=== PATIENT | female | born 1960 | race Two or more races ===

== ENCOUNTER 2022-11-05 10:56 | Inpatient (IN) | payer MEDICAID, OTHER ==
[~2022-11-05] VITALS: Ht 154.9 cm; Wt 62.0 kg
[2022-11-05] MEDS ORDERED: HYDROmorphone HCL 2 MG/ML VL/or syr IV ONE ×2 (11:15→14:45)
[2022-11-05] MEDS ORDERED: LORazepam 2MG/ML-1ML VIAL IV ONE (11:15)
[2022-11-05] MEDS ORDERED: ONDANSETRON HCL 4 MG/2 ML VIAL IV ONE (11:15)
[2022-11-05] MEDS ORDERED: SODIUM CHLORIDE 0.9% 1,000 ML IV ONE (11:15)
[2022-11-05 11:38] LABS: Basophils # (auto) 0 10 ^3/uL (0-0.2); Basophils % (auto) 0.4 % (0.0-2.0); Eosinophils # (auto) 0.1 10 ^3/uL (0-0.8); Eosinophils % (auto) 0.6 % (0.0-7.0); Hematocrit 43.5 % (36.0-46.0); Hemoglobin 14.6 g/dL (12.2-16.2); Lymphocytes % (auto) 31.6 % (10.0-50.0); Mean Corpuscular Hemoglobin 30.5 pg (28.0-32.0); Mean Corpuscular Hgb Conc. 33.6 g/dL (32.0-36.0); Mean Corpuscular Volume 90.8 fL (80.0-100.0); Monocytes # (auto) 0.4 10 ^3/uL (0-1.3); Monocytes % (auto) 4.5 % (0.0-12.0); Neutrophils # (auto) 5.9 10 ^3/uL (1.6-8.6); Neutrophils % (auto) 62.9 % (37.0-80.0); Nucleated Red Blood Cells % 0.2 %; Red Blood Cells 4.79 10^6/uL (4.0-5.20); Red Cell Distribution Width 13.2 % (11.8-14.3); White Blood Cell 9.3 10^3/uL (4.4-10.8)
[2022-11-05 11:52] VITALS: PULSE 61; O2SAT 98
[2022-11-05 12:04] LABS: Albumin 4.3 g/dL (3.4-5.0); Calcium 9.4 mg/dL (8.5-10.1); Potassium 4.2 mmol/L (3.5-5.1)
[2022-11-05 12:08] LABS: BUN/Creatinine Ratio 28.4 (10.0-20.0); Bilirubin, Total 0.6 mg/dL (0.2-1.0); Total Protein 8.3 g/dL (6.4-8.2)
[2022-11-05] MEDS ORDERED: IOHEXOL 300 MG/ML 100ML BOTTLE IJ ONE (14:56)
[2022-11-05] MEDS ORDERED: ANTIVENIN LATRODECTUS MACTANS KIT IV ONE ×2 (16:15)
[2022-11-05] MEDS ORDERED: LORazepam 2MG/ML-1ML VIAL IV PRN (16:30)
[2022-11-05] MEDS ORDERED: ONDANSETRON HCL 4 MG/2 ML VIAL IV PRN (16:30)
[2022-11-05] MEDS ORDERED: HYDROmorphone HCL 2 MG/ML VL/or syr IV PRN (16:30)
[2022-11-05] MEDS ORDERED: DEXTROSE (50%) 50ML SYRG IV PRN (16:30)
[2022-11-05] MEDS ORDERED: TETANUS-DIPTH-ACEL PERTUSSIS 0.5ML SYR Tdap IM ONE (16:30)
[2022-11-05] MEDS ORDERED: ACCU-CHEK COMFORT CURVE STRIP VI SCH (17:00)
[2022-11-05] MEDS ORDERED: InsuLIN REG 1unit/0.01ml Soln (100units/ml) SC SCH (17:00)
[2022-11-05 20:00] VITALS: BP 162/80; PULSE 72; RESP 12; TEMP 98.5; O2SAT 95
== END 2022-11-05 20:15 | disposition left against medical advice (07) | DRG 816 ==
LOC: ER 10:56 → EDBD 10:56 → TELE 16:24
PROVIDERS: ADMIT Nurse Practitioner Family; ATTEND Nurse Practitioner Family
DX: T63.311A Toxic effect of venom of black widow spider, accidental (unintentional), initial encounter (principal); E86.0 Dehydration; S90.862A Insect bite (nonvenomous), left foot, initial encounter; F41.9 Anxiety disorder, unspecified; Y92.096 Garden or yard of other non-institutional residence as the place of occurrence of the external cause; R73.9 Hyperglycemia, unspecified; Z85.118 Personal history of other malignant neoplasm of bronchus and lung; R91.1 Solitary pulmonary nodule; Z53.29 Procedure and treatment not carried out because of patient's decision for other reasons
CPT/HCPCS: 36415; 71045; 71260; 74177; 80053; 82550; 84484; 85025; 90715; G0378; J1815; J2405

== ENCOUNTER 2024-06-16 04:50 | Inpatient (IN) | payer MEDICARE, MEDICAID ==
[2024-06-16] VITALS (29 sets, daily range): BP systolic 119–154; BP diastolic 63–99; PULSE 82–102; RESP 14–26; TEMP 98.1–99.8; O2SAT 90–100
[~2024-06-16] VITALS: Ht 160 cm; Wt 62.5 kg
[2024-06-16] MEDS: HEPARIN SODIUM (PORCINE) 5000 UNITS/ML 1ML VIAL IV ONE (05:15)
--- NOTE | 2024-06-16 05:21 | ED.PDOC ---
HPI Comments 64 y/o F presents with c/o sternal chest pain that radiates to her left-chest wall, today. Patient is a Ukrainian speaker and endorses on sudden and unprovoked onset of pain at around 2300, last night. She comments on having no prior history of pain or any significant cardiac Chief Complaint: Chest Pain Time Seen by MD: 05:00 Primary Care Provider: NONE Reviewed Notes: Nurses Notes, Medications, Allergies Allergies: Coded Allergies: NO KNOWN ALLERGIES (Unverified , 11/05/22) Information Source: Patient Mode of Arrival: Ambulatory Severity: Moderate Timing: Hours Duration: Since onset Prehospital treatment: None Past Medical History PAST MEDICAL HISTORY: Cancer (stage IV lung cancer) Surgical History: Denies all surgeries PARKING PATROLLER History: No Pertinent PARKING PATROLLER History Family History Family History: Reviewed,noncontributory to illness Social History Smoker: Non-Smoker Alcohol: Denies ETOH Use Drugs: Denies Drug Use Lives In: Home Cardiovascular: reports: chest pain All Other Systems: Reviewed and Negative (negative unless otherwise stated above or in HPI) Physical Exam General Appearance: Normal, Severe Distress HEENT: Normal ENT Inspection, Pharynx Normal, TMs Normal Neck: Full Range of Motion, Non-Tender, Normal, Normal Inspection Respiratory: Chest Non-Tender, Lungs Clear, No Accessory Muscle Use, No Respiratory Distress, Normal Breath Sounds, Other (increase rate) Cardiovascular: No Edema, No JVD, No Murmur, No Gallop, Normal Peripheral Pulses, Regular Rate/Rhythm Breast Exam: Deferred Gastrointestinal: No Organomegaly, Non Tender, No Pulsatile Mass, Normal Bowel Sounds, Soft Genitalia: Deferred Pelvic: Deferred Rectal: Deferred Extremities: No calf tenderness, Normal capillary refill, Normal inspection, Normal range of motion, Non-tender, No pedal edema Musculoskeletal : Apperance: Normal Neurologic: Alert, sheeting puller II-XII nml as Tested, No Motor Deficits, Normal Affect, Normal Mood, No Sensory Deficits Cerebellar Function: Normal Reflexes: Normal Skin: Dry, Normal Color, Warm Lymphatic: No Adenopathy EKG EKG : Pulse Rate (adult): 94 [place]: Normal Cardiac Rhythm: NSR Block: None Hypertrophy: None ST: New, Inf, Infarct Comments ST changes in leads aVF Was a procedure done? Was a procedure done?: No CP Differential Dx Differential Diagnosis: N/A Differential Diagnosis: Chest Wall Pain, Costochondritis, Myocardial Infarction, Pericarditis, Pulmonary Embolus X-Ray, Labs, Meds, VS Vital Signs Date Time Temp Pulse Resp B/P (MAP) Pulse Ox O2 Delivery O2 Flow Rate FiO2 06/16/24 05:13 96.7 94 26 174/78 (110) 98 Lab Test 06/16/24 05:00 Range/Units White Blood Count Pending Red Blood Count Pending Hemoglobin Pending Hematocrit Pending Mean Corpuscular Volume Pending Mean Corpuscular Hemoglobin Pending Mean Corpuscular Hemoglobin Concent Pending Red Cell Distribution Width Pending Platelet Count Pending Mean Platelet Volume Pending Neutrophils (%) (Auto) Pending Lymphocytes (%) (Auto) Pending Monocytes (%) (Auto) Pending Basophils (%) (Auto) Pending Neutrophils # (Auto) Pending Lymphocytes # (Auto) Pending Monocytes # (Auto) Pending Prothrombin Time Pending Prothrombin Time INR Pending Activated Partial Thromboplast Time Pending Sodium Level Pending Potassium Level Pending Chloride Level Pending Carbon Dioxide Level Pending Anion Gap Pending Blood Urea Nitrogen Pending Creatinine Pending Glomerular Filtration Rate Calc Pending BUN/Creatinine Ratio Pending Serum Glucose Pending Calcium Level Pending Magnesium Level Pending Total Bilirubin Pending Aspartate Amino Transferase (AST) Pending Alanine Aminotransferase (ALT) Pending Alkaline Phosphatase Pending Troponin I High Sensitivity Pending Total Protein Pending Albumin Pending Time of 1ST Reevaluation: 05:15 Reevaluation 1ST: Unchanged Patient Education/Counseling: Diagnosis, Treatment Family Education/Counseling: No Family Present Departure 1 Departure Time of Disposition: 05:23 Impression: Primary Impression: Acute myocardial infarction Additional Impression: Lung cancer Disposition: ADMITTED INPATIENT Admit to: ICU Condition: Critical Discharged With: Self Comments Acute Chest Pain with Inferior STEMI Chief Complaint: Chest pain History of Present Illness: Patient is a 64-year-old female with history of lung cancer who presents with acute onset substernal chest pain. The patient started a new chemotherapy medication (Tagrisso) yesterday. Over the last 5-6 hours, she developed severe substernal chest pain described as pressure-like and crushing in nature. The pain has shown minimal improvement with medication administration in the ED. Review of Systems: Limited due to acute presentation Cardiovascular: Positive for chest pain, substernal, pressure-like and crushing in nature Medications: 1. Tagrisso (started yesterday) 2. ED medications administered: - Aspirin - Heparin 3, 000 units IV bolus - Morphine 4mg IV - Zofran 4mg IV Imaging and Other Relevant Results: EKG: ST elevations in leads II, III, and aVF (1-2mm in amplitude), consistent with inferior wall STEMI Medical Decision Making: Summary Statement: 64-year-old female with lung cancer on new Tagrisso therapy p resenting with acute onset chest pain and EKG changes consistent with inferior wall STEMI. Problem List: 1. Acute inferior wall STEMI 2. Lung cancer on Tagrisso 3. Acute chest pain Differential Diagnosis: 1. Acute coronary syndrome/STEMI 2. Chemotherapy-induced cardiotoxicity 3. Coronary vasospasm 4. Acute pulmonary embolism ED Course: Patient presented with severe chest pain. EKG showed inferior wall STEMI. Dr. Steinberg (cardiology) was consulted and reviewed the case. Shared decision-making discussion held with patient. Initial treatment included aspirin, heparin 3000 units IV bolus, morphine 4mg IV, and Zofran 4mg IV. Patient accepted plan for emergency cardiac catheterization. Assessment and Plan: 1. Acute Inferior Wall STEMI: - Emergency cardiac catheterization arranged with Dr. Steinberg - Initial stabilization with aspirin and heparin completed - Pain management with morphine initiated 2. Lung Cancer on Tagrisso: - Will need to evaluate potential relationship between new medication and cardiac event - Oncology consultation to be considered after stabilization 3. 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 This critical care time included obtaining a hi story; examining the patient; pulse oximetry; ordering and review of studies; arranging urgent treatment with development of a management plan; evaluation of patient's response to treatment; frequent reassessment; and, discussions with other providers. This critical care time was performed to assess and manage the high probability of imminent, life-threatening deterioration that could result in multi-organ failure. It was exclusive of separately billable procedures and treating other patients. Stability Stability form required: No Heart Score Heart Score: Heart Score Response (Comments) Value History Highly Suspicious [address]-Deviation 2 Age >65 2 Risk Factors 1 or 2 risk factors 1 Troponin 1-2 x's Normal limit 1 Total 8 I personally scribed for JUAN KEANE MD ([email or web address]) on 06/16/24 at 05:21. Electronically submitted by Darnell Prieto ([email or web address]). JUAN KEANE MD Jun 16, 2024 05:21
[2024-06-16] MEDS: SODIUM CHLOR 0.9% PF (SALINE LOCK) 10ML VIAL/SYR IV SCH (05:29)
[2024-06-16] MEDS: ASPirin 325 MG TAB PO ONE (05:29)
[2024-06-16] MEDS: ONDANSETRON HCL 4 MG/2 ML VIAL IV ONE (05:29)
[2024-06-16] MEDS: MORPHINE SULFATE 4 MG/ML SYR/VIAL IV ONE (05:32)
[2024-06-16 05:35] LABS: Basophils # (auto) 0 10 ^3/uL (0-0.2); Basophils % (auto) 0.2 % (0.0-2.0); Eosinophils # (auto) 0 10 ^3/uL (0-0.8); Eosinophils % (auto) 0.1 % (0.0-7.0); Hematocrit 31.5 % (36.0-46.0); Hemoglobin 10.2 g/dL (12.2-16.2); Lymphocytes # (auto) 1.2 10 ^3/uL (0.4-5.4); Lymphocytes % (auto) 9.5 % (10.0-50.0); Mean Corpuscular Hemoglobin 27.8 pg (28.0-32.0); Mean Corpuscular Hgb Conc. 32.3 g/dL (32.0-36.0); Mean Corpuscular Volume 85.9 fL (80.0-100.0); Monocytes # (auto) 0.4 10 ^3/uL (0-1.3); Neutrophils # (auto) 11.4 10 ^3/uL (1.6-8.6); Neutrophils % (auto) 87.2 % (37.0-80.0); Platelet Count (auto) 436 10^3/uL (140-450); Red Blood Cells 3.66 10^6/uL (4.0-5.20); Red Cell Distribution Width 14.8 % (11.8-14.3); White Blood Cell 13.1 10^3/uL (4.4-10.8)
[2024-06-16] MEDS: fentaNYL CITRATE 100 MCG/2 ML VL ONE (05:41)
[2024-06-16] MEDS: VERAPAMIL 2.5MG/ML INJ 2ML VIAL IV ONE (05:41)
[2024-06-16] MEDS: ANGIOMAX 250 MG VIAL IV ONE (05:41)
[2024-06-16] MEDS: SODIUM CHL 0.9% 50 ML ONE (05:42)
[2024-06-16] MEDS: MIDAZOLAM HCL 2MG/2ML 2ml VIAL (1mg/ml) ONE (05:42)
[2024-06-16] MEDS: LIDOCAINE 2%HCL (LOCAL ANESTH.) INJ 20ML MDV ONE (05:42)
--- NOTE | 2024-06-16 05:43 | DVHINCON2 ---
Date of service: Jun 16, 2024 History of Present Illness 64 yo F with hx of lung cancer on recent new chemo coming in for chest pain overnigth for few hours to middle of chest. pt speaks welsh and translator interpreter on phone with us. i recommended to call code stemi. pt is in moderate distress. family refuses all blood products. little hx othewise obtained. Past Medical History not provided Past Surgical History NA Allergies: Coded Allergies: NO KNOWN ALLERGIES (Unverified , 11/05/22) Current Medications Current Medications Medications (Trade) Dose Ordered Sig/Nitin Route PRN Reason Start Time Stop Time Status Last Admin Sodium Chloride (Saline Lock Ns) 10 ml Q8HR IV 06/16/24 06:00 06/16/24 05:29 Review of Systems +chest rubén, +sob, +weakness Vital Signs Vital Signs Date Time Temp Pulse Resp B/P (MAP) Pulse Ox O2 Delivery O2 Flow Rate FiO2 06/16/24 05:32 94 26 174/78 06/16/24 05:13 96.7 98 Physical Exam moderate distress pt sitting up labored breathing s1 s2 rrr diffuse rhonchi, decreased breath sounds R > L abd soft nt +1 leg edema BL Labs/Diagnostic Data Labs Test 06/16/24 05:00 Range/Units Assessment inferior stemi/ code stemi metastatic lung cancer per notes white out R lung resp distress Plan/Recommendation very high risk pt for cv morbidity and i spoke to them with translator interpreter her resp status and cxr appears bad iv heparin given asa furtherr ecs to follow or family member understands her critical nature no labs back, cannot rule out severe anemia or low pancytopenia and pt refuses all blood products this is a salvage case 90 mins critical care time spent Plan discussed with: Patient, Spouse, Other (rn) TAY MORENO MD Jun 16, 2024 05:43
[2024-06-16 05:45] LABS: INR 0.94 (0.9-1.15); Partial Thromboplastin Time 31.9 SEC (24.5-34.5)
--- NOTE | 2024-06-16 05:48 | DVH ---
CHEST RADIOGRAPH Indication: CP Technique: Single frontal view of the chest was obtained COMPARISON: XY CHEST PORTABLE on DOS: 11/05/22 FINDINGS: Lines and Tubes: None Lungs: Hazy opacification of the right hemithorax. Pleura: Small right pleural effusion. No pneumothorax. Cardiomediastinal contours: Unremarkable Bones: Unremarkable IMPRESSION: Small right pleural effusion. Possible superimposed right lung airspace disease.
[2024-06-16 05:59] LABS: Alanine Aminotransferase 14 U/L (7-40); Albumin 4.1 g/dL (3.2-4.8); Alkaline Phosphatase 93 U/L (46-116); Anion Gap 10 (5-15); Aspartate Aminotransferase 38 U/L (13-40); BUN/Creatinine Ratio 18.1 (10.0-20.0); Blood Urea Nitrogen 15 mg/dL (9-23); Calcium 9.9 mg/dL (8.7-10.4); Carbon Dioxide 25 mmol/L (20-31); Chloride 99 mmol/L (98-107); Magnesium 2.2 mg/dL (1.6-2.6); Potassium 4.1 mmol/L (3.5-5.1)
[2024-06-16 06:00] LABS: Bilirubin, Total 0.4 mg/dL (0.2-1.0); Total Protein 7.3 g/dL (5.7-8.2)
[2024-06-16 06:18] LABS: Glucose 290 mg/dL (74-106); Sodium 134 mmol/L (136-145)
[2024-06-16] MEDS: TICAGRELOR 90 MG TAB ONE (06:56)
--- NOTE | 2024-06-16 07:13 | DVHOP2 ---
Operative Report Operative Report CARDIAC LIVE AMMUNITION INSPECTOR PROCEDURE REPORT [place], [place] Date of Service: 06/16/24 Pile Header: Rom Moreno MD PROCEDURES PERFORMED: Coronary angiogram, left heart catheterization, conscious sedation administration and supervision, less than 15 minutes; fluoroscopy use and interpretation. sedation 15-30 mins , sedation 31-45 mins, sedatio 46-60 mins, PTCA 1 vessel, PCI1 vessel, acute ME intervention, intracoronary nitrog lycerin admin injection PREOPERATIVE DIAGNOSES: STEMI inferior POSTOP DIAGNOSIS: stemi DESCRIPTION OF PROCEDURE: The patient or appropriate family signed informed consent understanding the risks, benefits and alternatives of the procedure, they wished to proceed. The patient was brought to the cardiac concrete mixing plant laborer in n.p.o. state. The patient was prepped in a sterile fashion. Sedation was used per cardiac cath protocol. I administered 2 mL of 2% lidocaine to the right wrist. With an antegrade front wall puncture. I cannulated the right radial artery and placed a 6-Azeri Glidesheath slender. Next, an intra-arterial spasmolytic was administered. Next, a - 6French TJR4 and XB 3.0 guide and were used for coronary angiogram At the completion of procedure, all guides and wires were removed, and there were no immediate complications. 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 ostial LM has 30% stenosis CIRCUMFLEX: Moderate caliber vessel coming off the left main . mid CX is acutely occluded erin 0 flow and culprit vessel. large thrombus noted LAD: LAD is a moderate caliber vessel coming of the left main. ostial LAD has a 90% stenosis, prox to mid LAD has tandem 85% stenosis, distal LAD is severely disease 80-90% INTERVENTION: We decided to proceed with coronary intervention. I started with a 6F __XB3__ Guide to intubate the LM __. Angiomax bolus and gtt was started. Following this, I decided to wire using an .014 BMW across the culprit lesion with ease. At this time, we performed balloon angioplasty with a _2.25 x 15 mm balloon up to __10 _ ATMS over __15__ seconds with _2_ number of inflations. Following this, I decided to place a stent using a 3.0 x 26 mm mm onyx____ stent inflated up to __18___ ATMS over 15 seconds with two separate inflations. Following this, the stent balloon removed and angio performed showing 0% res idual stenosis. I decided to cover the distal stent with a 2.5 x 15 mm dolly josé luis up to 16 atms with 2 inflations and then ptca between the two stents with excellent result ERIN pre/post: 0./3 CONCLUSIONS: 1. sp PCI to acutely occluded mid CX and 2 JOSÉ LUIS placed and erin 0 to erin 3 flow 2. critical multivessel CAD PLAN: Aggressive risk factor modification and medical management for the patient. DAPT x 1 year uninterrupted ROM MORENO MD Jun 16, 2024 07:13
[2024-06-16] MEDS ORDERED: NITROGLYCERIN 0.4 MG SL TAB SL PRN (07:15)
[2024-06-16] MEDS ORDERED: MORPHINE SULFATE INJ 2 MG/ml SYRG IV PRN (07:15)
--- NOTE | 2024-06-16 12:43 | DVHHP2 ---
Review of Systems Allergies: Coded Allergies: NO KNOWN ALLERGIES (Unverified , 11/05/22) Medications Current Medications Medications Dose Ordered Sig/Nitin Route Start Time Stop Time Status Last Admin Dose Admin Sodium Chloride 10 ml Q8HR IV 06/16/24 06:00 06/16/24 05:29 10 ML Nitroglycerin 0.4 mg Q5MINP PRN SL 06/16/24 07:15 Morphine Sulfate 2 mg Q30M PRN IV 06/16/24 07:15 Aspirin 81 mg DAILY PO 06/17/24 10:00 Clopidogrel Bisulfate 75 mg DAILY PO 06/17/24 10:00 Atorvastatin Calcium 40 mg HS PO 06/16/24 22:00 UNV Metoprolol Tartrate 25 mg BID PO 06/16/24 22:00 UNV Albuterol 2.5 mg Q6HWA NEB 06/16/24 18:00 UNV Ipratropium [place] 0.5 mg Q6HWA NEB 06/16/24 18:00 UNV Diagnostic Test (Pha) 1 strip ACHS 06/16/24 17:00 UNV Insulin Human Regular HS SC 06/16/24 22:00 UNV Insulin Human Regular AC SC 06/16/24 17:00 UNV Dextrose 50 ml UD PRN IV 06/16/24 12:45 UNV Exam Vital Signs Vital Signs Date Time Temp Pulse Resp B/P (MAP) Pulse Ox O2 Delivery O2 Flow Rate FiO2 06/16/24 09:00 91 16 150/80 (103) 06/16/24 08:00 98 06/16/24 06:47 98.1 98.1 06/16/24 05:25 Nasal Cannula* 2 28 Labs/Xrays Labs Test 06/16/24 09:32 06/16/24 05:00 Range/Units Troponin I High Sensitivity > 96877 *H </=34 ng/L White Blood Count 13.1 H 4.4-10.8 10^3/uL Red Blood Count 3.66 L 4.0-5.20 10^6/uL Hemoglobin 10.2 L 12.2-16.2 g/dL Hematocrit 31.5 L 36.0-46.0 % Mean Corpuscular Volume 85.9 80.0-100.0 fL Mean Corpuscular Hemoglobin 27.8 L 28.0-32.0 pg Mean Corpuscular Hemoglobin Concent 32.3 32.0-36.0 g/dL Red Cell Distribution Width 14.8 H 11.8-14.3 % Platelet Count 436 140-450 10^3/uL Mean Platelet Volume 6.8 L 6.9-10.8 fL Neutrophils (%) (Auto) 87.2 H 37.0-80.0 % Lymphocytes (%) (Auto) 9.5 L 10.0-50.0 % Monocytes (%) (Auto) 3.0 0.0-12.0 % Eosinophils (%) (Auto) 0.1 0.0-7.0 % Basophils (%) (Auto) 0.2 0.0-2.0 % Neutrophils # (Auto) 11.4 H 1.6-8.6 10 ^3/uL Lymphocytes # (Auto) 1.2 0.4-5.4 10 ^3/uL Monocytes # (Auto) 0.4 0-1.3 10 ^3/uL Eosinophils # (Auto) 0 0-0.8 10 ^3/uL Basophils # (Auto) 0 0-0.2 10 ^3/uL Nucleated Red Blood Cells 0.0 % Prothrombin Time 10.0 9.3-11.8 sec Prothrombin Time INR 0.94 0.9-1.15 Activated Partial Thromboplast Time 31.9 24.5-34.5 SEC Sodium Level 134 L 136-145 mmol/L Potassium Level 4.1 3.5-5.1 mmol/L Chloride Level 99 98-107 mmol/L Carbon Dioxide Level 25 20-31 mmol/L Anion Gap 10 5-15 Blood Urea Nitrogen 15 9-23 mg/dL Creatinine 0.83 0.550-1.02 mg/dL Glomerular Filtration Rate Calc 78 >90 mL/min BUN/Creatinine Ratio 18.1 10.0-20.0 Serum Glucose 290 H 74-106 mg/dL Calcium Level 9.9 8.7-10.4 mg/dL Magnesium Level 2.2 1.6-2.6 mg/dL Total Bilirubin 0.4 0.2-1.0 mg/dL Aspartate Amino Transferase (AST) 38 13-40 U/L Alanine Aminotransferase (ALT) 14 7-40 U/L Alkaline Phosphatase 93 46-116 U/L Total Protein 7.3 5.7-8.2 g/dL Albumin 4.1 3.2-4.8 g/dL Assessment/Plan Assessment/Plan see dictated note Plan discussed with: Patient, Daughter My Orders Orders - DAPHNE ROSAS MD Procedure Category Date Status Time Atorvastatin (Lipitor) PHA 06/16/24 Logged 22:00 Metoprolol Tartrate PHA 06/16/24 Logged Tablet (Lopressor Ta 22:00 Albuterol Medneb PHA 06/16/24 Transmitted (Ventolin Medneb) 18:00 Ipratropium Medneb PHA 06/16/24 Transmitted (Atrovent Medneb) 18:00 Glucose Blood PHA 06/16/24 Logged (Accu-Chek Comfort 17:00 Insulin R (Human) PHA 06/16/24 Logged (Insulin R) 22:00 Insulin R (Human) PHA 06/16/24 Logged (Insulin R) 17:00 Dextrose 50% Syringe PHA 06/16/24 Logged 12:45 Consistent DIET 06/16/24 Transmitted Carb(Ccho)Diabetes Lunch Urine Dip ED NURSING 06/16/24 Transmitted Complete Blood Count LAB 06/17/24 Verified 06:00 Comprehensive LAB 06/17/24 Verified Metabolic Panel 06:00 Hemoglobin A1c LAB 06/17/24 Verified 06:00 Chest Portable XY 06/17/24 Logged 06:00 Date of Service: Jun 16, 2024 Billing Provider: DAPHNE ROSAS MD Common Visit Codes: [id number]-[id number] CARE 30-74 MIN DAPHNE ROSAS MD Jun 16, 2024 12:43
[2024-06-16] MEDS ORDERED: DEXTROSE (50%) 50ML SYRG IV PRN (12:45)
[2024-06-16] MEDS ORDERED: ACETAMINOPHEN 325 MG TAB PO PRN (12:45)
[2024-06-16] MEDS ORDERED: ONDANSETRON HCL 4 MG/2 ML VIAL IV PRN (12:45)
--- NOTE | 2024-06-16 13:10 | DVHHP ---
ADMIT DATE: 06/16/2024 HISTORY OF PRESENT ILLNESS: The patient is a 64-year-old lady who was admitted after she had ongoing chest pain going on for several hours. The details of her history were obtained from her daughter as the patient is primarily Mohawk speaking. As per the daughter, the patient recently was started on chemotherapy for right lung cancer. The patient has been experiencing intermittent chest pain for several weeks. Yesterday, the pain got increasingly intense, at which point the patient came to the Emergency Room. No history of dizziness or syncope. No history of nausea or vomiting. REVIEW OF SYSTEMS: Review of rest of systems are otherwise currently negative. PAST MEDICAL HISTORY: Significant for diagnosis of right lung cancer. The patient is status post bronchoscopy, status post thoracentesis. The patient recently started chemo. She also has a history of diabetes. MEDICATIONS: Unknown at this time. ALLERGIES: No known drug allergies. SOCIAL HISTORY: The patient lives at home with her . No history of smoking or alcohol. FAMILY HISTORY: Negative. PHYSICAL EXAMINATION: GENERAL: The patient is awake, alert. VITAL SIGNS: Temperature of 98.1, pulse 91 per minute, blood pressure 150/80. SHEENT: Unremarkable. NECK: There is no JVD, no pedal edema. LUNGS: Diminished air entry on the right side. CARDIOVASCULAR: S1, S2 is regular. No murmurs. ABDOMEN: Soft. There is no organomegaly. NEUROLOGIC: Nonfocal. MUSCULOSKELETAL: Normal. ASSESSMENT AND PLAN: * Acute myocardial infarction, status post coronary angiography with stent placement in the circumflex. The patient will continue on aspirin and Plavix. * Diabetes mellitus. She will be placed on sliding scale insulin and the hemoglobin A1c will be checked. * Right lung cancer, status post chemotherapy. * Anemia. * Systemic inflammatory response syndrome likely secondary to acute myocardial infarction. Critical care time spent including review of information was 41 minutes. MD EVANGELINA Ramos/ARYAN TID: [id number] RECEIPT: [id number]
--- NOTE | 2024-06-16 13:46 | ECG ---
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
[2024-06-16] MEDS: CLOPIDOGREL BISULFATE 75 MG TAB PO ONE (14:50)
[2024-06-16] MEDS: InsuLIN REG 1unit/0.01ml Soln (100units/ml) SC SCH ×2 (18:13→22:05)
[2024-06-16] MEDS: ACCU-CHEK COMFORT CURVE STRIP VI SCH (18:13)
[2024-06-16] MEDS: IPRATROPIUM BROM 0.5 MG/2.5ML INH SOL NEB SCH (19:00)
[2024-06-16] MEDS: ALBUTEROL SULF 2.5 MG/0.5ML(0.5%) NEB SOLN NEB SCH (19:00)
[2024-06-16] MEDS: TEMAZEPAM 15 MG CAP PO PRN (19:54)
[2024-06-16] MEDS: METOPROLOL TARTRATE 25 MG TAB PO SCH (22:00)
[2024-06-16] MEDS: ATORVASTATIN 20 MG TAB PO SCH (22:02)
[2024-06-17] VITALS (26 sets, daily range): BP systolic 87–120; BP diastolic 55–70; PULSE 74–94; RESP 14–31; TEMP 98.2–99; O2SAT 93–100
[2024-06-17 05:03] LABS: Alanine Aminotransferase 33 U/L (7-40); Albumin 3.7 g/dL (3.2-4.8); Alkaline Phosphatase 83 U/L (46-116); Anion Gap 11 (5-15); BUN/Creatinine Ratio 14.8 (10.0-20.0); Bilirubin, Total 0.4 mg/dL (0.2-1.0); Blood Urea Nitrogen 12 mg/dL (9-23); Carbon Dioxide 22 mmol/L (20-31); Chloride 101 mmol/L (98-107); Cholesterol 108 mg/dL (< 200); LDL Cholesterol 57 mg/dL (< 100); Potassium 4.2 mmol/L (3.5-5.1); Total Protein 6.6 g/dL (5.7-8.2); Triglycerides 93 mg/dL (< 150)
[2024-06-17 05:04] LABS: Aspartate Aminotransferase 177 U/L (13-40); Glucose 155 mg/dL (74-106); HDL Cholesterol 40 mg/dL (40-59); Sodium 134 mmol/L (136-145)
--- NOTE | 2024-06-17 05:07 | DVH ---
CHEST RADIOGRAPH Indication: lung cancer Technique: Single frontal view of the chest was obtained COMPARISON: XY CHEST PORTABLE on DOS: 06/16/24, XY CHEST PORTABLE on DOS: 11/05/22 FINDINGS: Lines and Tubes: None Lungs: Mild congestion Pleura: Small right pleural effusion. No pneumothorax. Cardiomediastinal contours: Unremarkable Bones: Unremarkable IMPRESSION: Small right pleural effusion.
[2024-06-17 05:22] LABS: Basophils # (auto) 0 10 ^3/uL (0-0.2); Basophils % (auto) 0.1 % (0.0-2.0); Eosinophils # (auto) 0.1 10 ^3/uL (0-0.8); Eosinophils % (auto) 0.7 % (0.0-7.0); Hematocrit 30.1 % (36.0-46.0); Hemoglobin 9.2 g/dL (12.2-16.2); Lymphocytes # (auto) 2.1 10 ^3/uL (0.4-5.4); Lymphocytes % (auto) 17.3 % (10.0-50.0); Mean Corpuscular Hemoglobin 26.8 pg (28.0-32.0); Mean Corpuscular Hgb Conc. 30.7 g/dL (32.0-36.0); Mean Corpuscular Volume 87.4 fL (80.0-100.0); Monocytes # (auto) 0.6 10 ^3/uL (0-1.3); Monocytes % (auto) 5.1 % (0.0-12.0); Neutrophils # (auto) 9.4 10 ^3/uL (1.6-8.6); Neutrophils % (auto) 76.8 % (37.0-80.0); Platelet Count (auto) 439 10^3/uL (140-450); Red Blood Cells 3.44 10^6/uL (4.0-5.20); Red Cell Distribution Width 14.9 % (11.8-14.3); White Blood Cell 12.3 10^3/uL (4.4-10.8)
[2024-06-17] MEDS: PANTOPRAZOLE 40 MG TAB PO SCH (06:09)
[2024-06-17] MEDS: TAGRISSO 80 MG PO SCH (08:39)
[2024-06-17] MEDS: ASPirin 81 mg TAB PO SCH (10:54)
[2024-06-17] MEDS: CLOPIDOGREL BISULFATE 75 MG TAB PO SCH (10:58)
--- NOTE | 2024-06-17 14:49 | DVHPN2 ---
Progress Note Date Seen: Jun 17, 2024 Medical Necessity Reason Pt with a Central, PICC or Fol: No Subjective Patient reports: No new complaints Review of Systems: HEENT:Normal, CVS:Normal, RESPIRATORY:Normal, GI:Normal, :Normal, MSK:Normal, NEURO:Normal Objective vital signs Vital Sign Date Time Temp Pulse Resp B/P (MAP) Pulse Ox O2 Delivery O2 Flow Rate FiO2 06/17/24 12:00 98.6 82 25 117/68 (84) 96 98.6 06/17/24 12:00 Room Air* 0 21 Total Intake and Output 06/16/24 06/16/24 06/17/24 15:00 23:00 07:00 Intake Total 300 ml 800 ml Output Total 1200 ml Balance 300 ml -400 ml medications Current Medications Medications Dose Ordered Sig/Nitin Route Start Time Stop Time Status Last Admin Dose Admin Sodium Chloride 10 ml Q8HR IV 06/16/24 06:00 06/17/24 05:37 10 ML Nitroglycerin 0.4 mg Q5MINP PRN SL 06/16/24 07:15 Morphine Sulfate 2 mg Q30M PRN IV 06/16/24 07:15 Aspirin 81 mg DAILY PO 06/17/24 10:00 06/17/24 10:54 81 MG Clopidogrel Bisulfate 75 mg DAILY PO 06/17/24 10:00 06/17/24 10:58 75 MG Atorvastatin Calcium 40 mg HS PO 06/16/24 22:00 06/16/24 22:02 40 MG Metoprolol Tartrate 25 mg BID PO 06/16/24 22:00 06/17/24 10:55 25 MG Albuterol 2.5 mg Q6HWA NEB 06/16/24 18:00 06/17/24 11:31 2.5 MG Ipratropium [place] 0.5 mg Q6HWA NEB 06/16/24 18:00 06/17/24 11:31 0.5 MG Diagnostic Test (Pha) 1 strip ACHS 06/16/24 17:00 06/17/24 11:01 1 STRIP Insulin Human Regular HS SC 06/16/24 22:00 06/16/24 22:05 4 UNITS Insulin Human Regular AC SC 06/16/24 17:00 06/17/24 11:05 6 UNITS Dextrose 50 ml UD PRN IV 06/16/24 12:45 Acetaminophen 650 mg Q6HP PRN PO 06/16/24 12:45 Ondansetron HCl 4 mg Q6HPRN PRN IV 06/16/24 12:45 Pantoprazole Sodium 40 mg DAILY@0600 PO 06/17/24 06:00 06/17/24 06:09 40 MG Patient Own Medication 1 DAILY PO 06/17/24 10:00 Temazepam 15 mg HSPRN PRN PO 06/16/24 17:30 06/16/24 19:54 15 MG Examination: GENERAL:Normal, HEENT:Normal, NECK:Normal, LUNGS:Normal, LUNGS:Abnormal (DECREASED RIGHT SIDE), CVS:Normal, ABDOMEN:Normal, MSK:Normal, SKIN:Normal, NEURO:Normal, :Normal laboratory and microbiology Laboratory Tests 06/17/24 03:11 Test 06/17/24 03:11 Range/Units Serum Glucose 155 H 74-106 mg/dL Problem List/Assessment/Plan Problem List/Assessment/Plan * Acute myocardial infarction, status post coronary angiography with stent placement in the circumflex. The patient will continue on aspirin and Plavix. * Diabetes mellitus. She will be placed on sliding scale insulin and the hemoglobin A1c will be checked. * Right lung cancer, status post chemotherapy/ right lung collapse * Anemia. * Systemic inflammatory response syndrome likely secondary to acute myocardial infarction. advance care planning- full code- time spent 19 mins Plan discussed with: Patient, Daughter My Orders My Orders Orders - DAPHNE ROSAS MD Procedure Category Date Status Time Patients Own PHA 06/17/24 In Process Medication 10:00 Mrsa Screen LOKESH 06/16/24 In Process 17:34 Transfer Orders XFER 06/17/24 Verified 14:46 Basic Metabolic Panel LAB 06/18/24 Verified 06:00 Complete Blood Count LAB 06/18/24 Verified 06:00 Date of Service: Jun 17, 2024 Billing Provider: DAPHNE ROSAS MD Common Visit Codes: [id number] INP/OBS CARE(HIGH) Secondary Visit Codes: [id number] CARE PLAN 30 MINUTES DAPHNE ROSAS MD Jun 17, 2024 14:49
[2024-06-17 15:32] LABS: Urine Bacteria None Seen /hpf (None Seen)
[2024-06-17 15:44] LABS: Urine Blood Negative /uL (Negative); Urine Clarity Clear (Clear); Urine Color Light-Yellow (Yellow); Urine Protein, UAD Negative (Negative); Urine Specific Gravity 1.014 (1.001-1.035); Urine Squamous Epithelial Cell None Seen /hpf (<5); Urine Urobilinogen Normal (Negative); Urine WBC < 1 /HPF (0-5)
[2024-06-18] VITALS (10 sets, daily range): BP systolic 100–130; BP diastolic 59–87; PULSE 69–83; RESP 16–20; TEMP 97.6–98.6; O2SAT 93–100
[2024-06-18 05:52] LABS: Basophils # (auto) 0 10 ^3/uL (0-0.2); Basophils % (auto) 0.5 % (0.0-2.0); Eosinophils # (auto) 0.3 10 ^3/uL (0-0.8); Eosinophils % (auto) 3.2 % (0.0-7.0); Hematocrit 33.5 % (36.0-46.0); Hemoglobin 10.7 g/dL (12.2-16.2); Lymphocytes % (auto) 21.9 % (10.0-50.0); Mean Corpuscular Hemoglobin 27.3 pg (28.0-32.0); Mean Corpuscular Hgb Conc. 31.9 g/dL (32.0-36.0); Mean Corpuscular Volume 85.6 fL (80.0-100.0); Monocytes # (auto) 0.6 10 ^3/uL (0-1.3); Monocytes % (auto) 6.4 % (0.0-12.0); Neutrophils # (auto) 6.1 10 ^3/uL (1.6-8.6); Platelet Count (auto) 410 10^3/uL (140-450); Red Blood Cells 3.92 10^6/uL (4.0-5.20); Red Cell Distribution Width 14.6 % (11.8-14.3)
[2024-06-18 06:10] LABS: Chloride 104 mmol/L (98-107); Potassium 4.2 mmol/L (3.5-5.1); Sodium 138 mmol/L (136-145)
[2024-06-18 06:11] LABS: Anion Gap 8 (5-15); Calcium 9.5 mg/dL (8.7-10.4); Carbon Dioxide 26 mmol/L (20-31)
[2024-06-18 06:16] LABS: Blood Urea Nitrogen 15 mg/dL (9-23)
[2024-06-18 06:32] LABS: Glucose 154 mg/dL (74-106)
--- NOTE | 2024-06-18 10:35 | DVHDS2 ---
Discharge Summary Date of Admission Jun 16, 2024 at 07:05 Date of Discharge: Jun 18, 2024 Labs/Diagnostic Data: Laboratory Results Test 06/18/24 05:51 06/18/24 05:13 06/17/24 15:10 06/17/24 03:11 POC Glucose 150 mg/dl (70-106) White Blood Count 9.0 10^3/uL (4.4-10.8) Red Blood Count 3.92 10^6/uL (4.0-5.20) Hemoglobin 10.7 g/dL (12.2-16.2) Hematocrit 33.5 % (36.0-46.0) Mean Corpuscular Volume 85.6 fL (80.0-100.0) Mean Corpuscular Hemoglobin 27.3 pg (28.0-32.0) Mean Corpuscular Hemoglobin Concent 31.9 g/dL (32.0-36.0) Red Cell Distribution Width 14.6 % (11.8-14.3) Platelet Count 410 10^3/uL (140-450) Mean Platelet Volume 7.1 fL (6.9-10.8) Neutrophils (%) (Auto) 68.0 % (37.0-80.0) Lymphocytes (%) (Auto) 21.9 % (10.0-50.0) Monocytes (%) (Auto) 6.4 % (0.0-12.0) Eosinophils (%) (Auto) 3.2 % (0.0-7.0) Basophils (%) (Auto) 0.5 % (0.0-2.0) Neutrophils # (Auto) 6.1 10 ^3/uL (1.6-8.6) Lymphocytes # (Auto) 2.0 10 ^3/uL (0.4-5.4) Monocytes # (Auto) 0.6 10 ^3/uL (0-1.3) Eosinophils # (Auto) 0.3 10 ^3/uL (0-0.8) Basophils # (Auto) 0 10 ^3/uL (0-0.2) Nucleated Red Blood Cells 0.0 % Sodium Level 138 mmol/L (136-145) Potassium Level 4.2 mmol/L (3.5-5.1) Chloride Level 104 mmol/L (98-107) Carbon Dioxide Level 26 mmol/L (20-31) Anion Gap 8 (5-15) Blood Urea Nitrogen 15 mg/dL (9-23) Creatinine 0.75 mg/dL (0.550-1.02) Glomerular Filtration Rate Calc 88 mL/min (>90) BUN/Creatinine Ratio 20.0 (10.0-20.0) Serum Glucose 154 mg/dL (74-106) Calcium Level 9.5 mg/dL (8.7-10.4) Urine Color Light-yellow (Yellow) Urine Clarity Clear (Clear) Urine pH 6.0 (5.0-9.0) Urine Specific [place] 1.014 (1.001-1.035) Urine Protein Negative (Negative) Urine Ketones Negative (Negative) Urine Blood Negative /uL (Negative) Urine Nitrite Negative (Negative) Urine Bilirubin Negative (Negative) Urine Urobilinogen Normal mg/dL (Negative) Urine Leukocyte Esterase Negative /uL (Negative) Urine RBC None seen /hpf (0 - 4) Urine Microscopic WBC < 1 /HPF (0-5) Urine Squamous Epithelial Cells None seen /hpf (<5) Urine Bacteria None seen /hpf (None Seen) Urine Glucose Normal mg/dL (Normal) Hemoglobin A1c 7.1 % A1C (<5.7) Total Bilirubin 0.4 mg/dL (0.2-1.0) Aspartate Amino Transferase (AST) 177 U/L (13-40) Alanine Aminotransferase (ALT) 33 U/L (7-40) Alkaline Phosphatase 83 U/L (46-116) Troponin I High Sensitivity 59322 ng/L (</=34) Total Protein 6.6 g/dL (5.7-8.2) Albumin 3.7 g/dL (3.2-4.8) Triglycerides Level 93 mg/dL (< 150) Cholesterol Level 108 mg/dL (< 200) LDL Cholesterol 57 mg/dL (< 100) HDL Cholesterol 40 mg/dL (40-59) Test 06/16/24 05:00 Prothrombin Time 10.0 sec (9.3-11.8) Prothrombin Time INR 0.94 (0.9-1.15) Activated Partial Thromboplast Time 31.9 SEC (24.5-34.5) Magnesium Level 2.2 mg/dL (1.6-2.6) Other Laboratory Tests 06/18/24 05:13 Brief Hx & Hospital Course: see dictated note Condition at Discharge: Fair Final Diagnosis/Problems List cad s/p stent Discharge Disposition: Home Discharge Instruct/Medications Diet: Cardiac 2g Na,low cholest Activity: No Restrictions, As Tolerated Follow Up/Referral: fu with cardiology/oncology/pulmonary Medications: resume home meds script to pharmacy Discharge Statement: "Patient was advised to return to the ER or call 911 if any headaches, dizziness, shortness of breath, chest pain, abdominal pain, bleeding, fevers, or worsening of medical condition. Patient was counseled about treatment plan, medications, possible side effects, patientverbalized understanding. All questions were answered to the best of my ability. This discharge took greater then 30 minutes in planning, reviewing documentation, counseling the patient, and discussing with other team members." ASSESSMENT ASSESSMENT Assessment cad s/p stent Date of Service: Jun 18, 2024 Billing Provider: DAPHNE ROSAS MD Common Visit Codes: 10832-YUJ/OBS DISCH DAY >30min DAPHNE ROSAS MD Jun 18, 2024 10:35
[2024-06-18] MEDS ORDERED: METO25TA36 PO (10:40)
[2024-06-18] MEDS ORDERED: ASPI1TAB20 PO (10:40)
[2024-06-18] MEDS ORDERED: CLOP75TA28 PO (10:40)
[2024-06-18] MEDS ORDERED: ATOR-507 PO (10:40)
--- NOTE | 2024-06-18 11:22 | DVHDS ---
DATE OF DISCHARGE: 06/18/2024 HISTORY OF PRESENT ILLNESS: The patient is a 64-year-old lady who was admitted with complaints of chest pain and has recent history of right lung cancer, status post chemo as well as diabetes mellitus. HOSPITAL COURSE: The patient had troponin levels that were elevated. The patient underwent coronary angiography by Dr. Steinberg. The patient had stents placed in the mid circumflex with 2 drug-eluting stents placed. The patient had a right lung that was significantly occluded with small right pleural effusion. The patient has had no further chest pain. The patient has had some hemoptysis. Hemoglobin at the time of discharge is 10.7. I discussed with her daughter as well as Dr. Steinberg. The plan is for the patient to be discharged to follow up with her Oncology and supervisor metal cans at [facility] for further treatment for her lung cancer, which is likely triggering her hemoptysis. The patient will be discharged on aspirin 81 mg daily, Lipitor 40 mg at bedtime, Plavix 75 mg daily, Toprol-XL 25 mg daily and she will resume the rest of her home medications. FINAL DIAGNOSES: Therefore, * Acute myocardial infarction, status post coronary angiography and stent placement. * Diabetes mellitus. * Right lung cancer with right lung collapse, status post chemotherapy. * Anemia. * Systemic inflammatory response syndrome, likely secondary to acute myocardial infarction. Time spent in discharge planning and review of plan with the patient, family and documentum consultant was 39 minutes. MD EVANGELINA Ramos/AUGUSTIN/MICKEY TID: [id number] RECEIPT: [id number]
--- NOTE | 2024-06-18 12:12 | DVHPN2 ---
Progress Note Date Seen: Jun 18, 2024 Medical Necessity Reason Pt with a Central, PICC or Fol: No Subjective Other Systems: pt coughing a lot spoke to dr hernandez Objective vital signs Vital Sign Date Time Temp Pulse Resp B/P (MAP) Pulse Ox O2 Delivery O2 Flow Rate FiO2 06/18/24 11:49 69 16 100 06/18/24 11:41 Room Air 0.0 06/18/24 11:41 21 06/18/24 10:15 116/87 06/18/24 09:04 97.9 97.9 Total Intake and Output 06/17/24 06/17/24 06/18/24 15:00 23:00 07:00 Intake Total 300 ml Balance 300 ml medications Current Medications Medications Dose Ordered Sig/Ntiin Route Start Time Stop Time Status Last Admin Dose Admin Sodium Chloride 10 ml Q8HR IV 06/16/24 06:00 06/18/24 05:59 10 ML Nitroglycerin 0.4 mg Q5MINP PRN SL 06/16/24 07:15 Morphine Sulfate 2 mg Q30M PRN IV 06/16/24 07:15 Aspirin 81 mg DAILY PO 06/17/24 10:00 06/18/24 10:39 81 MG Clopidogrel Bisulfate 75 mg DAILY PO 06/17/24 10:00 06/18/24 10:39 75 MG Atorvastatin Calcium 40 mg HS PO 06/16/24 22:00 06/17/24 20:45 40 MG Metoprolol Tartrate 25 mg BID PO 06/16/24 22:00 06/18/24 10:15 25 MG Albuterol 2.5 mg Q6HWA NEB 06/16/24 18:00 06/18/24 11:41 2.5 MG Ipratropium Challenge 0.5 mg Q6HWA NEB 06/16/24 18:00 06/18/24 11:41 0.5 MG Diagnostic Test (Pha) 1 strip ACHS 06/16/24 17:00 06/18/24 05:51 1 STRIP Insulin Human Regular HS SC 06/16/24 22:00 06/17/24 20:56 3 UNITS Insulin Human Regular AC SC 06/16/24 17:00 06/18/24 05:51 2 UNITS Dextrose 50 ml UD PRN IV 06/16/24 12:45 Acetaminophen 650 mg Q6HP PRN PO 06/16/24 12:45 Ondansetron HCl 4 mg Q6HPRN PRN IV 06/16/24 12:45 Pantoprazole Sodium 40 mg DAILY@0600 PO 06/17/24 06:00 06/18/24 05:59 40 MG Patient Own Medication 1 DAILY PO 06/17/24 10:00 Hold Temazepam 15 mg HSPRN PRN PO 06/16/24 17:30 06/16/24 19:54 15 MG Examination: GENERAL:Abnormal, HEENT:Normal, LUNGS:Abnormal, CVS:Abnormal, ABDOMEN:Abnormal laboratory and microbiology Laboratory Tests 06/18/24 05:13 Test 06/18/24 05:13 Range/Units Serum Glucose 154 H 74-106 mg/dL Microbiology Date/Time Source Procedure Growth Status 06/16/24 17:34 Nose MRSA Screen - Final Complete Problem List/Assessment/Plan Problem List/Assessment/Plan stemi lung cancer htn new onset chf cxr prior to stemi showed near white out to R lung and lot of coughing, stat stemi with pci to CX/OM cad ---severe 3v cad, very high risk for repeat intervention, cont dapt, statin lung cancer--pt needs to see her pulm jarrett for possible stenting . hemoptysis--cont dapt for now. watch hgb cough - per primary service new onset chf--lvef 40% on echo with WMA, BB added, consider adding GDMT if pt can tolerate, consider jardiance, silvana, aldactone Plan discussed with: Other (rn) Date of Service: Jun 18, 2024 Billing Provider: TAY MORENO MD Common Visit Codes: NOT BILLABLE TAY MORENO MD Jun 18, 2024 12:12
--- NOTE | 2024-06-19 13:59 | ECG ---
[facility] Test Date: 2024-06-17 Test Time: 06:22:21 Pat Name: AUGIE COLLINS Department: icu Room: 0214T A Gender: F [employer] Worker: : 1960 Requested By: DAPHNE ROSAS Order Number: [id number] Reading MD: Saurav Choe Measurements Intervals [place] Rate: 80 P: 50 [place]: 155 QRS: 100 QRSD: 96 T: -42 QT: 413 QTc: 477 Interpretive Statements Sinus rhythm Low voltage, extremity leads Electronically Signed On 06-20-2024 15:57:55 PST by Saurav Choe Please click the below link to view image of tracing.
== END 2024-06-18 15:40 | disposition home or self-care (01) | DRG 321 ==
LOC: ER 04:50 → OVERFLOW 07:05 → ICU WEST 18:12 → TELE-CENTR 06-17 16:00
PROVIDERS: ADMIT Internal Medicine; ATTEND Internal Medicine
PROC: 027035Z Dilation of Coronary Artery, One Artery with Two Drug-eluting Intraluminal Devices, Percutaneous Approach (ICD-10-PCS; principal; 2024-06-16)
PROC: B211YZZ Fluoroscopy of Multiple Coronary Arteries using Other Contrast (ICD-10-PCS; 2024-06-16)
PROC: 3E033PZ Introduction of Platelet Inhibitor into Peripheral Vein, Percutaneous Approach (ICD-10-PCS; 2024-06-16)
PROC: 4A023N7 Measurement of Cardiac Sampling and Pressure, Left Heart, Percutaneous Approach (ICD-10-PCS; 2024-06-16)
DX: I21.19 ST elevation (STEMI) myocardial infarction involving other coronary artery of inferior wall (principal); I50.31 Acute diastolic (congestive) heart failure; R65.11 Systemic inflammatory response syndrome (SIRS) of non-infectious origin with acute organ dysfunction; C34.91 Malignant neoplasm of unspecified part of right bronchus or lung; J98.19 Other pulmonary collapse; R04.2 Hemoptysis; I25.10 Atherosclerotic heart disease of native coronary artery without angina pectoris; I11.0 Hypertensive heart disease with heart failure; D64.9 Anemia, unspecified; E11.9 Type 2 diabetes mellitus without complications; Z79.899 Other long term (current) drug therapy; Z79.82 Long term (current) use of aspirin; Z79.4 Long term (current) use of insulin; Z92.21 Personal history of antineoplastic chemotherapy
CPT/HCPCS: 36415; 71045; 80048; 80053; 80061; 81001; 82962; 83036; 83735; 84484; 85025; 85610; 85730; 87081; 92941; 93005; 93306; 93458; 94640; 96374; 96375; 99152; 99291; C1874; G0378; J1815; J2250; J2405

== ENCOUNTER 2024-06-25 16:52 | Inpatient (IN) | payer MEDICARE, MEDICAID ==
[~2024-06-25] VITALS: Ht 160 cm; Wt 64.5 kg
[~2024-06-25 16:52] MED LIST: ASPI1TAB20 PO; ATOR-507 PO; CLOP75TA28 PO; METO25TA36 PO
--- NOTE | 2024-06-25 17:16 | ED.PDOC ---
SOB-HPI HPI Comments 64y M who presents to the ED for chief complaint of shortness of breath. Per pt daughter via phone, pt has history of lung cancer dx May and states she has started this AM to receive new antibody therapy shot today. Pt was told this hew antibody therapy has possible side effect of lung damage. Pt had shot of new medication at 11 AM and states at around 2 PM, she started to have shortness of breath which got progressively worse and pt was brought by to the ED. Pt daughter states pt cancer has metastasized. Pt otherwise noted to have cough but denies any other symptoms. Pt had DE at [facility] 1 week prior and states she was hospitalized with stent placement. Pt otherwise denies any other symptoms at this time. Time Seen by MD: 17:11 Primary Care Provider: NONE Reviewed notes: Nurses Notes, Medications, Allergies Information Source: Patient, Relative, Spouse Mode of Arrival: Wheelchair Brought in by: Severity: Moderate Timing: Minutes, Hours Duration: Since onset Context: At Rest, With Light Exertion PE Risk Factors: Recent Surgery History of: Immunosuppression Prehospital treatment: None Modifying Factors: Nothing Associated Signs and Symptoms: Cough, Nasal Congestion If cough with SOB: Productive Past Medical History PAST MEDICAL HISTORY: Cancer, DM, High Lipids, HTN, TIA Surgical History: CABG, Denies all surgeries SALES ACCOUNT MANAGER History: No Pertinent SALES ACCOUNT MANAGER History Family History Family History: Reviewed,noncontributory to illness Social History Smoker: Non-Smoker Alcohol: Denies ETOH Use Drugs: Denies Drug Use Lives In: Home Constitutional: denies: chills, diaphoresis, fatigue, fever, malaise, sweats, weakness, others EENTM: denies: blurred vision, double vision, ear bleeding, ear discharge, ear drainage, ear pain, ear ringing, eye pain, eye redness, hearing loss, mouth pain, mouth swelling, nasal discharge, nose bleeding, nose congestion, nose pain, photophobia, tearing, throat pain, throat swelling, voice changes, others Respiratory: reports: cough, shortness of breath; denies: hemoptysis, orthopnea, SOB at rest, SOB with excertion, stridor, wheezing, others Cardiovascular: denies: chest pain, dizzy spells, diaphoresis, Dyspnea on exertion, edema, irregular heart beat, left arm pain, lightheadedness, palpitations, PND, syncope, others Gastrointestinal: denies: abdomen distended, abdominal pain, blood streaked bowels, constipated, diarrhea, dysphagia, difficulty swallowing, hematemesis, melena, nausea, poor appetite, poor fluid intake, rectal bleeding, rectal pain, vomiting, others Genitourinary: denies: abnormal vagina bleeding, burning, dyspareunia, dysuria, flank pain, frequency, hematuria, incontinence, pain, , vagina discha rge, urgency, others Neurological: denies: dizziness, fainting, headache, left sided numbness, left sided weakness, numbness, paresthesia, pre-existing deficit, right sided numbness, right sided weakness, seizure, speech problems, tingling, tremors, weakness, others Musculoskeletal: denies: back pain, gout, joint pain, joint swelling, muscle pain, muscle stiffness, neck pain, others Integumetry: denies: bruises, change in color, change in hair/nails, dryness, laceration, lesions, lumps, rash, wounds, others Allergic/Immunocompromised: denies: Difficulty Healing, Frequent Infections, Hives, Itching, others Hematologic/Lymphatic: denies: anemia, blood clots, easy bleeding, easy bruising, swollen glands, others Endocrine: denies: excessive hunger, excessive sweating, excessive thirst, excessive urination, flushing, intolerance to cold, intolerance to heat, unexplained weight gain, unexplained weight loss, others Psychiatric: denies: anxiety, bipolar disorder, depression, hopeless, panic disorder, schizophrenia, sleepless, suicidal, others All Other Systems: Reviewed and Negative Physical Exam General Appearance: Moderate Distress HEENT: Normal ENT Inspection, Pharynx Normal, TMs Normal Neck: Full Range of Motion, Non-Tender, Normal, Normal Inspection Respiratory: Chest Non-Tender, Decreased Breath Sounds (Right side), No Accessory Muscle Use, Respiratory Distress, Rhonchi Cardiovascular: No Edema, No JVD, No Murmur, No Gallop, Normal Peripheral Pulses, Regular Rate/Rhythm Breast Exam: Deferred Gastrointestinal: No Organomegaly, Non Tender, No Pulsatile Mass, Normal Bowel Sounds, Soft Genitalia: Deferred Pelvic: Deferred Rectal: Deferred Extremities: No calf tenderness, Normal capillary refill, Normal inspection, Normal range of motion, Non-tender, No pedal edema Musculoskeletal : Apperance: Normal Neurologic: Alert, alterations manager II-XII nml as Tested, Motor Weakness, Normal Affect, Normal Mood, No Sensory Deficits Cerebellar Function: Normal Reflexes: Normal Skin: Dry, Normal Color, Warm Lymphatic: No Adenopathy EKG EKG : Pulse Rate (adult): 91 [place]: Normal Cardiac Rhythm: NSR Block: None Hypertrophy: None ST: Normal Was a procedure done? Was a procedure done?: No Differential Dx Differential Diagnosis: Bronchitis, Hyperventilation, Myocardial infarction, Pneumonia, Pulmonary Embolism, Respiratory Distress, URI Comments chemotherapy side effect, X-Ray, Labs, Meds, VS Vital Signs Date Time Temp Pulse Resp B/P (MAP) Pulse Ox O2 Delivery O2 Flow Rate FiO2 06/25/24 17:16 91 06/25/24 17:10 98 Room Air* 0 21 06/25/24 17:06 91 06/25/24 17:05 98.4 94 18 166/76 (106) 98 Lab Test 06/25/24 17:12 Range/Units White Blood Count 7.7 4.4-10.8 10^3/uL Red Blood Count 3.88 L 4.0-5.20 10^6/uL Hemoglobin 10.8 L 12.2-16.2 g/dL Hematocrit 33.5 L 36.0-46.0 % Mean Corpuscular Volume 86.2 80.0-100.0 fL Mean Corpuscular Hemoglobin 27.8 L 28.0-32.0 pg Mean Corpuscular Hemoglobin Concent 32.2 32.0-36.0 g/dL Red Cell Distribution Width 14.9 H 11.8-14.3 % Platelet Count 384 140-450 10^3/uL Mean Platelet Volume 6.9 6.9-10.8 fL Neutrophils (%) (Auto) 65.3 37.0-80.0 % Lymphocytes (%) (Auto) 24.6 10.0-50.0 % Monocytes (%) (Auto) 7.1 0.0-12.0 % Eosinophils (%) (Auto) 2.2 0.0-7.0 % Basophils (%) (Auto) 0.8 0.0-2.0 % Neutrophils # (Auto) 5.0 1.6-8.6 10 ^3/uL Lymphocytes # (Auto) 1.9 0.4-5.4 10 ^3/uL Monocytes # (Auto) 0.5 0-1.3 10 ^3/uL Eosinophils # (Auto) 0.2 0-0.8 10 ^3/uL Basophils # (Auto) 0.1 0-0.2 10 ^3/uL Nucleated Red Blood Cells 0.1 % D-Dimer, Quantitative 3.90 H 0.0-0.49 mg/L FEU Sodium Level 136 136-145 mmol/L Potassium Level 5.0 3.5-5.1 mmol/L Chloride Level 103 98-107 mmol/L Carbon Dioxide Level 29 20-31 mmol/L Anion Gap 4 L 5-15 Blood Urea Nitrogen 16 9-23 mg/dL Creatinine 0.89 0.550-1.02 mg/dL Glomerular Filtration Rate Calc 72 >90 mL/min BUN/Creatinine Ratio 18.0 10.0-20.0 Serum Glucose 213 H 74-106 mg/dL Calcium Level 9.7 8.7-10.4 mg/dL B-Type Natriuretic Peptide 233.41 0-100 pg/mL The chest x-ray shows: IMPRESSION: 1. Slightly improving right pleural effusion airspace disease We ordered an ultrasound of the right chest for pleural effusion We consulted Dr. Aleman who is the vice president business development on-call and he will be coming to perform a thoracentesis The CBC shows anemia with a hemoglobin of 10.8 The chemistry panel is within normal limits The D-dimer is elevated at 3.9 which could be reflective of the patient's lung cancer At this time, the patient was placed on room air saturating at 98% At this time, the patient will be admitted to the hospitalist We have discussed the findings through an certified court/medical interpreter with the patient and she is in agreement with the management. Critical care time was bedside management Also critical care time was discussion with the sfdc consultant. Critical care time was reviewing the imaging as well as laboratory results and decision making We are adding a PT/PTT Images Reviewed?: Images reviewed and evaluated by me Time of 1ST Reevaluation: 17:45 Reevaluation 1ST: Unchanged Patient Education/Counseling: Diagnosis, Treatment, Prognosis Family Education/Counseling: Diagnosis, Treatment, Prognosis Departure 1 Departure Time of Disposition: 18:51 Impression: Primary Impression: Acute respiratory failure Qualified Codes: J96.00 - Acute respiratory failure, unspecified whether with hypoxia or hypercapnia Additional Impression: Pleural effusion, right Disposition: 09 ADMITTED INPATIENT Admit to: Tele Condition: Fair Critical Care Note Critical Care Time?: Yes (45 min-critical care time only) Stability Stability form required: Yes Unstable for transfer: Telemetry monitoring (Telemetry monitoring required), ED Physician Assesment (Clinical assesment) Heart Score Heart Score: Heart Score Response (Comments) Value History Slightly Suspicious 0 EKG Normal 0 Age >65 2 Risk Factors >3 or Hx ASHD 2 Troponin Normal limit 0 Total 4 I personally scribed for GABRIELLA ALY MD ([email or web address]) on 06/25/24 at 17:16. Electronically submitted by Param Hicks ([email or web address]). GABRIELLA ALY MD Jun 25, 2024 17:16
--- NOTE | 2024-06-25 17:33 | DVH ---
XY CHEST TWO VIEWS ROUTINE CLINICAL HISTORY: sob COMPARISON: None TECHNIQUE: Frontal and lateral view of the chest was obtained FINDINGS: Lines and Tubes: None Lungs: Slowly improving right pleural effusion airspace disease when compared to 06/17/2024.. Pleura: No effusion. No pneumothorax. Cardiomediastinal contours: Unremarkable Bones: No acute osseous abnormality. IMPRESSION: 1. Slightly improving right pleural effusion airspace disease
[2024-06-25 17:38] LABS: Basophils # (auto) 0.1 10 ^3/uL (0-0.2); Basophils % (auto) 0.8 % (0.0-2.0); Eosinophils # (auto) 0.2 10 ^3/uL (0-0.8); Eosinophils % (auto) 2.2 % (0.0-7.0); Hematocrit 33.5 % (36.0-46.0); Hemoglobin 10.8 g/dL (12.2-16.2); Lymphocytes # (auto) 1.9 10 ^3/uL (0.4-5.4); Lymphocytes % (auto) 24.6 % (10.0-50.0); Mean Corpuscular Hemoglobin 27.8 pg (28.0-32.0); Mean Corpuscular Hgb Conc. 32.2 g/dL (32.0-36.0); Mean Corpuscular Volume 86.2 fL (80.0-100.0); Monocytes # (auto) 0.5 10 ^3/uL (0-1.3); Monocytes % (auto) 7.1 % (0.0-12.0); Neutrophils % (auto) 65.3 % (37.0-80.0); Nucleated Red Blood Cells % 0.1 %; Platelet Count (auto) 384 10^3/uL (140-450); Red Blood Cells 3.88 10^6/uL (4.0-5.20); Red Cell Distribution Width 14.9 % (11.8-14.3); White Blood Cell 7.7 10^3/uL (4.4-10.8)
[2024-06-25 17:41] LABS: Chloride 103 mmol/L (98-107); Sodium 136 mmol/L (136-145)
[2024-06-25 17:42] LABS: Anion Gap 4 (5-15); Carbon Dioxide 29 mmol/L (20-31)
[2024-06-25 17:43] LABS: Calcium 9.7 mg/dL (8.7-10.4)
[2024-06-25 17:47] LABS: Blood Urea Nitrogen 16 mg/dL (9-23)
[2024-06-25 18:07] LABS: Glucose 213 mg/dL (74-106)
--- NOTE | 2024-06-25 18:07 | DVH ---
RIGHT Chest Sonogram Date: 06/25/2024 05:45 PM Clinical history: PLEURAL EFFUSION TECHNIQUE: Multiple longitudinal and transverse images through the right chest were obtained. Images submitted: 6 Findings: Limited sonographic evaluation of the RIGHT chest was performed to localize and arsenio fluid for thorac entesis. There is a LARGE RIGHT pleural effusion. A fluid pocket in the RIGHT chest. IMPRESSION: 1. LARGE RIGHT PLEURAL EFFUSION
[2024-06-25 18:30] VITALS: PULSE 92; RESP 17; O2SAT 94
[2024-06-25 19:28] LABS: INR 0.92 (0.9-1.15); Partial Thromboplastin Time 27.4 SEC (24.5-34.5); Prothrombin Time 9.8 sec (9.3-11.8)
--- NOTE | 2024-06-25 19:38 | DVHINCON2 ---
Date of service: Jun 25, [address] Scott Reason for Consultation Recurrent right pleural effusion, malignant History of Present Illness A 64-year-old woman with past medical history of hypertension, type 2 DM, lung cancer, coronary artery disease, [place] s/p KIRIT x2 who presents to ED today with chief complaint of shortness of breath starting today. Patient is a non-Greek speaker, history obtained from daughter on phone call. Reported patient recently has been diagnosed with lung cancer in April 2024 and initially started on Tagrisso, but due to adverse events was discontinued and started on erlotinib today. Patient was recently admitted to this facility last week due to VT, performed PTCA with 2 stents and discharged with DAPT. Daughter reports today after taking erlotinib, pt started having severe shortness of breath and suffocation, itchy, prompting visit to ED. ED workup noted large right pleural effusion, drained 800 mL of fluids from right lung. Patient with recent hx of pleural effusion in May with thoracentesis. She was admitted for further care and pulmonary consultation is requested for evaluation and management d/t the above findings. Review of Systems: 14-point review of systems negative unless otherwise noted above. Past Medical History: Hypertension, type 2 DM, lung cancer, coronary artery disease, VT s/p KIRIT x2. Past Surgical History: PTCA with KIRIT x2 Medications: Reviewed. Allergies: No known drug allergies. Family History: Family history of lung cancer. Social History: Nonsmoker. Occasional alcohol use. No illicit drug use. Family History: FH: lung cancer Allergies: Coded Allergies: NO KNOWN ALLERGIES (Unverified , 11/05/22) Home Meds Active Scripts Metoprolol Succinate (Toprol Xl) 25 Mg Tab, 25 MG PO DAILY for 30 Days, #30 TAB 3 Refills Prov:DAPHNE ROSAS MD 06/18/24 Atorvastatin Calcium (Lipitor) 40 Mg Tab, 40 MG PO QPM for 30 Days, #30 TAB 3 Refills Prov:DAPHNE ROSAS MD 06/18/24 Clopidogrel Bisulfate (Plavix) 75 Mg Tab, 75 MG PO DAILY for 30 Days, #30 TAB 3 Refills Prov:DAPHNE ROSAS MD 06/18/24 Aspirin (Aspir-81) 81 Mg Tab, 1 TAB PO DAILY for 30 Days, #30 TAB 3 Refills Prov:DAPHNE ROSAS MD 06/18/24 Reported Medications Erlotinib Hydrochloride (Erlotinib Hydrochloride) 150 Mg Tab, 150 MG PO, TAB 06/26/24 Vital Signs Vital Signs Date Time Temp Pulse Resp B/P (MAP) Pulse Ox O2 Delivery O2 Flow Rate FiO2 06/25/24 18:30 99.0 92 17 168/89 (115) 96 99.0 06/25/24 17:10 Room Air* 0 21 Physical Exam Gen.: Patient lying in bed in no apparent distress. He is breathing comfortably on room air. Head: Normocephalic, atraumatic Eyes: EOMI/PERRLA. Ears: Normal hearing. Normal anatomy. Neck/trachea: Trachea midline, supple. Nose: Normal external anatomy. Mouth: Moist mucous membranes. Chest: Fair air entry bilaterally. No wheezing or rhonchi. Dullness to percussion in mid to lower lung mullins on the right. Cardio vascular: Positive S1, positive S2. Regular rate and rhythm. Abdomen: Positive bowel sounds in all 4 quadrants. Soft, non-tender, non- distended. : Deferred. Rectal: Deferred Skin: Warm, dry. Extremities: 2+ radial pulses bilaterally. No lower extremity edema. Neuro: Awake, alert, oriented x3. No gross motor or sensory deficits. Cranial nerves II through XII intact. Gait not assessed. Labs/Diagnostic Data Labs Test 06/25/24 17:12 Range/Units White Blood Count 7.7 4.4-10.8 10^3/uL Red Blood Count 3.88 L 4.0-5.20 10^6/uL Hemoglobin 10.8 L 12.2-16.2 g/dL Hematocrit 33.5 L 36.0-46.0 % Mean Corpuscular Volume 86.2 80.0-100.0 fL Mean Corpuscular Hemoglobin 27.8 L 28.0-32.0 pg Mean Corpuscular Hemoglobin Concent 32.2 32.0-36.0 g/dL Red Cell Distribution Width 14.9 H 11.8-14.3 % Platelet Count 384 140-450 10^3/uL Mean Platelet Volume 6.9 6.9-10.8 fL Neutrophils (%) (Auto) 65.3 37.0-80.0 % Lymphocytes (%) (Auto) 24.6 10.0-50.0 % Monocytes (%) (Auto) 7.1 0.0-12.0 % Eosinophils (%) (Auto) 2.2 0.0-7.0 % Basophils (%) (Auto) 0.8 0.0-2.0 % Neutrophils # (Auto) 5.0 1.6-8.6 10 ^3/uL Lymphocytes # (Auto) 1.9 0.4-5.4 10 ^3/uL Monocytes # (Auto) 0.5 0-1.3 10 ^3/uL Eosinophils # (Auto) 0.2 0-0.8 10 ^3/uL Basophils # (Auto) 0.1 0-0.2 10 ^3/uL Nucleated Red Blood Cells 0.1 % Prothrombin Time 9.8 9.3-11.8 sec Prothrombin Time INR 0.92 0.9-1.15 Activated Partial Thromboplast Time 27.4 24.5-34.5 SEC D-Dimer, Quantitative 3.90 H 0.0-0.49 mg/L FEU Sodium Level 136 136-145 mmol/L Potassium Level 5.0 3.5-5.1 mmol/L Chloride Level 103 98-107 mmol/L Carbon Dioxide Level 29 20-31 mmol/L Anion Gap 4 L 5-15 Blood Urea Nitrogen 16 9-23 mg/dL Creatinine 0.89 0.550-1.02 mg/dL Glomerular Filtration Rate Calc 72 >90 mL/min BUN/Creatinine Ratio 18.0 10.0-20.0 Serum Glucose 213 H 74-106 mg/dL Calcium Level 9.7 8.7-10.4 mg/dL B-Type Natriuretic Peptide 233.41 0-100 pg/mL Assessment Impression Acute hypoxic respiratory failure Recurrent malignant right pleural effusion Atelectasis Lung cancer Plan: Limited chest ultrasound demonstrated [id number] right pleural effusion. Obtained informed consent via deputy sheriff bailiff. Patient is green speaking. All questions answered in detail to her satisfaction. With full knowledge of the risks and benefits, patient agreed for procedure. Right thoracentesis was performed. See separate procedure note for full details. Drain 900 mL of yellow-colored fluid. Stopped due to patient discomfort. Possibility of loculated/trapped right lung. Stat chest x-ray was ordered postprocedure. It was still pending. Pain control. Avoid over-sedation. Incentive spirometry. Bronchodilators Achieve euvolemia. Monitor ins and outs. Monitor renal function. Monitor electrolytes. Supplement as necessary. DVT prophylaxis. Prognosis: Poor given multiple comorbidities. Rest of plan per hospitalist and other consultants. Thank you Dr. Scott for allowing me to participate in this patient's care. Further recommendations will depend on patient's clinical course. Please do not hesitate to contact me if you have any questions or concerns. This medical document was created using an electronic medical record system with [employer] dictation system. Although this document has been carefully reviewed, there may still be some phonetic and typographical errors. These areas are purely typographical due to imperfections of the software programs, and do not reflect any compromise in the patient's medical care. Plan discussed with: Patient, Other (RN, MD) CANDACE VILLELA MD Jun 25, 2024 19:38
--- NOTE | 2024-06-25 19:40 | DVHNC2 ---
Procedure - ULTRASOUND-GUIDED RIGHT THORACENTESIS PROCEDURE NOTE: PHYSICIAN: DR Stacy VILLELA TIME OUT TIME: 1914 PATIENT MEDICATIONS AND ALLERGIES REVIEWED. THE RISKS AND BENEFITS OF THE PROCE DURE AND THE SEDATION OPTIONS AND RISK WERE DISCUSSED WITH THE PATIENT via oral and maxillofacial surgery (Divehi). ALL QUESTIONS WERE ANSWERED AND INFORMED CONSENT WAS OBTAINED. PATIENT IDENTIFICATION AND PROPOSED PROCEDURE WERE VERIFIED PRIOR TO THE PROCEDURE BY THE PHYSICIAN, AND A NURSE IN THE PATIENT'S ROOM. THE HEART RATE, RESPIRATORY RATE, OXYGEN SATURATIONS, BLOOD PRESSURE, ADEQUACY OF PUL MONARY VENTILATION, AND RESPONSE TO CARE WERE MONITORED THROUGHOUT THE PROCEDURE. THE PHYSICAL STATUS OF THE PATIENT WAS RE-ASSESSED AFTER THE PROCEDURE. DATE: 06/25/24 CONSENT: CONSENT WAS OBTAINED FROM PATIENT PRIOR TO PROCEDURE. INDICATION, RISKS, AND BENEFITS WERE EXPLAINED AT LENGTH. PROCEDURE SUMMARY: A TIME OUT WAS PERFORMED AND A CHEST X-RAY WAS REVIEWED PRIOR TO PROCEDURE. THE APPROPRIATE SITE WAS CONFIRMED AND MARKED. MY HANDS WERE WASHED IMMEDIATELY PRIOR TO THE PROCEDURE, I WORE A SURGICAL CAP, MASK WITH PROTECTIVE EYEWEAR, STERILE GOWN AND STERILE GLOVES THROUGHOUT THE PROCEDURE. THE PATIENT WAS PREPPED AND DRAPED IN A STERILE MANNER USING CHLORHEXIDINE SCRUB AFTER THE APPROPRIATE LEVEL WAS PERCUSSED AND CONFIRMED BY ULTRASOUND. 1% LIDOCAINE WAS USED TO ANESTHETIZE THE SKIN, SUBCUTANEOUS TISSUE, SUPERIOR ASPECT OF THE RIB PERIOSTEUM AND PARIETAL PLEURA. A FINDER NEEDLE WAS THEN INTRODUCED OVER THE SUPERIOR ASPECT OF THE RIB TO LOCATE THE PLEURAL FLUID; YELLOW FLUID WAS ASPIRATED. THORACENTESIS NEEDLE WAS THEN INTRODUCED THROUGH THE SKIN INCISION INTO THE PLEURAL SPACE USING NEGATIVE ASPIRATION PRESSURE. THE THORACENTESIS CATHETER WAS THEN THREADED WITHOUT DIFFICULTY. 900 ML'S OF YELLOW COLORED FLUID WERE REMOVED WITHOUT DIFFICULTY. THE CATHETER WAS THEN REMOVED. NO IMMEDIATE COMPLICATIONS WERE NOTED DURING THE PROCEDURE. A POSTPROCEDURE CHEST X-RAY IS PENDING AT THE TIME OF THIS NOTE. THE PLEURAL FLUID WILL BE SENT FOR CULTURES AND CYTOLOGY. ESTIMATED BLOOD LOSS IS LESS THAN 5 ML'S. CPT: 99756 CANDACE VILLELA MD Jun 25, 2024 19:40
[2024-06-25 20:08] LABS: Urine Bacteria FEW /hpf (None Seen); Urine Blood 1+ /uL (Negative); Urine Clarity Turbid (Clear); Urine Color Yellow (Yellow); Urine Protein, UAD 3+ (Negative); Urine Specific Gravity 1.028 (1.001-1.035); Urine Squamous Epithelial Cell None Seen /hpf (<5); Urine Urobilinogen Normal (Negative); Urine WBC 25 /HPF (0-5)
--- NOTE | 2024-06-25 20:17 | DVH ---
CHEST RADIOGRAPH Indication: s/p right thoracentesis r/o pneumothorax Technique: Single frontal view of the chest was obtained COMPARISON: XY CHEST PORTABLE on DOS: 06/17/24, XY CHEST PORTABLE on DOS: 06/16/24, XY CHEST PORTABLE o n DOS: 11/05/22 FINDINGS: Lines and Tubes: None Lungs: Clear Pleura: Small right pleural effusion. No pneumothorax. Cardiomediastinal contours: Unremarkable Bones: Unremarkable IMPRESSION: Decreased now small to moderate right pleural effusion.
[2024-06-25 20:47] LABS: Body Fluid Polymorphonuclear 6 % (0-25)
[2024-06-25 20:55] LABS: Body Fluid Red Blood Cells 438 CUMM (0-2000); Body Fluid White Blood Cells 793 CUMM (0-200)
[2024-06-25] MEDS ORDERED: ONDANSETRON HCL 4 MG/2 ML VIAL IV PRN (22:45)
[2024-06-25] MEDS ORDERED: ACETAMINOPHEN 325 MG TAB PO PRN (22:45)
[2024-06-25] MEDS ORDERED: NITROGLYCERIN 0.4 MG SL TAB SL PRN (22:45)
[2024-06-25] MEDS ORDERED: MORPHINE SULFATE INJ 2 MG/ml SYRG IV PRN ×2 (22:45)
--- NOTE | 2024-06-25 23:05 | DVHHPRES ---
History of Present Illness Resident Creating Document: NAZIA APONTE RESIDENT History of Present Illness Luisito Contreras is a 64-year-old female with a PMH of HTN, type 2 DM, lung cancer, WI s/p 2 KIRIT, CAD presented to the ED with the chief complaints of shortness of breath which started on the day of admission. Patient non Portuguese speaker, history obtained from the daughter on phone call, reported the patient recently diagnosed as new 10 lung cancer in April 2024 and initially started on Tagrisso due to adverse events discontinued and started on erlotinib today. Patient recently admitted to this facility last week due to WI, performed PTCA with 2 stents and discharged with DAPT. But today after taking erlotinib patient started having severe shortness of breath and suffocation itchy prompted her to visit ED. on arrival to ED patient found to have large right pleural effusion, drained 800 mL of fluids from right lung. Patient reported she had pleural effusion in May also and they drained. On my assessment patient denies fever, nausea, vomiting, chest pain, dizziness, diaphoresis, palpitations and other acute associated symptoms. PMH: HTN, type 2 DM, lung cancer, WI s/p 2 KIRIT, CAD PSH: PTCA with 2 KIRIT Family history: Reviewed, noncontributory Social history: Lives with family. Occasional alcohol but denies smoking and other drug abuse Allergies: No known allergies Home medications: Clopidogrel 75 mg, aspirin 81 mg daily, metoprolol succinate 25 mg in, Erlotinib Review of Systems Constitutional: No: Fever, Chills, Sweats, Weakness, Malaise, Other Eyes: No: Pain, Vision change, Conjunctivae inflammation, Eyelid inflammation, Other, Redness Respiratory: Shortness of breath, Pleuritic Pain Cardiovascular: Edema Gastrointestinal: No: Nausea, Vomiting, Abdominal Pain, Diarrhea, Constipation, Melena, Hematochezia, Other Genitourinary: No Dysuria, No Frequency, No Incontinence, No Hematuria, No Retention, No Other Musculoskeletal: No: other, neck pain, shoulder pain, arm pain, back pain, hand pain, leg pain, foot pain Skin: No: Rash, Lesions, Jaundice, Bruising, Other Neurological: No: Weakness, Numbness, Incoordination, Change in speech, Con fusion, Seizures, Other Allergies: Coded Allergies: NO KNOWN ALLERGIES (Unverified , 11/05/22) Medications Current Medications Medications Dose Ordered Sig/Nitin Route Start Time Stop Time Status Last Admin Dose Admin Sodium Chloride 10 ml Q8HR IV 06/26/24 06:00 UNV Ondansetron HCl 4 mg Q4HP PRN IV 06/25/24 22:45 UNV Acetaminophen 650 mg Q6HP PRN PO 06/25/24 22:45 UNV Morphine Sulfate 2 mg Q4HPRN PRN IV 06/25/24 22:45 UNV Nitroglycerin 0.4 mg Q5MINP PRN SL 06/25/24 22:45 UNV Morphine Sulfate 2 mg Q30M PRN IV 06/25/24 22:45 UNV Exam Vital Signs Vital Signs Date Time Temp Pulse Resp B/P (MAP) Pulse Ox O2 Delivery O2 Flow Rate FiO2 06/25/24 20:00 95 06/25/24 19:30 98.7 17 147/91 (109) 96 98.7 06/25/24 18:30 Room Air* 0 21 Exam Pt is lying on bed General Appearance: Alert, Oriented X3, Cooperative, moderate distress HEENT: Atraumatic, Mucous membranes moist/pink Respiratory: Harsh sounds and mild crackles on auscultation, Normal air movement Cardiovascular: Regular rate, Normal S1, Normal S2, No murmurs Abdominal: Active bowel sounds, Soft, no distention, no tenderness Extremities: 1-2+, Normal pulses, No tenderness Skin: No Significant rash, except past surgical scars Neuro: Normal speech, sensorimotor deficits none Psych/Mental Status: Mental status NL, Mood NL Nurse was there as sharperone during examination Labs/Xrays Labs Test 06/25/24 22:53 06/25/24 22:50 06/25/24 19:32 06/25/24 17:12 Range/Units Urine Color Yellow Yellow Urine Clarity Turbid H Clear Urine pH 8.0 5.0-9.0 Urine Specific [place] 1.028 1.001-1.035 Urine Protein 3+ H Negative Urine Ketones Negative Negative Urine Blood 1+ H Negative /uL Urine Nitrite Negative Negative Urine Bilirubin Negative Negative Urine Urobilinogen Normal Negative mg/dL Urine Leukocyte Esterase Negative Negative /uL Urine RBC 122 0 - 4 /hpf Urine Microscopic WBC 25 H 0-5 /HPF Urine Squamous Epithelial Cells None seen <5 /hpf Urine Bacteria Few H None Seen /hpf Urine Glucose 3+ H Normal mg/dL Body Fluid Source Pleural fluid Body Fluid pH 8.0 Body Fluid WBC (Manual) 793 H 0-200 CUMM Body Fluid RBC (Manual) 438 0-2000 CUMM Body Fluid Mononuclear Cells 94 % Body Fluid Polymorphonuclear Cells 6 0-25 % White Blood Count 7.7 4.4-10.8 10^3/uL Red Blood Count 3.88 L 4.0-5.20 10^6/uL Hemoglobin 10.8 L 12.2-16.2 g/dL Hematocrit 33.5 L 36.0-46.0 % Mean Corpuscular Volume 86.2 80.0-100.0 fL Mean Corpuscular Hemoglobin 27.8 L 28.0-32.0 pg Mean Corpuscular Hemoglobin Concent 32.2 32.0-36.0 g/dL Red Cell Distribution Width 14.9 H 11.8-14.3 % Platelet Count 384 140-450 10^3/uL Mean Platelet Volume 6.9 6.9-10.8 fL Neutrophils (%) (Auto) 65.3 37.0-80.0 % Lymphocytes (%) (Auto) 24.6 10.0-50.0 % Monocytes (%) (Auto) 7.1 0.0-12.0 % Eosinophils (%) (Auto) 2.2 0.0-7.0 % Basophils (%) (Auto) 0.8 0.0-2.0 % Neutrophils # (Auto) 5.0 1.6-8.6 10 ^3/uL Lymphocytes # (Auto) 1.9 0.4-5.4 10 ^3/uL Monocytes # (Auto) 0.5 0-1.3 10 ^3/uL Eosinophils # (Auto) 0.2 0-0.8 10 ^3/uL Basophils # (Auto) 0.1 0-0.2 10 ^3/uL Nucleated Red Blood Cells 0.1 % Prothrombin Time 9.8 9.3-11.8 sec Prothrombin Time INR 0.92 0.9-1.15 Activated Partial Thromboplast Time 27.4 24.5-34.5 SEC D-Dimer, Quantitative 3.90 H 0.0-0.49 mg/L FEU Sodium Level 136 136-145 mmol/L Potassium Level 5.0 3.5-5.1 mmol/L Chloride Level 103 98-107 mmol/L Carbon Dioxide Level 29 20-31 mmol/L Anion Gap 4 L 5-15 Blood Urea Nitrogen 16 9-23 mg/dL Creatinine 0.89 0.550-1.02 mg/dL Glomerular Filtration Rate Calc 72 >90 mL/min BUN/Creatinine Ratio 18.0 10.0-20.0 Serum Glucose 213 H 74-106 mg/dL Calcium Level 9.7 8.7-10.4 mg/dL B-Type Natriuretic Peptide 233.41 0-100 pg/mL Assessment/Plan Assessment/Plan # Acute hypoxic respiratory failure # Recurrent malignant right pleural effusion # Lung malignancy # ? loculated/trapped right lung. # Atelectasis -chest ultrasound and CXR showed a large right pleural effusion -pulmonology wireless sales consultant evaluated the patient and it thoracocentesis, removed 900 mL of fluid -postprocedural CXR showed small effusion -monitor for respiratory distress symptoms -incentive spirometry -continue following up for lung cancer outpatient # Recent WI S/p PCI 2 KIRIT -resume home meds -consult Dr. Steinberg time if needed # controlled type 2 DM with HbA1c 9.7 -Accu-Cheks and mild ISS # Acute complicated UTI - evident on urinalysis - ordered urine bacterial culture - currently giving Rocephin # uncontrolled hypertension -continuously monitored -resumed home meds Protonix No DVT PPX Cardiac diet Goals of care discussed with the patient's daughter for more than 27 minutes: Full code status Case discussed with Dr. Velazquez, patient and nurse Plan discussed with: Patient, Daughter My Orders Orders - NAZIA APONTE RESIDENT Procedure Category Date Status Time Admit ADMIT 06/25/24 Transmitted 22:40 Allergies RACHNA 06/25/24 In Process 22:40 Code Status CODE 06/25/24 Transmitted 22:40 Sodium Chloride Lock PHA 06/26/24 Logged (Saline Lock Ns) 06:00 Oxygen Per Hour RT 06/25/24 Transmitted 22:40 Ondansetron Hcl PHA 06/25/24 Logged (Zofran) 22:45 Complete Blood Count LAB 06/26/24 Verified 04:00 Comprehensive LAB 06/26/24 Verified Metabolic Panel 04:00 Cardiac DIET 06/26/24 Transmitted Diet-2gna,Lofat,Lochol Breakfast Condition: Stable RACHNA 06/25/24 In Process 22:40 Acetaminophen Tablet PHA 06/25/24 Logged (Tylenol Tablet) 22:45 Morphine Sulfate PHA 06/25/24 Logged Injection 22:45 Nitroglycerin PHA 06/25/24 Logged Sublingual (Ntrostat 22:45 Morphine Sulfate PHA 06/25/24 Logged Injection 22:45 Oxygen By Nasal RT 06/25/24 Transmitted Cannula 22:40 Stat Ekg For Chest RACHNA 06/25/24 In Process Pain 22:40 Notify Of Changes RACHNA 06/25/24 In Process From Base 22:40 C-Reactive Protein LAB 06/25/24 In Process 22:40 Lactic Acid W/ Reflex LAB 06/25/24 In Process Order 22:40 Magnesium LAB 06/25/24 In Process 22:40 Rapid Influenza A&B LAB 06/25/24 Logged 22:40 Covid19 Antigen Fidelina LAB 06/25/24 Logged Thyroid Stimulating LAB 06/25/24 In Process Hormone 22:40 NAZIA APONTE RESIDENT Jun 25, 2024 23:05
[2024-06-25] MEDS: METOPROLOL SUCCINATE XL 50 MG TAB PO SCH (23:28)
[2024-06-25 23:36] LABS: Magnesium 2.2 mg/dL (1.6-2.6)
[2024-06-25 23:48] VITALS: PULSE 92; RESP 16; O2SAT 95
[2024-06-26] VITALS (8 sets, daily range): BP systolic 107–135; BP diastolic 63–85; PULSE 77–86; RESP 18–20; TEMP 97.3–98.8; O2SAT 95–97
[2024-06-26 01:33] LABS: COVID19 ANTIGEN SOFIA FIA NEGATIVE (NEGATIVE); Rapid Influenza A Negative (Negative); Rapid Influenza B Negative (Negative)
[2024-06-26] MEDS: cefTRIAXone 1GM/50ML D5W 50 ML IV ONE (03:32)
[2024-06-26] MEDS ORDERED: [UNRECOGNIZED DRUG - CODE] PO (04:55)
[2024-06-26] MEDS: SODIUM CHLOR 0.9% PF (SALINE LOCK) 10ML VIAL/SYR IV SCH (05:00)
--- NOTE | 2024-06-26 06:14 | DVH ---
EXAM: US Duplex Bilateral Lower Extremities Veins CLINICAL INDICATION: Rule out DVT TECHNIQUE: Real-time duplex ultrasound scan of the bilateral lower extremity veins integrating B-mod e two-dimensional vascular structure, Doppler spectral analysis, color flow Doppler imaging and compr ession. COMPARISON: None FINDINGS: RIGHT DEEP VEINS: Unremarkable. No DVT in the right common femoral, femoral, proximal deep femoral or popliteal veins. The veins demonstrate normal color flow, are normally compressible, with normal phasic flow and/or augmentation response. RIGHT SUPERFICIAL VEINS: Unremarkable. No thrombus in the visualized right great saphenous vein. LEFT DEEP VEINS: Unremarkable. No DVT in the left common femoral, femoral, proximal deep femoral o r popliteal veins. The veins demonstrate normal color flow, are normally compressible, with normal p hasic flow and/or augmentation response. LEFT SUPERFICIAL VEINS: Unremarkable. No thrombus in the visualized left great saphenous vein. SOFT TISSUES: No acute findings. No popliteal cyst. LYMPH NODES: Right groin lymph node measuring up to 3.2 cm. OTHER FINDINGS: . IMPRESSION: No DVT.
[2024-06-26 07:38] LABS: Basophils # (auto) 0 10 ^3/uL (0-0.2); Basophils % (auto) 0.3 % (0.0-2.0); Eosinophils # (auto) 0.1 10 ^3/uL (0-0.8); Eosinophils % (auto) 1.9 % (0.0-7.0); Hematocrit 31.8 % (36.0-46.0); Hemoglobin 10.4 g/dL (12.2-16.2); Lymphocytes # (auto) 1.2 10 ^3/uL (0.4-5.4); Lymphocytes % (auto) 19.9 % (10.0-50.0); Mean Corpuscular Hemoglobin 28.1 pg (28.0-32.0); Mean Corpuscular Hgb Conc. 32.7 g/dL (32.0-36.0); Mean Corpuscular Volume 85.9 fL (80.0-100.0); Monocytes # (auto) 0.3 10 ^3/uL (0-1.3); Neutrophils # (auto) 4.5 10 ^3/uL (1.6-8.6); Neutrophils % (auto) 72.9 % (37.0-80.0); Platelet Count (auto) 351 10^3/uL (140-450); Red Cell Distribution Width 14.7 % (11.8-14.3); White Blood Cell 6.2 10^3/uL (4.4-10.8)
[2024-06-26 08:15] LABS: Alanine Aminotransferase 15 U/L (7-40); Albumin 3.6 g/dL (3.2-4.8); Alkaline Phosphatase 93 U/L (46-116); Anion Gap 4 (5-15); Aspartate Aminotransferase 16 U/L (13-40); BUN/Creatinine Ratio 19.1 (10.0-20.0); Blood Urea Nitrogen 17 mg/dL (9-23); Calcium 9.2 mg/dL (8.7-10.4); Carbon Dioxide 28 mmol/L (20-31); Chloride 105 mmol/L (98-107); Potassium 4.2 mmol/L (3.5-5.1); Sodium 137 mmol/L (136-145); Total Protein 6.7 g/dL (5.7-8.2)
[2024-06-26 08:16] LABS: Bilirubin, Total 0.4 mg/dL (0.2-1.0)
[2024-06-26 08:18] LABS: Glucose 207 mg/dL (74-106)
--- NOTE | 2024-06-26 08:20 | ECG ---
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
[2024-06-26] MEDS: ENOXAPARIN SOD 40 MG/0.4 ML SYRINGE SC SCH (10:00)
[2024-06-26] MEDS: CLOPIDOGREL BISULFATE 75 MG TAB PO SCH (10:32)
[2024-06-26] MEDS: ASPirin 81 mg TAB PO SCH (10:32)
[2024-06-26] MEDS: PANTOPRAZOLE 40 MG/10 ML VIAL INJ IV SCH (10:32)
[2024-06-26] MEDS ORDERED: DEXTROSE (50%) 50ML SYRG IV PRN (12:15)
--- NOTE | 2024-06-26 14:32 | DVHPNRES ---
Progress Note Date Seen: Jun 26, 2024 Resident Creating Document: VERO WILDE RESIDENT Medical Necessity Reason Pt with a Central, PICC or Fol: No Subjective Review of Systems Patient is a 64-year-old female with past medical history of lung cancer EGFR positive diagnosed in April 2024, recurrent pleural effusions, OR s/p PCI x 2DES 10 days ago, CAD, hypertension, CVA, type 2 diabetes, who came in due to shortness of breath. According to the patient, for the past 6 weeks she has been having shortness of breath that has been progressively increasing, patient notes shortness of breath in approved after she had thoracentesis on 05/29/2024, however, it progressively worsened since then which is what prompted this visit to the hospital. Patient is following at [facility]. Chest x-ray was done which showed a large right-sided pleural effusion, patient underwent thoracentesis with removal of 900 mL of yellow-colored fluid. Repeat chest x- ray afterwards showed decreased now [id number] right-sided pleural effusion. Past surgical history: Denies Home medications: Aspirin, atorvastatin, clopidogrel, erlotinib, metoprolol succinate 25 mg Past Hospitalization: May 2024 Social & Personal history: Patient lives with her . Denies ever smoking. Drinks alcohol rarely. Denies using any drugs. Allergies: Denies Patient seen and examined at bedside. Patient is alert and oriented to time, place person and responding to all questions. General: Chills Eyes: No Pain, No Vision change, No Conjunctivae inflammation, No Eyelid inflammation, No Other, No Redness ENT: No Ear pain, No Ear discharge, No Nose pain, No Nose discharge, No Nose congestion, No Mouth pain, No Mouth swelling, No Throat pain, No Throat swelling, No Other Cardiovascular: No Chest Pain, No Palpitations, No Orthopnea, No Paroxysmal No Dyspnea, No Edema, No Lt Headedness, No Other Respiratory: No Cough, No Dry, Shortness of breath, No SOB with exertion, No Wheezing, No Hemoptysis, No Pleuritic Pain, No Sputum, No Other Gastrointestinal: No Nausea, No Vomiting, No Abdominal Pain, No Diarrhea, No Constipation, No Melena, No Hematochezia, No Other Genitourinary: No Dysuria, No Frequency, No Incontinence, No Hematuria, No Retention, No Other Musculoskeletal: No other, No neck pain, No shoulder pain, No arm pain, No back pain, No hand pain, No leg pain, No foot pain Skin: No Rash, No Lesions, No Jaundice, No Bruising, No Other Objective vital signs Vital Sign Date Time Temp Pulse Resp B/P (MAP) Pulse Ox O2 Delivery O2 Flow Rate FiO2 06/26/24 13:00 98.3 77 18 133/77 (95) 97 98.3 06/26/24 08:00 Room Air* 0 21 Total Intake and Output 06/25/24 06/25/24 06/26/24 15:00 23:00 07:00 Intake Total 0 ml Balance 0 ml medications Current Medications Medications Dose Ordered Sig/Nitin Route Start Time Stop Time Status Last Admin Dose Admin Sodium Chloride 10 ml Q8HR IV 06/26/24 06:00 06/26/24 05:00 10 ML Ondansetron HCl 4 mg Q4HP PRN IV 06/25/24 22:45 Acetaminophen 650 mg Q6HP PRN PO 06/25/24 22:45 Morphine Sulfate 2 mg Q4HPRN PRN IV 06/25/24 22:45 Pantoprazole Sodium 40 mg DAILY IV 06/26/24 10:00 06/26/24 10:32 40 MG Aspirin 81 mg DAILY PO 06/26/24 10:00 06/26/24 10:32 81 MG Clopidogrel Bisulfate 75 mg DAILY PO 06/26/24 10:00 06/26/24 10:32 75 MG Metoprolol Succinate 25 mg DAILY PO 06/25/24 23:15 06/26/24 10:33 25 MG Ceftriaxone Sodium 50 ml @ 100 mls/hr DAILY@09 IV 06/27/24 09:00 Patient Own Medication 40 mg QPM PO 06/26/24 18:00 UNV Enoxaparin Sodium 40 mg DAILY SC 06/26/24 10:00 Atorvastatin Calcium 40 mg QPM PO 06/26/24 18:00 Diagnostic Test (Pha) 1 strip IQ4HR 06/26/24 16:00 Insulin Human Regular IQ4HR SC 06/26/24 16:00 Dextrose 50 ml UD PRN IV 06/26/24 12:15 Examination General Appearance: Cooperative. Well developed. Well nourished. NAD Head Exam: Normal inspection Neck Exam: Normal inspection. Non-tender. Normal alignment Pulmonary/Respiratory: Chest non-tender. Decreased right-sided breath sounds, dullness to percussion on the right side. no crackles, no wheezing. Cardiovascular/Chest: Regular rate and rhythm. murmurs. No JVD. Peripheral Pulses: 2+ Radial (R). 2+ Radial (L). 2+ Pedal (R). 2+ Pedal (L) Abdominal Exam: Normal bowel sounds. Soft. normal abdomen, no visible veins, Nontender. No hepatospenomegaly. No masses Ankle Exam: Negative ankle edema Lower extremities: Negative lower extremity edema Neuro/Mental Status: A&O x4. Coherent. Thoughts/Psych: Normal thought pattern. Appropriate mood and affect. Good judgement and insight Skin Exam: Normal inspection. Normal color. Warm. Dry laboratory and microbiology Laboratory Tests 06/26/24 07:25 Test 06/26/24 07:25 Range/Units Serum Glucose 207 H 74-106 mg/dL Microbiology Date/Time Source Procedure Growth Status 06/25/24 19:32 Pleural Fluid Gram Stain - Final Resulted 06/25/24 19:32 Pleural Fluid Body Fluid Culture - Preliminary Resulted Labs and/or images reviewed: Labs reviewed by me, Image(s) reviewed by me Problem List/Assessment/Plan Problem List/Assessment/Plan Large right-sided pleural effusion probably malignant effusion, recurrent Acute hypoxic respiratory failure due to above, now improving - chest ultrasound: Large right pleural effusion - chest x-ray: Slightly improving right pleural effusion airspace disease - pulmonology on board - patient underwent thoracentesis with removal of 900 mL yellow fluid - repeat chest x-ray: Decreased now [id number] right pleural effusion - EKG showed normal sinus rhythm, but with low voltage: Ordered echocardiogram History of EGFR positive lung cancer diagnosed in April 2024 - continue outpatient follow up Coronary artery disease OR 10 days ago s/p PCI x2 [facility]IT History of CVA Hypertension -aspirin 81 mg -atorvastatin 40 mg -clopidogrel 75 mg - metoprolol succinate 25 mg Type 2 diabetes, uncontrolled, Hb A1c 7.1 on 06/17/2024 - moderate sliding scale insulin Acute complicated UTI - IV ceftriaxone PUD prophylaxis: protonix 40mg DVT prophylaxis: Levonox 40mg Goals of care: Full code, discussed for >16 minutes on 06/26/2024 Plan discussed with patient and patient's daughter via telephone Plan discussed with Dr. Frank Plan discussed with: Patient, Daughter, Other (RN) My Orders My Orders Orders - VERO WILDE RESIDENT Procedure Category Date Status Time Glucose Blood PHA 06/26/24 In Process (Accu-Chek Comfort 16:00 Insulin R (Human) PHA 06/26/24 In Process (Insulin R) 16:00 Dextrose 50% Syringe PHA 06/26/24 In Process 12:15 VERO WILDE RESIDENT Jun 26, 2024 14:32
[2024-06-26] MEDS: ACCU-CHEK COMFORT CURVE STRIP VI SCH (17:26)
[2024-06-26] MEDS: ATORVASTATIN 20 MG TAB PO SCH (17:26)
[2024-06-26] MEDS: InsuLIN REG 1unit/0.01ml Soln (100units/ml) SC SCH (17:30)
[2024-06-26] MEDS ORDERED: PATIENTS OWN MEDICATION (Atorvastatin Calcium (Lipitor) 40 MG) PO SCH (18:00)
[2024-06-26] MEDS: ERLOTINIB 150 MG PO SCH (18:27)
--- NOTE | 2024-06-26 23:39 | DVHPN2 ---
Progress Note - Dictate Date Seen: Jun 26, 2024 Medical Necessity Reason Pt with a Central, PICC or Fol: No Subjective Patient seen and examined at bedside. Breathing comfortably on room air. Overnight events reviewed. vital signs Vital Sign Date Time Temp Pulse Resp B/P (MAP) Pulse Ox O2 Delivery O2 Flow Rate FiO2 06/26/24 21:00 97.6 82 20 127/77 (94) 96 97.6 06/26/24 20:00 Room Air* 0 21 Total Intake and Output 06/25/24 06/25/24 06/26/24 15:00 23:00 07:00 Intake Total 0 ml Balance 0 ml medications Current Medications Medications Dose Ordered Sig/Nitin Route Start Time Stop Time Status Last Admin Dose Admin Sodium Chloride 10 ml Q8HR IV 06/26/24 06:00 06/26/24 21:53 10 ML Ondansetron HCl 4 mg Q4HP PRN IV 06/25/24 22:45 Acetaminophen 650 mg Q6HP PRN PO 06/25/24 22:45 Morphine Sulfate 2 mg Q4HPRN PRN IV 06/25/24 22:45 Pantoprazole Sodium 40 mg DAILY IV 06/26/24 10:00 06/26/24 10:32 40 MG Aspirin 81 mg DAILY PO 06/26/24 10:00 06/26/24 10:32 81 MG Clopidogrel Bisulfate 75 mg DAILY PO 06/26/24 10:00 06/26/24 10:32 75 MG Metoprolol Succinate 25 mg DAILY PO 06/25/24 23:15 06/26/24 10:33 25 MG Ceftriaxone Sodium 50 ml @ 100 mls/hr DAILY@09 IV 06/27/24 09:00 Patient Own Medication 40 mg QPM PO 06/26/24 18:00 UNV Enoxaparin Sodium 40 mg DAILY SC 06/26/24 10:00 Atorvastatin Calcium 40 mg QPM PO 06/26/24 18:00 06/26/24 17:26 40 MG Diagnostic Test (Pha) 1 strip IQ4HR 06/26/24 16:00 06/26/24 21:52 1 STRIP Insulin Human Regular IQ4HR SC 06/26/24 16:00 06/26/24 21:53 2 UNITS Dextrose 50 ml UD PRN IV 06/26/24 12:15 Patient Own Medication 1 DAILY PO 06/26/24 17:15 3/7/25 18:27 1 objective Gen.: Patient lying in bed in no apparent distress. Breathing on room air. Head: Normocephalic, atraumatic. Eyes: EOMI/PERRLA. Ears: Normal hearing. Normal anatomy. Neck/trachea: Trachea midline, supple. Nose: Normal external anatomy. Mouth: Moist mucous membranes. Chest: Decreased air entry bilaterally. No wheezing or rhonchi. Cardiovascular: Positive S1, positive S2. Regular rate and rhythm. Abdomen: Positive bowel sounds in all 4 quadrants. Soft, non-tender, non- distended. : Deferred. Rectal: Deferred. Skin: Warm, dry. Intact. Extremities: 2+ radial pulses bilaterally. No lower extremity edema. Neuro: Awake, alert, oriented x3. No gross motor or sensory deficits. Cranial nerves II through XII intact. Gait not assessed. laboratory and microbiology Laboratory Tests 06/26/24 07:25 Test 06/26/24 07:25 Range/Units Serum Glucose 207 H 74-106 mg/dL Assessment/Plan Impression Acute hypoxic respiratory failure Recurrent malignant right pleural effusion Atelectasis Lung cancer Events: Breathing on room air No respiratory distress. S/p right thoracentesis on 06/25/24. See separate procedure note for full details. Drained 900 mL of yellow-colored fluid. Stopped due to patient discomfort. Possibility of loculated/trapped right lung. Chest x-ray reviewed, shows small to moderate right pleural effusion. Incentive spirometry Pain control Avoid oversedation Protonix for GI prophylaxis Labs and imaging reviewed. Rest of plan as noted below. Plan: On room air Supplemental oxygen PRN. Pain control. Avoid over-sedation. Incentive spirometry. Bronchodilators PRN. Maintain euvolemia. Monitor ins and outs. Monitor renal function. Monitor electrolytes. Supplement as necessary. DVT prophylaxis. Prognosis: Guarded given multiple comorbidities. Rest of plan per hospitalist and other consultants. Thank you Dr. Scott for allowing me to participate in this patient's care. Further recommendations will depend on patient's clinical course. Please do not hesitate to contact me if you have any questions or concerns. This medical document was created using an electronic medical record system with [employer] system. Although this document has been carefully reviewed, there may still be some phonetic and typographical errors. These areas are purely typographical due to imperfections of the software programs, and do not reflect any compromise in the patient's medical care. Plan discussed with: Patient, Other (ZINA Woo) CANDACE VILLELA MD Jun 26, 2024 23:39
[2024-06-27] VITALS (8 sets, daily range): BP systolic 105–137; BP diastolic 65–72; PULSE 74–82; RESP 14–24; TEMP 97.4–98; O2SAT 93–97
[2024-06-27 06:47] LABS: Basophils # (auto) 0 10 ^3/uL (0-0.2); Basophils % (auto) 0.2 % (0.0-2.0); Eosinophils # (auto) 0.2 10 ^3/uL (0-0.8); Hematocrit 31.1 % (36.0-46.0); Hemoglobin 9.9 g/dL (12.2-16.2); Lymphocytes # (auto) 1.6 10 ^3/uL (0.4-5.4); Mean Corpuscular Hemoglobin 27.8 pg (28.0-32.0); Mean Corpuscular Hgb Conc. 31.8 g/dL (32.0-36.0); Mean Corpuscular Volume 87.4 fL (80.0-100.0); Monocytes # (auto) 0.4 10 ^3/uL (0-1.3); Monocytes % (auto) 7.5 % (0.0-12.0); Neutrophils # (auto) 3.8 10 ^3/uL (1.6-8.6); Neutrophils % (auto) 63.3 % (37.0-80.0); Platelet Count (auto) 340 10^3/uL (140-450); Red Blood Cells 3.57 10^6/uL (4.0-5.20); Red Cell Distribution Width 14.6 % (11.8-14.3)
[2024-06-27 06:54] LABS: Chloride 106 mmol/L (98-107); Potassium 3.9 mmol/L (3.5-5.1); Sodium 139 mmol/L (136-145)
[2024-06-27 06:55] LABS: Anion Gap 6 (5-15); Carbon Dioxide 27 mmol/L (20-31)
[2024-06-27 07:00] LABS: BUN/Creatinine Ratio 28.1 (10.0-20.0)
[2024-06-27 07:10] LABS: Blood Urea Nitrogen 25 mg/dL (9-23); Glucose 123 mg/dL (74-106)
[2024-06-27] MEDS: cefTRIAXone 1GM/50ML D5W 50 ML IV SCH (08:43)
[2024-06-27 11:07] LABS: Albumin, Body Fluid 2.6 g/dL (Not Estab.); Protein, Body Fluid 4.5 g/dL (.)
[2024-06-27] MEDS ORDERED: THROAT LOZENGES(CEPASTAT) MT PRN (16:45)
--- NOTE | 2024-06-27 16:45 | DVHPNRES ---
Progress Note Date Seen: Jun 27, 2024 Resident Creating Document: VERO WILDE RESIDENT Medical Necessity Reason Pt with a Central, PICC or Fol: No Subjective Review of Systems Patient is a 64-year-old female with past medical history of lung cancer EGFR positive diagnosed in April 2024, recurrent pleural effusions, [place] s/p PCI x 2DES 10 days ago, CAD, hypertension, CVA, type 2 diabetes, who came in due to shortness of breath. According to the patient, for the past 6 weeks she has been having shortness of breath that has been progressively increasing, patient notes shortness of breath in approved after she had thoracentesis on 05/29/2024, however, it progressively worsened since then which is what prompted this visit to the hospital. Patient is following at [facility]. Chest x-ray was done which showed a large right-sided pleural effusion, patient underwent thoracentesis with removal of 900 mL of yellow-colored fluid. Repeat chest x- ray afterwards showed decreased now [id number] right-sided pleural effusion. Past surgical history: Denies Home medications: Aspirin, atorvastatin, clopidogrel, erlotinib, metoprolol succinate 25 mg Past Hospitalization: May 2024 Social & Personal history: Patient lives with her . Denies ever smoking. Drinks alcohol rarely. Denies using any drugs. Allergies: Denies Patient seen and examined at bedside. Patient is alert and oriented to time, place person and responding to all questions. Patient notes improvement in her shortness of breath, however, notes increasing cough that has been ongoing since last night. Decreased breath sounds noted on the right. Objective vital signs Vital Sign Date Time Temp Pulse Resp B/P (MAP) Pulse Ox O2 Delivery O2 Flow Rate FiO2 06/27/24 13:00 97.6 78 20 105/65 (78) 97 97.6 06/27/24 08:00 Room Air* 0 21 Total Intake and Output 06/26/24 06/26/24 06/27/24 15:00 23:00 07:00 Intake Total 650 ml 200 ml Balance 650 ml 200 ml medications Current Medications Medications Dose Ordered Sig/Nitin Route Start Time Stop Time Status Last Admin Dose Admin Sodium Chloride 10 ml Q8HR IV 06/26/24 06:00 06/27/24 12:10 10 ML Ondansetron HCl 4 mg Q4HP PRN IV 06/25/24 22:45 Acetaminophen 650 mg Q6HP PRN PO 06/25/24 22:45 Morphine Sulfate 2 mg Q4HPRN PRN IV 06/25/24 22:45 Pantoprazole Sodium 40 mg DAILY IV 06/26/24 10:00 06/27/24 08:43 40 MG Aspirin 81 mg DAILY PO 06/26/24 10:00 06/27/24 08:44 81 MG Clopidogrel Bisulfate 75 mg DAILY PO 06/26/24 10:00 06/27/24 08:44 75 MG Metoprolol Succinate 25 mg DAILY PO 06/25/24 23:15 06/27/24 08:44 25 MG Ceftriaxone Sodium 50 ml @ 100 mls/hr DAILY@09 IV 06/27/24 09:00 06/27/24 08:43 100 MLS/HR Patient Own Medication 40 mg QPM PO 06/26/24 18:00 UNV Enoxaparin Sodium 40 mg DAILY SC 06/26/24 10:00 06/27/24 08:43 40 MG Atorvastatin Calcium 40 mg QPM PO 06/26/24 18:00 06/26/24 17:26 40 MG Diagnostic Test (Pha) 1 strip IQ4HR 06/26/24 16:00 06/27/24 12:09 1 STRIP Insulin Human Regular IQ4HR SC 06/26/24 16:00 06/27/24 12:10 9 UNITS Dextrose 50 ml UD PRN IV 06/26/24 12:15 Patient Own Medication 1 DAILY PO 06/26/24 17:15 06/26/24 18:27 1 Examination General Appearance: Cooperative. Well developed. Well nourished. NAD Head Exam: Normal inspection Neck Exam: Normal inspection. Non-tender. Normal alignment Pulmonary/Respiratory: Chest non-tender. Decreased right-sided breath sounds, dullness to percussion on the right side. no crackles, no wheezing. Cardiovascular/Chest: Regular rate and rhythm. murmurs. No JVD. Peripheral Pulses: 2+ Radial (R). 2+ Radial (L). 2+ Pedal (R). 2+ Pedal (L) Abdominal Exam: Normal bowel sounds. Soft. normal abdomen, no visible veins, Nontender. No hepatospenomegaly. No masses Ankle Exam: Negative ankle edema Lower extremities: Negative lower extremity edema Neuro/Mental Status: A&O x4. Coherent. Thoughts/Psych: Normal thought pattern. Appropriate mood and affect. Good judgement and insight Skin Exam: Normal inspection. Normal color. Warm. Dry laboratory and microbiology Laboratory Tests 06/27/24 05:48 Test 06/27/24 05:48 Range/Units Serum Glucose 123 H 74-106 mg/dL Microbiology Date/Time Source Procedure Growth Status 06/26/24 07:20 Nose MRSA Screen - Final Complete 06/25/24 19:32 Voided Urine Urine Culture - Preliminary Resulted 06/25/24 19:32 Pleural Fluid Gram Stain - Final Resulted 06/25/24 19:32 Pleural Fluid Body Fluid Culture - Preliminary Resulted Labs and/or images reviewed: Labs reviewed by me, Image(s) reviewed by me Problem List/Assessment/Plan Problem List/Assessment/Plan Large right-sided pleural effusion probably malignant effusion, recurrent Acute hypoxic respiratory failure due to above, now improving - chest ultrasound: Large right pleural effusion - chest x-ray: Slightly improving right pleural effusion airspace disease - pulmonology on board - patient underwent thoracentesis with removal of 900 mL yellow fluid - repeat chest x-ray: Decreased now [id number] right pleural effusion - EKG showed normal sinus rhythm, but with low voltage: Ordered echocardiogram History of EGFR positive lung cancer diagnosed in April 2024 - continue outpatient follow up Coronary artery disease MA 10 days ago s/p PCI x2 [facility] History of CVA Hypertension -aspirin 81 mg -atorvastatin 40 mg -clopidogrel 75 mg - metoprolol succinate 25 mg Type 2 diabetes, uncontrolled, Hb A1c 7.1 on 06/17/2024 - moderate sliding scale insulin Acute complicated UTI - IV ceftriaxone PUD prophylaxis: protonix 40mg DVT prophylaxis: Levonox 40mg Goals of care: Full code, discussed for >16 minutes on 06/26/2024 Plan discussed with patient and patient's daughter via telephone Plan discussed with Dr. Vaz Plan discussed with: Patient, Daughter, Other (RN) My Orders My Orders Orders - VERO WILDE Procedure Category Date Status Time Patients Own PHA 06/26/24 In Process Medication 17:15 Date of Service: Jun 27, 2024 Billing Provider: JOCELYNE VAZ MD Common Visit Codes: [id number] INP/OBS CARE(HIGH) VERO WILDE Jun 27, 2024 16:45 JOCELYNE VAZ MD Jun 27, 2024 20:44
--- NOTE | 2024-06-27 23:32 | DVHPN2 ---
Progress Note - Dictate Date Seen: Jun 27, 2024 Medical Necessity Reason Pt with a Central, PICC or Fol: No Subjective Patient seen and examined at bedside. Breathing comfortably on room air. Overnight events reviewed. vital signs Vital Sign Date Time Temp Pulse Resp B/P (MAP) Pulse Ox O2 Delivery O2 Flow Rate FiO2 06/27/24 21:00 97.9 82 14 123/70 (87) 95 97.9 06/27/24 08:00 Room Air* 0 21 Total Intake and Output 06/26/24 06/26/24 06/27/24 15:00 23:00 07:00 Intake Total 650 ml 200 ml Balance 650 ml 200 ml medications Current Medications Medications Dose Ordered Sig/Nitin Route Start Time Stop Time Status Last Admin Dose Admin Sodium Chloride 10 ml Q8HR IV 06/26/24 06:00 06/27/24 12:10 10 ML Ondansetron HCl 4 mg Q4HP PRN IV 06/25/24 22:45 Acetaminophen 650 mg Q6HP PRN PO 06/25/24 22:45 Morphine Sulfate 2 mg Q4HPRN PRN IV 06/25/24 22:45 Pantoprazole Sodium 40 mg DAILY IV 06/26/24 10:00 06/27/24 08:43 40 MG Aspirin 81 mg DAILY PO 06/26/24 10:00 06/27/24 08:44 81 MG Clopidogrel Bisulfate 75 mg DAILY PO 06/26/24 10:00 06/27/24 08:44 75 MG Metoprolol Succinate 25 mg DAILY PO 06/25/24 23:15 06/27/24 08:44 25 MG Ceftriaxone Sodium 50 ml @ 100 mls/hr DAILY@09 IV 06/27/24 09:00 06/27/24 08:43 100 MLS/HR Patient Own Medication 40 mg QPM PO 06/26/24 18:00 UNV Enoxaparin Sodium 40 mg DAILY SC 06/26/24 10:00 06/27/24 08:43 40 MG Atorvastatin Calcium 40 mg QPM PO 06/26/24 18:00 06/27/24 17:03 40 MG Diagnostic Test (Pha) 1 strip IQ4HR 06/26/24 16:00 06/27/24 20:35 1 STRIP Insulin Human Regular IQ4HR SC 06/26/24 16:00 06/27/24 20:00 2 UNITS Dextrose 50 ml UD PRN IV 06/26/24 12:15 Patient Own Medication 1 DAILY PO 06/26/24 17:15 06/26/24 18:27 1 Throat Lozenges 1 sunni Q2HP PRN MT 06/27/24 16:45 objective Gen.: Patient lying in bed in no apparent distress. Breathing on room air. Head: Normocephalic, atraumatic. Eyes: EOMI/PERRLA. Ears: Normal hearing. Normal anatomy. Neck/trachea: Trachea midline, supple. Nose: Normal external anatomy. Mouth: Moist mucous membranes. Chest: Decreased air entry bilaterally. No wheezing or rhonchi. Cardiovascular: Positive S1, positive S2. Regular rate and rhythm. Abdomen: Positive bowel sounds in all 4 quadrants. Soft, non-tender, non- distended. : Deferred. Rectal: Deferred. Skin: Warm, dry. Intact. Extremities: 2+ radial pulses bilaterally. No lower extremity edema. Neuro: Awake, alert, oriented x3. No gross motor or sensory deficits. Cranial nerves II through XII intact. Gait not assessed. laboratory and microbiology Laboratory Tests 06/27/24 05:48 Test 06/27/24 05:48 Range/Units Serum Glucose 123 H 74-106 mg/dL Assessment/Plan Impression Acute hypoxic respiratory failure Recurrent malignant right pleural effusion Atelectasis Lung cancer Events: Breathing on room air No respiratory distress. Continue antibiotics Incentive spirometry Right pleural fluid cultures show no growth. Pain control Avoid oversedation Protonix for GI prophylaxis S/p right thoracentesis on 06/25/24. See separate procedure note for full details. Drained 900 mL of yellow-colored fluid. Stopped due to patient discomfort. Possibility of loculated/trapped right lung. Post procedure chest x-ray showed decreased, small to moderate, right pleural effusion. Labs and imaging reviewed. Rest of plan as noted below. Plan: On room air Supplemental oxygen PRN. Pain control. Avoid over-sedation. Incentive spirometry. Bronchodilators PRN. Maintain euvolemia. Monitor ins and outs. Monitor renal function. Monitor electrolytes. Supplement as necessary. DVT prophylaxis. Prognosis: Guarded given multiple comorbidities. Rest of plan per hospitalist and other consultants. Thank you Dr. Scott for allowing me to participate in this patient's care. Further recommendations will depend on patient's clinical course. Please do not hesitate to contact me if you have any questions or concerns. This medical document was created using an electronic medical record system with [employer] dictation system. Although this document has been carefully reviewed, there may still be some phonetic and typographical errors. These areas are purely typographical due to imperfections of the software programs, and do not reflect any compromise in the patient's medical care. Plan discussed with: Patient, Other (ZINA Morales) CANDACE VILLELA MD Jun 27, 2024 23:32
[2024-06-28 01:00] VITALS: BP 100/71; PULSE 78; RESP 18; TEMP 97.9; O2SAT 99
[2024-06-28 05:00] VITALS: BP 130/65; PULSE 79; RESP 14; TEMP 98; O2SAT 96
[2024-06-28 06:13] LABS: Basophils # (auto) 0 10 ^3/uL (0-0.2); Basophils % (auto) 0.4 % (0.0-2.0); Eosinophils # (auto) 0.2 10 ^3/uL (0-0.8); Eosinophils % (auto) 3.3 % (0.0-7.0); Hematocrit 29.5 % (36.0-46.0); Hemoglobin 9.8 g/dL (12.2-16.2); Lymphocytes # (auto) 1.9 10 ^3/uL (0.4-5.4); Lymphocytes % (auto) 31.3 % (10.0-50.0); Mean Corpuscular Hemoglobin 28.5 pg (28.0-32.0); Mean Corpuscular Hgb Conc. 33.1 g/dL (32.0-36.0); Mean Corpuscular Volume 86.2 fL (80.0-100.0); Monocytes # (auto) 0.5 10 ^3/uL (0-1.3); Monocytes % (auto) 7.4 % (0.0-12.0); Neutrophils # (auto) 3.5 10 ^3/uL (1.6-8.6); Neutrophils % (auto) 57.6 % (37.0-80.0); Platelet Count (auto) 349 10^3/uL (140-450); Red Blood Cells 3.43 10^6/uL (4.0-5.20); Red Cell Distribution Width 14.6 % (11.8-14.3); White Blood Cell 6.1 10^3/uL (4.4-10.8)
[2024-06-28 06:25] LABS: Chloride 106 mmol/L (98-107); Potassium 3.9 mmol/L (3.5-5.1); Sodium 141 mmol/L (136-145)
[2024-06-28 06:26] LABS: Anion Gap 8 (5-15); Calcium 9.5 mg/dL (8.7-10.4); Carbon Dioxide 27 mmol/L (20-31)
[2024-06-28 06:31] LABS: BUN/Creatinine Ratio 37.5 (10.0-20.0)
[2024-06-28 06:41] LABS: Blood Urea Nitrogen 30 mg/dL (9-23); Glucose 138 mg/dL (74-106)
[2024-06-28 07:57] VITALS: PULSE 78; RESP 20; O2SAT 96
[2024-06-28 09:00] VITALS: BP 125/71; PULSE 78; RESP 16; TEMP 97.7; O2SAT 97
[2024-06-28] MEDS ORDERED: IOHEXOL 350 MG/ML 100ML IJ ONE (10:08)
--- NOTE | 2024-06-28 10:46 | DVH ---
CHEST RADIOGRAPH Indication: Pleaural effusion Technique: Single frontal view of the chest was obtained COMPARISON: XY CHEST XRAY 1 VIEW on DOS: 06/25/24, XY CHEST PORTABLE on DOS: 06/17/24, XY CHEST PORTABLE on DOS: 06/16/24, XY CHEST PORTABLE on DOS: 11/05/22 FINDINGS: Lines and Tubes: None Lungs: Clear Pleura: Moderate right pleural effusion. No pneumothorax. Cardiomediastinal contours: Unremarkable Bones: Unremarkable IMPRESSION: Moderate right pleural effusion
--- NOTE | 2024-06-28 12:11 | DVH ---
CT CT ANGIO CHEST CONTRAST INDICATION: ro PE EXAM DATE: 06/28/2024 11:32 AM COMPARISON: None RADIATION DOSE: CTDIvol: 9 mGy, DLP: 340 mGy*cm PROCEDURE: Helical CT angiographic images were obtained of the chest with intravenous contrast. Sagi ttal and coronal reconstructions as well as MIPS are provided. Maximum intensity projections performe d (MIPs) were performed for CTA. ADDITIONAL IMAGES / REFORMATS: None All CT scans at this medical facility are performed using dose modulation techniques as appropriate t o a performed exam including the following: Automated exposure control was utilized; adjustment of th e MA and/or KV according to patient size; and use of iterative reconstruction technique. FINDINGS: Bones: Scattered degenerative changes are noted in the visualized osseous structures. Visualized Abdomen: Normal. Chest Wall: Normal. Soft tissues: Normal. Mediastinum: Normal. Heart: Normal. Vessels: No filling defects in the visualized pulmonary arteries including the segmental and subsegme ntal pulmonary arteries. Lymph Nodes: Normal. Pleura: Moderate loculated right pleural effusion. Airways: Normal. Lung: Right upper lobe consolidation consistent with pneumonia. Other: None IMPRESSION: No pulmonary embolism in the visualized pulmonary arteries including the segmental and subsegmental p ulmonary arteries. Right upper lobe consolidation consistent with pneumonia. Moderate loculated right pleural effusion.
[2024-06-28] MEDS ORDERED: ACET-1882 PO (12:27)
[2024-06-28] MEDS ORDERED: CEPH250C PO (12:27)
[2024-06-28 13:00] VITALS: BP 129/75; PULSE 79; RESP 16; TEMP 97.6; O2SAT 98
[2024-06-28 13:15] VITALS: BP 125/71; PULSE 78; RESP 20; TEMP 97.6; O2SAT 97
--- NOTE | 2024-06-28 19:31 | DVHDSRES ---
Discharge Summary Date of Admission Resident Creating Document: LILIAN RANKIN RESIDENT Jun 25, 2024 at 22:40 Date of Discharge: Jun 28, 2024 Labs/Diagnostic Data: Laboratory Results Test 06/28/24 11:34 06/28/24 05:50 06/26/24 07:25 06/26/24 00:47 POC Glucose 245 mg/dl (70-106) White Blood Count 6.1 10^3/uL (4.4-10.8) Red Blood Count 3.43 10^6/uL (4.0-5.20) Hemoglobin 9.8 g/dL (12.2-16.2) Hematocrit 29.5 % (36.0-46.0) Mean Corpuscular Volume 86.2 fL (80.0-100.0) Mean Corpuscular Hemoglobin 28.5 pg (28.0-32.0) Mean Corpuscular Hemoglobin Concent 33.1 g/dL (32.0-36.0) Red Cell Distribution Width 14.6 % (11.8-14.3) Platelet Count 349 10^3/uL (140-450) Mean Platelet Volume 6.7 fL (6.9-10.8) Neutrophils (%) (Auto) 57.6 % (37.0-80.0) Lymphocytes (%) (Auto) 31.3 % (10.0-50.0) Monocytes (%) (Auto) 7.4 % (0.0-12.0) Eosinophils (%) (Auto) 3.3 % (0.0-7.0) Basophils (%) (Auto) 0.4 % (0.0-2.0) Neutrophils # (Auto) 3.5 10 ^3/uL (1.6-8.6) Lymphocytes # (Auto) 1.9 10 ^3/uL (0.4-5.4) Monocytes # (Auto) 0.5 10 ^3/uL (0-1.3) Eosinophils # (Auto) 0.2 10 ^3/uL (0-0.8) Basophils # (Auto) 0 10 ^3/uL (0-0.2) Nucleated Red Blood Cells 0.0 % Sodium Level 141 mmol/L (136-145) Potassium Level 3.9 mmol/L (3.5-5.1) Chloride Level 106 mmol/L (98-107) Carbon Dioxide Level 27 mmol/L (20-31) Anion Gap 8 (5-15) Blood Urea Nitrogen 30 mg/dL (9-23) Creatinine 0.80 mg/dL (0.550-1.02) Glomerular Filtration Rate Calc 82 mL/min (>90) BUN/Creatinine Ratio 37.5 (10.0-20.0) Serum Glucose 138 mg/dL (74-106) Calcium Level 9.5 mg/dL (8.7-10.4) Total Bilirubin 0.4 mg/dL (0.2-1.0) Aspartate Amino Transferase (AST) 16 U/L (13-40) Alanine Aminotransferase (ALT) 15 U/L (7-40) Alkaline Phosphatase 93 U/L (46-116) Lactate Dehydrogenase 207 U/L (120-246) Total Protein 6.7 g/dL (5.7-8.2) Albumin 3.6 g/dL (3.2-4.8) Influenza Type A Antigen Negative (Negative) Influenza Type B Antigen Negative (Negative) SARS-CoV-2 Antigen (Rapid) Negative (NEGATIVE) Test 06/25/24 22:53 06/25/24 22:50 06/25/24 19:32 06/25/24 17:12 Lactic Acid Level 0.9 mmol/L (0.4-2.0) Magnesium Level 2.2 mg/dL (1.6-2.6) C-Reactive Protein High Sensitivity 3.00 mg/dL (<1.0) Thyroid Stimulating Hormone (TSH) 2.53 uIU/mL (0.55-4.78) Urine Color Yellow (Yellow) Urine Clarity Turbid (Clear) Urine pH 8.0 (5.0-9.0) Urine Specific Kimball 1.028 (1.001-1.035) Urine Protein 3+ (Negative) Urine Ketones Negative (Negative) Urine Blood 1+ /uL (Negative) Urine Nitrite Negative (Negative) Urine Bilirubin Negative (Negative) Urine Urobilinogen Normal mg/dL (Negative) Urine Leukocyte Esterase Negative /uL (Negative) Urine RBC 122 /hpf (0 - 4) Urine Microscopic WBC 25 /HPF (0-5) Urine Squamous Epithelial Cells None seen /hpf (<5) Urine Bacteria Few /hpf (None Seen) Urine Glucose 3+ mg/dL (Normal) Body Fluid Source Pleural fluid Body Fluid pH 8.0 Body Fluid WBC (Manual) 793 CUMM (0-200) Body Fluid RBC (Manual) 438 CUMM (0-2000) Body Fluid Mononuclear Cells 94 % Body Fluid Polymorphonuclear Cells 6 % (0-25) Body Fluid Glucose 222 mg/dL (.) Body Fluid Total Protein 4.5 g/dL (.) Body Fluid Albumin 2.6 g/dL (Not Estab.) Body Fluid Lactate Dehydrogenase 243 IU/L (.) Prothrombin Time 9.8 sec (9.3-11.8) Prothrombin Time INR 0.92 (0.9-1.15) Activated Partial Thromboplast Time 27.4 SEC (24.5-34.5) D-Dimer, Quantitative 3.90 mg/L FEU (0.0-0.49) B-Type Natriuretic Peptide 233.41 pg/mL (0-100) Other Laboratory Tests 06/28/24 05:50 Brief Hx & Hospital Course: Luisito Contreras is a 64-year-old female with , who came in due to shortness of breath. According to the patient, for the past 6 weeks she has been having shortness of breath that has been progressively increasing, patient notes shortness of breath in approved after she had thoracentesis on 05/29/2024, however, it progressively worsened since then which is what prompted this visit to the hospital. Patient is following at [facility]. Chest x-ray was done which showed a large right-sided pleural effusion, patient underwent thoracentesis with removal of 900 mL of yellow-colored fluid. Repeat chest x- ray afterwards showed decreased now [id number] right-sided pleural effusion. Past medical history: Hypertension, Diabetes, lung cancer EGFR positive diagnosed in April 2024, recurrent pleural effusions, CAD with MN s/p PCI x 2DES 10 days ago,CVA. Surgical history: PCI with 2 KIRIT Family history: Noncontributory Social history: Patient lives with her . Denies tobacco, alcohol and other drug abuse Allergies: Denies Home medications: Aspirin, atorvastatin, clopidogrel, erlotinib, metoprolol succinate 25 mg Brief hospital course: Acute hypoxic respiratory failure secondary to large right-sided pleural effusion (probable malignant) associated with UTI, requiring thoracentesis room removal of 900 mL of yellow fluid compatible with exudate, oxygen therapy and empiric IV antibiotic (ceftriaxone, discharged with Keflex). Completed angio CT which ruled out PE (did evidence right upper lobe consolidation and moderate loculated right pleural effusion), and also completed lower limb ultrasound which ruled out DVT. Discussed telephonically with oncologist in [facility] who recommended to continue with Erlotinib. Patient hemodynamically stable, asymptomatic, with no oxygen requirement, in condition to be discharged home. Was granted under optimal medical therapy, gave her advice on healthy lifestyle habits, and follow-up as outpatient with PCP, hogshead filler, oncologist and nut sifter. DIAGNOSIS Acute hypoxic respiratory failure secondary to pleural effusion Large right-sided pleural effusion probably malignant effusion, recurrent Acute complicated UTI History of EGFR positive lung cancer diagnosed in April 2024 Coronary artery disease with MN 10 days ago s/p PCI x2 KIRIT on DAPT History of CVA Hypertension Type 2 diabetes - uncontrolled (Hb A1c 7.1%) Goals of care discussed with patient for over 18 minutes: Full code status Discussed plan with Dr. Vaz, patient and nurses Physical examination Patient lying in bed, in no acute distress General: Lucid, afebrile, mucosae are moist Cardiovascular: Normal S1 and S2. No murmurs, gallops or rubs Respiratory: Normal ventilation mechanics. Reduced breath sounds on right hemithorax predominantly base associated with dullness on percussion, rest of lung auscultation is clear Abdomen: Soft, nontender, no organomegaly, normal bowel sounds MSK/skin: Mobilizes 4 limbs. Skin is dry and warm Neurological: Oriented in 3 spheres. No motor no sensitive deficits. Pupils are isocoric and reactive Operations or Procedures RIGHT Chest Sonogram Date: 06/25/2024 05:45 PM Clinical history: PLEURAL EFFUSION TECHNIQUE: Multiple longitudinal and transverse images through the right chest were obtained. Images submitted: 6 Findings: Limited sonographic evaluation of the RIGHT chest was performed to localize and arsenio fluid for thoracentesis. There is a LARGE RIGHT pleural effusion. A fluid pocket in the RIGHT chest. IMPRESSION: 1. LARGE RIGHT PLEURAL EFFUSION ATED BY: MELINDA SOLORIO Jr., DO DICTATED DATE/TIME: 06/25/24 1805 XY CHEST TWO VIEWS ROUTINE CLINICAL HISTORY: sob COMPARISON: None TECHNIQUE: Frontal and lateral view of the chest was obtained FINDINGS: Lines and Tubes: None Lungs: Slowly improving right pleural effusion airspace disease when compared to 06/17/2024.. Pleura: No effusion. No pneumothorax. Cardiomediastinal contours: Unremarkable Bones: No acute osseous abnormality. IMPRESSION: 1. Slightly improving right pleural effusion airspace disease ATED BY: MELINDA SOLORIO Jr., DO DICTATED DATE/TIME: 06/25/24 1730 EXAM: US Duplex Bilateral Lower Extremities Veins CLINICAL INDICATION: Rule out DVT TECHNIQUE: Real-time duplex ultrasound scan of the bilateral lower extremity veins integrating B-mode two-dimensional vascular structure, Doppler spectral analysis, color flow Doppler imaging and compression. COMPARISON: None FINDINGS: RIGHT DEEP VEINS: Unremarkable. No DVT in the right common femoral, femoral, proximal deep femoral or popliteal veins. The veins demonstrate normal color flow, are normally compressible, with normal phasic flow and/or augmentation response. RIGHT SUPERFICIAL VEINS: Unremarkable. No thrombus in the visualized right great saphenous vein. LEFT DEEP VEINS: Unremarkable. No DVT in the left common femoral, femoral, proximal deep femoral or popliteal veins. The veins demonstrate normal color flow, are normally compressible, with normal phasic flow and/or augmentation response. LEFT SUPERFICIAL VEINS: Unremarkable. No thrombus in the visualized left great saphenous vein. SOFT TISSUES: No acute findings. No popliteal cyst. LYMPH NODES: Right groin lymph node measuring up to 3.2 cm. OTHER FINDINGS: . IMPRESSION: No DVT. ATED BY: ARSENIO ARITA MD DICTATED DATE/TIME: 06/26/[address] ANGIO CHEST CONTRAST INDICATION: ro PE EXAM DATE: 06/28/2024 11:32 AM COMPARISON: None RADIATION DOSE: CTDIvol: 9 mGy, DLP: 340 mGy*cm PROCEDURE: Helical CT angiographic images were obtained of the chest with intravenous contrast. Sagittal and coronal reconstructions as well as MIPS are provided. Maximum intensity projections performed (MIPs) were performed for CTA. ADDITIONAL IMAGES / REFORMATS: None All CT scans at this medical facility are performed using dose modulation techniques as appropriate to a performed exam including the following: Automated exposure control was utilized; adjustment of the MA and/or KV according to patient size; and use of iterative reconstruction technique. FINDINGS: Bones: Scattered degenerative changes are noted in the visualized osseous structures. Visualized Abdomen: Normal. Chest Wall: Normal. Soft tissues: Normal. Mediastinum: Normal. Heart: Normal. Vessels: No filling defects in the visualized pulmonary arteries including the segmental and subsegmental pulmonary arteries. Lymph Nodes: Normal. Pleura: Moderate loculated right pleural effusion. Airways: Normal. Lung: Right upper lobe consolidation consistent with pneumonia. Other: None IMPRESSION: No pulmonary embolism in the visualized pulmonary arteries including the segmental and subsegmental pulmonary arteries. Right upper lobe consolidation consistent with pneumonia. Moderate loculated right pleural effusion. ATED BY: TOBI CLAY MD DICTATED DATE/TIME: 06/28/24 1208 CHEST RADIOGRAPH Indication: Pleaural effusion Technique: Single frontal view of the chest was obtained COMPARISON: XY CHEST XRAY 1 VIEW on DOS: 06/25/24, XY CHEST PORTABLE on DOS: 06/17/24, XY CHEST PORTABLE on DOS: 06/16/24, XY CHEST PORTABLE on DOS: 11/05/22 FINDINGS: Lines and Tubes: None Lungs: Clear Pleura: Moderate right pleural effusion. No pneumothorax. Cardiomediastinal contours: Unremarkable Bones: Unremarkable IMPRESSION: Moderate right pleural effusion ATED BY: RUSS WOMACK MD DICTATED DATE/TIME: 06/28/24 1041 Condition at Discharge: Fair Final Diagnosis/Problems List Acute hypoxic respiratory failure secondary to pleural effusion Large right-sided pleural effusion probably malignant effusion, recurrent Acute complicated UTI History of EGFR positive lung cancer diagnosed in April 2024 Coronary artery disease with MN 10 days ago s/p PCI x2 KIRIT on DAPT History of CVA Hypertension Type 2 diabetes - uncontrolled (Hb A1c 7.1%) Discharge Disposition: Home SNF Discharge Will this Physician continue t: No Discharge Instruct/Medications Diet: Cardiac 2g Na,low cholest Activity: No Restrictions, As Tolerated Follow Up/Referral: PCP Cardiology Oncology Pulmonology Medications: Per EMR Discharge Statement: "Patient was advised to return to the ER or call 911 if any headaches, dizziness, shortness of breath, chest pain, abdominal pain, bleeding, fevers, or worsening of medical condition. Patient was counseled about treatment plan, medications, possible side effects, patientverbalized understanding. All questions were answered to the best of my ability. This discharge took greater then 30 minutes in planning, reviewing documentation, counseling the patient, and discussing with other team members." ASSESSMENT ASSESSMENT Assessment Acute respiratory failure secondary to malignant pleural effusion Date of Service: Jun 28, 2024 Billing Provider: JOCELYNE VAZ MD Common Visit Codes: 51118-ADI/OBS DISCH DAY <30MIN LILIAN RANKIN RESIDENT Jun 28, 2024 19:31 JOCELYNE VAZ MD Jun 28, 2024 22:22
--- NOTE | 2024-06-28 21:26 | DVHPN2 ---
Progress Note - Dictate Date Seen: Jun 28, 2024 Medical Necessity Reason Pt with a Central, PICC or Fol: No Subjective Patient seen and examined at bedside. Breathing comfortably on room air. Overnight events reviewed. vital signs Vital Sign Date Time Temp Pulse Resp B/P (MAP) Pulse Ox O2 Delivery O2 Flow Rate FiO2 06/28/24 13:15 97.6 78 20 97 06/28/24 13:00 129/75 (93) 06/28/24 07:57 Room Air* 0 21 Total Intake and Output 06/27/24 06/27/24 06/28/24 15:00 23:00 07:00 Intake Total 1273 ml 484 ml 200 ml Balance 1273 ml 484 ml 200 ml medications Current Medications Medications Dose Ordered Sig/Nitin Route Start Time Stop Time Status Last Admin Dose Admin Patient Own Medication 40 mg QPM PO 06/26/24 18:00 UNV objective Gen.: Patient lying in bed in no apparent distress. Breathing on room air. Head: Normocephalic, atraumatic. Eyes: EOMI/PERRLA. Ears: Normal hearing. Normal anatomy. Neck/trachea: Trachea midline, supple. Nose: Normal external anatomy. Mouth: Moist mucous membranes. Chest: Decreased air entry bilaterally. No wheezing or rhonchi. Cardiovascular: Positive S1, positive S2. Regular rate and rhythm. Abdomen: Positive bowel sounds in all 4 quadrants. Soft, non-tender, non- distended. : Deferred. Rectal: Deferred. Skin: Warm, dry. Intact. Extremities: 2+ radial pulses bilaterally. No lower extremity edema. Neuro: Awake, alert, oriented x3. No gross motor or sensory deficits. Cranial nerves II through XII intact. Gait not assessed. laboratory and microbiology Laboratory Tests 06/28/24 05:50 Test 06/28/24 05:50 Range/Units Serum Glucose 138 H 74-106 mg/dL Assessment/Plan Impression Acute hypoxic respiratory failure Recurrent malignant right pleural effusion Atelectasis Lung cancer Events: Breathing on room air No respiratory distress. Continue antibiotics Incentive spirometry Right pleural fluid cultures show no growth. CT angio shows no pulmonary embolism. Right upper lobe consolidation consistent with pneumonia. Moderate loculated right pleural effusion. Patient is stable for discharge from the pulmonary standpoint. Recommend outpatient followup in Pulmonary Clinic + repeat thoracentesis if CXR continues to show right pleural effusion. Protonix for GI prophylaxis S/p right thoracentesis on 06/25/24. See separate procedure note for full details. Drained 900 mL of yellow-colored fluid. Stopped due to patient discomfort. Possibility of loculated/trapped right lung. Post procedure chest x-ray showed decreased, small to moderate, right pleural effusion. Labs and imaging reviewed. Rest of plan as noted below. Plan: On room air Supplemental oxygen PRN. Continue antibiotics Incentive spirometry. Maintain euvolemia. Monitor ins and outs. Monitor renal function. Monitor electrolytes. Supplement as necessary. DVT prophylaxis. Prognosis: Guarded given multiple comorbidities. Rest of plan per hospitalist and other consultants. Thank you Dr. Scott for allowing me to participate in this patient's care. Further recommendations will depend on patient's clinical course. Please do not hesitate to contact me if you have any questions or concerns. This medical document was created using an electronic medical record system with [employer] dictation system. Although this document has been carefully reviewed, there may still be some phonetic and typographical errors. These areas are purely typographical due to imperfections of the software programs, and do not reflect any compromise in the patient's medical care. Plan discussed with: Patient, Other (ZINA Morales) CANDACE VILLELA MD Jun 28, 2024 21:26
== END 2024-06-28 14:45 | disposition home or self-care (01) | DRG 180 ==
LOC: ER 16:52 → OVERFLOW 22:40 → EAST 06-26 03:38
PROVIDERS: ADMIT Student in an Organized Health Care Education/Training Program; ATTEND Student in an Organized Health Care Education/Training Program
PROC: 0W993ZX Drainage of Right Pleural Cavity, Percutaneous Approach, Diagnostic (ICD-10-PCS; principal; 2024-06-25)
DX: C34.91 Malignant neoplasm of unspecified part of right bronchus or lung (principal); J96.01 Acute respiratory failure with hypoxia; J91.0 Malignant pleural effusion; J98.11 Atelectasis; N39.0 Urinary tract infection, site not specified; I10 Essential (primary) hypertension; E11.9 Type 2 diabetes mellitus without complications; I25.10 Atherosclerotic heart disease of native coronary artery without angina pectoris; Z95.1 Presence of aortocoronary bypass graft; Z86.73 Personal history of transient ischemic attack (TIA), and cerebral infarction without residual deficits; Z95.5 Presence of coronary angioplasty implant and graft; Z85.118 Personal history of other malignant neoplasm of bronchus and lung; Z80.1 Family history of malignant neoplasm of trachea, bronchus and lung; Z79.82 Long term (current) use of aspirin; Z79.02 Long term (current) use of antithrombotics/antiplatelets; Z79.899 Other long term (current) drug therapy
CPT/HCPCS: 36415; 71045; 71046; 71275; 76604; 80048; 80053; 81001; 82962; 83605; 83615; 83735; 83880; 83986; 84443; 85025; 85379; 85610; 85730; 86141; 87081; 87086; 87205; 87426; 87804; 89051; 93005; 93970; G0378; J1815; J2470

== ENCOUNTER 2024-07-08 00:12 | Inpatient (IN) | payer MEDICARE, MEDICAID ==
[2024-07-08] VITALS (7 sets, daily range): BP systolic 118–150; BP diastolic 40–102; PULSE 65–90; RESP 12–23; TEMP 97.8–98.2; O2SAT 90–99
[~2024-07-08] VITALS: Ht 162.6 cm; Wt 56.3 kg
[~2024-07-08 00:12] MED LIST changes: +ACET-1882 PO; +CEPH250C PO; +[UNRECOGNIZED DRUG - CODE] PO
--- NOTE | 2024-07-08 00:42 | ED.PDOC ---
SOB-HPI HPI Comments 64 year old female brought in by daughter presents to the ED with a chief complaint of shortness of breath onset 3 days. Patient states she has been experiencing shortness of breath, cough for the past 3 days, noticed worsen today. She had a pleural effusion on 06/25/24. She saw oncologist yesterday (07/07/24) was told fluid was building up again. Patient states she experienced similar symptoms prior to last pleural effusion, states symptoms worsen when she lays down. During assessment O2 sat was 96% on RA. PMHx lung cancer, HTN, HLD, DM. Denies chest pain, dizziness, headache, nausea, vomiting, fever, chills. No other symptoms or modifying factors present at this time. Chief Complaint: Shortness of Breath Time Seen by MD: 00:32 Primary Care Provider: NONE Reviewed notes: Medications, Allergies Information Source: Patient, Relative Mode of Arrival: Wheelchair Severity: Moderate Timing: Days Duration: Since onset Context: At Rest PE Risk Factors: None History of: Other Prehospital treatment: None Modifying Factors: Nothing Associated Signs and Symptoms: Cough Radiation: No Radiation If cough with SOB: Productive Past Medical History PAST MEDICAL HISTORY: Cancer, DM, High Lipids, HTN, TIA Surgical History: CABG DINNER COOK History: No Pertinent DINNER COOK History Family History Family History: Reviewed,noncontributory to illness Social History Smoker: Non-Smoker Alcohol: Denies ETOH Use Drugs: Denies Drug Use Lives In: Home Constitutional: denies: chills, diaphoresis, fatigue, fever, malaise, sweats, weakness, others EENTM: denies: blurred vision, double vision, ear bleeding, ear discharge, ear drainage, ear pain, ear ringing, eye pain, eye redness, hearing loss, mouth pain, mouth swelling, nasal discharge, nose bleeding, nose congestion, nose pain, photophobia, tearing, throat pain, throat swelling, voice changes, others Respiratory: reports: cough, shortness of breath; denies: hemoptysis, orthopnea, SOB at rest, SOB with excertion, stridor, wheezing, others Cardiovascular: denies: chest pain, dizzy spells, diaphoresis, Dyspnea on exertion, edema, irregular heart beat, left arm pain, lightheadedness, palpitations, PND, syncope, others Gastrointestinal: denies: abdomen distended, abdominal pain, blood streaked bowels, constipated, diarrhea, dysphagia, difficulty swallowing, hematemesis, melena, nausea, poor appetite, poor fluid intake, rectal bleeding, rectal pain, vomiting, others Genitourinary: denies: abnormal vagina bleeding, burning, dyspareunia, dysuria, flank pain, frequency, hematuria, incontinence, pain, , vagina discharge, urgency, others Neurological: denies: dizziness, fainting, headache, left sided numbness, left sided weakness, numbness, paresthesia, pre-existing deficit, right sided numbness, right sided weakness, seizure, speech problems, tingling, tremors, weakness, others Musculoskeletal: denies: back pain, gout, joint pain, joint swelling, muscle pain, muscle stiffness, neck pain, others Integumetry: denies: bruises, change in color, change in hair/nails, dryness, laceration, lesions, lumps, rash, wounds, others Allergic/Immunocompromised: denies: Difficulty Healing, Frequent Infections, Hives, Itching, others Hematologic/Lymphatic: denies: anemia, blood clots, easy bleeding, easy bruising, swollen glands, others Endocrine: denies: excessive hunger, excessive sweating, excessive thirst, excessive urination, flushing, intolerance to cold, intolerance to heat, unexplained weight gain, unexplained weight loss, others Psychiatric: denies: anxiety, bipolar disorder, depression, hopeless, panic disorder, schizophrenia, sleepless, suicidal, others All Other Systems: Reviewed and Negative Physical Exam General Appearance: No Apparent Distress, Normal HEENT: Normal ENT Inspection, Pharynx Normal, TMs Normal Neck: Full Range of Motion, Non-Tender, Normal, Normal Inspection Respiratory: Chest Non-Tender, Crackles (bilateral), Other (productive cough ) Cardiovascular: No Edema, No JVD, No Murmur, No Gallop, Normal Peripheral Pulses, Regular Rate/Rhythm Breast Exam: Deferred Gastrointestinal: No Organomegaly, Non Tender, No Pulsatile Mass, Normal Bowel Sounds, Soft Genitalia: Deferred Pelvic: Deferred Rectal: Deferred Extremities: No calf tenderness, Normal capillary refill, Normal inspection, Normal range of motion, Non-tender, No pedal edema Musculoskeletal : Apperance: Normal Neurologic: Alert, vibratory pile driver II-XII nml as Tested, No Motor Deficits, Normal Affect, Normal Mood, No Sensory Deficits Cerebellar Function: Normal Reflexes: Normal Skin: Dry, Normal Color, Warm Lymphatic: No Adenopathy Was a procedure done? Was a procedure done?: No Differential Dx Differential Diagnosis: Bronchitis, CHF, COPD, Pneumonia X-Ray, Labs, Meds, VS Vital Signs Date Time Temp Pulse Resp B/P (MAP) Pulse Ox O2 Delivery O2 Flow Rate FiO2 07/08/24 00:28 104 07/08/24 00:21 22 96 Room Air* 0 21 07/08/24 00:21 98.4 104 22 150/91 (110) 96 98.4 Lab Test 07/08/24 00:46 Range/Units White Blood Count 4.5 4.4-10.8 10^3/uL Red Blood Count 3.88 L 4.0-5.20 10^6/uL Hemoglobin 11.1 L 12.2-16.2 g/dL Hematocrit 33.2 L 36.0-46.0 % Mean Corpuscular Volume 85.5 80.0-100.0 fL Mean Corpuscular Hemoglobin 28.5 28.0-32.0 pg Mean Corpuscular Hemoglobin Concent 33.3 32.0-36.0 g/dL Red Cell Distribution Width 15.6 H 11.8-14.3 % Platelet Count 317 140-450 10^3/uL Mean Platelet Volume 6.9 6.9-10.8 fL Neutrophils (%) (Auto) 62.7 37.0-80.0 % Lymphocytes (%) (Auto) 26.4 10.0-50.0 % Monocytes (%) (Auto) 8.8 0.0-12.0 % Eosinophils (%) (Auto) 1.8 0.0-7.0 % Basophils (%) (Auto) 0.3 0.0-2.0 % Neutrophils # (Auto) 2.8 1.6-8.6 10 ^3/uL Lymphocytes # (Auto) 1.2 0.4-5.4 10 ^3/uL Monocytes # (Auto) 0.4 0-1.3 10 ^3/uL Eosinophils # (Auto) 0.1 0-0.8 10 ^3/uL Basophils # (Auto) 0 0-0.2 10 ^3/uL Nucleated Red Blood Cells 0.1 % Sodium Level 136 136-145 mmol/L Potassium Level 4.3 3.5-5.1 mmol/L Chloride Level 103 98-107 mmol/L Carbon Dioxide Level 28 20-31 mmol/L Anion Gap 5 5-15 Blood Urea Nitrogen 18 9-23 mg/dL Creatinine 0.75 0.550-1.02 mg/dL Glomerular Filtration Rate Calc 88 >90 mL/min BUN/Creatinine Ratio 24.0 H 10.0-20.0 Serum Glucose 250 H 74-106 mg/dL Calcium Level 9.6 8.7-10.4 mg/dL Troponin I High Sensitivity 33 </=34 ng/L B-Type Natriuretic Peptide 188.65 0-100 pg/mL Time of 1ST Reevaluation: 01:02 Reevaluation 1ST: Unchanged Patient Education/Counseling: Diagnosis, Treatment, Prognosis Family Education/Counseling: Diagnosis, Treatment, Prognosis Additional Information The following tests were ordered, and results were reviewed by me: EKG, BNP, BMP, CBC, TROP, XY CHEST Additional Information was gathered from interviewing the following independent historians: daughter I reviewed and agreed with the following test results read by other providers: XY CHEST I discussed treatment and results with medical personnel and: Patient, daughter Departure 1 Departure Time of Disposition: 03:10 (Patient has signs of pneumonia. Patient also has a large pleural effusion likely secondary to malignancy. We will empirically cover patient with antibiotics and admit patient for further workup and pulmonary consultation. We will not give patient the full fluid bolus as patient has signs of volume overload) Impression: Primary Impression: Pneumonia Qualified Codes: J18.9 - Pneumonia, unspecified organism Additional Impressions: Pleural effusion Shortness of breath Cancer Disposition: ADMITTED INPATIENT Admit to: Med Surg Condition: Serious Critical Care Note Critical Care Time?: No Stability Stability form required: No Heart Score Heart Score: Heart Score Response (Comments) Value History N/A 0 EKG N/A 0 Age N/A 0 Risk Factors N/A 0 Troponin N/A 0 Total 0 I personally scribed for JOVITA LOBO MD ([email or web address]) on 07/08/24 at 00:42. Electr onically submitted by Christy Sharma ([email or web address]). I personally scribed for JOVITA LOBO MD ([email or web address]) on 07/08/24 at 00:43. Electronically submitted by Christy Sharma ([email or web address]). JOVITA LOBO MD Jul 08, 2024 00:42
[2024-07-08 01:02] LABS: Basophils # (auto) 0 10 ^3/uL (0-0.2); Basophils % (auto) 0.3 % (0.0-2.0); Eosinophils # (auto) 0.1 10 ^3/uL (0-0.8); Eosinophils % (auto) 1.8 % (0.0-7.0); Hematocrit 33.2 % (36.0-46.0); Hemoglobin 11.1 g/dL (12.2-16.2); Lymphocytes # (auto) 1.2 10 ^3/uL (0.4-5.4); Lymphocytes % (auto) 26.4 % (10.0-50.0); Mean Corpuscular Hemoglobin 28.5 pg (28.0-32.0); Mean Corpuscular Hgb Conc. 33.3 g/dL (32.0-36.0); Mean Corpuscular Volume 85.5 fL (80.0-100.0); Monocytes # (auto) 0.4 10 ^3/uL (0-1.3); Monocytes % (auto) 8.8 % (0.0-12.0); Neutrophils # (auto) 2.8 10 ^3/uL (1.6-8.6); Neutrophils % (auto) 62.7 % (37.0-80.0); Nucleated Red Blood Cells % 0.1 %; Platelet Count (auto) 317 10^3/uL (140-450); Red Blood Cells 3.88 10^6/uL (4.0-5.20); Red Cell Distribution Width 15.6 % (11.8-14.3); White Blood Cell 4.5 10^3/uL (4.4-10.8)
[2024-07-08 01:11] LABS: Anion Gap 5 (5-15); Carbon Dioxide 28 mmol/L (20-31); Chloride 103 mmol/L (98-107); Potassium 4.3 mmol/L (3.5-5.1)
[2024-07-08 01:12] LABS: Calcium 9.6 mg/dL (8.7-10.4)
[2024-07-08 01:17] LABS: Blood Urea Nitrogen 18 mg/dL (9-23)
[2024-07-08 01:25] LABS: Glucose 250 mg/dL (74-106); Sodium 136 mmol/L (136-145)
--- NOTE | 2024-07-08 02:45 | DVH ---
INDICATION: cough TECHNIQUE: Frontal view of the chest. COMPARISON: XY CHEST XRAY 1 VIEW on DOS: 06/28/24, XY CHEST XRAY 1 VIEW on DOS: 06/25/24, XY CHEST PORTAB LE on DOS: 06/17/24, XY CHEST PORTABLE on DOS: 06/16/24, XY CHEST PORTABLE on DOS: 11/05/22 FINDINGS: Lines and Tubes: None Lungs: Right upper lobe opactiy. Pleura: Moderate right pleural effusion. No pneumothorax. Cardiomediastinal contours: Unremarkable Bones: Unremarkable IMPRESSION: Moderate right pleural effusion Right upper lobe pneumonia
[2024-07-08] MEDS ORDERED: ALBUTEROL SULF 2.5 MG/0.5ML(0.5%) NEB SOLN NEB PRN ×2 (03:45→07:45)
[2024-07-08] MEDS ORDERED: DEXTROSE (50%) 50ML SYRG IV PRN ×2 (03:45→07:45)
[2024-07-08] MEDS ORDERED: ACETAMINOPHEN 325 MG TAB PO PRN ×2 (03:45→08:00)
[2024-07-08] MEDS ORDERED: MORPHINE SULFATE INJ 2 MG/ml SYRG IV PRN ×2 (03:45→08:00)
[2024-07-08] MEDS ORDERED: ONDANSETRON HCL 4 MG/2 ML VIAL IV PRN ×2 (03:45→07:45)
[2024-07-08] MEDS ORDERED: HYDROcodone-ACET 5/325MG TAB PO PRN (03:45)
[2024-07-08] MEDS ORDERED: NITROGLYCERIN 0.4 MG SL TAB SL PRN ×2 (03:45→08:00)
[2024-07-08 03:49] LABS: Lactic Acid w/Reflex 2.2 mmol/L (0.4-2.0)
[2024-07-08] MEDS: SODIUM CHLORIDE 0.9% 1,000 ML IV ONE (04:13)
[2024-07-08] MEDS: ONDANSETRON HCL 4 MG/2 ML VIAL IV ONE (04:21)
[2024-07-08] MEDS: VANCOMYCIN 1GM/250ML KIT 200 ML IV ONE (04:21)
[2024-07-08] MEDS: AZITHROMYCIN 250 MG TAB PO ONE (04:21)
--- NOTE | 2024-07-08 04:53 | DVHHP2 ---
History of Present Illness Reason for Visit: Shortness for breath History of Present Illness 64-year-old female presents for evaluation of shortness for breath. Patient reports a three day history of worsening shortness for breath with associated cough. Patient with a history of lung cancer currently being followed at [facility]. Denies chest pain or palpitations. No fever or chills. Past Medical History Dyslipidemia, hypertension, diabetes mellitus and lung cancer Past Surgical History CABG Family History Noncontributory Smoke: No ALCOHOL: none Drugs: None Lives: with Family Review of Systems Review of Systems Review of systems are currently negative otherwise dressing HPI. Allergies: Coded Allergies: NO KNOWN ALLERGIES (Unverified , 11/05/22) Medications Current Medications Medications Dose Ordered Sig/Nitin Route Start Time Stop Time Status Last Admin Dose Admin Metoprolol Succinate 25 mg DAILY PO 07/08/24 10:00 Atorvastatin Calcium 40 mg HS PO 07/08/24 22:00 Clopidogrel Bisulfate 75 mg DAILY PO 07/08/24 10:00 Azithromycin 250 ml @ 125 mls/hr DAILY IV 07/09/24 10:00 Ceftriaxone Sodium 50 ml @ 100 mls/hr DAILY@09 IV 07/09/24 09:00 Albuterol 2.5 mg Q6HPRN PRN NEB 07/08/24 03:45 Diagnostic Test (Pha) 1 strip ACHS 07/08/24 07:00 Insulin Human Regular ACHS SC 07/08/24 07:00 Dextrose 50 ml UD PRN IV 07/08/24 03:45 Acetaminophen/ Hydrocodone Bitart 1 tab Q4HP PRN PO 07/08/24 03:45 Ondansetron HCl 4 mg Q4HP PRN IV 07/08/24 03:45 Enoxaparin Sodium 40 mg DAILY SC 07/08/24 10:00 Acetaminophen 650 mg Q6HP PRN PO 07/08/24 03:45 Nitroglycerin 0.4 mg Q5MINP PRN SL 07/08/24 03:45 Morphine Sulfate 2 mg Q30M PRN IV 07/08/24 03:45 Exam Vital Signs Vital Signs Date Time Temp Pulse Resp B/P (MAP) Pulse Ox O2 Delivery O2 Flow Rate FiO2 07/08/24 04:08 88 97 Room Air* 0 21 07/08/24 04:08 98.6 22 138/88 (105) 98.6 Exam Gen: 64-year-old female distress. Skin: Warm, dry, normal color and texture, no rash. HEENT: Normocephalic atraumatic, mucous membranes moist and pink. Neck: Cervical and supraclavicular nodes normal without enlargement, trachea is midline, thyroid gland is normal without masses. Pulmonary: Clear to auscultation and percussion bilaterally. Cardiac: Regular rate and rhythm. No murmur Abdomen: Soft, nontender, nondistended, bowel sounds present all 4 quadrants, no guarding, no rigidity, no organomegaly. Extremities: No cyanosis, clubbing, no edema Neuro: Cranial nerves II through XII grossly intact, normal affect and speech, no focal motor deficits. Labs/Xrays ORDERING PHYSICIAN: JOVITA LOBO MD PROCEDURE(s): CXRP - CHEST PORTABLE REASON: cough ORDER NUMBER(s): [id number], ACCESSION NUMBER(s): [id number] INDICATION: cough TECHNIQUE: Frontal view of the chest. COMPARISON: XY CHEST XRAY 1 VIEW on DOS: 06/28/24, XY CHEST XRAY 1 VIEW on DOS: 06/25/24, XY CHEST PORTABLE on DOS: 06/17/24, XY CHEST PORTABLE on DOS: 06/16/24, XY CHEST PORTABLE on DOS: 11/05/22 FINDINGS: Lines and Tubes: None Lungs: Right upper lobe opactiy. Pleura: Moderate right pleural effusion. No pneumothorax. Cardiomediastinal contours: Unremarkable Bones: Unremarkable IMPRESSION: Moderate right pleural effusion Right upper lobe pneumonia ATED BY: DAMION LAN MD Labs Test 07/08/24 03:18 07/08/24 00:46 Range/Units Lactic Acid Level 2.2 *H 0.4-2.0 mmol/L White Blood Count 4.5 4.4-10.8 10^3/uL Red Blood Count 3.88 L 4.0-5.20 10^6/uL Hemoglobin 11.1 L 12.2-16.2 g/dL Hematocrit 33.2 L 36.0-46.0 % Mean Corpuscular Volume 85.5 80.0-100.0 fL Mean Corpuscular Hemoglobin 28.5 28.0-32.0 pg Mean Corpuscular Hemoglobin Concent 33.3 32.0-36.0 g/dL Red Cell Distribution Width 15.6 H 11.8-14.3 % Platelet Count 317 140-450 10^3/uL Mean Platelet Volume 6.9 6.9-10.8 fL Neutrophils (%) (Auto) 62.7 37.0-80.0 % Lymphocytes (%) (Auto) 26.4 10.0-50.0 % Monocytes (%) (Auto) 8.8 0.0-12.0 % Eosinophils (%) (Auto) 1.8 0.0-7.0 % Basophils (%) (Auto) 0.3 0.0-2.0 % Neutrophils # (Auto) 2.8 1.6-8.6 10 ^3/uL Lymphocytes # (Auto) 1.2 0.4-5.4 10 ^3/uL Monocytes # (Auto) 0.4 0-1.3 10 ^3/uL Eosinophils # (Auto) 0.1 0-0.8 10 ^3/uL Basophils # (Auto) 0 0-0.2 10 ^3/uL Nucleated Red Blood Cells 0.1 % Sodium Level 136 136-145 mmol/L Potassium Level 4.3 3.5-5.1 mmol/L Chloride Level 103 98-107 mmol/L Carbon Dioxide Level 28 20-31 mmol/L Anion Gap 5 5-15 Blood Urea Nitrogen 18 9-23 mg/dL Creatinine 0.75 0.550-1.02 mg/dL Glomerular Filtration Rate Calc 88 >90 mL/min BUN/Creatinine Ratio 24.0 H 10.0-20.0 Serum Glucose 250 H 74-106 mg/dL Calcium Level 9.6 8.7-10.4 mg/dL Troponin I High Sensitivity 33 </=34 ng/L B-Type Natriuretic Peptide 188.65 0-100 pg/mL Assessment/Plan Assessment/Plan Assessment Community-acquired pneumonia Lung cancer Enoxaparin malignant pleural effusion Diabetes mellitus Plan Admit the patient to telemetry to the hospitalist Radiology consultation Resume home medications Continue treatment per orders. Plan discussed with: Patient My Orders Orders - DAPHNE CAMPOVERDE AGACNP Procedure Category Date Status Time Metoprolol Xl PHA 07/08/24 In Process Succinate (Toprol Xl) 10:00 Atorvastatin (Lipitor) PHA 07/08/24 In Process 22:00 Clopidogrel Bisulfate PHA 07/08/24 In Process (Plavix) 10:00 * Radiologist Consult CONS 07/08/24 Transmitted 03:39 Albuterol Medneb PHA 07/08/24 In Process (Ventolin Medneb) 03:45 Basic Metabolic Panel LAB 07/09/24 Verified 04:00 Glucose Blood PHA 07/08/24 In Process (Accu-Chek Comfort 07:00 Insulin R (Human) PHA 07/08/24 In Process (Insulin R) 07:00 Dextrose 50% Syringe PHA 07/08/24 In Process 03:45 Admit ADMIT 07/08/24 Transmitted 03:39 Hydrocodone-Acet PHA 07/08/24 In Process 5/325mg Tab (Hunter 03:45 Ondansetron Hcl PHA 07/08/24 In Process (Zofran) 03:45 Enoxaparin Sodium PHA 07/08/24 In Process (Lovenox) 10:00 Complete Blood Count LAB 07/09/24 Verified 04:00 Cardiac DIET 07/08/24 Transmitted Diet-2gna,Lofat,Lochol Breakfast Condition: Fair RACHNA 07/08/24 In Process 03:39 Acetaminophen Tablet PHA 07/08/24 In Process (Tylenol Tablet) 03:45 Bedrest With Bathroom RACHNA 07/08/24 In Process Privileg 03:39 Nitroglycerin PHA 07/08/24 In Process Sublingual (Ntrostat 03:45 Morphine Sulfate PHA 07/08/24 In Process Injection 03:45 Stat Ekg For Chest RACHNA 07/08/24 In Process Pain 03:39 Notify Of Changes RACHNA 07/08/24 In Process From Base 03:39 Iron Assorter For RACHNA 07/08/24 In Process 24 Hours 03:39 Emergency Dysrhythmia RACHNA 07/08/24 In Process Protocol 03:39 Rhythm Strips Once RACHNA 07/08/24 In Process Every Shift 03:39 Oxygen By Nasal RT 07/08/24 Transmitted Cannula 03:39 Azithromycin 500mg/ PHA 07/09/24 In Process 250ml (Zithromax 50 10:00 Ceftriaxone 1gm/50ml PHA 07/09/24 In Process D5w (Rocephin) 09:00 Date of Service: Jul 08, 2024 Billing Provider: DAPHNE CAMPOVERDE Common Visit Codes: [id number] INP/OBS CARE (HIGH) DAPHNE CAMPOVERDE [facility] Jul 08, 2024 04:53
[2024-07-08] MEDS: CEFEPIME 2GM/50ML NS 50 ML IV ONE ×2 (05:46→05:47)
[2024-07-08] MEDS: CEFEPIME 1GM/ 50ML 0 ML IV ONE (05:46)
[2024-07-08] MEDS ORDERED: InsuLIN REG 1unit/0.01ml Soln (100units/ml) SC SCH (07:00)
--- NOTE | 2024-07-08 07:22 | DVH ---
EXAM: US Chest CLINICAL INDICATION: FLUID CHECK FOR POSSIBLE THORACENTESIS TECHNIQUE: Real-time ultrasound of the chest with image documentation. COMPARISON: US CHEST ULTRASOUND on DOS: 06/25/24 FINDINGS: Right pleural effusion. . IMPRESSION: Right pleural effusion.
[2024-07-08] MEDS: ACCU-CHEK COMFORT CURVE STRIP VI SCH ×2 (07:24→12:30)
[2024-07-08 07:32] LABS: INR 0.93 (0.9-1.15); Partial Thromboplastin Time 27.5 SEC (24.5-34.5); Prothrombin Time 9.9 sec (9.3-11.8)
[2024-07-08] MEDS: InsuLIN REG 1unit/0.01ml Soln (100units/ml) ONE (07:44)
[2024-07-08] MEDS: cefTRIAXone 1GM/50ML D5W 50 ML IV SCH (09:01)
[2024-07-08] MEDS ORDERED: CLOPIDOGREL BISULFATE 75 MG TAB PO SCH (10:00)
[2024-07-08] MEDS ORDERED: METOPROLOL SUCCINATE XL 50 MG TAB PO SCH (10:00)
[2024-07-08] MEDS ORDERED: ENOXAPARIN SOD 40 MG/0.4 ML SYRINGE SC SCH (10:00)
--- NOTE | 2024-07-08 10:23 | DVH ---
DATE: July 08, 2024 PROCEDURE: ULTRASOUND GUIDED THORACENTESIS USING TEMPORARY CATHETER HISTORY: 64 Female with right pleural effusion requiring thoracentesis. DOCUMENTATION: Informed consent was obtained and a procedural time out was performed. TECHNIQUE: Ultrasound was used to locate the right pleural fluid collection with an image archived in the PACS. The skin over the right posterior hemithorax was sterilely prepped, draped, and infiltrate d with 1% lidocaine. Under real time ultrasound guidance, the right pleural space was accessed with a 19-gauge Yueh needle and connected to Vacutainers. The Yueh catheter was advanced, the needle was re moved and the temporary catheter was advanced and connected to the Vacutainer. Approximately 1.5 lite rs of tesfaye fluid was removed. The temporary catheter was removed and sterile dressings were applied. FINDINGS: Ultrasound demonstrates a moderate right pleural effusion. Imaging confirms the needle tip within the fluid. Post thoracentesis imaging demonstrates no sifnificant residual fluid. IMPRESSION: 1. SUCCESSFUL ULTRASOUND GUIDED THORACENTESIS.
[2024-07-08] MEDS: METOPROLOL SUCCINATE XL 50 MG TAB PO SCH (11:17)
[2024-07-08] MEDS: CLOPIDOGREL BISULFATE 75 MG TAB PO SCH (11:18)
[2024-07-08] MEDS: AZITHROMYCIN 500MG/ 250ML 250 ML IV SCH (11:18)
[2024-07-08] MEDS: ENOXAPARIN SOD 40 MG/0.4 ML SYRINGE SC SCH (11:19)
[2024-07-08] MEDS: InsuLIN REG 1unit/0.01ml Soln (100units/ml) SC SCH (12:33)
--- NOTE | 2024-07-08 12:33 | DVH ---
EXAM: XY CHEST PORTABLE Indication: POST THORACENTESIS Technique: Single frontal view of the chest was obtained Comparison: XY CHEST PORTABLE on DOS: 07/08/24, XY CHEST XRAY 1 VIEW on DOS: 06/28/24, XY CHEST XRAY 1 V IEW on DOS: 06/25/24, XY CHEST PORTABLE on DOS: 06/17/24, XY CHEST PORTABLE on DOS: 06/16/24 FINDINGS: Lines and Tubes: None Lungs: Right lung consolidative opacity. Pleura: Moderate right pleural effusion No pneumothorax. Cardiomediastinal contours: Unremarkable Bones: No acute osseous abnormality. IMPRESSION: Moderate right pleural effusion, decreased compared to prior exam.
[2024-07-08 13:04] LABS: Body Fluid White Blood Cells 1171 CUMM (0-200)
[2024-07-08 13:05] LABS: Body Fluid Polymorphonuclear 80 % (0-25); Body Fluid Red Blood Cells 9076 CUMM (0-2000)
--- NOTE | 2024-07-08 13:31 | DVHPN2 ---
Reviewed: Care Plan, H&P, Labs, Medications, Previous Orders, Radiology Changes from previous H/P or p: No Changes Objective Vitals Vital Signs Date Time Temp Pulse Resp B/P (MAP) Pulse Ox O2 Delivery O2 Flow Rate FiO2 07/08/24 11:17 75 101/64 07/08/24 07:50 12 98 Room Air* 0 21 07/08/24 07:50 97.7 97.7 Intake/Output Intake and Output 07/08/24 07:00 Intake Total 1200 ml Balance 1200 ml Intake IV Total 1200 ml Medications Current Medications Medications Dose Ordered Sig/Nitin Route Start Time Stop Time Status Last Admin Dose Admin Metoprolol Succinate 25 mg DAILY PO 07/08/24 10:00 07/08/24 11:17 25 MG Atorvastatin Calcium 40 mg HS PO 07/08/24 22:00 Clopidogrel Bisulfate 75 mg DAILY PO 07/08/24 10:00 07/08/24 11:18 75 MG Azithromycin 250 ml @ 125 mls/hr DAILY IV 07/08/24 10:00 07/08/24 11:18 125 MLS/HR Ceftriaxone Sodium 50 ml @ 100 mls/hr DAILY@09 IV 07/08/24 09:00 07/08/24 09:01 100 MLS/HR Albuterol 2.5 mg Q6HPRN PRN NEB 07/08/24 07:45 Diagnostic Test (Pha) 1 strip ACHS 07/08/24 11:30 07/08/24 12:30 1 STRIP Insulin Human Regular ACHS SC 07/08/24 11:30 07/08/24 12:33 3 UNITS Dextrose 50 ml UD PRN IV 07/08/24 07:45 Acetaminophen/ Hydrocodone Bitart 1 tab Q4HP PRN PO 07/08/24 07:45 Ondansetron HCl 4 mg Q4HP PRN IV 07/08/24 07:45 Enoxaparin Sodium 40 mg DAILY SC 07/08/24 10:00 07/08/24 11:19 40 MG Acetaminophen 650 mg Q6HP PRN PO 07/08/24 08:00 Nitroglycerin 0.4 mg Q5MINP PRN SL 07/08/24 08:00 Morphine Sulfate 2 mg Q30M PRN IV 07/08/24 08:00 Laboratory Results Laboratory Tests 07/08/24 00:46 Chemistry Test 07/08/24 00:46 Calcium Level 9.6 mg/dL (8.7-10.4) Coagulation Test 07/08/24 05:20 Prothrombin Time 9.9 sec (9.3-11.8) Prothrombin Time INR 0.93 (0.9-1.15) Activated Partial Thromboplast Time 27.5 SEC (24.5-34.5) Cardiac Markers Test 07/08/24 00:46 B-Type Natriuretic Peptide 188.65 pg/mL (0-100) Labs and/or images reviewed: Labs reviewed by me, Image(s) reviewed by me Assessment/Plan Assessment/Plan Acute hypoxic respiratory failure secondary to pleural effusion Large right-sided pleural effusion probably malignant effusion, recurrent Acute complicated UTI 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
--- NOTE | 2024-07-08 13:34 | DVHPN2 ---
Reviewed: Care Plan, H&P, Labs, Medications, Previous Orders, Radiology Changes from previous H/P or p: No Changes Objective Vitals Vital Signs Date Time Temp Pulse Resp B/P (MAP) Pulse Ox O2 Delivery O2 Flow Rate FiO2 07/08/24 11:17 75 101/64 07/08/24 07:50 12 98 Room Air* 0 21 07/08/24 07:50 97.7 97.7 Intake/Output Intake and Output 07/08/24 07:00 Intake Total 1200 ml Balance 1200 ml Intake IV Total 1200 ml Medications Current Medications Medications Dose Ordered Sig/Nitin Route Start Time Stop Time Status Last Admin Dose Admin Metoprolol Succinate 25 mg DAILY PO 07/08/24 10:00 07/08/24 11:17 25 MG Atorvastatin Calcium 40 mg HS PO 07/08/24 22:00 Clopidogrel Bisulfate 75 mg DAILY PO 07/08/24 10:00 07/08/24 11:18 75 MG Azithromycin 250 ml @ 125 mls/hr DAILY IV 07/08/24 10:00 07/08/24 11:18 125 MLS/HR Ceftriaxone Sodium 50 ml @ 100 mls/hr DAILY@09 IV 07/08/24 09:00 07/08/24 09:01 100 MLS/HR Albuterol 2.5 mg Q6HPRN PRN NEB 07/08/24 07:45 Diagnostic Test (Pha) 1 strip ACHS 07/08/24 11:30 07/08/24 12:30 1 STRIP Insulin Human Regular ACHS SC 07/08/24 11:30 07/08/24 12:33 3 UNITS Dextrose 50 ml UD PRN IV 07/08/24 07:45 Acetaminophen/ Hydrocodone Bitart 1 tab Q4HP PRN PO 07/08/24 07:45 Ondansetron HCl 4 mg Q4HP PRN IV 07/08/24 07:45 Enoxaparin Sodium 40 mg DAILY SC 07/08/24 10:00 07/08/24 11:19 40 MG Acetaminophen 650 mg Q6HP PRN PO 07/08/24 08:00 Nitroglycerin 0.4 mg Q5MINP PRN SL 07/08/24 08:00 Morphine Sulfate 2 mg Q30M PRN IV 07/08/24 08:00 Laboratory Results Laboratory Tests 07/08/24 00:46 Chemistry Test 07/08/24 00:46 Calcium Level 9.6 mg/dL (8.7-10.4) Coagulation Test 07/08/24 05:20 Prothrombin Time 9.9 sec (9.3-11.8) Prothrombin Time INR 0.93 (0.9-1.15) Activated Partial Thromboplast Time 27.5 SEC (24.5-34.5) Cardiac Markers Test 07/08/24 00:46 B-Type Natriuretic Peptide 188.65 pg/mL (0-100) Labs and/or images reviewed: Labs reviewed by me, Image(s) reviewed by me Assessment/Plan Assessment/Plan Acute hypoxic respiratory failure secondary to pleural effusion Large right-sided pleural effusion probably malignant effusion, recurrent, status post 1.5 L of fluid removed Right upper lobe pneumonia: Rocephin azithromycin Acute complicated UTI 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
[2024-07-08] MEDS ORDERED: ATORVASTATIN 20 MG TAB PO SCH (22:00)
[2024-07-08] MEDS: HYDROcodone-ACET 5/325MG TAB PO PRN (22:39)
[2024-07-08] MEDS: ATORVASTATIN 20 MG TAB PO SCH (22:39)
[2024-07-09] VITALS (7 sets, daily range): BP systolic 104–115; BP diastolic 56–61; PULSE 77–81; RESP 18; TEMP 97.7–99.1; O2SAT 94–98
[2024-07-09 06:30] LABS: Basophils # (auto) 0 10 ^3/uL (0-0.2); Basophils % (auto) 0.3 % (0.0-2.0); Eosinophils # (auto) 0.2 10 ^3/uL (0-0.8); Eosinophils % (auto) 3.9 % (0.0-7.0); Hematocrit 29.1 % (36.0-46.0); Hemoglobin 9.6 g/dL (12.2-16.2); Lymphocytes # (auto) 1.3 10 ^3/uL (0.4-5.4); Lymphocytes % (auto) 26.9 % (10.0-50.0); Mean Corpuscular Hemoglobin 28.6 pg (28.0-32.0); Mean Corpuscular Hgb Conc. 33.2 g/dL (32.0-36.0); Mean Corpuscular Volume 86.3 fL (80.0-100.0); Monocytes # (auto) 0.6 10 ^3/uL (0-1.3); Monocytes % (auto) 12.6 % (0.0-12.0); Neutrophils # (auto) 2.7 10 ^3/uL (1.6-8.6); Neutrophils % (auto) 56.3 % (37.0-80.0); Nucleated Red Blood Cells % 0.1 %; Platelet Count (auto) 255 10^3/uL (140-450); Red Blood Cells 3.37 10^6/uL (4.0-5.20); Red Cell Distribution Width 15.5 % (11.8-14.3); White Blood Cell 4.9 10^3/uL (4.4-10.8)
[2024-07-09 06:35] LABS: Chloride 104 mmol/L (98-107); Potassium 3.8 mmol/L (3.5-5.1); Sodium 137 mmol/L (136-145)
[2024-07-09 06:36] LABS: Anion Gap 6 (5-15); Carbon Dioxide 27 mmol/L (20-31)
[2024-07-09 06:41] LABS: BUN/Creatinine Ratio 28.6 (10.0-20.0); Blood Urea Nitrogen 22 mg/dL (9-23)
[2024-07-09 06:46] LABS: Glucose 156 mg/dL (74-106)
--- NOTE | 2024-07-09 06:54 | ECG ---
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
[2024-07-09] MEDS ORDERED: cefTRIAXone 1GM/50ML D5W 50 ML IV SCH (09:00)
[2024-07-09] MEDS ORDERED: AZITHROMYCIN 500MG/ 250ML 250 ML IV SCH (10:00)
--- NOTE | 2024-07-09 10:50 | DVHPN2 ---
Reviewed: Care Plan, H&P, Labs, Medications, Previous Orders, Radiology Changes from previous H/P or p: No Changes Objective Vitals Vital Signs Date Time Temp Pulse Resp B/P (MAP) Pulse Ox O2 Delivery O2 Flow Rate FiO2 07/09/24 09:55 79 115/61 07/09/24 06:00 98 Room Air* 0 21 07/09/24 05:00 97.7 18 97.7 Intake/Output Intake and Output 07/09/24 07:00 Intake Total 500 ml Output Total 1500 ml Balance -1000 ml Intake Oral 200 ml IV Total 300 ml Output Other 1500 ml # Voids 1 Medications Current Medications Medications Dose Ordered Sig/Nitin Route Start Time Stop Time Status Last Admin Dose Admin Metoprolol Succinate 25 mg DAILY PO 07/08/24 10:00 07/09/24 09:55 25 MG Atorvastatin Calcium 40 mg HS PO 07/08/24 22:00 07/08/24 22:39 40 MG Clopidogrel Bisulfate 75 mg DAILY PO 07/08/24 10:00 07/09/24 09:55 75 MG Azithromycin 250 ml @ 125 mls/hr DAILY IV 07/08/24 10:00 07/09/24 09:57 125 MLS/HR Ceftriaxone Sodium 50 ml @ 100 mls/hr DAILY@09 IV 07/08/24 09:00 07/09/24 09:57 100 MLS/HR Albuterol 2.5 mg Q6HPRN PRN NEB 07/08/24 07:45 Diagnostic Test (Pha) 1 strip ACHS 07/08/24 11:30 07/09/24 06:20 1 STRIP Insulin Human Regular ACHS SC 07/08/24 11:30 07/09/24 06:19 2 UNITS Dextrose 50 ml UD PRN IV 07/08/24 07:45 Acetaminophen/ Hydrocodone Bitart 1 tab Q4HP PRN PO 07/08/24 07:45 07/08/24 22:39 1 TAB Ondansetron HCl 4 mg Q4HP PRN IV 07/08/24 07:45 Enoxaparin Sodium 40 mg DAILY SC 07/08/24 10:00 07/09/24 09:56 40 MG Acetaminophen 650 mg Q6HP PRN PO 07/08/24 08:00 Nitroglycerin 0.4 mg Q5MINP PRN SL 07/08/24 08:00 Morphine Sulfate 2 mg Q30M PRN IV 07/08/24 08:00 Laboratory Results Laboratory Tests 07/09/24 05:41 Chemistry Test 07/09/24 05:41 Calcium Level 9.0 mg/dL (8.7-10.4) Microbiology Microbiology Date/Time Source Procedure Growth Status 07/08/24 09:50 Pleural Fluid Gram Stain Pending Resulted 07/08/24 09:50 Pleural Fluid Body Fluid Culture - Preliminary Resulted 07/08/24 03:18 Blood Blood Culture - Preliminary NO GROWTH AFTER 24 HOURS OF INCUBATION. 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 Aleman tomorrow. Plan discussed with: Patient Date of Service: Jul 09, 2024 Billing Provider: ZOILA MCDONALD MD Common Visit Codes: [id number] INP/OBS CARE(HIGH) ZOILA MCDONALD MD Jul 09, 2024 10:50
[2024-07-09] MEDS ORDERED: AZIT500T66 PO (10:52)
--- NOTE | 2024-07-09 10:55 | DVHDS2 ---
Discharge Summary Date of Admission Jul 08, 2024 at 03:39 Date of Discharge: Jul 09, 2024 Admitting Diagnosis Shortness of breath Wounds: Right thoracentesis Labs/Diagnostic Data: Laboratory Results Test 07/09/24 05:59 07/09/24 05:41 07/08/24 09:50 07/08/24 05:20 POC Glucose 145 mg/dl (70-106) White Blood Count 4.9 10^3/uL (4.4-10.8) Red Blood Count 3.37 10^6/uL (4.0-5.20) Hemoglobin 9.6 g/dL (12.2-16.2) Hematocrit 29.1 % (36.0-46.0) Mean Corpuscular Volume 86.3 fL (80.0-100.0) Mean Corpuscular Hemoglobin 28.6 pg (28.0-32.0) Mean Corpuscular Hemoglobin Concent 33.2 g/dL (32.0-36.0) Red Cell Distribution Width 15.5 % (11.8-14.3) Platelet Count 255 10^3/uL (140-450) Mean Platelet Volume 7.1 fL (6.9-10.8) Neutrophils (%) (Auto) 56.3 % (37.0-80.0) Lymphocytes (%) (Auto) 26.9 % (10.0-50.0) Monocytes (%) (Auto) 12.6 % (0.0-12.0) Eosinophils (%) (Auto) 3.9 % (0.0-7.0) Basophils (%) (Auto) 0.3 % (0.0-2.0) Neutrophils # (Auto) 2.7 10 ^3/uL (1.6-8.6) Lymphocytes # (Auto) 1.3 10 ^3/uL (0.4-5.4) Monocytes # (Auto) 0.6 10 ^3/uL (0-1.3) Eosinophils # (Auto) 0.2 10 ^3/uL (0-0.8) Basophils # (Auto) 0 10 ^3/uL (0-0.2) Nucleated Red Blood Cells 0.1 % Sodium Level 137 mmol/L (136-145) Potassium Level 3.8 mmol/L (3.5-5.1) Chloride Level 104 mmol/L (98-107) Carbon Dioxide Level 27 mmol/L (20-31) Anion Gap 6 (5-15) Blood Urea Nitrogen 22 mg/dL (9-23) Creatinine 0.77 mg/dL (0.550-1.02) Glomerular Filtration Rate Calc 86 mL/min (>90) BUN/Creatinine Ratio 28.6 (10.0-20.0) Serum Glucose 156 mg/dL (74-106) Calcium Level 9.0 mg/dL (8.7-10.4) Body Fluid Source Pleural fluid Body Fluid pH 9.0 Body Fluid WBC (Manual) 1171 CUMM (0-200) Body Fluid RBC (Manual) 9076 CUMM (0-2000) Body Fluid Mononuclear Cells 20 % Body Fluid Polymorphonuclear Cells 80 % (0-25) Prothrombin Time 9.9 sec (9.3-11.8) Prothrombin Time INR 0.93 (0.9-1.15) Activated Partial Thromboplast Time 27.5 SEC (24.5-34.5) Lactic Acid Level 1.7 mmol/L (0.4-2.0) Test 07/08/24 00:46 Troponin I High Sensitivity 33 ng/L (</=34) B-Type Natriuretic Peptide 188.65 pg/mL (0-100) Other Laboratory Tests 07/09/24 05:41 Brief Hx & Hospital Course: 64-year-old diagnosed with a right lung cancer and treatment with the chemotherapy at [facility] being followed by Dr. Aleman locally also had coronary stents [address] Steinberg came in for shortness of breaths found to have right-sided pleural effusion. 1.5 L removed by the radiologist possible right upper lobe pneumonia treated with Rocephin and azithromycin. Patient feels weak but on room air. Discussed with the patient's daughter Sherri who lives in [place] and she requesting patient to be discharged today itself so she can keep her appointment with Dr. Aleman discharged. Prescription for Azithromycin transmitted to pharmacy Consults/Reason for consult Radiologist Operations or Procedures Right thoracentesis Condition at Discharge: Poor Final Diagnosis/Problems List Acute hypoxic respiratory failure secondary to pleural effusion Large right-sided pleural effusion probably malignant effusion, recurrent, status post 1.5 L of fluid removed Right upper lobe pneumonia: Rocephin azithromycin Acute complicated UTI History of right lung cancer diagnosed in April 2024, under treatment of [facility] Coronary artery disease with NE 10 days ago s/p PCI x2 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 Aleman Follow up with the Cardiology Dr. Steinberg continue all your previous home medications Medications: Azithromycin Transmitted to the pharmacy 39 (Time Taken for discharge summary 39 minutes) Discharge Statement: "Patient was advised to return to the ER or call 911 if any headaches, dizziness, shortness of breath, chest pain, abdominal pain, bleeding, fevers, or worsening of medical condition. Patient was counseled about treatment plan, medications, possible side effects, patientverbalized understanding. All questions were answered to the best of my ability. This discharge took greater then 30 minutes in planning, reviewing documentation, counseling the patient, and discussing with other team members." ASSESSMENT ASSESSMENT Hospital Course Marginal improvement Assessment Acute hypoxic respiratory failure secondary to pleural effusion Large right-sided pleural effusion probably malignant effusion, recurrent, status post 1.5 L of fluid removed Right upper lobe pneumonia: Rocephin azithromycin Acute complicated UTI History of right lung cancer diagnosed in April 2024, under treatment of [facility] Coronary artery disease with NE 10 days ago s/p PCI x2 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
[2024-07-09 13:08] LABS: Protein, Body Fluid 4.4 g/dL (.)
== END 2024-07-09 15:35 | disposition home or self-care (01) | DRG 180 ==
LOC: ER 00:12 → OVERFLOW 03:39 → ER 03:45 → TELE-EAST 21:47
PROVIDERS: ADMIT Family Medicine; ATTEND Family Medicine
PROC: 0W993ZZ Drainage of Right Pleural Cavity, Percutaneous Approach (ICD-10-PCS; principal; 2024-07-08)
DX: C34.91 Malignant neoplasm of unspecified part of right bronchus or lung (principal); J15.69 Pneumonia due to other Gram-negative bacteria; J96.01 Acute respiratory failure with hypoxia; J15.9 Unspecified bacterial pneumonia; J91.0 Malignant pleural effusion; N39.0 Urinary tract infection, site not specified; I10 Essential (primary) hypertension; E11.9 Type 2 diabetes mellitus without complications; E78.5 Hyperlipidemia, unspecified; I25.10 Atherosclerotic heart disease of native coronary artery without angina pectoris; Z95.1 Presence of aortocoronary bypass graft; Z86.73 Personal history of transient ischemic attack (TIA), and cerebral infarction without residual deficits; Z95.5 Presence of coronary angioplasty implant and graft; Z79.899 Other long term (current) drug therapy
CPT/HCPCS: 32555; 36415; 71045; 76604; 76942; 80048; 82962; 83605; 83880; 83986; 84484; 85025; 85610; 85730; 87040; 87205; 89051; 93005; 96365; 96372; 96375; 99291; G0378; J0692; J1815; J2405

== ENCOUNTER 2024-08-06 10:23 | Inpatient (IN) | payer MEDICARE, MEDICAID ==
[~2024-08-06] VITALS: Ht 162.6 cm; Wt 58.9 kg
[~2024-08-06 10:23] MED LIST changes: +AZIT500T66 PO
--- NOTE | 2024-08-06 11:12 | ED.PDOC ---
SOB-HPI HPI Comments 64y F who presents to the ED for chief complaint of hemoptysis. Per pt daughter via phone due to language barrier, pt has been coughing up blood for the past 1 week progressively worse. Pt today presented picture with multiple tissue papers with noted bloody sputum with clots. Pt daughter states pt has history of Lung Cancer in the R upper lobe of lung and is currently being seen by oncologist at [facility] and currently receiving chemotherapy with erlotinib. Pt today presented note which states she saw [facility] earlier this AM and was referred to the ED today for CT chest and presented note which requests be consulted on her care. Note also states pt has been coughing up blood since CABG performed at [facility] 06/16/24 and states less than 1 week ago, she has been coughing up blood and and states this AM, the amount of blood coughed up was much more than before. Pt daughter also states pt has been to [facility] 4x in the past few months. Pt is currently on aspirin and Plavix. Pt now in the ED, states she has ongoing central chest pain and is short of breath, noting she been short of breath since dec 2023 after being dx with COVID. Pt otherwise has noted fluctuations in 02 sat ranging between 78 to 91%, with noted BP of 162/91. Pt actively coughing up blood, otherwise in no noted current respiratory distress and otherwise denies any other symptoms at this time. Chief Complaint: Shortness of Breath Time Seen by MD: 11:09 Primary Care Provider: NONE Reviewed notes: Medications, Allergies Information Source: Patient, Relative, Spouse Mode of Arrival: Wheelchair Brought in by: spouse Past Medical History PAST MEDICAL HISTORY: CAD, Cancer, DM, High Lipids, HTN, TIA Past Medical History (Other): lung CA, dx 04/2024 Surgical History: CABG GEODETIC ADVISOR History: No Pertinent GEODETIC ADVISOR History Family History Family History: Reviewed,noncontributory to illness Social History Smoker: Non-Smoker Alcohol: Denies ETOH Use Drugs: Denies Drug Use Lives In: Home Constitutional: denies: chills, diaphoresis, fatigue, fever, malaise, sweats, weakness, others EENTM: denies: blurred vision, double vision, ear bleeding, ear discharge, ear drainage, ear pain, ear ringing, eye pain, eye redness, hearing loss, mouth pain, mouth swelling, nasal discharge, nose bleeding, nose congestion, nose pain, photophobia, tearing, throat pain, throat swelling, voice changes, others Respiratory: reports: hemoptysis; denies: cough, orthopnea, SOB at rest, shortness of breath, SOB with excertion, stridor, wheezing, others Cardiovascular: denies: chest pain, dizzy spells, diaphoresis, Dyspnea on exertion, edema, irregular heart beat, left arm pain, lightheadedness, palpitations, PND, syncope, others Gastrointestinal: denies: abdomen distended, abdominal pain, blood streaked bowels, constipated, diarrhea, dysphagia, difficulty swallowing, hematemesis, melena, nausea, poor appetite, poor fluid intake, rectal bleeding, rectal pain, vomiting, others Genitourinary: denies: abnormal vagina bleeding, burning, dyspareunia, dysuria, flank pain, frequency, hematuria, incontinence, pain, , vagina discharge, urgency, others Neurological: denies: dizziness, fainting, headache, left sided numbness, left sided weakness, numbness, paresthesia, pre-existing deficit, right sided numbness, right sided weakness, seizure, speech problems, tingling, tremors, weakness, others Musculoskeletal: denies: back pain, gout, joint pain, joint swelling, muscle pain, muscle stiffness, neck pain, others Integumetry: denies: bruises, change in color, change in hair/nails, dryness, laceration, lesions, lumps, rash, wounds, others Allergic/Immunocompromised: denies: Difficulty Healing, Frequent Infections, Hives, Itching, others Hematologic/Lymphatic: denies: anemia, blood clots, easy bleeding, easy bruising, swollen glands, others Endocrine: denies: excessive hunger, excessive sweating, excessive thirst, excessive urination, flushing, intolerance to cold, intolerance to heat, unexplained weight gain, unexplained weight loss, others Psychiatric: denies: anxiety, bipolar disorder, depression, hopeless, panic disorder, schizophrenia, sleepless, suicidal, others All Other Systems: Reviewed and Negative Physical Exam General Appearance: No Apparent Distress HEENT: Other (Pupils and face symmetric, moist mucous membranes) Neck: Full Range of Motion, Normal Inspection Respiratory: Lungs Clear, No Accessory Muscle Use, No Respiratory Distress, Normal Breath Sounds Cardiovascular: No Edema, No JVD, Regular Rate/Rhythm Breast Exam: Deferred Gastrointestinal: Non Tender, Soft Genitalia: Deferred Pelvic: Deferred Rectal: Deferred Extremities: Normal inspection, Normal range of motion, Non-tender Neurologic: Alert (Oriented x4), Normal Affect, Normal Mood, Other (Ambulatory without difficulty.) Cerebellar Function: NOT DONE Reflexes: NOT DONE Skin: Dry, Normal Color, Warm Lymphatic: NOT DONE Was a procedure done? Was a procedure done?: No Differential Dx Differential Diagnosis: Bronchitis, CHF, Hypertension, Pneumonia, Pulmonary Embolism Comments lung cancer progression, coagulopathy, resp failure, pleural effusion, among others X-Ray, Labs, Meds, VS Vital Signs Date Time Temp Pulse Resp B/P (MAP) Pulse Ox O2 Delivery O2 Flow Rate FiO2 08/06/24 11:16 20 97 Room Air* 0 21 08/06/24 11:02 17 94 Room Air* 0 21 08/06/24 10:56 98.6 79 17 162/91 (114) 94 98.6 Lab Test 08/06/24 14:44 08/06/24 12:52 08/06/24 11:18 Range/Units Troponin I High Sensitivity 20 20 21 </=34 ng/L White Blood Count 6.9 4.4-10.8 10^3/uL Red Blood Count 4.34 4.0-5.20 10^6/uL Hemoglobin 12.4 12.2-16.2 g/dL Hematocrit 37.2 36.0-46.0 % Mean Corpuscular Volume 85.6 80.0-100.0 fL Mean Corpuscular Hemoglobin 28.6 28.0-32.0 pg Mean Corpuscular Hemoglobin Concent 33.4 32.0-36.0 g/dL Red Cell Distribution Width 16.6 H 11.8-14.3 % Platelet Count 331 140-450 10^3/uL Mean Platelet Volume 6.6 L 6.9-10.8 fL Neutrophils (%) (Auto) 66.0 37.0-80.0 % Lymphocytes (%) (Auto) 23.9 10.0-50.0 % Monocytes (%) (Auto) 5.6 0.0-12.0 % Eosinophils (%) (Auto) 4.1 0.0-7.0 % Basophils (%) (Auto) 0.4 0.0-2.0 % Neutrophils # (Auto) 4.6 1.6-8.6 10 ^3/uL Lymphocytes # (Auto) 1.7 0.4-5.4 10 ^3/uL Monocytes # (Auto) 0.4 0-1.3 10 ^3/uL Eosinophils # (Auto) 0.3 0-0.8 10 ^3/uL Basophils # (Auto) 0 0-0.2 10 ^3/uL Nucleated Red Blood Cells 0.1 % Prothrombin Time 9.8 9.3-11.8 sec Prothrombin Time INR 0.92 0.9-1.15 Activated Partial Thromboplast Time 27.0 24.5-34.5 SEC Sodium Level 137 136-145 mmol/L Potassium Level 4.5 3.5-5.1 mmol/L Chloride Level 102 98-107 mmol/L Carbon Dioxide Level 28 20-31 mmol/L Anion Gap 7 5-15 Blood Urea Nitrogen 22 9-23 mg/dL Creatinine 0.81 0.550-1.02 mg/dL Glomerular Filtration Rate Calc 81 >90 mL/min BUN/Creatinine Ratio 27.2 H 10.0-20.0 Serum Glucose 209 H 74-106 mg/dL Calcium Level 10.1 8.7-10.4 mg/dL B-Type Natriuretic Peptide 192.11 0-100 pg/mL Current Medications Medications (Trade) Dose Ordered Sig/Nitin Route Start Time Stop Time Status Last Admin Albuterol (Ventolin Medneb) 5 mg ONCE ONCE NEB 08/06/24 11:00 08/06/24 11:01 DC 08/06/24 11:16 Ipratropium [place] (Atrovent Medneb) 0.5 mg ONCE ONCE NEB 08/06/24 11:00 08/06/24 11:01 DC 08/06/24 11:16 [place] [id number] Ph: [phone] DIAGNOSTIC IMAGING Diagnostic Imaging Report : [id number] Signed PATIENT: AUGIE COLLINS ACCT: [id number] UNIT: [id number] : 1960 LOC: ER ROOM / BED: / AGE / SEX: 64 / F ADM STATUS: REG ER SERVICE 1053 ORDERING PHYSICIAN: ANA LAURA MCDONALD MD PROCEDURE(s): CX2CT - CHEST WITHOUT CONTRAST REASON: chest pain, hemoptysis ORDER NUMBER(s): [id number], ACCESSION NUMBER(s): [id number] Procedure: CT CHEST WITHOUT CONTRAST Reason for study/Clinical History: Chest pain, hemoptysis Comparison Study: Chest radiograph 07/08/2024. Exam Date: 08/06/2024 11:04 AM TECHNIQUE: Multidetector CT of the chest was performed from the lung apices to the upper abdomen without the use of intravenous contract. Coronal and sagittal multiplanar reformats were performed. Radiation Dose Information: CT Dose: CTDI volume is 4.73 mGy. Dose-length product is 162.16 mGy*cm The dose indicators for CT are the volume Computed Tomography (CT) Dose Index (CTDIvol) and the Dose Length Product (DLP), and are measured in units of mGy and mGy-cm, respectively. These indicators are not patient dose, but values generated from the CT scanner acquisition factors. The report includes radiation exposure data for exposures received during this examination. FINDINGS: Lower neck: Normal thyroid. Lungs: Right upper lobe consolidation with air bronchograms. Interlobular septal thickening. Central airways: Patent. Pleura: Small right pleural effusion. No pneumothorax. Heart/Vascular Structures: Enlarged Cardiovascular silhouette.. Small pericardial effusion. Coronary artery calcifications. Normal caliber thoracic aorta and main pulmonary artery. Lymph Nodes: No adenopathy Musculoskeletal: No acute osseous abnormality. Soft tissues: Normal. Upper abdomen: Limited portions of the upper abdomen are unremarkable. IMPRESSION: 1. Small right pleural effusion. 2. Mild pulmonary edema. 3. Right upper lobe consolidation which may reflect atelectasis. 4. Cardiomegaly. Pericardial effusion. Radiation optimization: All CT scans at this facility use at least one of these dose optimization techniques: automated exposure control mA and/or kV adjustment per patient size (includes targeted exams where dose is matched to clinical indication) or iterative reconstruction. ATED BY: SP RIVERA MD DICTATED DATE/TIME: 08/06/24 1158 SIGNED BY: SP RIVERA MD SIGNED DATE/TIME: 08/06/24 1152 CC: X-Ray, Labs, Meds, VS Comment 64-year-old female with a history of lung CA, CAD, dyslipidemia, hypertension, diabetes and pleural effusion status post thoracentesis referred by ict development manager Dr. Aleman for evaluation of hemoptysis and chest pain Vitals remarkable for BP 162/91, oxygen saturation 94% on room air Exam remarkable for active mild hemoptysis Rhythm strip independently interpreted by me: Sinus rhythm, rate 79, no ectopy. CT chest: IMPRESSION: 1. Small right pleural effusion. 2. Mild pulmonary edema. 3. Right upper lobe consolidation which may reflect atelectasis. 4. Cardiomegaly. Pericardial effusion. CBC unremarkable, basic metabolic panel remarkable for glucose 209, BNP 192.11, troponin negative Patient treated with the following in the ED: Albuterol 5 mg/Atrovent 0.5 mg nebulized On re-evaluation, patient is resting comfortably and in no respiratory distress. Plan is to admit the patient for respiratory support as needed and pulmonology evaluation Time of 1ST Reevaluation: 11:40 Reevaluation 1ST: Unchanged Patient Education/Counseling: Diagnosis, Treatment Family Education/Counseling: Diagnosis, Treatment Additional Information -Reviewed patient's previous visit(s): - The following tests were ordered, and results were reviewed by me: tropx3, cbc, bnp, ptptt, ua, bmp, ct chest w/o contrast, ekg x1, - Additional information was gathered from interviewing the following independent Historian: pt spouse, pt daughter - I reviewed and agreed with the following test results read by other provider: radiologist - I discussed treatments and results with medical personnel and: patient, pt spouse, pt daughter Comprehensive systems review obtained and negative except for what is stated in the HPI. Departure 1 Departure Time of Disposition: 12:31 Impression: Primary Impression: Hemoptysis Additional Impressions: Pleural effusion Pericardial effusion Disposition: ADMITTED INPATIENT Admit to: Tele Condition: Guarded Critical Care Note Critical Care Time?: No Stability Stability form required: No Heart Score Heart Score: Heart Score Response (Comments) Value History N/A 0 EKG N/A 0 Age N/A 0 Risk Factors N/A 0 Troponin N/A 0 Total 0 I personally scribed for ANA LAURA MCDONALD MD ([email or web address]) on 08/06/24 at 11:11. Electronically submitted by Param Hicks ([email or web address]). I personally scribed for ANA LAURA MCDONALD MD ([email or web address]) on 08/06/24 at 11:31. Electronically submitted by Param Hicks ([facility]). I personally scribed for ANA LAURA MCDONALD MD ([email or web address]) on 08/06/24 at 12:14. Electronically submitted by Param Hicks ([facility]). ANA LAURA MCDONALD MD Aug 06, 2024 11:11
[2024-08-06] MEDS: IPRATROPIUM BROM 0.5 MG/2.5ML INH SOL NEB ONE (11:16)
[2024-08-06] MEDS: ALBUTEROL SULF 2.5 MG/0.5ML(0.5%) NEB SOLN NEB ONE (11:16)
[2024-08-06 11:31] LABS: Basophils # (auto) 0 10 ^3/uL (0-0.2); Basophils % (auto) 0.4 % (0.0-2.0); Eosinophils # (auto) 0.3 10 ^3/uL (0-0.8); Eosinophils % (auto) 4.1 % (0.0-7.0); Hematocrit 37.2 % (36.0-46.0); Hemoglobin 12.4 g/dL (12.2-16.2); Lymphocytes # (auto) 1.7 10 ^3/uL (0.4-5.4); Lymphocytes % (auto) 23.9 % (10.0-50.0); Mean Corpuscular Hemoglobin 28.6 pg (28.0-32.0); Mean Corpuscular Hgb Conc. 33.4 g/dL (32.0-36.0); Mean Corpuscular Volume 85.6 fL (80.0-100.0); Monocytes # (auto) 0.4 10 ^3/uL (0-1.3); Monocytes % (auto) 5.6 % (0.0-12.0); Neutrophils # (auto) 4.6 10 ^3/uL (1.6-8.6); Nucleated Red Blood Cells % 0.1 %; Platelet Count (auto) 331 10^3/uL (140-450); Red Blood Cells 4.34 10^6/uL (4.0-5.20); Red Cell Distribution Width 16.6 % (11.8-14.3); White Blood Cell 6.9 10^3/uL (4.4-10.8)
[2024-08-06 11:42] LABS: Chloride 102 mmol/L (98-107); Potassium 4.5 mmol/L (3.5-5.1); Sodium 137 mmol/L (136-145)
[2024-08-06 11:43] LABS: Anion Gap 7 (5-15); Carbon Dioxide 28 mmol/L (20-31)
[2024-08-06 11:44] LABS: Calcium 10.1 mg/dL (8.7-10.4)
[2024-08-06 11:46] LABS: INR 0.92 (0.9-1.15); Prothrombin Time 9.8 sec (9.3-11.8)
[2024-08-06 11:48] LABS: BUN/Creatinine Ratio 27.2 (10.0-20.0); Blood Urea Nitrogen 22 mg/dL (9-23)
[2024-08-06 11:49] LABS: Glucose 209 mg/dL (74-106)
--- NOTE | 2024-08-06 11:56 | DVH ---
Procedure: CT CHEST WITHOUT CONTRAST Reason for study/Clinical History: Chest pain, hemoptysis Comparison Study: Chest radiograph 07/08/2024. Exam Date: 08/06/2024 11:04 AM TECHNIQUE: Multidetector CT of the chest was performed from the lung apices to the upper abdomen with out the use of intravenous contract. Coronal and sagittal multiplanar reformats were performed. Radiation Dose Information: CT Dose: CTDI volume is 4.73 mGy. Dose-length product is 162.16 mGy*cm The dose indicators for CT are the volume Computed Tomography (CT) Dose Index (CTDIvol) and the Dose Length Product (DLP), and are measured in units of mGy and mGy-cm, respectively. These indicators are not patient dose, but values generated from the CT scanner acquisition factors. The report includes radiation exposure data for exposures received during this examination. FINDINGS: Lower neck: Normal thyroid. Lungs: Right upper lobe consolidation with air bronchograms. Interlobular septal thickening. Central airways: Patent. Pleura: Small right pleural effusion. No pneumothorax. Heart/Vascular Structures: Enlarged Cardiovascular silhouette.. Small pericardial effusion. Coronary artery calcifications. Normal caliber thoracic aorta and main pulmonary artery. Lymph Nodes: No adenopathy Musculoskeletal: No acute osseous abnormality. Soft tissues: Normal. Upper abdomen: Limited portions of the upper abdomen are unremarkable. IMPRESSION: 1. Small right pleural effusion. 2. Mild pulmonary edema. 3. Right upper lobe consolidation which may reflect atelectasis. 4. Cardiomegaly. Pericardial effusion. Radiation optimization: All CT scans at this facility use at least one of these dose optimization liya hniques: automated exposure control mA and/or kV adjustment per patient size (includes targeted exam s where dose is matched to clinical indication) or iterative reconstruction.
--- NOTE | 2024-08-06 13:42 | DVHHP2 ---
History of Present Illness Reason for Visit: hemoptysis History of Present Illness 64-year-old female with a complex medical history including lung cancer (diagnosed April 22, 2024), coronary artery disease (CAD) with stent placement by Dr. Steinberg on 06/16/24, type 2 diabetes mellitus, hyperlipidemia, hypertension, TIA, and recent right upper lobe pneumonia, who presents with worsening hemoptysis and hypoxia. Per the patients daughter (via phone), the patient was seen by Dr. Aleman earlier this morning per daughter meghan had did a thoracentsis and drained 500 ml of fluid, and she told him that had some hemoptysis, and she was advised to go to the hospital for evaluation after showing increasing episodes of hemoptysis (coughing up blood). The patient reports that she has been coughing up blood intermittently since her stent placement in May, but her symptoms have worsened over the past week. She is currently being followed by [facility] for active cancer care and is on oral chemotherapy drug [facility], which she is taking. She reports mild cough but denies chest pain, fever, or chills. She is currently taking aspirin and Plavix following her cardiac stent placement. At the time of evaluation in the ED, she was found to be hypoxic with oxygen saturation ranging from 7891% on room air. with a mild cough but o2 sats have improved without o2. Recent prior imaging showed a right- sided large pleural effusion, which required drainage of 1.5 liters during her last admission 07/09/24. In the current ED visit, CT chest demonstrated persistent right upper lobe pneumonia, mild pulmonary edema, a new or persistent pericardial effusion, and patchy consolidations. Cardiac enzymes were negative, and CBC and CMP were within acceptable limits. Pulmonology was consulted Dr. Aleman, and she will be admitted for further evaluation and management. Past Medical History See HPI above Past Surgical History See HPI above Family History Reviewed, non-contributory to the management of this case. Past Social History The patient lives at home, denies smoking, alcohol or illicit drugs abuse. Review of Systems Constitutional: No: Fever, Chills, Sweats, Weakness, Malaise, Other Eyes: No: Pain, Vision change, Conjunctivae inflammation, Eyelid inflammation, Other, Redness ENT: No: Ear pain, Ear discharge, Nose pain, Nose discharge, Nose congestion, Mouth pain, Mouth swelling, Throat pain, Throat swelling, Other Respiratory: Hemoptysis; No: Cough, Dry, Shortness of breath, SOB with excertion, Wheezing, Pleuritic Pain, Sputum, Wheezing, Other Cardiovascular: No: Chest Pain, Palpitations, Orthopnea, Paroxysmal Noc. Dyspnea, Edema, Lt Headedness, Other Gastrointestinal: No: Nausea, Vomiting, Abdominal Pain, Diarrhea, Constipation, Melena, Hematochezia, Other Genitourinary: No Dysuria, No Frequency, No Incontinence, No Hematuria, No Retention, No Other Musculoskeletal: No: other, neck pain, shoulder pain, arm pain, back pain, hand pain, leg pain, foot pain Skin: No: Rash, Lesions, Jaundice, Bruising, Other Neurological: No: Weakness, Numbness, Incoordination, Change in speech, Confusion, Seizures, Other Allergies: Coded Allergies: NO KNOWN ALLERGIES (Unverified , 11/05/22) Exam Vital Signs Vital Signs Date Time Temp Pulse Resp B/P (MAP) Pulse Ox O2 Delivery O2 Flow Rate FiO2 08/06/24 11:16 20 97 Room Air* 0 21 08/06/24 10:56 98.6 79 162/91 (114) 98.6 General Appearance: Alert, Oriented X3, Cooperative, No acute distress HEENT: Atraumatic, PERRLA, EOMI, Mucous membr. moist/pink Respiratory: Clear to auscultation, Normal air movement Cardiovascular: Regular rate, Normal S1, Normal S2, No murmurs Abdominal: Normal bowel sounds, Soft, No tenderness, No hepatospenomegaly, No masses Extremities: No clubbing, No cyanosis, No edema, Normal pulses, No tenderness/swelling Skin: No rashes, No breakdown, No significant lesion Neuro: Normal gait, Normal speech, Strength at 5/5 X4 ext, Normal tone, Sensation intact, Cranial nerves 3-12 NL Psych/Mental Status: Mental status NL, Mood NL Labs/Xrays CT scan of the chest shows mild pulmonary edema right upper lobe pneumonia pericardial effusion I reviewed labs, imaging CT scan abdomen pelvis, EKG and all diagnostic studies on this patient from ED records and the medical chart Labs Test 08/06/24 12:52 08/06/24 11:18 Range/Units Troponin I High Sensitivity 20 </=34 ng/L White Blood Count 6.9 4.4-10.8 10^3/uL Red Blood Count 4.34 4.0-5.20 10^6/uL Hemoglobin 12.4 12.2-16.2 g/dL Hematocrit 37.2 36.0-46.0 % Mean Corpuscular Volume 85.6 80.0-100.0 fL Mean Corpuscular Hemoglobin 28.6 28.0-32.0 pg Mean Corpuscular Hemoglobin Concent 33.4 32.0-36.0 g/dL Red Cell Distribution Width 16.6 H 11.8-14.3 % Platelet Count 331 140-450 10^3/uL Mean Platelet Volume 6.6 L 6.9-10.8 fL Neutrophils (%) (Auto) 66.0 37.0-80.0 % Lymphocytes (%) (Auto) 23.9 10.0-50.0 % Monocytes (%) (Auto) 5.6 0.0-12.0 % Eosinophils (%) (Auto) 4.1 0.0-7.0 % Basophils (%) (Auto) 0.4 0.0-2.0 % Neutrophils # (Auto) 4.6 1.6-8.6 10 ^3/uL Lymphocytes # (Auto) 1.7 0.4-5.4 10 ^3/uL Monocytes # (Auto) 0.4 0-1.3 10 ^3/uL Eosinophils # (Auto) 0.3 0-0.8 10 ^3/uL Basophils # (Auto) 0 0-0.2 10 ^3/uL Nucleated Red Blood Cells 0.1 % Prothrombin Time 9.8 9.3-11.8 sec Prothrombin Time INR 0.92 0.9-1.15 Activated Partial Thromboplast Time 27.0 24.5-34.5 SEC Sodium Level 137 136-145 mmol/L Potassium Level 4.5 3.5-5.1 mmol/L Chloride Level 102 98-107 mmol/L Carbon Dioxide Level 28 20-31 mmol/L Anion Gap 7 5-15 Blood Urea Nitrogen 22 9-23 mg/dL Creatinine 0.81 0.550-1.02 mg/dL Glomerular Filtration Rate Calc 81 >90 mL/min BUN/Creatinine Ratio 27.2 H 10.0-20.0 Serum Glucose 209 H 74-106 mg/dL Calcium Level 10.1 8.7-10.4 mg/dL B-Type Natriuretic Peptide 192.11 0-100 pg/mL Assessment/Plan Assessment/Plan 64-year-old female with advanced lung cancer on oral chemotherapy, CAD with recent stent (on DAPT), and recent pleural effusion, now presenting with worsening hemoptysis, right-sided pneumonia, and pericardial effusion in the setting of hypoxia. acute Worsening hemoptysis concern for malignancy-related airway bleeding vs. pneumonia vs. DAPT-related bleeding Hemoptysis ongoing since May; worsened in past week On aspirin and Plavix for KIRIT placement will hold for now CT chest: pneumonia, pleural changes and pericardial effusion Plan: Admit for monitoring and evaluation Hold antiplatelet therapy temporarily risk/benefit will need discussion with cardiology and oncology Monitor hemoglobin and vitals q12 for now Pulmonology to evaluate for bronchoscopy if bleeding persists Sputum culture, blood cultures ordered vanco and zosyn for now persistent Right upper lobe pneumonia with hypoxia CT chest: focal consolidation O2 sat 7891% on room air Plan: Start empiric IV antibiotics (vanco and zosyn for now ) Supplemental O2 to maintain sat >92% Monitor respiratory status and consider repeat imaging if no improvement acute Pericardial effusion unclear etiology (malignancy vs. post-procedural vs. infection) CT chest shows pericardial effusion ordered echo to check for tamponade but on signs of tamponade seen on my exam Plan: Monitor clinically (heart rate, BP, JVD) ordered repeat echocardiogram to evaluate size and hemodynamic significance Consult Dr. Steinberg (cardiology) for input due to recent stent and antiplatelet use Lung cancer under treatment with oral chemotherapy ([facility]) Recently diagnosed (Apr 2024), likely contributing to hemoptysis and pneumonia Plan: Notify oncology team at [facility] can do in am with rounding team provider Continue current regimen (can check if medication can cause side effects of hemoptysis CAD with recent KIRIT (06/16/24) on aspirin + Plavix Ongoing need for DAPT vs. bleeding risk, WILL consult with cards Plan: Cardiology consult (Dr. Steinberg) to evaluate continuation vs. temporary hold of DAPT Monitor ECG and troponins Risk of stent thrombosis weighed against risk of worsening hemoptysis chronic problems Diabetes, ISS HTN, HLD fen/ppx npo ivf scd no dvt ppx protonix DISPOSITION Admit to tele medical service with Pulmonology and Cardiology consults. IV antibiotics initiated for pneumonia. Monitor for worsening hemoptysis or oxygenation. Further imaging and evaluation pending. Coordination with oncology and Dr. Steinberg for antiplatelet management. 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 History of CVA Hypertension Type 2 diabetes - uncontrolled (Hb A1c 7.1% Plan discussed with: Patient, Spouse, Daughter Date of Service: Aug 06, 2024 Billing Provider: ELVIN KAYE DNP Common Visit Codes: [id number] INP/OBS CARE (HIGH), [id number] CARE 30- 74 MIN (Total critical care time: Approximately 45 minutes This critical care time included obtaining a history; examining the patient; pulse oximetry; ordering and review of studies; arranging urgent treatment with development of a management plan; evaluation of patient's response to treatment; frequent reassessment; and, discussions with other providers.) ELVIN KAYE DNP Aug 06, 2024 13:42
[2024-08-06] MEDS ORDERED: DOCUSATE SOD 100 MG CAP PO PRN (15:45)
[2024-08-06] MEDS ORDERED: MORPHINE SULFATE INJ 2 MG/ml SYRG IV PRN (15:45)
[2024-08-06] MEDS ORDERED: NITROGLYCERIN 0.4 MG SL TAB SL PRN (15:45)
[2024-08-06] MEDS ORDERED: VANCOMYCIN PER PHARMACY 0 MG IV SCH (15:45)
[2024-08-06] MEDS ORDERED: DEXTROSE (50%) 50ML SYRG IV PRN (15:45)
[2024-08-06] MEDS ORDERED: ONDANSETRON HCL 4 MG/2 ML VIAL IV PRN (15:45)
[2024-08-06] MEDS: SODIUM CHLORIDE 0.9% 1,000 ML IV SCH (21:44)
--- NOTE | 2024-08-06 21:44 | DVHINCON2 ---
Date of service: Aug 06, 2024 Referring Physician Sheila Hernandez NP Reason for Consultation Hemoptysis, adenocarcinoma of lung, recurrent right pleural effusion, pulmonary edema and pneumonia History of Present Illness A 64-year-old woman with a complex medical history including lung cancer (dx'd o n 04/22/2024), coronary artery disease s/p stenting on 06/16/24, DM type 2, hyperlipidemia, hypertension, TIA, and recent RUL pneumonia, who presents to ED today with c/o worsening hemoptysis and hypoxia. Of note, pt was seen by Dr. Aleman earlier this morning and had thoracentesis with drainage of 500 ml of fluid; daughter called Dr. Aleman d/t increasing episodes of hemoptysis and was advised to go to the hospital for evaluation. Patient reports she has been coughing up blood intermittently since her stent placement in May, but symptoms have worsened over the past week. She is currently being followed by [facility] for cancer care and is on oral chemotherapy w/ erlotinib. She reports mild cough but denies chest pain, fever, or chills. She is currently t aking aspirin and Plavix following her cardiac stent placement. Note, recent prior imaging showed right large pleural effusion, which required drainage of 1.5 liters during her last admission 07/09/24. In the ED, she was found to be hypoxic with oxygen saturation ranging from 7891% on room air. with a mild cough but o2 sats improved without oxygen. CT chest demonstrated persistent right upper lobe pneumonia, mild pulmonary edema, a new or persistent pericardial effusion, and patchy consolidations. Cardiac enzymes were negative, and CBC and CMP were within acceptable limits. Patient was admitted for further care and pulmonary consultation is requested for evaluation and management due to the above findings. Review of Systems: 14-point review of systems negative unless otherwise noted above. Past Medical History: Lung cancer (dx'd on 04/22/2024), coronary artery disease s/p stenting, type 2 diabetes mellitus, hyperlipidemia, hypertension, TIA, and recent right upper l obe pneumonia. Past Surgical History: Cardiac stent placement by Dr. Steinberg on 06/16/24. Medications: Reviewed. Allergies: No known drug allergies. Family History: No family history of premature CAD. No family history of lung disorders. Social History: Nonsmoker. No alcohol or illicit drug use. Family History: FH: lung cancer G8 FATHER Allergies: Coded Allergies: NO KNOWN ALLERGIES (Unverified , 11/05/22) Home Meds Active Scripts Azithromycin (Azithromycin) 500 Mg Tab, 1 TAB PO DAILY, #10 TAB Prov:ZOILA MCDONALD MD 07/09/24 Cephalexin (KEFLEX CAPSULE) 250 Mg Cp, 1 CAP PO QID for 2 Days, #28 CAP Prov:LILIAN RANKIN RESIDENT 06/28/24 Acetaminophen (Acetaminophen) 325 Mg Tab, 650 MG PO Q6HP PRN for 10 Days, #80 TAB Prov:LILIAN RANKIN RESIDENT 06/28/24 Metoprolol Succinate (Toprol Xl) 25 Mg Tab, 25 MG PO DAILY for 30 Days, #30 TAB 3 Refills Prov:DAPHNE ROSAS MD 06/18/24 Atorvastatin Calcium (Lipitor) 40 Mg Tab, 40 MG PO QPM for 30 Days, #30 TAB 3 Refills Prov:DAPHNE ROSAS MD 06/18/24 Clopidogrel Bisulfate (Plavix) 75 Mg Tab, 75 MG PO DAILY for 30 Days, #30 TAB 3 Refills Prov:DAPHNE ROSAS MD 06/18/24 Aspirin (Aspir-81) 81 Mg Tab, 1 TAB PO DAILY for 30 Days, #30 TAB 3 Refills Prov:DAPHNE ROSAS MD 06/18/24 Reported Medications Erlotinib Hydrochloride (Erlotinib Hydrochloride) 150 Mg Tab, 150 MG PO, TAB 06/26/24 Current Medications Current Medications Medications (Trade) Dose Ordered Sig/Nitin Route PRN Reason Start Time Stop Time Status Last Admin Atorvastatin Calcium (Lipitor) 40 mg HS PO 08/06/24 22:00 Metoprolol Succinate (Toprol Xl) 25 mg DAILY PO 08/07/24 10:00 Sodium Chloride 1,000 ml @ 70 mls/hr [id number] IV 08/06/24 15:45 Ondansetron HCl (Zofran) 4 mg Q4HP PRN IV NAUSEA / VOMITING 08/06/24 15:45 Docusate Sodium (Colace Capsule) 100 mg BIDPRN PRN PO FOR CONSTIPATION 08/06/24 15:45 Morphine Sulfate 2 mg Q4HPRN PRN IV SEVERE PAIN (7-10 PAIN SCALE) 08/06/24 15:45 Nitroglycerin (Ntrostat Sublingual) 0.4 mg Q5MINP PRN SL FOR CHEST PAIN 08/06/24 15:45 Diagnostic Test (Pha) (Accu-Chek Comfort Curve T) 1 strip ACHS 08/06/24 17:00 Insulin Human Regular (InsuLIN R) ACHS SC 08/06/24 17:00 Dextrose 50 ml UD PRN IV Blood Sugar LESS THAN 60 08/06/24 15:45 Vancomycin HCl 0 ml @ 0 mls/hr UD IV 08/06/24 15:45 Piperacillin Sod/ Tazobactam Sod 100 ml @ 25 mls/hr Q8HR IV 08/06/24 22:00 Pantoprazole Sodium (Protonix) 40 mg DAILY IV 08/07/24 10:00 Vital Signs Vital Signs Date Time Temp Pulse Resp B/P (MAP) Pulse Ox O2 Delivery O2 Flow Rate FiO2 08/06/24 11:16 20 97 Room Air* 0 21 08/06/24 10:56 98.6 79 162/91 (114) 98.6 Physical Exam Gen.: Patient lying in bed in no apparent distress. Breathing on room air. Head: Normocephalic, atraumatic. Eyes: EOMI/PERRLA. Ears: Normal hearing. Normal anatomy. Neck/trachea: Trachea midline, supple. Nose: Normal external anatomy. Mouth: Moist mucous membranes. Chest: Decreased air entry bilaterally. No wheezing or rhonchi. Cardiovascular: Positive S1, positive S2. Regular rate and rhythm. Abdomen: Positive bowel sounds in all 4 quadrants. Soft, non-tender, non- distended. : Deferred. Rectal: Deferred. Skin: Warm, dry. Intact. Extremities: 2+ radial pulses bilaterally. No lower extremity edema. Neuro: Awake, alert, oriented x3. No gross motor or sensory deficits. Cranial nerves II through XII intact. Gait not assessed. Labs/Diagnostic Data Labs Test 08/06/24 14:44 08/06/24 11:18 Range/Units Troponin I High Sensitivity 20 </=34 ng/L White Blood Count 6.9 4.4-10.8 10^3/uL Red Blood Count 4.34 4.0-5.20 10^6/uL Hemoglobin 12.4 12.2-16.2 g/dL Hematocrit 37.2 36.0-46.0 % Mean Corpuscular Volume 85.6 80.0-100.0 fL Mean Corpuscular Hemoglobin 28.6 28.0-32.0 pg Mean Corpuscular Hemoglobin Concent 33.4 32.0-36.0 g/dL Red Cell Distribution Width 16.6 H 11.8-14.3 % Platelet Count 331 140-450 10^3/uL Mean Platelet Volume 6.6 L 6.9-10.8 fL Neutrophils (%) (Auto) 66.0 37.0-80.0 % Lymphocytes (%) (Auto) 23.9 10.0-50.0 % Monocytes (%) (Auto) 5.6 0.0-12.0 % Eosinophils (%) (Auto) 4.1 0.0-7.0 % Basophils (%) (Auto) 0.4 0.0-2.0 % Neutrophils # (Auto) 4.6 1.6-8.6 10 ^3/uL Lymphocytes # (Auto) 1.7 0.4-5.4 10 ^3/uL Monocytes # (Auto) 0.4 0-1.3 10 ^3/uL Eosinophils # (Auto) 0.3 0-0.8 10 ^3/uL Basophils # (Auto) 0 0-0.2 10 ^3/uL Nucleated Red Blood Cells 0.1 % Prothrombin Time 9.8 9.3-11.8 sec Prothrombin Time INR 0.92 0.9-1.15 Activated Partial Thromboplast Time 27.0 24.5-34.5 SEC Sodium Level 137 136-145 mmol/L Potassium Level 4.5 3.5-5.1 mmol/L Chloride Level 102 98-107 mmol/L Carbon Dioxide Level 28 20-31 mmol/L Anion Gap 7 5-15 Blood Urea Nitrogen 22 9-23 mg/dL Creatinine 0.81 0.550-1.02 mg/dL Glomerular Filtration Rate Calc 81 >90 mL/min BUN/Creatinine Ratio 27.2 H 10.0-20.0 Serum Glucose 209 H 74-106 mg/dL Calcium Level 10.1 8.7-10.4 mg/dL B-Type Natriuretic Peptide 192.11 0-100 pg/mL Assessment Impression: Hemoptysis Adenocarcinoma of lung Recurrent right pleural effusion Atelectasis Pulmonary edema Pneumonia Plan: Supplemental oxygen PRN Titrate to keep O2 sats above 92%. CT chest demonstrated persistent right upper lobe pneumonia, mild pulmonary edema, a new or persistent pericardial effusion, small right pleural effusion and patchy consolidations. Increased episodes of hemoptysis Antitussive PRN cough. Continue antibiotics Send sputum cultures Continue bronchodilators. Incentive spirometry Accu-Cheks, ISS Monitor renal function. Monitor electrolytes. Supplement as necessary. Monitor ins and outs. DVT prophylaxis. Prognosis: Poor given patient's multiple co-morbidities. Rest of plan per hospitalist and other consultants. Thank you, VANESSA Hernandez, for allowing me to participate in this patient's care. Further recommendations will depend on the patient's clinical course. Please do not hesitate to contact me if you have any questions or concerns. This medical document was created using an electronic medical record system with [employer] dictation system. Although these documentations are being carefully reviewed, there may still be some phonetic and typographical changes. The errors are purely typographical, due to imperfection on the software program, and do not reflect any compromise in the patient's medical care. Plan discussed with: Patient, Other (VANESSA Hernandez/) CANDACE ALEMAN MD Aug 06, 2024 21:44
[2024-08-06] MEDS: PANTOPRAZOLE 40 MG/10 ML VIAL INJ IV ONE (21:58)
[2024-08-06] MEDS: ACCU-CHEK COMFORT CURVE STRIP VI SCH (21:58)
[2024-08-06] MEDS: PIPERACILLIN-TAZOB 3.375GM 100 ML IV ONE (21:59)
[2024-08-06] MEDS: PIPERACILLIN-TAZOB 3.375GM 100 ML IV SCH (22:00)
[2024-08-06 22:20] LABS: Hematocrit 37.2 % (36.0-46.0); Hemoglobin 12.1 g/dL (12.2-16.2)
[2024-08-06] MEDS: InsuLIN REG 1unit/0.01ml Soln (100units/ml) SC SCH (22:54)
[2024-08-06] MEDS: ATORVASTATIN 20 MG TAB PO SCH (23:17)
[2024-08-06] MEDS: VANCOMYCIN 1.25GM/250ML 250 ML IV ONE (23:17)
[2024-08-07] VITALS (8 sets, daily range): BP systolic 132–156; BP diastolic 68–79; PULSE 71–83; RESP 16–18; TEMP 97.4–98.3; O2SAT 96–98
[2024-08-07 07:13] LABS: Basophils # (auto) 0 10 ^3/uL (0-0.2); Basophils % (auto) 0.2 % (0.0-2.0); Eosinophils # (auto) 0.3 10 ^3/uL (0-0.8); Eosinophils % (auto) 5.1 % (0.0-7.0); Hematocrit 34.8 % (36.0-46.0); Hemoglobin 11.3 g/dL (12.2-16.2); Lymphocytes # (auto) 1.7 10 ^3/uL (0.4-5.4); Lymphocytes % (auto) 27.9 % (10.0-50.0); Mean Corpuscular Hemoglobin 27.6 pg (28.0-32.0); Mean Corpuscular Hgb Conc. 32.6 g/dL (32.0-36.0); Mean Corpuscular Volume 84.5 fL (80.0-100.0); Monocytes # (auto) 0.6 10 ^3/uL (0-1.3); Monocytes % (auto) 9.3 % (0.0-12.0); Neutrophils # (auto) 3.5 10 ^3/uL (1.6-8.6); Neutrophils % (auto) 57.5 % (37.0-80.0); Nucleated Red Blood Cells % 0.1 %; Platelet Count (auto) 278 10^3/uL (140-450); Red Blood Cells 4.12 10^6/uL (4.0-5.20); Red Cell Distribution Width 16.8 % (11.8-14.3)
[2024-08-07 07:27] LABS: Alanine Aminotransferase 19 U/L (7-40); Albumin 3.7 g/dL (3.2-4.8); Alkaline Phosphatase 69 U/L (46-116); Anion Gap 7 (5-15); Aspartate Aminotransferase 16 U/L (13-40); BUN/Creatinine Ratio 33.8 (10.0-20.0); Bilirubin, Total 0.7 mg/dL (0.2-1.0); Calcium 9.6 mg/dL (8.7-10.4); Carbon Dioxide 28 mmol/L (20-31); Chloride 105 mmol/L (98-107); Potassium 3.9 mmol/L (3.5-5.1); Sodium 140 mmol/L (136-145); Total Protein 6.5 g/dL (5.7-8.2)
[2024-08-07 07:29] LABS: Blood Urea Nitrogen 26 mg/dL (9-23); Glucose 147 mg/dL (74-106)
[2024-08-07 10:11] LABS: Hematocrit 33.4 % (36.0-46.0)
[2024-08-07] MEDS: PANTOPRAZOLE 40 MG/10 ML VIAL INJ IV SCH (10:11)
[2024-08-07] MEDS: METOPROLOL SUCCINATE XL 50 MG TAB PO SCH (10:12)
[2024-08-07] MEDS: VANCOMYCIN 1GM/200ML PM 200 ML IV SCH (12:14)
--- NOTE | 2024-08-07 12:47 | DVHPN2 ---
Reviewed: Care Plan, H&P, Labs, Medications, Previous Orders, Radiology Changes from previous H/P or p: No Changes Eyes: No Pain, No Vision change, No Conjunctivae inflammation, No Eyelid inflammation, No Other, No Redness ENT: No Ear pain, No Ear discharge, No Nose pain, No Nose discharge, No Nose congestion, No Mouth pain, No Mouth swelling, No Throat pain, No Throat swelling, No Other Cardiovascular: No Chest Pain, No Palpitations, No Orthopnea, No Paroxysmal Noc. Dyspnea, No Edema, No Lt Headedness, No Other Respiratory: No Cough, No Dry, No Shortness of breath, No SOB with excertion, No Wheezing; Hemoptysis; No Pleuritic Pain, No Sputum, No Other Gastrointestinal: No Nausea, No Vomiting, No Abdominal Pain, No Diarrhea, No Constipation, No Melena, No Hematochezia, No Other Genitourinary: No Dysuria, No Frequency, No Incontinence, No Hematuria, No Retention, No Other Musculoskeletal: No other, No neck pain, No shoulder pain, No arm pain, No back pain, No hand pain, No leg pain, No foot pain Skin: No Rash, No Lesions, No Jaundice, No Bruising, No Other Objective Vitals Vital Signs Date Time Temp Pulse Resp B/P (MAP) Pulse Ox O2 Delivery O2 Flow Rate FiO2 08/07/24 12:14 97.7 71 16 132/70 (90) 98 97.7 08/07/24 08:10 Room Air* 0 21 Intake/Output Intake and Output 08/07/24 07:00 Intake Total 170 ml Output Total 0 ml Balance 170 ml Intake Oral 0 ml IV Total 170 ml Output Urine Total 0 ml Medications Current Medications Medications Dose Ordered Sig/Nitin Route Start Time Stop Time Status Last Admin Dose Admin Atorvastatin Calcium 40 mg HS PO 08/06/24 22:00 08/06/24 23:17 40 MG Metoprolol Succinate 25 mg DAILY PO 08/07/24 10:00 08/07/24 10:12 25 MG Sodium Chloride 1,000 ml @ 70 mls/hr [id number] IV 08/06/24 15:45 08/07/24 05:51 70 MLS/HR Ondansetron HCl 4 mg Q4HP PRN IV 08/06/24 15:45 Docusate Sodium 100 mg BIDPRN PRN PO 08/06/24 15:45 Morphine Sulfate 2 mg Q4HPRN PRN IV 08/06/24 15:45 Nitroglycerin 0.4 mg Q5MINP PRN SL 08/06/24 15:45 Diagnostic Test (Pha) 1 strip ACHS 08/06/24 17:00 08/07/24 11:30 1 STRIP Insulin Human Regular ACHS SC 08/06/24 17:00 08/07/24 11:30 3 UNITS Dextrose 50 ml UD PRN IV 08/06/24 15:45 Vancomycin HCl 0 ml @ 0 mls/hr UD IV 08/06/24 15:45 Piperacillin Sod/ Tazobactam Sod 100 ml @ 25 mls/hr Q8HR IV 08/06/24 22:00 08/07/24 05:51 25 MLS/HR Pantoprazole Sodium 40 mg DAILY IV 08/07/24 10:00 08/07/24 10:11 40 MG Vancomycin HCl 200 ml @ 160 mls/hr Q16H IV 08/07/24 12:00 08/07/24 12:14 160 MLS/HR Laboratory Results Laboratory Tests 08/07/24 06:45 08/07/24 10:02 Chemistry Test 08/07/24 06:45 Albumin 3.7 g/dL (3.2-4.8) Calcium Level 9.6 mg/dL (8.7-10.4) Total Protein 6.5 g/dL (5.7-8.2) LFT Test 08/07/24 06:45 Alanine Aminotransferase (ALT) 19 U/L (7-40) Alkaline Phosphatase 69 U/L (46-116) Aspartate Amino Transferase (AST) 16 U/L (13-40) Total Bilirubin 0.7 mg/dL (0.2-1.0) Labs and/or images reviewed: Labs reviewed by me, Image(s) reviewed by me Assessment/Plan Assessment/Plan Hemoptysis Adenocarcinoma of lung, under treatment at [facility] Recurrent right pleural effusion, status post drainage of 500 mL of fluid by Dr. Aleman, consult by Dr. Aleman appreciated Atelectasis Pulmonary edema Right upper lobe Pneumonia vancomycin Zosyn Diabetes type 2 History of CVA Hypertension Time spent 65 minutes Patient is full code Condition guarded Advanced care planning time 20 minutes Plan discussed with: Patient Date of Service: Aug 07, 2024 Billing Provider: ZOILA MCDONALD MD Common Visit Codes: [id number] CARE 30-74 MIN ZOILA MCDONALD MD Aug 07, 2024 12:47
[2024-08-07 17:34] LABS: Urine Bacteria None Seen /hpf (None Seen)
[2024-08-07 17:48] LABS: Urine Blood Negative /uL (Negative); Urine Clarity Clear (Clear); Urine Color Light-Yellow (Yellow); Urine Protein, UAD Negative (Negative); Urine Specific Gravity 1.035 (1.001-1.035); Urine Squamous Epithelial Cell FEW /hpf (<5); Urine Urobilinogen Normal (Negative); Urine WBC 1 /HPF (0-5); Urine pH 7.5 (5.0-9.0)
[2024-08-07 22:08] LABS: Hematocrit 36.3 % (36.0-46.0)
[2024-08-08] VITALS (8 sets, daily range): BP systolic 137–147; BP diastolic 72–83; PULSE 73–81; RESP 15–18; TEMP 97.4–97.8; O2SAT 94–96
--- NOTE | 2024-08-08 01:19 | DVHSR ---
APPROVED REPORT EXAM: LIMITED Two-dimensional and M-mode echocardiogram with Doppler and color Doppler. Blood Pressure: 111/61 mmHg INDICATION limited for pericardial effusion RISK FACTORS Height: 5'4, Weight: 129 DIMENSIONS LVDd4.7 (3.8-5.7cm)LA (2D) (1.9-4.0cm)Aortic Root (2.0-3.7cm) LVDs3.1 (2.5-4.0cm)LA (MM) (1.9-4.0cm)Aortic Cusp Exc (1.5-2.0cm) EF (%) 60.0 (55-70%)Rt. Atrium (1.9-4.0cm)Asc. Aorta cm IVSd0.9 (0.7-1.1cm)RV (D) (1.8-2.4cm) PWd1.0 (0.7-1.1cm) Mitral Valve MitralMitral Stenosis E/A ratio0.02D MVAcm2 Other Information Quality : Technically LimitedRhythm : Technically limited study due to limited for Pericardial effusion Conclusion NORMAL LV EF AND IS 65% NORMAL VALVES NORMAL RV FUNCTION MILD GLOBAL PERICARDIAL EFFUSION
[2024-08-08 05:04] LABS: Basophils # (auto) 0 10 ^3/uL (0-0.2); Basophils % (auto) 0.3 % (0.0-2.0); Eosinophils # (auto) 0.3 10 ^3/uL (0-0.8); Hemoglobin 11.3 g/dL (12.2-16.2); Lymphocytes # (auto) 1.7 10 ^3/uL (0.4-5.4); Lymphocytes % (auto) 26.5 % (10.0-50.0); Mean Corpuscular Hemoglobin 27.7 pg (28.0-32.0); Mean Corpuscular Hgb Conc. 32.3 g/dL (32.0-36.0); Mean Corpuscular Volume 85.7 fL (80.0-100.0); Monocytes # (auto) 0.3 10 ^3/uL (0-1.3); Neutrophils # (auto) 4.2 10 ^3/uL (1.6-8.6); Neutrophils % (auto) 63.2 % (37.0-80.0); Platelet Count (auto) 292 10^3/uL (140-450); Red Blood Cells 4.09 10^6/uL (4.0-5.20); Red Cell Distribution Width 16.6 % (11.8-14.3); White Blood Cell 6.6 10^3/uL (4.4-10.8)
--- NOTE | 2024-08-08 07:57 | DVHPN2 ---
Progress Note - Dictate Date Seen: Aug 07, 2024 Medical Necessity Reason Pt with a Central, PICC or Fol: No Subjective Patient seen and examined at bedside. Breathing comfortably on room air. Overnight events reviewed. vital signs Vital Sign Date Time Temp Pulse Resp B/P (MAP) Pulse Ox O2 Delivery O2 Flow Rate FiO2 08/08/24 05:00 97.4 75 18 146/77 (100) 95 97.4 08/07/24 20:00 Room Air* 0 21 Total Intake and Output 08/07/24 08/07/24 08/08/24 15:00 23:00 07:00 Intake Total 200 ml 150 ml 400 ml Output Total 800 ml Balance 200 ml -650 ml 400 ml medications Current Medications Medications Dose Ordered Sig/Nitin Route Start Time Stop Time Status Last Admin Dose Admin Atorvastatin Calcium 40 mg HS PO 08/06/24 22:00 08/07/24 21:10 40 MG Metoprolol Succinate 25 mg DAILY PO 08/07/24 10:00 08/07/24 10:12 25 MG Sodium Chloride 1,000 ml @ 70 mls/hr [id number] IV 08/06/24 15:45 08/07/24 21:15 70 MLS/HR Ondansetron HCl 4 mg Q4HP PRN IV 08/06/24 15:45 Docusate Sodium 100 mg BIDPRN PRN PO 08/06/24 15:45 Morphine Sulfate 2 mg Q4HPRN PRN IV 08/06/24 15:45 Nitroglycerin 0.4 mg Q5MINP PRN SL 08/06/24 15:45 Diagnostic Test (Pha) 1 strip ACHS 08/06/24 17:00 08/08/24 05:52 1 STRIP Insulin Human Regular ACHS SC 08/06/24 17:00 08/07/24 21:15 3 UNITS Dextrose 50 ml UD PRN IV 08/06/24 15:45 Vancomycin HCl 0 ml @ 0 mls/hr UD IV 08/06/24 15:45 Piperacillin Sod/ Tazobactam Sod 100 ml @ 25 mls/hr Q8HR IV 08/06/24 22:00 08/08/24 05:52 25 MLS/HR Pantoprazole Sodium 40 mg DAILY IV 08/07/24 10:00 08/07/24 10:11 40 MG Vancomycin HCl 200 ml @ 160 mls/hr Q16H IV 08/07/24 12:00 08/08/24 03:22 160 MLS/HR objective Gen.: Patient lying in bed in no apparent distress. Breathing on room air. Head: Normocephalic, atraumatic. Eyes: EOMI/PERRLA. Ears: Normal hearing. Normal anatomy. Neck/trachea: Trachea midline, supple. Nose: Normal external anatomy. Mouth: Moist mucous membranes. Chest: Decreased air entry bilaterally. No wheezing or rhonchi. Cardiovascular: Positive S1, positive S2. Regular rate and rhythm. Abdomen: Positive bowel sounds in all 4 quadrants. Soft, non-tender, non- distended. : Deferred. Rectal: Deferred. Skin: Warm, dry. Intact. Extremities: 2+ radial pulses bilaterally. No lower extremity edema. Neuro: Awake, alert, oriented x3. No gross motor or sensory deficits. Cranial nerves II through XII intact. Gait not assessed. laboratory and microbiology Laboratory Tests 08/08/24 04:32 08/07/24 06:45 Test 08/07/24 06:45 Range/Units Serum Glucose 147 H 74-106 mg/dL Assessment/Plan Impression: Hemoptysis Adenocarcinoma of lung Recurrent right pleural effusion Atelectasis Pulmonary edema Pneumonia Events: Breathing on room air Supplemental oxygen PRN Patient passed swallow eval Continue antibiotics Incentive spirometry Antihypertensive medication Accu-Cheks, ISS. IV fluids with NS at 70 ml/hr. Monitor renal function Labs and imaging reviewed. Rest of plan as noted below. Plan: Supplemental oxygen PRN Titrate to keep O2 sats above 92%. CT chest demonstrated persistent right upper lobe pneumonia, mild pulmonary edema, a new or persistent pericardial effusion, small right pleural effusion and patchy consolidations. Hemoptysis - monitor Antitussive PRN cough. Continue antibiotics F/u cultures Bronchodilators. Incentive spirometry Accu-Cheks, ISS Monitor renal function. Monitor electrolytes. Supplement as necessary. Monitor ins and outs. DVT prophylaxis. Prognosis: Guarded given patient's multiple co-morbidities. Rest of plan per hospitalist and other consultants. Thank you, VANESSA Hernandez, for allowing me to participate in this patient's care. Further recommendations will depend on the patient's clinical course. Please do not hesitate to contact me if you have any questions or concerns. This medical document was created using an electronic medical record system with [employer] computerized dictation system. Although these documentations are being carefully reviewed, there may still be some phonetic and typographical changes. The errors are purely typographical, due to imperfection on the software program, and do not reflect any compromise in the patient's medical care. Plan discussed with: Patient, Other (RN) CANDACE VILLLEA MD Aug 08, 2024 07:57
--- NOTE | 2024-08-08 10:31 | DVHPN2 ---
Reviewed: Care Plan, H&P, Labs, Medications, Previous Orders, Radiology Changes from previous H/P or p: No Changes Eyes: No Pain, No Vision change, No Conjunctivae inflammation, No Eyelid inflammation, No Other, No Redness ENT: No Ear pain, No Ear discharge, No Nose pain, No Nose discharge, No Nose congestion, No Mouth pain, No Mouth swelling, No Throat pain, No Throat swelling, No Other Cardiovascular: No Chest Pain, No Palpitations, No Orthopnea, No Paroxysmal Noc. Dyspnea, No Edema, No Lt Headedness, No Other Respiratory: No Cough, No Dry, No Shortness of breath, No SOB with excertion, No Wheezing; Hemoptysis; No Pleuritic Pain, No Sputum, No Other Gastrointestinal: No Nausea, No Vomiting, No Abdominal Pain, No Diarrhea, No Constipation, No Melena, No Hematochezia, No Other Genitourinary: No Dysuria, No Frequency, No Incontinence, No Hematuria, No Retention, No Other Musculoskeletal: No other, No neck pain, No shoulder pain, No arm pain, No back pain, No hand pain, No leg pain, No foot pain Skin: No Rash, No Lesions, No Jaundice, No Bruising, No Other Objective Vitals Vital Signs Date Time Temp Pulse Resp B/P (MAP) Pulse Ox O2 Delivery O2 Flow Rate FiO2 08/08/24 09:00 97.7 73 17 146/72 (96) 95 97.7 08/07/24 20:00 Room Air* 0 21 Intake/Output Intake and Output 08/08/24 07:00 Intake Total 750 ml Output Total 800 ml Balance -50 ml Intake Oral 550 ml IV Total 200 ml Output Urine Total 800 ml # Voids 4 # Bowel Movements 1 Medications Current Medications Medications Dose Ordered Sig/Nitin Route Start Time Stop Time Status Last Admin Dose Admin Atorvastatin Calcium 40 mg HS PO 08/06/24 22:00 08/07/24 21:10 40 MG Metoprolol Succinate 25 mg DAILY PO 08/07/24 10:00 08/08/24 08:25 25 MG Sodium Chloride 1,000 ml @ 70 mls/hr [id number] IV 08/06/24 15:45 08/07/24 21:15 70 MLS/HR Ondansetron HCl 4 mg Q4HP PRN IV 08/06/24 15:45 Docusate Sodium 100 mg BIDPRN PRN PO 08/06/24 15:45 Morphine Sulfate 2 mg Q4HPRN PRN IV 08/06/24 15:45 Nitroglycerin 0.4 mg Q5MINP PRN SL 08/06/24 15:45 Diagnostic Test (Pha) 1 strip ACHS 08/06/24 17:00 08/08/24 05:52 1 STRIP Insulin Human Regular ACHS SC 08/06/24 17:00 08/07/24 21:15 3 UNITS Dextrose 50 ml UD PRN IV 08/06/24 15:45 Vancomycin HCl 0 ml @ 0 mls/hr UD IV 08/06/24 15:45 Piperacillin Sod/ Tazobactam Sod 100 ml @ 25 mls/hr Q8HR IV 08/06/24 22:00 08/08/24 05:52 25 MLS/HR Pantoprazole Sodium 40 mg DAILY IV 08/07/24 10:00 08/08/24 08:25 40 MG Vancomycin HCl 200 ml @ 160 mls/hr Q16H IV 08/07/24 12:00 08/08/24 03:22 160 MLS/HR Laboratory Results Laboratory Tests 08/07/24 06:45 08/08/24 04:32 Urinalysis Test 08/07/24 17:21 Urine Color Light-yellow (Yellow) Urine Clarity Clear (Clear) Urine pH 7.5 (5.0-9.0) Urine Specific [place] 1.035 (1.001-1.035) Urine Protein Negative (Negative) Urine Ketones Negative (Negative) Urine Blood Negative /uL (Negative) Urine Nitrite Negative (Negative) Urine Bilirubin Negative (Negative) Urine Urobilinogen Normal mg/dL (Negative) Urine Leukocyte Esterase Negative /uL (Negative) Urine RBC 1 /hpf (0 - 4) Urine Microscopic WBC 1 /HPF (0-5) Urine Squamous Epithelial Cells Few /hpf (<5) Urine Bacteria None seen /hpf (None Seen) Urine Glucose Normal mg/dL (Normal) Microbiology Microbiology Date/Time Source Procedure Growth Status 08/07/24 15:14 Sputum Gram Stain Pending Resulted 08/07/24 15:14 Sputum Respiratory Culture - Preliminary Resulted 08/06/24 20:15 Blood Blood Culture - Preliminary NO GROWTH AFTER 24 HOURS OF INCUBATION. Resulted Labs and/or images reviewed: Labs reviewed by me, Image(s) reviewed by me Assessment/Plan Assessment/Plan Hemoptysis Adenocarcinoma of lung, under treatment at [facility] Recurrent right pleural effusion, status post drainage of 500 mL of fluid by Dr. Aleman, consult by Dr. Aleman appreciated , blood cultures negative, sputum cultures pending Atelectasis Pulmonary edema Right upper lobe Pneumonia vancomycin Zosyn Diabetes type 2 History of CVA Hypertension Time spent 55 minutes Patient is full code Condition guarded Advanced care planning time 20 minutes Spoke to patient's daughter Germania [phone] on the phone RN Jose at bedside Plan discussed with: Patient My Orders Orders - ZOILA MCDONALD MD Procedure Category Date Status Time * Swallow Request ST 08/07/24 Transmitted 14:32 Consistent DIET 08/07/24 [facility]Diabetes D[facility] Date of Service: Aug 08, 2024 Billing Provider: ZOILA MCDONALD MD Common Visit Codes: [id number] INP/OBS CARE(HIGH) ZIOLA MCDONALD MD Aug 08, 2024 10:31
--- NOTE | 2024-08-08 23:12 | DVHPN2 ---
Progress Note - Dictate Date Seen: Aug 08, 2024 Medical Necessity Reason Pt with a Central, PICC or Fol: No Subjective Patient seen and examined at bedside. Breathing comfortably on room air. Overnight events reviewed. vital signs Vital Sign Date Time Temp Pulse Resp B/P (MAP) Pulse Ox O2 Delivery O2 Flow Rate FiO2 08/08/24 20:00 81 08/08/24 20:00 95 Room Air* 0 21 08/08/24 17:00 97.8 17 147/79 (101) 97.8 Total Intake and Output 08/07/24 08/07/24 08/08/24 15:00 23:00 07:00 Intake Total 200 ml 150 ml 400 ml Output Total 800 ml Balance 200 ml -650 ml 400 ml medications Current Medications Medications Dose Ordered Sig/Nitin Route Start Time Stop Time Status Last Admin Dose Admin Atorvastatin Calcium 40 mg HS PO 08/06/24 22:00 08/08/24 21:47 40 MG Metoprolol Succinate 25 mg DAILY PO 08/07/24 10:00 08/08/24 08:25 25 MG Sodium Chloride 1,000 ml @ 70 mls/hr [id number] IV 08/06/24 15:45 08/07/24 21:15 70 MLS/HR Ondansetron HCl 4 mg Q4HP PRN IV 08/06/24 15:45 Docusate Sodium 100 mg BIDPRN PRN PO 08/06/24 15:45 Morphine Sulfate 2 mg Q4HPRN PRN IV 08/06/24 15:45 Nitroglycerin 0.4 mg Q5MINP PRN SL 08/06/24 15:45 Diagnostic Test (Pha) 1 strip ACHS 08/06/24 17:00 08/08/24 21:47 1 STRIP Insulin Human Regular ACHS SC 08/06/24 17:00 08/08/24 21:51 2 UNITS Dextrose 50 ml UD PRN IV 08/06/24 15:45 Vancomycin HCl 0 ml @ 0 mls/hr UD IV 08/06/24 15:45 Piperacillin Sod/ Tazobactam Sod 100 ml @ 25 mls/hr Q8HR IV 08/06/24 22:00 08/08/24 21:47 25 MLS/HR Pantoprazole Sodium 40 mg DAILY IV 08/07/24 10:00 08/08/24 08:25 40 MG Vancomycin HCl 200 ml @ 160 mls/hr Q16H IV 08/07/24 12:00 08/08/24 20:27 160 MLS/HR Patient Own Medication 1 DAILY@0700 PO 08/10/24 07:00 objective Gen.: Patient lying in bed in no apparent distress. Breathing on room air. Head: Normocephalic, atraumatic. Eyes: EOMI/PERRLA. Ears: Normal hearing. Normal anatomy. Neck/trachea: Trachea midline, supple. Nose: Normal external anatomy. Mouth: Moist mucous membranes. Chest: Decreased air entry bilaterally. No wheezing or rhonchi. Cardiovascular: Positive S1, positive S2. Regular rate and rhythm. Abdomen: Positive bowel sounds in all 4 quadrants. Soft, non-tender, non- distended. : Deferred. Rectal: Deferred. Skin: Warm, dry. Intact. Extremities: 2+ radial pulses bilaterally. No lower extremity edema. Neuro: Awake, alert, oriented x3. No gross motor or sensory deficits. Cranial nerves II through XII intact. Gait not assessed. laboratory and microbiology Laboratory Tests 08/08/24 04:32 08/07/24 06:45 Test 08/07/24 06:45 Range/Units Serum Glucose 147 H 74-106 mg/dL Assessment/Plan Impression: Hemoptysis Adenocarcinoma of lung Recurrent right pleural effusion Atelectasis Pulmonary edema Pneumonia Events: Breathing on room air Supplemental oxygen PRN Continue antibiotics Incentive spirometry Antihypertensive medication Accu-Cheks, ISS. IV fluids with NS at 70 ml/hr. Monitor renal function Quantify hemoptysis - leave specimen cup at bedside. Labs and imaging reviewed. Rest of plan as noted below. Plan: Supplemental oxygen PRN Titrate to keep O2 sats above 92%. CT chest demonstrated persistent right upper lobe pneumonia, mild pulmonary edema, a new or persistent pericardial effusion, small right pleural effusion and patchy consolidations. Hemoptysis - quantify Antitussive PRN cough. Continue antibiotics F/u cultures Bronchodilators. Incentive spirometry Accu-Cheks, ISS Monitor renal function. Monitor electrolytes. Supplement as necessary. Monitor ins and outs. GI prophylaxis - Protonix DVT prophylaxis. Prognosis: Guarded given patient's multiple co-morbidities. Rest of plan per hospitalist and other consultants. Thank you, VANESSA Hernandez, for allowing me to participate in this patient's care. Further recommendations will depend on the patient's clinical course. Please do not hesitate to contact me if you have any questions or concerns. This medical document was created using an electronic medical record system with [employer] dictation system. Although these documentations are being carefully reviewed, there may still be some phonetic and typographical changes. The errors are purely typographical, due to imperfection on the software program, and do not reflect any compromise in the patient's medical care. Plan discussed with: Patient, Other (ZINA Garcia) CANDACE VILLELA MD Aug 08, 2024 23:11
[2024-08-09] VITALS (7 sets, daily range): BP systolic 120–158; BP diastolic 64–92; PULSE 53–84; RESP 17–20; TEMP 97.4–98.2; O2SAT 94–97
--- NOTE | 2024-08-09 12:11 | DVHPN2 ---
Reviewed: Care Plan, H&P, Labs, Medications, Previous Orders, Radiology Changes from previous H/P or p: No Changes Eyes: No Pain, No Vision change, No Conjunctivae inflammation, No Eyelid inflammation, No Other, No Redness ENT: No Ear pain, No Ear discharge, No Nose pain, No Nose discharge, No Nose congestion, No Mouth pain, No Mouth swelling, No Throat pain, No Throat swelling, No Other Cardiovascular: No Chest Pain, No Palpitations, No Orthopnea, No Paroxysmal Noc. Dyspnea, No Edema, No Lt Headedness, No Other Respiratory: No Cough, No Dry, No Shortness of breath, No SOB with excertion, No Wheezing; Hemoptysis; No Pleuritic Pain, No Sputum, No Other Gastrointestinal: No Nausea, No Vomiting, No Abdominal Pain, No Diarrhea, No Constipation, No Melena, No Hematochezia, No Other Genitourinary: No Dysuria, No Frequency, No Incontinence, No Hematuria, No Retention, No Other Musculoskeletal: No other, No neck pain, No shoulder pain, No arm pain, No back pain, No hand pain, No leg pain, No foot pain Skin: No Rash, No Lesions, No Jaundice, No Bruising, No Other Objective Vitals Vital Signs Date Time Temp Pulse Resp B/P (MAP) Pulse Ox O2 Delivery O2 Flow Rate FiO2 08/09/24 09:43 81 120/64 08/09/24 09:00 98.0 20 95 98.0 08/09/24 08:00 Room Air* 0 21 Intake/Output Intake and Output 08/09/24 07:00 Intake Total 1280 ml Balance 1280 ml Intake Oral 800 ml IV Total 480 ml # Voids 5 # Bowel Movements 1 Medications Current Medications Medications Dose Ordered Sig/Nitin Route Start Time Stop Time Status Last Admin Dose Admin Atorvastatin Calcium 40 mg HS PO 08/06/24 22:00 08/08/24 21:47 40 MG Metoprolol Succinate 25 mg DAILY PO 08/07/24 10:00 08/09/24 09:43 25 MG Sodium Chloride 1,000 ml @ 70 mls/hr [id number] IV 08/06/24 15:45 08/07/24 21:15 70 MLS/HR Ondansetron HCl 4 mg Q4HP PRN IV 08/06/24 15:45 Docusate Sodium 100 mg BIDPRN PRN PO 08/06/24 15:45 Morphine Sulfate 2 mg Q4HPRN PRN IV 08/06/24 15:45 Nitroglycerin 0.4 mg Q5MINP PRN SL 08/06/24 15:45 Diagnostic Test (Pha) 1 strip ACHS 08/06/24 17:00 08/09/24 11:39 1 STRIP Insulin Human Regular ACHS SC 08/06/24 17:00 08/09/24 11:41 3 UNITS Dextrose 50 ml UD PRN IV 08/06/24 15:45 Vancomycin HCl 0 ml @ 0 mls/hr UD IV 08/06/24 15:45 Piperacillin Sod/ Tazobactam Sod 100 ml @ 25 mls/hr Q8HR IV 08/06/24 22:00 08/09/24 05:23 25 MLS/HR Pantoprazole Sodium 40 mg DAILY IV 08/07/24 10:00 08/09/24 09:42 40 MG Vancomycin HCl 200 ml @ 160 mls/hr Q16H IV 08/07/24 12:00 08/09/24 11:38 160 MLS/HR Patient Own Medication 1 DAILY@0700 PO 08/10/24 07:00 Laboratory Results Laboratory Tests 08/07/24 06:45 08/08/24 04:32 Urinalysis Test 08/07/24 17:21 Urine Color Light-yellow (Yellow) Urine Clarity Clear (Clear) Urine pH 7.5 (5.0-9.0) Urine Specific [place] 1.035 (1.001-1.035) Urine Protein Negative (Negative) Urine Ketones Negative (Negative) Urine Blood Negative /uL (Negative) Urine Nitrite Negative (Negative) Urine Bilirubin Negative (Negative) Urine Urobilinogen Normal mg/dL (Negative) Urine Leukocyte Esterase Negative /uL (Negative) Urine RBC 1 /hpf (0 - 4) Urine Microscopic WBC 1 /HPF (0-5) Urine Squamous Epithelial Cells Few /hpf (<5) Urine Bacteria None seen /hpf (None Seen) Urine Glucose Normal mg/dL (Normal) Microbiology Microbiology Date/Time Source Procedure Growth Status 08/07/24 15:14 Sputum Gram Stain Pending Resulted 08/07/24 15:14 Respiratory Culture - Preliminary Enterobacter cloacae Resulted 08/06/24 20:15 Blood Blood Culture - Preliminary NO GROWTH AFTER 48 HOURS OF INCUBATION. Resulted Labs and/or images reviewed: Labs reviewed by me, Image(s) reviewed by me Assessment/Plan Assessment/Plan Hemoptysis Adenocarcinoma of lung, under treatment at [facility] Recurrent right pleural effusion, status post drainage of 500 mL of fluid by Dr. Aleman, consult by Dr. Aleman appreciated , blood cultures negative, sputum cultures pending Atelectasis Pulmonary edema Right upper lobe Pneumonia vancomycin Zosyn Diabetes type 2 History of CVA Hypertension Pericardial effusion: Consult for warper fixer Dr. Esau Young Time spent 55 minutes Patient is full code Condition guarded Advanced care planning time 20 minutes Spoke to patient's daughter Germania [phone] on the phone ZINA Weiss at bedside Plan discussed with: Patient My Orders Orders - ZOILA MCDONALD MD Procedure Category Date Status Time Patients Own PHA 08/10/24 In Process Medication 07:00 Date of Service: Aug 09, 2024 Billing Provider: ZOILA MCDONALD MD Common Visit Codes: [id number] INP/OBS CARE(HIGH) ZOILA MCDONALD MD Aug 09, 2024 12:11
[2024-08-09] MEDS: ERLOTINIB 150 MG PO ONE (15:10)
--- NOTE | 2024-08-09 23:54 | DVHPN2 ---
Progress Note - Dictate Date Seen: Aug 09, 2024 Medical Necessity Reason Pt with a Central, PICC or Fol: No Subjective Patient seen and examined at bedside. Breathing comfortably on room air. Overnight events reviewed. vital signs Vital Sign Date Time Temp Pulse Resp B/P (MAP) Pulse Ox O2 Delivery O2 Flow Rate FiO2 08/09/24 21:00 97.4 84 18 158/80 (106) 95 97.4 08/09/24 20:00 Room Air* 0 21 Total Intake and Output 08/08/24 08/08/24 08/09/24 15:00 23:00 07:00 Intake Total 380 ml 900 ml Balance 380 ml 900 ml medications Current Medications Medications Dose Ordered Sig/Nitin Route Start Time Stop Time Status Last Admin Dose Admin Atorvastatin Calcium 40 mg HS PO 08/06/24 22:00 08/09/24 21:43 40 MG Metoprolol Succinate 25 mg DAILY PO 08/07/24 10:00 08/09/24 09:43 25 MG Sodium Chloride 1,000 ml @ 70 mls/hr [id number] IV 08/06/24 15:45 08/09/24 15:15 70 MLS/HR Ondansetron HCl 4 mg Q4HP PRN IV 08/06/24 15:45 Docusate Sodium 100 mg BIDPRN PRN PO 08/06/24 15:45 Morphine Sulfate 2 mg Q4HPRN PRN IV 08/06/24 15:45 Nitroglycerin 0.4 mg Q5MINP PRN SL 08/06/24 15:45 Diagnostic Test (Pha) 1 strip ACHS 08/06/24 17:00 08/09/24 21:45 1 STRIP Insulin Human Regular ACHS SC 08/06/24 17:00 08/09/24 21:46 3 UNITS Dextrose 50 ml UD PRN IV 08/06/24 15:45 Vancomycin HCl 0 ml @ 0 mls/hr UD IV 08/06/24 15:45 Piperacillin Sod/ Tazobactam Sod 100 ml @ 25 mls/hr Q8HR IV 08/06/24 22:00 08/09/24 21:42 25 MLS/HR Pantoprazole Sodium 40 mg DAILY IV 08/07/24 10:00 08/09/24 09:42 40 MG Vancomycin HCl 200 ml @ 160 mls/hr Q16H IV 08/07/24 12:00 08/09/24 11:38 160 MLS/HR Patient Own Medication 1 DAILY@0700 PO 08/10/24 07:00 objective Gen.: Patient lying in bed in no apparent distress. Breathing on room air. Head: Normocephalic, atraumatic. Eyes: EOMI/PERRLA. Ears: Normal hearing. Normal anatomy. Neck/trachea: Trachea midline, supple. Nose: Normal external anatomy. Mouth: Moist mucous membranes. Chest: Decreased air entry bilaterally. No wheezing or rhonchi. Cardiovascular: Positive S1, positive S2. Regular rate and rhythm. Abdomen: Positive bowel sounds in all 4 quadrants. Soft, non-tender, non- distended. : Deferred. Rectal: Deferred. Skin: Warm, dry. Intact. Extremities: 2+ radial pulses bilaterally. No lower extremity edema. Neuro: Awake, alert, oriented x3. No gross motor or sensory deficits. Cranial nerves II through XII intact. Gait not assessed. laboratory and microbiology Laboratory Tests 08/09/24 12:51 08/08/24 04:32 08/07/24 06:45 Test 08/07/24 06:45 Range/Units Serum Glucose 147 H 74-106 mg/dL Assessment/Plan Impression: Hemoptysis Adenocarcinoma of lung Recurrent right pleural effusion Atelectasis Pulmonary edema Pneumonia Events: Breathing on room air Supplemental oxygen PRN No distress Hemoptysis improving. Continue antibiotics Incentive spirometry Antihypertensive medication Accu-Cheks, ISS. IV fluids with NS at 70 ml/hr. Monitor renal function Protonix for GI prophylaxis Quantify hemoptysis - leave specimen cup at bedside. Labs and imaging reviewed. Rest of plan as noted below. Plan: Supplemental oxygen PRN Titrate to keep O2 sats above 92%. CT chest demonstrated persistent right upper lobe pneumonia, mild pulmonary edema, a new or persistent pericardial effusion, small right pleural effusion and patchy consolidations. Hemoptysis - quantify Antitussive PRN cough. Continue antibiotics F/u cultures Bronchodilators. Incentive spirometry Accu-Cheks, ISS Monitor renal function. Monitor electrolytes. Supplement as necessary. Monitor ins and outs. GI prophylaxis - Protonix DVT prophylaxis. Prognosis: Guarded given patient's multiple co-morbidities. Rest of plan per hospitalist and other consultants. Thank you, VANESSA Hernandez, for allowing me to participate in this patient's care. Further recommendations will depend on the patient's clinical course. Please do not hesitate to contact me if you have any questions or concerns. This medical document was created using an electronic medical record system with [employer] dictation system. Although these documentations are being carefully reviewed, there may still be some phonetic and typographical changes. The errors are purely typographical, due to imperfection on the software program, and do not reflect any compromise in the patient's medical care. Plan discussed with: Patient, Other (RN) CANDACE VILLELA MD Aug 09, 2024 23:54
[2024-08-10] VITALS (8 sets, daily range): BP systolic 125–162; BP diastolic 63–89; PULSE 63–72; RESP 14–18; TEMP 97.4–98; O2SAT 94–100
--- NOTE | 2024-08-10 | DVHINCON2 ---
Date of service: Aug 09, 2024 Referring Physician Janes Reason for Consultation Pericardial effusion History of Present Illness This s a 64 year old female with a complex medical history including lung cancer (diagnosed April 22, 2024), coronary artery disease (CAD) with stent placement by Dr. Steinberg on 06/16/24, type 2 diabetes mellitus, hyperlipidemia, hypertension, TIA, and recent right upper lobe pneumonia, who presented to the ED on 08/06/24 with worsening hemoptysis and hypoxia. Per the patients daughter the patient was seen by Dr. Aleman earlier this morning per daughter, Dr. Aleman had did a thoracentesis and drained 500 ml of fluid, and she told him that had some hem optysis, and she was advised to go to the hospital for evaluation after showing increasing episodes of hemoptysis (coughing up blood). The patient reports that she has been coughing up blood intermittently since her stent placement in May, but her symptoms have worsened over the past week. She is currently being followed by [facility] for active cancer care and is on oral ch emotherapy drug erlothinip, which she is taking. She reports mild cough but denies chest pain, fever, or chills. She is currently taking aspirin and Plavix following her cardiac stent placement. CT chest demonstrated persistent right upper lobe pneumonia, mild pulmonary edema, a new or persistent pericardial effusion, and patchy consolidations. Patient was admitted to the hospital. I am asked to consult on this patient. Family History: FH: lung cancer G8 FATHER Allergies: Coded Allergies: NO KNOWN ALLERGIES (Unverified , 11/05/22) Home Meds Active Scripts Azithromycin (Azithromycin) 500 Mg Tab, 1 TAB PO DAILY, #10 TAB Prov:ZOILA MCDONALD MD 07/09/24 Cephalexin (KEFLEX CAPSULE) 250 Mg Cp, 1 CAP PO QID for 2 Days, #28 CAP Prov:LILIAN RANKIN RESIDENT 06/28/24 Acetaminophen (Acetaminophen) 325 Mg Tab, 650 MG PO Q6HP PRN for 10 Days, #80 TAB Prov:LILIAN RANKIN RESIDENT 06/28/24 Metoprolol Succinate (Toprol Xl) 25 Mg Tab, 25 MG PO DAILY for 30 Days, #30 TAB 3 Refills Prov:DAPHNE ROSAS MD 06/18/24 Atorvastatin Calcium (Lipitor) 40 Mg Tab, 40 MG PO QPM for 30 Days, #30 TAB 3 Refills Prov:DAPHNE ROSAS MD 06/18/24 Clopidogrel Bisulfate (Plavix) 75 Mg Tab, 75 MG PO DAILY for 30 Days, #30 TAB 3 Refills Prov:DAPHNE ROSAS MD 06/18/24 Aspirin (Aspir-81) 81 Mg Tab, 1 TAB PO DAILY for 30 Days, #30 TAB 3 Refills Prov:DAPHNE ROSAS MD 06/18/24 Reported Medications Erlotinib Hydrochloride (Erlotinib Hydrochloride) 150 Mg Tab, 150 MG PO, TAB 06/26/24 Current Medications Current Medications Medications (Trade) Dose Ordered Sig/Nitin Route PRN Reason Start Time Stop Time Status Last Admin Patient Own Medication 1 DAILY@0700 PO 08/10/24 07:00 Review of Systems Constitutional: No: Fever, Chills, Sweats, Weakness, Malaise, Other Eyes: No: Pain, Vision change, Conjunctivae inflammation, Eyelid inflammation, Other, Redness ENT: No: Ear pain, Ear discharge, Nose pain, Nose discharge, Nose congestion, Mouth pain, Mouth swelling, Throat pain, Throat swelling, Other Respiratory: Hemoptysis; No: Cough, Dry, Shortness of breath, SOB with excertion, Wheezing, Pleuritic Pain, Sputum, Wheezing, Other Cardiovascular: No: Chest Pain, Palpitations, Orthopnea, Paroxysmal Noc. Dyspnea, Edema, Lt Headedness, Other Gastrointestinal: No: Nausea, Vomiting, Abdominal Pain, Diarrhea, Constipation, Melena, Hematochezia, Other Genitourinary: No Dysuria, No Frequency, No Incontinence, No Hematuria, No Retention, No Other Musculoskeletal: No: other, neck pain, shoulder pain, arm pain, back pain, hand pain, leg pain, foot pain Skin: No: Rash, Lesions, Jaundice, Bruising, Other Neurological: No: Weakness, Numbness, Incoordination, Change in speech, Confusion, Seizures, Other Vital Signs Vital Signs Date Time Temp Pulse Resp B/P (MAP) Pulse Ox O2 Delivery O2 Flow Rate FiO2 08/09/24 21:00 97.4 84 18 158/80 (106) 95 97.4 08/09/24 20:00 Room Air* 0 21 Physical Exam GENERAL: Alert and oriented x 3. No acute distress. EYES: PERRL, EOMI. Anicteric. HENT: Moist mucous membranes. LUNGS: Clear to auscultation bilaterally. CARDIOVASCULAR: Regular rate and rhythm. ABDOMEN: Soft, non-tender and non-distended. EXTREMITIES: No edema. NEUROLOGIC: No focal neurological deficits. SKIN: Warm, dry. Labs/Diagnostic Data Labs Test 08/09/24 21:43 08/09/24 12:51 08/08/24 04:32 08/07/24 17:21 Range/Units POC Glucose 175 H 70-106 mg/dl Creatinine 0.74 0.550-1.02 mg/dL Glomerular Filtration Rate Calc 90 >90 mL/min Vancomycin Level Trough 54.2 *H 5-10 ug/mL White Blood Count 6.6 4.4-10.8 10^3/uL Red Blood Count 4.09 4.0-5.20 10^6/uL Hemoglobin 11.3 L 12.2-16.2 g/dL Hematocrit 35.0 L 36.0-46.0 % Mean Corpuscular Volume 85.7 80.0-100.0 fL Mean Corpuscular Hemoglobin 27.7 L 28.0-32.0 pg Mean Corpuscular Hemoglobin Concent 32.3 32.0-36.0 g/dL Red Cell Distribution Width 16.6 H 11.8-14.3 % Platelet Count 292 140-450 10^3/uL Mean Platelet Volume 6.9 6.9-10.8 fL Neutrophils (%) (Auto) 63.2 37.0-80.0 % Lymphocytes (%) (Auto) 26.5 10.0-50.0 % Monocytes (%) (Auto) 5.0 0.0-12.0 % Eosinophils (%) (Auto) 5.0 0.0-7.0 % Basophils (%) (Auto) 0.3 0.0-2.0 % Neutrophils # (Auto) 4.2 1.6-8.6 10 ^3/uL Lymphocytes # (Auto) 1.7 0.4-5.4 10 ^3/uL Monocytes # (Auto) 0.3 0-1.3 10 ^3/uL Eosinophils # (Auto) 0.3 0-0.8 10 ^3/uL Basophils # (Auto) 0 0-0.2 10 ^3/uL Nucleated Red Blood Cells 0.0 % Urine Color Light-yellow Yellow Urine Clarity Clear Clear Urine pH 7.5 5.0-9.0 Urine Specific [place] 1.035 1.001-1.035 Urine Protein Negative Negative Urine Ketones Negative Negative Urine Blood Negative Negative /uL Urine Nitrite Negative Negative Urine Bilirubin Negative Negative Urine Urobilinogen Normal Negative mg/dL Urine Leukocyte Esterase Negative Negative /uL Urine RBC 1 0 - 4 /hpf Urine Microscopic WBC 1 0-5 /HPF Urine Squamous Epithelial Cells Few <5 /hpf Urine Bacteria None seen None Seen /hpf Urine Glucose Normal Normal mg/dL Test 08/07/24 06:45 08/06/24 14:44 08/06/24 11:18 Range/Units Sodium Level 140 136-145 mmol/L Potassium Level 3.9 3.5-5.1 mmol/L Chloride Level 105 98-107 mmol/L Carbon Dioxide Level 28 20-31 mmol/L Anion Gap 7 5-15 Blood Urea Nitrogen 26 H 9-23 mg/dL BUN/Creatinine Ratio 33.8 H 10.0-20.0 Serum Glucose 147 H 74-106 mg/dL Calcium Level 9.6 8.7-10.4 mg/dL Total Bilirubin 0.7 0.2-1.0 mg/dL Aspartate Amino Transferase (AST) 16 13-40 U/L Alanine Aminotransferase (ALT) 19 7-40 U/L Alkaline Phosphatase 69 46-116 U/L Total Protein 6.5 5.7-8.2 g/dL Albumin 3.7 3.2-4.8 g/dL Troponin I High Sensitivity 20 </=34 ng/L Prothrombin Time 9.8 9.3-11.8 sec Prothrombin Time INR 0.92 0.9-1.15 Activated Partial Thromboplast Time 27.0 24.5-34.5 SEC B-Type Natriuretic Peptide 192.11 0-100 pg/mL Microbiology Date/Time Source Procedure Growth Status 08/07/24 15:14 Sputum Gram Stain Pending Resulted 08/07/24 15:14 Respiratory Culture - Preliminary Enterobacter cloacae Resulted 08/06/24 20:15 Blood Blood Culture - Preliminary NO GROWTH AFTER 72 HOURS OF INCUBATION. Resulted Assessment Hemoptysis. Adenocarcinoma of lung, under treatment at [facility]. Recurrent right pleural effusion. Atelectasis. Pulmonary edema. Right upper lobe pneumonia. Diabetes type 2. History of CVA. Hypertension. Plan/Recommendation I agree with your ongoing assessment and care of plan. Telemetry reviewed. Echocardiogram. Lipitor, Metoprolol. Morphine for pain management. Nitro SL. GI prophylactics. IV antibiotics as ordered. Additional plan as per the hospital course. A total of 45 minutes was spent reviewing the patient record, examining the patient, making a diagnostic and therapeutic plan, discussing this plan with medical personnel, following up on diagnostic studies and following the patient for clinical stability excluding any and all procedures. At least 50% of this time was spent in direct, [id number] contact. Plan discussed with: Patient CAROLYN CANTU MD Aug 10, 2024 00:00
[2024-08-10] MEDS: ERLOTINIB 150 MG PO SCH (06:06)
[2024-08-10 07:23] LABS: Basophils # (auto) 0 10 ^3/uL (0-0.2); Basophils % (auto) 0.3 % (0.0-2.0); Eosinophils # (auto) 0.4 10 ^3/uL (0-0.8); Eosinophils % (auto) 6.2 % (0.0-7.0); Hematocrit 34.9 % (36.0-46.0); Hemoglobin 11.6 g/dL (12.2-16.2); Lymphocytes % (auto) 31.9 % (10.0-50.0); Mean Corpuscular Hemoglobin 28.4 pg (28.0-32.0); Mean Corpuscular Hgb Conc. 33.4 g/dL (32.0-36.0); Monocytes # (auto) 0.4 10 ^3/uL (0-1.3); Monocytes % (auto) 6.3 % (0.0-12.0); Neutrophils # (auto) 3.5 10 ^3/uL (1.6-8.6); Neutrophils % (auto) 55.3 % (37.0-80.0); Platelet Count (auto) 298 10^3/uL (140-450); Red Blood Cells 4.11 10^6/uL (4.0-5.20); Red Cell Distribution Width 16.6 % (11.8-14.3); White Blood Cell 6.4 10^3/uL (4.4-10.8)
[2024-08-10 07:39] LABS: Alanine Aminotransferase 12 U/L (7-40); Albumin 3.7 g/dL (3.2-4.8); Alkaline Phosphatase 67 U/L (46-116); Anion Gap 9 (5-15); Aspartate Aminotransferase 16 U/L (13-40); BUN/Creatinine Ratio 26.4 (10.0-20.0); Bilirubin, Total 0.6 mg/dL (0.2-1.0); Blood Urea Nitrogen 19 mg/dL (9-23); Calcium 9.4 mg/dL (8.7-10.4); Carbon Dioxide 24 mmol/L (20-31); Sodium 140 mmol/L (136-145); Total Protein 6.4 g/dL (5.7-8.2)
[2024-08-10 07:40] LABS: Chloride 107 mmol/L (98-107); Glucose 125 mg/dL (74-106); Potassium 3.5 mmol/L (3.5-5.1)
--- NOTE | 2024-08-10 13:37 | DVHPN2 ---
Reviewed: Care Plan, H&P, Labs, Medications, Previous Orders, Radiology Changes from previous H/P or p: No Changes Eyes: No Pain, No Vision change, No Conjunctivae inflammation, No Eyelid inflammation, No Other, No Redness ENT: No Ear pain, No Ear discharge, No Nose pain, No Nose discharge, No Nose congestion, No Mouth pain, No Mouth swelling, No Throat pain, No Throat swelling, No Other Cardiovascular: No Chest Pain, No Palpitations, No Orthopnea, No Paroxysmal Noc. Dyspnea, No Edema, No Lt Headedness, No Other Respiratory: No Cough, No Dry, No Shortness of breath, No SOB with excertion, No Wheezing; Hemoptysis; No Pleuritic Pain, No Sputum, No Other Gastrointestinal: No Nausea, No Vomiting, No Abdominal Pain, No Diarrhea, No Constipation, No Melena, No Hematochezia, No Other Genitourinary: No Dysuria, No Frequency, No Incontinence, No Hematuria, No Retention, No Other Musculoskeletal: No other, No neck pain, No shoulder pain, No arm pain, No back pain, No hand pain, No leg pain, No foot pain Skin: No Rash, No Lesions, No Jaundice, No Bruising, No Other Objective Vitals Vital Signs Date Time Temp Pulse Resp B/P (MAP) Pulse Ox O2 Delivery O2 Flow Rate FiO2 08/10/24 09:41 71 150/77 08/10/24 09:00 97.5 16 95 97.5 08/10/24 08:00 Room Air* 0 21 Intake/Output Intake and Output 08/10/24 07:00 Intake Total 2822 ml Balance 2822 ml Intake Oral 2072 ml IV Total 750 ml # Voids 6 # Bowel Movements 2 Medications Current Medications Medications Dose Ordered Sig/Nitin Route Start Time Stop Time Status Last Admin Dose Admin Atorvastatin Calcium 40 mg HS PO 08/06/24 22:00 08/09/24 21:43 40 MG Metoprolol Succinate 25 mg DAILY PO 08/07/24 10:00 08/10/24 09:41 25 MG Sodium Chloride 1,000 ml @ 70 mls/hr [id number] IV 08/06/24 15:45 08/09/24 15:15 70 MLS/HR Ondansetron HCl 4 mg Q4HP PRN IV 08/06/24 15:45 Docusate Sodium 100 mg BIDPRN PRN PO 08/06/24 15:45 Morphine Sulfate 2 mg Q4HPRN PRN IV 08/06/24 15:45 Nitroglycerin 0.4 mg Q5MINP PRN SL 08/06/24 15:45 Diagnostic Test (Pha) 1 strip ACHS 08/06/24 17:00 08/10/24 11:31 1 STRIP Insulin Human Regular ACHS SC 08/06/24 17:00 08/10/24 11:31 2 UNITS Dextrose 50 ml UD PRN IV 08/06/24 15:45 Vancomycin HCl 0 ml @ 0 mls/hr UD IV 08/06/24 15:45 Piperacillin Sod/ Tazobactam Sod 100 ml @ 25 mls/hr Q8HR IV 08/06/24 22:00 08/10/24 06:06 25 MLS/HR Pantoprazole Sodium 40 mg DAILY IV 08/07/24 10:00 08/10/24 11:37 40 MG Vancomycin HCl 200 ml @ 160 mls/hr Q16H IV 08/07/24 12:00 08/10/24 04:46 160 MLS/HR Patient Own Medication 1 DAILY@0700 PO 08/10/24 07:00 08/10/24 06:06 1 Laboratory Results Laboratory Tests 08/10/24 06:44 Chemistry Test 08/10/24 06:44 Albumin 3.7 g/dL (3.2-4.8) Calcium Level 9.4 mg/dL (8.7-10.4) Total Protein 6.4 g/dL (5.7-8.2) LFT Test 08/10/24 06:44 Alanine Aminotransferase (ALT) 12 U/L (7-40) Alkaline Phosphatase 67 U/L (46-116) Aspartate Amino Transferase (AST) 16 U/L (13-40) Total Bilirubin 0.6 mg/dL (0.2-1.0) Urinalysis Test 08/07/24 17:21 Urine Color Light-yellow (Yellow) Urine Clarity Clear (Clear) Urine pH 7.5 (5.0-9.0) Urine Specific [place] 1.035 (1.001-1.035) Urine Protein Negative (Negative) Urine Ketones Negative (Negative) Urine Blood Negative /uL (Negative) Urine Nitrite Negative (Negative) Urine Bilirubin Negative (Negative) Urine Urobilinogen Normal mg/dL (Negative) Urine Leukocyte Esterase Negative /uL (Negative) Urine RBC 1 /hpf (0 - 4) Urine Microscopic WBC 1 /HPF (0-5) Urine Squamous Epithelial Cells Few /hpf (<5) Urine Bacteria None seen /hpf (None Seen) Urine Glucose Normal mg/dL (Normal) Microbiology Microbiology Date/Time Source Procedure Growth Status 08/07/24 15:14 Sputum Gram Stain Pending Resulted 08/07/24 15:14 Respiratory Culture - Preliminary Enterobacter cloacae Resulted 08/06/24 20:15 Blood Blood Culture - Preliminary NO GROWTH AFTER 72 HOURS OF INCUBATION. Resulted Labs and/or images reviewed: Labs reviewed by me, Image(s) reviewed by me Assessment/Plan Assessment/Plan Hemoptysis Adenocarcinoma of lung, under treatment at [facility] Recurrent right pleural effusion, status post drainage of 500 mL of fluid by Dr. Aleman, consult by Dr. Aleman appreciated , blood cultures negative, sputum cultures pending Atelectasis Pulmonary edema Right upper lobe Pneumonia vancomycin Zosyn Diabetes type 2 History of CVA Hypertension Pericardial effusion: Consult for shellfish processing laborer Dr. Esau Young Time spent 55 minutes Patient is full code Condition guarded Advanced care planning time 20 minutes Spoke to patient's daughter Germania [phone] on the phone ZINA Juarez at bedside Plan discussed with: Patient Date of Service: Aug 10, 2024 Billing Provider: ZOILA MCDONALD MD Common Visit Codes: [id number] INP/OBS CARE(HIGH) ZOILA MCDONALD MD Aug 10, 2024 13:37
[2024-08-10] MEDS: guaiFENesin-CODEINE Liq 5 ML UD PO PRN (17:42)
--- NOTE | 2024-08-10 19:48 | DVHPN2 ---
Progress Note - Dictate Date Seen: Aug 10, 2024 Medical Necessity Reason Pt with a Central, PICC or Fol: No Subjective Patient seen and examined at bedside. Breathing comfortably on room air. Overnight events reviewed. vital signs Vital Sign Date Time Temp Pulse Resp B/P (MAP) Pulse Ox O2 Delivery O2 Flow Rate FiO2 08/10/24 17:00 97.7 72 16 158/83 (108) 95 97.7 08/10/24 08:00 Room Air* 0 21 Total Intake and Output 08/09/24 08/09/24 08/10/24 15:00 23:00 07:00 Intake Total 572 ml 1450 ml 800 ml Balance 572 ml 1450 ml 800 ml medications Current Medications Medications Dose Ordered Sig/Nitin Route Start Time Stop Time Status Last Admin Dose Admin Atorvastatin Calcium 40 mg HS PO 08/06/24 22:00 08/09/24 21:43 40 MG Metoprolol Succinate 25 mg DAILY PO 08/07/24 10:00 08/10/24 09:41 25 MG Sodium Chloride 1,000 ml @ 70 mls/hr [id number] IV 08/06/24 15:45 08/10/24 18:25 70 MLS/HR Ondansetron HCl 4 mg Q4HP PRN IV 08/06/24 15:45 Docusate Sodium 100 mg BIDPRN PRN PO 08/06/24 15:45 Morphine Sulfate 2 mg Q4HPRN PRN IV 08/06/24 15:45 Nitroglycerin 0.4 mg Q5MINP PRN SL 08/06/24 15:45 Diagnostic Test (Pha) 1 strip ACHS 08/06/24 17:00 08/10/24 17:03 1 STRIP Insulin Human Regular ACHS SC 08/06/24 17:00 08/10/24 17:03 2 UNITS Dextrose 50 ml UD PRN IV 08/06/24 15:45 Vancomycin HCl 0 ml @ 0 mls/hr UD IV 08/06/24 15:45 Piperacillin Sod/ Tazobactam Sod 100 ml @ 25 mls/hr Q8HR IV 08/06/24 22:00 08/10/24 14:06 25 MLS/HR Pantoprazole Sodium 40 mg DAILY IV 08/07/24 10:00 08/10/24 11:37 40 MG Vancomycin HCl 200 ml @ 160 mls/hr Q16H IV 08/07/24 12:00 08/10/24 04:46 160 MLS/HR Patient Own Medication 1 DAILY@0700 PO 08/10/24 07:00 08/10/24 06:06 1 Guaifenesin/ Codeine Phosphate 10 ml Q4HPRN PRN PO 08/10/24 17:00 08/10/24 17:42 10 ML objective Gen.: Patient lying in bed in no apparent distress. Breathing on room air. Head: Normocephalic, atraumatic. Eyes: EOMI/PERRLA. Ears: Normal hearing. Normal anatomy. Neck/trachea: Trachea midline, supple. Nose: Normal external anatomy. Mouth: Moist mucous membranes. Chest: Decreased air entry bilaterally. No wheezing or rhonchi. Cardiovascular: Positive S1, positive S2. Regular rate and rhythm. Abdomen: Positive bowel sounds in all 4 quadrants. Soft, non-tender, non- distended. : Deferred. Rectal: Deferred. Skin: Warm, dry. Intact. Extremities: 2+ radial pulses bilaterally. No lower extremity edema. Neuro: Awake, alert, oriented x3. No gross motor or sensory deficits. Cranial nerves II through XII intact. Gait not assessed. laboratory and microbiology Laboratory Tests 08/10/24 06:44 Test 08/10/24 06:44 Range/Units Serum Glucose 125 H 74-106 mg/dL Assessment/Plan Impression: Hemoptysis Adenocarcinoma of lung Recurrent right pleural effusion Atelectasis Pulmonary edema Pneumonia Events: Remains on room air Supplemental oxygen PRN No distress Hemoptysis improving. Continue antibiotics Antitussive - Robitussin with Codeine Incentive spirometry Antihypertensive medication Plan for Cardiology consultation Accu-Cheks, ISS. IV fluids with NS at 70 ml/hr. Monitor renal function Protonix for GI prophylaxis Quantify hemoptysis - leave specimen cup at bedside. Labs and imaging reviewed. Rest of plan as noted below. Plan: Supplemental oxygen PRN Titrate to keep O2 sats above 92%. Hemoptysis - quantify Antitussive PRN cough. Continue antibiotics F/u cultures Bronchodilators. Incentive spirometry Accu-Cheks, ISS Monitor renal function. Monitor electrolytes. Supplement as necessary. Monitor ins and outs. GI prophylaxis - Protonix DVT prophylaxis. Prognosis: Guarded given patient's multiple co-morbidities. Rest of plan per hospitalist and other consultants. Thank you, ORACLE DBA David, for allowing me to participate in this patient's care. Further recommendations will depend on the patient's clinical course. Please do not hesitate to contact me if you have any questions or concerns. This medical document was created using an electronic medical record system with [employer] dictation system. Although these documentations are being carefully reviewed, there may still be some phonetic and typographical changes. The errors are purely typographical, due to imperfection on the software program, and do not reflect any compromise in the patient's medical care. Dietary Evaluation Review Comments: 1) CCHO 60 + cardiac diet 2) continue current plan of care Expected Outcomes/Goals: To meet >75% estimated needs Fu 3-5 days Plan discussed with: Patient, Other (ZINA Tang) CANDACE VILLELA MD Aug 10, 2024 19:48
[2024-08-10] MEDS ORDERED: VANCOMYCIN 1GM/200ML PM 200 ML IV SCH (20:30)
[2024-08-10] MEDS: VANCOMYCIN 1GM/200ML PM 200 ML IV SCH (21:18)
--- NOTE | 2024-08-10 21:55 | DVHPN2 ---
Progress Note - Dictate Date Seen: Aug 10, 2024 Medical Necessity Reason Pt with a Central, PICC or Fol: No Subjective Patient was seen and evaluated in follow up. Patient is complining of cough with hemoptysis. Echocardiogram shows an EF of 65%. Technically limited study due to limited for Pericardial effusion. Telemetry reviewed. vital signs Vital Sign Date Time Temp Pulse Resp B/P (MAP) Pulse Ox O2 Delivery O2 Flow Rate FiO2 08/10/24 20:52 98.0 70 14 138/70 (92) 94 98.0 08/10/24 08:00 Room Air* 0 21 Total Intake and Output 08/09/24 08/09/24 08/10/24 15:00 23:00 07:00 Intake Total 572 ml 1450 ml 800 ml Balance 572 ml 1450 ml 800 ml medications Current Medications Medications Dose Ordered Sig/Nitin Route Start Time Stop Time Status Last Admin Dose Admin Atorvastatin Calcium 40 mg HS PO 08/06/24 22:00 08/10/24 21:23 40 MG Metoprolol Succinate 25 mg DAILY PO 08/07/24 10:00 08/10/24 09:41 25 MG Sodium Chloride 1,000 ml @ 70 mls/hr [id number] IV 08/06/24 15:45 08/10/24 18:25 70 MLS/HR Ondansetron HCl 4 mg Q4HP PRN IV 08/06/24 15:45 Docusate Sodium 100 mg BIDPRN PRN PO 08/06/24 15:45 Morphine Sulfate 2 mg Q4HPRN PRN IV 08/06/24 15:45 Nitroglycerin 0.4 mg Q5MINP PRN SL 08/06/24 15:45 Diagnostic Test (Pha) 1 strip ACHS 08/06/24 17:00 08/10/24 21:23 1 STRIP Insulin Human Regular ACHS SC 08/06/24 17:00 08/10/24 21:33 2 UNITS Dextrose 50 ml UD PRN IV 08/06/24 15:45 Vancomycin HCl 0 ml @ 0 mls/hr UD IV 08/06/24 15:45 Piperacillin Sod/ Tazobactam Sod 100 ml @ 25 mls/hr Q8HR IV 08/06/24 22:00 08/10/24 14:06 25 MLS/HR Pantoprazole Sodium 40 mg DAILY IV 08/07/24 10:00 08/10/24 11:37 40 MG Patient Own Medication 1 DAILY@0700 PO 08/10/24 07:00 08/10/24 06:06 1 Guaifenesin/ Codeine Phosphate 10 ml Q4HPRN PRN PO 08/10/24 17:00 08/10/24 17:42 10 ML Vancomycin HCl 200 ml @ 160 mls/hr Q12HR@0900,2100 IV 08/10/24 21:00 08/10/24 21:18 160 MLS/HR objective GENERAL: Alert and oriented x 3. No acute distress. EYES: PERRL, EOMI. Anicteric. HENT: Moist mucous membranes. LUNGS: Clear to auscultation bilaterally. CARDIOVASCULAR: Regular rate and rhythm. ABDOMEN: Soft, non-tender and non-distended. EXTREMITIES: No edema. NEUROLOGIC: No focal neurological deficits. SKIN: Warm, dry. laboratory and microbiology Laboratory Tests 08/10/24 06:44 Test 08/10/24 06:44 Range/Units Serum Glucose 125 H 74-106 mg/dL Problem List Hemoptysis. Adenocarcinoma of lung, under treatment at [facility]. Recurrent right pleural effusion. Atelectasis. Pulmonary edema. Right upper lobe pneumonia. Diabetes type 2. History of CVA. Hypertension. Assessment/Plan Continued all current supportive medical care. Lipitor, Metoprolol. Morphine for pain management. Nitro SL. GI prophylactics. IV antibiotics as ordered. Additional plan as per the hospital course. Dietary Evaluation Review Comments: 1) CCHO 60 + cardiac diet 2) continue current plan of care Expected Outcomes/Goals: To meet >75% estimated needs Fu 3-5 days Plan discussed with: Patient CAROLYN CANTU MD Aug 10, 2024 21:55
[2024-08-11 00:35] VITALS: BP 147/70; PULSE 63; RESP 14; TEMP 98.1; O2SAT 98
[2024-08-11 05:00] VITALS: BP 139/79; PULSE 67; RESP 14; TEMP 98.6; O2SAT 96
[2024-08-11 08:00] VITALS: PULSE 71; PULSE 72; RESP 17; O2SAT 95
[2024-08-11 08:18] LABS: Basophils # (auto) 0 10 ^3/uL (0-0.2); Basophils % (auto) 0.3 % (0.0-2.0); Eosinophils # (auto) 0.4 10 ^3/uL (0-0.8); Hematocrit 36.3 % (36.0-46.0); Hemoglobin 11.8 g/dL (12.2-16.2); Lymphocytes # (auto) 1.8 10 ^3/uL (0.4-5.4); Lymphocytes % (auto) 32.6 % (10.0-50.0); Mean Corpuscular Hemoglobin 27.9 pg (28.0-32.0); Mean Corpuscular Hgb Conc. 32.6 g/dL (32.0-36.0); Mean Corpuscular Volume 85.5 fL (80.0-100.0); Monocytes # (auto) 0.3 10 ^3/uL (0-1.3); Monocytes % (auto) 5.9 % (0.0-12.0); Neutrophils % (auto) 54.2 % (37.0-80.0); Nucleated Red Blood Cells % 0.1 %; Platelet Count (auto) 310 10^3/uL (140-450); Red Blood Cells 4.25 10^6/uL (4.0-5.20); Red Cell Distribution Width 16.3 % (11.8-14.3); White Blood Cell 5.5 10^3/uL (4.4-10.8)
[2024-08-11 09:00] VITALS: BP 121/67; PULSE 71; RESP 17; TEMP 97.5; O2SAT 95
--- NOTE | 2024-08-11 11:49 | DVHPN2 ---
Reviewed: Care Plan, H&P, Labs, Medications, Previous Orders, Radiology Changes from previous H/P or p: No Changes Eyes: No Pain, No Vision change, No Conjunctivae inflammation, No Eyelid inflammation, No Other, No Redness ENT: No Ear pain, No Ear discharge, No Nose pain, No Nose discharge, No Nose congestion, No Mouth pain, No Mouth swelling, No Throat pain, No Throat swelling, No Other Cardiovascular: No Chest Pain, No Palpitations, No Orthopnea, No Paroxysmal Noc. Dyspnea, No Edema, No Lt Headedness, No Other Respiratory: No Cough, No Dry, No Shortness of breath, No SOB with excertion, No Wheezing; Hemoptysis; No Pleuritic Pain, No Sputum, No Other Gastrointestinal: No Nausea, No Vomiting, No Abdominal Pain, No Diarrhea, No Constipation, No Melena, No Hematochezia, No Other Genitourinary: No Dysuria, No Frequency, No Incontinence, No Hematuria, No Retention, No Other Musculoskeletal: No other, No neck pain, No shoulder pain, No arm pain, No back pain, No hand pain, No leg pain, No foot pain Skin: No Rash, No Lesions, No Jaundice, No Bruising, No Other Objective Vitals Vital Signs Date Time Temp Pulse Resp B/P (MAP) Pulse Ox O2 Delivery O2 Flow Rate FiO2 08/11/24 09:14 71 121/67 08/11/24 09:00 97.5 17 95 97.5 08/11/24 08:00 Room Air* 0 21 Intake/Output Intake and Output 08/11/24 07:00 Intake Total 1500 ml Balance 1500 ml Intake Oral 1100 ml IV Total 400 ml # Voids 6 Medications Current Medications Medications Dose Ordered Sig/Nitin Route Start Time Stop Time Status Last Admin Dose Admin Atorvastatin Calcium 40 mg HS PO 08/06/24 22:00 08/10/24 21:23 40 MG Metoprolol Succinate 25 mg DAILY PO 08/07/24 10:00 08/11/24 09:14 25 MG Sodium Chloride 1,000 ml @ 70 mls/hr [id number] IV 08/06/24 15:45 08/11/24 09:15 70 MLS/HR Ondansetron HCl 4 mg Q4HP PRN IV 08/06/24 15:45 Docusate Sodium 100 mg BIDPRN PRN PO 08/06/24 15:45 Morphine Sulfate 2 mg Q4HPRN PRN IV 08/06/24 15:45 Nitroglycerin 0.4 mg Q5MINP PRN SL 08/06/24 15:45 Diagnostic Test (Pha) 1 strip ACHS 08/06/24 17:00 08/11/24 11:33 1 STRIP Insulin Human Regular ACHS SC 08/06/24 17:00 08/11/24 11:33 2 UNITS Dextrose 50 ml UD PRN IV 08/06/24 15:45 Vancomycin HCl 0 ml @ 0 mls/hr UD IV 08/06/24 15:45 Piperacillin Sod/ Tazobactam Sod 100 ml @ 25 mls/hr Q8HR IV 08/06/24 22:00 08/11/24 05:32 25 MLS/HR Pantoprazole Sodium 40 mg DAILY IV 08/07/24 10:00 08/11/24 09:14 40 MG Patient Own Medication 1 DAILY@0700 PO 08/10/24 07:00 08/11/24 06:24 1 Guaifenesin/ Codeine Phosphate 10 ml Q4HPRN PRN PO 08/10/24 17:00 08/11/24 06:24 10 ML Vancomycin HCl 200 ml @ 160 mls/hr Q12HR@0900,2100 IV 08/10/24 21:00 08/11/24 09:14 160 MLS/HR Laboratory Results Laboratory Tests 08/10/24 06:44 08/11/24 06:31 Urinalysis Test 08/07/24 17:21 Urine Color Light-yellow (Yellow) Urine Clarity Clear (Clear) Urine pH 7.5 (5.0-9.0) Urine Specific [place] 1.035 (1.001-1.035) Urine Protein Negative (Negative) Urine Ketones Negative (Negative) Urine Blood Negative /uL (Negative) Urine Nitrite Negative (Negative) Urine Bilirubin Negative (Negative) Urine Urobilinogen Normal mg/dL (Negative) Urine Leukocyte Esterase Negative /uL (Negative) Urine RBC 1 /hpf (0 - 4) Urine Microscopic WBC 1 /HPF (0-5) Urine Squamous Epithelial Cells Few /hpf (<5) Urine Bacteria None seen /hpf (None Seen) Urine Glucose Normal mg/dL (Normal) Microbiology Microbiology Date/Time Source Procedure Growth Status 08/07/24 15:14 Sputum Gram Stain Pending Resulted 08/07/24 15:14 Respiratory Culture - Preliminary Enterobacter cloacae Resulted 08/06/24 20:15 Blood Blood Culture - Preliminary NO GROWTH AFTER 72 HOURS OF INCUBATION. Resulted Labs and/or images reviewed: Labs reviewed by me, Image(s) reviewed by me Assessment/Plan Assessment/Plan Hemoptysis Adenocarcinoma of lung, under treatment at [facility] Recurrent right pleural effusion, status post drainage of 500 mL of fluid by Dr. Aleman, consult by Dr. Aleman appreciated , blood cultures negative, sputum cultures pending Atelectasis Pulmonary edema Right upper lobe Pneumonia vancomycin Zosyn Diabetes type 2 History of CVA Hypertension Minimal Pericardial effusion: Consult for specimen transporter Dr. Esau Young appreciated Time spent 55 minutes Patient is full code Condition guarded Advanced care planning time 20 minutes Spoke to patient's daughter Germania [phone] on the phone ZINA Juarez at bedside Plan discussed with: Patient My Orders Orders - ZOILA MCDONALD MD Procedure Category Date Status Time Regular Diet DIET 08/10/24 Transmitted Dinner Date of Service: Aug 11, 2024 Billing Provider: ZOILA MCDONALD MD Common Visit Codes: [id number] INP/OBS CARE(HIGH) ZOILA MCDONALD MD Aug 11, 2024 11:49
[2024-08-11] MEDS ORDERED: ALBUAER3 IN (11:53)
[2024-08-11] MEDS ORDERED: AZIT500T66 PO (11:53)
--- NOTE | 2024-08-11 11:57 | DVHDS2 ---
Discharge Summary Date of Admission Aug 06, 2024 at 15:31 Date of Discharge: Aug 11, 2024 Admitting Diagnosis Hemoptysis Wounds: Thoracentesis Labs/Diagnostic Data: Laboratory Results Test 08/11/24 10:56 08/11/24 06:31 08/10/24 18:56 08/10/24 06:44 POC Glucose 150 mg/dl (70-106) White Blood Count 5.5 10^3/uL (4.4-10.8) Red Blood Count 4.25 10^6/uL (4.0-5.20) Hemoglobin 11.8 g/dL (12.2-16.2) Hematocrit 36.3 % (36.0-46.0) Mean Corpuscular Volume 85.5 fL (80.0-100.0) Mean Corpuscular Hemoglobin 27.9 pg (28.0-32.0) Mean Corpuscular Hemoglobin Concent 32.6 g/dL (32.0-36.0) Red Cell Distribution Width 16.3 % (11.8-14.3) Platelet Count 310 10^3/uL (140-450) Mean Platelet Volume 7.2 fL (6.9-10.8) Neutrophils (%) (Auto) 54.2 % (37.0-80.0) Lymphocytes (%) (Auto) 32.6 % (10.0-50.0) Monocytes (%) (Auto) 5.9 % (0.0-12.0) Eosinophils (%) (Auto) 7.0 % (0.0-7.0) Basophils (%) (Auto) 0.3 % (0.0-2.0) Neutrophils # (Auto) 3.0 10 ^3/uL (1.6-8.6) Lymphocytes # (Auto) 1.8 10 ^3/uL (0.4-5.4) Monocytes # (Auto) 0.3 10 ^3/uL (0-1.3) Eosinophils # (Auto) 0.4 10 ^3/uL (0-0.8) Basophils # (Auto) 0 10 ^3/uL (0-0.2) Nucleated Red Blood Cells 0.1 % Creatinine 0.69 mg/dL (0.550-1.02) Glomerular Filtration Rate Calc 96 mL/min (>90) Vancomycin Level Trough 10.4 ug/mL (5-10) Sodium Level 140 mmol/L (136-145) Potassium Level 3.5 mmol/L (3.5-5.1) Chloride Level 107 mmol/L (98-107) Carbon Dioxide Level 24 mmol/L (20-31) Anion Gap 9 (5-15) Blood Urea Nitrogen 19 mg/dL (9-23) BUN/Creatinine Ratio 26.4 (10.0-20.0) Serum Glucose 125 mg/dL (74-106) Calcium Level 9.4 mg/dL (8.7-10.4) Total Bilirubin 0.6 mg/dL (0.2-1.0) Aspartate Amino Transferase (AST) 16 U/L (13-40) Alanine Aminotransferase (ALT) 12 U/L (7-40) Alkaline Phosphatase 67 U/L (46-116) Total Protein 6.4 g/dL (5.7-8.2) Albumin 3.7 g/dL (3.2-4.8) Test 08/07/24 17:21 08/06/24 14:44 08/06/24 11:18 Urine Color Light-yellow (Yellow) Urine Clarity Clear (Clear) Urine pH 7.5 (5.0-9.0) Urine Specific [place] 1.035 (1.001-1.035) Urine Protein Negative (Negative) Urine Ketones Negative (Negative) Urine Blood Negative /uL (Negative) Urine Nitrite Negative (Negative) Urine Bilirubin Negative (Negative) Urine Urobilinogen Normal mg/dL (Negative) Urine Leukocyte Esterase Negative /uL (Negative) Urine RBC 1 /hpf (0 - 4) Urine Microscopic WBC 1 /HPF (0-5) Urine Squamous Epithelial Cells Few /hpf (<5) Urine Bacteria None seen /hpf (None Seen) Urine Glucose Normal mg/dL (Normal) Troponin I High Sensitivity 20 ng/L (</=34) Prothrombin Time 9.8 sec (9.3-11.8) Prothrombin Time INR 0.92 (0.9-1.15) Activated Partial Thromboplast Time 27.0 SEC (24.5-34.5) B-Type Natriuretic Peptide 192.11 pg/mL (0-100) Other Laboratory Tests 08/11/24 06:31 08/10/24 06:44 Brief Hx & Hospital Course: 64-year-old female with a history of adenocarcinoma of the lung and treatment at [facility] history of CVA hypertension diabetes came in complaining of coughing of blood. Admitted for workup on hemoptysis she had a right pleural effusion pulmonology Dr. Aleman drained 500 mL of fluid blood cultures negative sputum cultures pending community-acquired right-sided pneumonia treated with the vancomycin and Zosyn mild pericardial effusion seen by Cardiology Dr. Young no intervention. Patient has significantly improved at time of discharge on room air afebrile stable vital signs and discharged home on azithromycin and Ventolin MDI . she will follow up with the primary Dr Dr. Aleman and with [facility]. General condition stable but poor at the time of discharge. Consults/Reason for consult Pulmonology Dr. Aleman Cardiology Dr. Young Operations or Procedures CT chest without contrast Condition at Discharge: Fair Final Diagnosis/Problems List Hemoptysis Adenocarcinoma of lung, under treatment at [facility] Recurrent right pleural effusion, status post drainage of 500 mL of fluid by Dr. Aleman, consult by Dr. Aleman appreciated , blood cultures negative, sputum cultures pending Atelectasis Pulmonary edema Right upper lobe Pneumonia vancomycin Zosyn Diabetes type 2 History of CVA Hypertension Minimal Pericardial effusion: Consult for mill tender second operator Dr. Esau Young appreciated Discharge Disposition: Home Discharge Instruct/Medications Diet: Regular Activity: Light activity Follow Up/Referral: Follow up with your primary Dr in one week Follow up with the pulmonology Dr. Aleman in one week Medications: Transmitted to pharmacy 35 (Time taken for discharge summary 35 minutes) Discharge Statement: "Patient was advised to return to the ER or call 911 if any headaches, dizziness, shortness of breath, chest pain, abdominal pain, bleeding, fevers, or worsening of medical condition. Patient was counseled about treatment plan, medications, possible side effects, patientverbalized understanding. All questions were answered to the best of my ability. This discharge took greater then 30 minutes in planning, reviewing documentation, counseling the patient, and discussing with other team members." ASSESSMENT ASSESSMENT Assessment Hemoptysis Adenocarcinoma of lung, under treatment at [facility] Recurrent right pleural effusion, status post drainage of 500 mL of fluid by Dr. Aleman, consult by Dr. Aleman appreciated , blood cultures negative, sputum cultures pending Atelectasis Pulmonary edema Right upper lobe Pneumonia vancomycin Zosyn Diabetes type 2 History of CVA Hypertension Minimal Pericardial effusion: Consult for mill tender second operator Dr. Esau Young appreciated Date of Service: Aug 11, 2024 Billing Provider: ZOILA MCDONALD MD Common Visit Codes: [id number] INP/OBS CARE(HIGH) ZOILA MCDONALD MD Aug 11, 2024 11:57
[2024-08-11 12:32] VITALS: BP 121/67; PULSE 74; RESP 17; TEMP 98.1; O2SAT 96
--- NOTE | 2024-08-11 21:30 | DVHPN2 ---
Progress Note - Dictate Date Seen: Aug 11, 2024 Medical Necessity Reason Pt with a Central, PICC or Fol: No Subjective Patient was seen and evaluated in follow up. Patient has no new complaints at this time. Patient denies any cardiac symptoms. Patient is cardiac stable for discharge. Telemetry reviewed. vital signs Vital Sign Date Time Temp Pulse Resp B/P (MAP) Pulse Ox O2 Delivery O2 Flow Rate FiO2 08/11/24 12:32 98.1 74 17 96 08/11/24 09:14 121/67 08/11/24 08:00 Room Air* 0 21 Total Intake and Output 08/10/24 08/10/24 08/11/24 15:00 23:00 07:00 Intake Total 100 ml 900 ml 500 ml Balance 100 ml 900 ml 500 ml objective GENERAL: Alert and oriented x 3. No acute distress. EYES: PERRL, EOMI. Anicteric. HENT: Moist mucous membranes. LUNGS: Clear to auscultation bilaterally. CARDIOVASCULAR: Regular rate and rhythm. ABDOMEN: Soft, non-tender and non-distended. EXTREMITIES: No edema. NEUROLOGIC: No focal neurological deficits. SKIN: Warm, dry. laboratory and microbiology Laboratory Tests 08/11/24 06:31 08/10/24 06:44 Test 08/10/24 06:44 Range/Units Serum Glucose 125 H 74-106 mg/dL Problem List Hemoptysis. Adenocarcinoma of lung, under treatment at [facility]. Recurrent right pleural effusion. Atelectasis. Pulmonary edema. Right upper lobe pneumonia. Diabetes type 2. History of CVA. Hypertension. Assessment/Plan Continued all current supportive medical care. Lipitor, Metoprolol. Morphine for pain management. Nitro SL. GI prophylactics. IV antibiotics as ordered. Additional plan as per the hospital course. Dietary Evaluation Review Comments: 1) CCHO 60 + cardiac diet 2) continue current plan of care Expected Outcomes/Goals: To meet >75% estimated needs Fu 3-5 days Plan discussed with: Patient CAROLYN CANTU MD Aug 11, 2024 21:30
--- NOTE | 2024-08-11 23:25 | DVHPN2 ---
Progress Note - Dictate Date Seen: Aug 11, 2024 Medical Necessity Reason Pt with a Central, PICC or Fol: No Subjective Patient seen and examined at bedside. Breathing comfortably on room air. Overnight events reviewed. vital signs Vital Sign Date Time Temp Pulse Resp B/P (MAP) Pulse Ox O2 Delivery O2 Flow Rate FiO2 08/11/24 12:32 98.1 74 17 96 08/11/24 09:14 121/67 08/11/24 08:00 Room Air* 0 21 Total Intake and Output 08/10/24 08/10/24 08/11/24 15:00 23:00 07:00 Intake Total 100 ml 900 ml 500 ml Balance 100 ml 900 ml 500 ml objective Gen.: Patient lying in bed in no apparent distress. Breathing on room air. Head: Normocephalic, atraumatic. Eyes: EOMI/PERRLA. Ears: Normal hearing. Normal anatomy. Neck/trachea: Trachea midline, supple. Nose: Normal external anatomy. Mouth: Moist mucous membranes. Chest: Decreased air entry bilaterally. No wheezing or rhonchi. Cardiovascular: Positive S1, positive S2. Regular rate and rhythm. Abdomen: Positive bowel sounds in all 4 quadrants. Soft, non-tender, non- distended. : Deferred. Rectal: Deferred. Skin: Warm, dry. Intact. Extremities: 2+ radial pulses bilaterally. No lower extremity edema. Neuro: Awake, alert, oriented x3. No gross motor or sensory deficits. Cranial nerves II through XII intact. Gait not assessed. laboratory and microbiology Laboratory Tests 08/11/24 06:31 08/10/24 06:44 Test 08/10/24 06:44 Range/Units Serum Glucose 125 H 74-106 mg/dL Assessment/Plan Impression: Hemoptysis Adenocarcinoma of lung Recurrent right pleural effusion Atelectasis Pulmonary edema Pneumonia Events: Remains on room air Supplemental oxygen PRN No distress No new complaints. Hemoptysis improved. Complete antibiotics Antitussive - Robitussin with Codeine Incentive spirometry Antihypertensive medication Cardiology recs appreciated. Accu-Cheks, ISS. IV fluids with NS at 70 ml/hr. Monitor renal function Protonix for GI prophylaxis Patient is feeling better Patient is stable for discharge from the pulmonary standpoint. Follow up in 1-2 weeks in [facility] for recurrent right pleural effusion and followup of pneumonia. Labs and imaging reviewed. Rest of plan as noted below. Plan: Supplemental oxygen PRN Titrate to keep O2 sats above 92%. Antitussive PRN cough. Continue antibiotics F/u cultures Bronchodilators. Incentive spirometry Accu-Cheks, ISS Monitor renal function. Monitor electrolytes. Supplement as necessary. Monitor ins and outs. GI prophylaxis - Protonix DVT prophylaxis. Prognosis: Guarded given patient's multiple co-morbidities. Rest of plan per hospitalist and other consultants. Thank you, BLEACHING MACHINE OPERATOR David, for allowing me to participate in this patient's care. Further recommendations will depend on the patient's clinical course. Please do not hesitate to contact me if you have any questions or concerns. This medical document was created using an electronic medical record system with [employer] dictation system. Although these documentations are being carefully reviewed, there may still be some phonetic and typographical changes. The errors are purely typographical, due to imperfection on the software program, and do not reflect any compromise in the patient's medical care. Dietary Evaluation Review Comments: 1) CCHO 60 + cardiac diet 2) continue current plan of care Expected Outcomes/Goals: To meet >75% estimated needs Fu 3-5 days Plan discussed with: Patient, Other (ZINA Garcia) CANDACE VILLELA MD Aug 11, 2024 23:25
== END 2024-08-11 14:50 | disposition home or self-care (01) | DRG 180 ==
LOC: ER 10:23 → OVERFLOW 15:31 → TELE-WESTW 08-07 03:50
PROVIDERS: ADMIT Family Medicine; ATTEND Family Medicine
DX: C34.91 Malignant neoplasm of unspecified part of right bronchus or lung (principal); J15.69 Pneumonia due to other Gram-negative bacteria; J15.9 Unspecified bacterial pneumonia; I31.39 Other pericardial effusion (noninflammatory); J90 Pleural effusion, not elsewhere classified; J81.1 Chronic pulmonary edema; I11.9 Hypertensive heart disease without heart failure; E11.9 Type 2 diabetes mellitus without complications; R09.02 Hypoxemia; Z51.11 Encounter for antineoplastic chemotherapy; I25.2 Old myocardial infarction; E78.5 Hyperlipidemia, unspecified; I25.10 Atherosclerotic heart disease of native coronary artery without angina pectoris; Z95.5 Presence of coronary angioplasty implant and graft; Z95.1 Presence of aortocoronary bypass graft; Z86.73 Personal history of transient ischemic attack (TIA), and cerebral infarction without residual deficits; Z80.1 Family history of malignant neoplasm of trachea, bronchus and lung; Z79.82 Long term (current) use of aspirin
CPT/HCPCS: 36415; 71250; 80048; 80053; 80202; 81001; 82565; 82962; 83880; 84484; 85014; 85018; 85025; 85610; 85730; 87040; 87070; 87077; 87186; 87205; 92610; 93306; 94640; G0378; J1815; J2470; J2543

== ENCOUNTER 2024-12-09 06:45 | Inpatient (IN) | payer MEDICARE, MEDICAID ==
[2024-12-09] VITALS (7 sets, daily range): BP systolic 140–167; BP diastolic 84–91; PULSE 83–97; RESP 16–22; TEMP 97.9–98.5; O2SAT 95–97
[~2024-12-09] VITALS: Ht 152.4 cm; Wt 67.3 kg
[~2024-12-09 06:45] MED LIST changes: +ALBUAER3 IN
--- NOTE | 2024-12-09 07:46 | ED.PDOC ---
SOB-HPI HPI Comments This is a 64 year old female presenting to the ED with chief complaint of SOB. Patient reports that she has been experiencing worsening SOB for the past few days due to having fluid in her lungs. Patient relays that she has history of lung cancer and requires a thoracentesis every 4 weeks for fluid drainage. Patient states that she was advised by her batch blender office today to come into the ED for thoracentesis due to her batch blender Dr. Aleman not being in the office. Patient denies any chest pain, fever, chills, N/V, dizziness, or cough. Chief Complaint: Shortness of Breath Time Seen by MD: 07:43 Primary Care Provider: NONE Reviewed notes: Nurses Notes, Medications, Allergies Information Source: Patient, Spouse Mode of Arrival: Ambulatory Severity: Moderate Timing: Hours Duration: Since onset Context: At Rest PE Risk Factors: None History of: Other (Lung cancer) Prehospital treatment: None Modifying Factors: Nothing Associated Signs and Symptoms: None Past Medical History PAST MEDICAL HISTORY: CAD, Cancer (Lung), DM, High Lipids, HTN, TIA Surgical History: CABG TRANSPORT SPECIALIST History: No Pertinent TRANSPORT SPECIALIST History Family History Family History: Reviewed,noncontributory to illness Social History Smoker: Non-Smoker Alcohol: Denies ETOH Use Drugs: Denies Drug Use Lives In: Home Constitutional: denies: chills, diaphoresis, fatigue, fever, malaise, sweats, weakness, others EENTM: denies: blurred vision, double vision, ear bleeding, ear discharge, ear drainage, ear pain, ear ringing, eye pain, eye redness, hearing loss, mouth pain, mouth swelling, nasal discharge, nose bleeding, nose congestion, nose pain, photophobia, tearing, throat pain, throat swelling, voice changes, others Respiratory: reports: shortness of breath; denies: cough, hemoptysis, ortho pnea, SOB at rest, SOB with excertion, stridor, wheezing, others Cardiovascular: denies: chest pain, dizzy spells, diaphoresis, Dyspnea on exertion, edema, irregular heart beat, left arm pain, lightheadedness, palpitations, PND, syncope, others Gastrointestinal: denies: abdomen distended, abdominal pain, blood streaked bowels, constipated, diarrhea, dysphagia, difficulty swallowing, hematemesis, melena, nausea, poor appetite, poor fluid intake, rectal bleeding, rectal pain, vomiting, others Genitourinary: denies: abnormal vagina bleeding, burning, dyspareunia, dysuria, flank pain, frequency, hematuria, incontinence, pain, , vagina discharge, urgency, others Neurological: denies: dizziness, fainting, headache, left sided numbness, left sided weakness, numbness, paresthesia, pre-existing deficit, right sided numbness, right sided weakness, seizure, speech problems, tingling, tremors, weakness, others Musculoskeletal: denies: back pain, gout, joint pain, joint swelling, muscle pain, muscle stiffness, neck pain, others Integumetry: denies: bruises, change in color, change in hair/nails, dryness, laceration, lesions, lumps, rash, wounds, others Allergic/Immunocompromised: denies: Difficulty Healing, Frequent Infections, Hives, Itching, others Hematologic/Lymphatic: denies: anemia, blood clots, easy bleeding, easy bruising, swollen glands, others Endocrine: denies: excessive hunger, excessive sweating, excessive thirst, excessive urination, flushing, intolerance to cold, intolerance to heat, unexplained weight gain, unexplained weight loss, others Psychiatric: denies: anxiety, bipolar disorder, depression, hopeless, panic disorder, schizophrenia, sleepless, suicidal, others All Other Systems: Reviewed and Negative Physical Exam General Appearance: Mild Distress, Normal HEENT: Normal ENT Inspection, PERRL/EOMI Neck: Full Range of Motion, Non-Tender, Normal, Normal Inspection Respiratory: Chest Non-Tender, Decreased Breath Sounds, No Accessory Muscle Use, No Respiratory Distress, Pleural Effusion Cardiovascular: No Edema, No JVD, No Murmur, No Gallop, Normal Peripheral Pulses, Regular Rate/Rhythm Breast Exam: Deferred Gastrointestinal: No Organomegaly, Non Tender, No Pulsatile Mass, Normal Bowel Sounds, Soft Genitalia: Deferred Pelvic: Deferred Rectal: Deferred Extremities: No calf tenderness, Normal capillary refill, Normal inspection, Normal range of motion, Non-tender, No pedal edema Neurologic: Alert, brake lining finisher II-XII nml as Tested, No Motor Deficits, Normal Affect, Normal Mood, No Sensory Deficits Cerebellar Function: Normal Reflexes: Normal Skin: Dry, Normal Color, Warm Peripheral Pulses: 1+ carotid (R), 1+ carotid (L) Lymphatic: No Adenopathy Was a procedure done? Was a procedure done?: Yes Sedation Sedation?: No Informed consent obtained: Yes Other Procedure Procedure Patient will have thoracentesis ultrasound directed by the radiologist Differential Dx Differential Diagnosis: CHF, COPD, Respiratory Distress Comments Lung cancer pleural effusion X-Ray, Labs, Meds, VS Vital Signs Date Time Temp Pulse Resp B/P (MAP) Pulse Ox O2 Delivery O2 Flow Rate FiO2 12/09/24 08:42 97 22 95 Room Air* 0 21 12/09/24 08:38 98.3 97 20 156/103 (120) 96 98.3 12/09/24 06:53 98.3 97 20 169/103 96 98.3 X-Ray, Labs, Meds, VS Comment Patient need Interventional Radiology for lung cancer and pleural effusion radiologist is unable to do it today because of multiple patient is Patient will be admitted for paracentesis tomorrow Time of 1ST Reevaluation: 08:43 Reevaluation 1ST: Unchanged Time of 2ND Reevaluation: 10:31 Reevaluation 2ND: Unchanged Consultation: Other (Radiology) Patient Education/Counseling: Diagnosis, Treatment, Prognosis Family Education/Counseling: Diagnosis, Treatment, Prognosis, No Family Present SEPSIS Sepsis Screen Date sepsis recognized/suspect: Dec 09, 2024 Time Sepsis recognized/suspect: 654 Recent Procedure: No On Antibiotic Therapy: No Respiratory Rate >20: No Heart Rate >90: Yes Temp<36 C (96.8 F) or >38.3 C: No SBP <90 or MAP <65 mmHG: No New Acute Mental Status Change: No Is the patient on CPAP, BIPAP,: No Physician Orders Thoracentesis (12/09/24 07:45) Vital Signs Date Time Temp Pulse Resp B/P (MAP) Pulse Ox O2 Delivery O2 Flow Rate FiO2 12/09/24 08:42 97 22 95 Room Air* 0 21 12/09/24 08:38 98.3 97 20 156/103 (120) 96 98.3 12/09/24 06:53 98.3 97 20 169/103 96 98.3 Departure 1 Departure Time of Disposition: 10:31 Impression: Primary Impression: Lung cancer Additional Impressions: Pleural cavity effusion Shortness of breath Disposition: 02 SHORT TERM HOSPITAL Admit to: Med Surg Condition: Fair Critical Care Note Critical Care Time?: No Stability Stability form required: Yes Unstable for transfer: Requires medication (Requires Med for stabilization) Heart Score Heart Score: Heart Score Response (Comments) Value History N/A 0 EKG N/A 0 Age >65 2 Risk Factors 1 or 2 risk factors 1 Troponin N/A 0 Total 3 I personally scribed for CROW BARRIOS MD ([email or web address]) on 12/09/24 at 07:46. Electronically submitted by Armando Mendez ([email or web address]). CROW BARRIOS MD Dec 09, 2024 07:46
--- NOTE | 2024-12-09 12:19 | DVH ---
CHEST RADIOGRAPH Indication: Lung cancer, needs thora Technique: Single frontal view of the chest was obtained Comparison: CT CHEST WITHOUT CONTRAST on DOS: 08/06/24, XY CHEST PORTABLE on DOS: 07/08/24, US CHEST UL TRASOUND on DOS: 07/08/24, XY CHEST PORTABLE on DOS: 07/08/24, XY CHEST XRAY 1 VIEW on DOS: 06/28/24, XY CHEST PORTABLE on DOS: 07/08/24 FINDINGS: Lines and Tubes: None Lungs: Right lung consolidative opacity. Pleura: Moderate right pleural effusion No pneumothorax. Cardiomediastinal contours: Unremarkable Bones: No acute osseous abnormality. IMPRESSION: Moderate right pleural effusion
[2024-12-09 12:32] LABS: Hematocrit 37.4 % (36.0-46.0); Hemoglobin 12.5 g/dL (12.2-16.2); Mean Corpuscular Hemoglobin 29.4 pg (28.0-32.0); Mean Corpuscular Volume 87.9 fL (80.0-100.0); Nucleated Red Blood Cells % 0.1 %
[2024-12-09 12:46] LABS: INR 0.95 (0.9-1.15); Partial Thromboplastin Time 28.8 SEC (24.5-34.5); Prothrombin Time 10.1 sec (9.3-11.8)
[2024-12-09 12:49] LABS: Alanine Aminotransferase 9 U/L (7-40); Albumin 3.8 g/dL (3.2-4.8); Alkaline Phosphatase 112 U/L (46-116); Anion Gap 9 (5-15); BUN/Creatinine Ratio 14.4 (10.0-20.0); Blood Urea Nitrogen 13 mg/dL (9-23); Calcium 9.1 mg/dL (8.7-10.4); Carbon Dioxide 28 mmol/L (20-31); Chloride 100 mmol/L (98-107); Glucose 345 mg/dL (74-106); Potassium 4.1 mmol/L (3.5-5.1); Sodium 137 mmol/L (136-145); Total Protein 6.8 g/dL (5.7-8.2)
[2024-12-09 12:50] LABS: Bilirubin, Total 0.5 mg/dL (0.2-1.0)
[2024-12-09] MEDS ORDERED: ACETAMINOPHEN 325 MG TAB PO PRN (13:15)
[2024-12-09] MEDS ORDERED: DOCUSATE SOD 100 MG CAP PO PRN (13:15)
[2024-12-09] MEDS ORDERED: ONDANSETRON HCL 4 MG/2 ML VIAL IV PRN (13:15)
--- NOTE | 2024-12-09 13:30 | DVHHP2 ---
History of Present Illness Reason for Visit: Shortness of breath History of Present Illness Luisito Contreras is a 64-year-old female with past medical history of hypertension, CAD, and VA May of 2024 with PTCA and stent placement, who was sent to the hospital by her body artist for a thoracentesis. Patient has been receiving almost monthly thoracentesis from her body artist. She was not able to see him today, so he sent her to the ER to have the procedure. She is receiving her cancer treatment from [facility]. Chart states patient is diabetic. Patient did come in hyperglycemic. When speaking with patient and spouse they deny her having diabetes. Family brought in her medications, she is not on any diabetic medications. A1c completed, with result of 7.5, will start Accu checks with low dose sliding scale. Cardiovascular: CAD, HTN, VA, Other (PTCA with stent May 2024) Heme/Onc: Cancer (Lung, diagnosed April 2024) Smoke: No ALCOHOL: none Drugs: None Lives: with Family Domestic Violence: Neg Review of Systems Constitutional: No: Fever, Chills, Sweats, Weakness, Malaise, Other Eyes: No: Pain, Vision change, Conjunctivae inflammation, Eyelid inflammation, Other, Redness ENT: No: Ear pain, Ear discharge, Nose pain, Nose discharge, Nose congestion, Mouth pain, Mouth swelling, Throat pain, Throat swelling, Other Respiratory: Shortness of breath, Pleuritic Pain; No: Cough, Dry, SOB with excertion, Wheezing, Hemoptysis, Sputum, Wheezing, Other Cardiovascular: No: Chest Pain, Palpitations, Orthopnea, Paroxysmal Noc. Dyspnea, Edema, Lt Headedness, Other Gastrointestinal: No: Nausea, Vomiting, Abdominal Pain, Diarrhea, Constipation, Melena, Hematochezia, Other Genitourinary: No Dysuria, No Frequency, No Incontinence, No Hematuria, No Retention, No Other Musculoskeletal: No: other, neck pain, shoulder pain, arm pain, back pain, hand pain, leg pain, foot pain Skin: No: Rash, Lesions, Jaundice, Bruising, Other Neurological: No: Weakness, Numbness, Incoordination, Change in speech, Confusion, Seizures, Other Allergies: Coded Allergies: NO KNOWN ALLERGIES (Unverified , 11/05/22) Exam Vital Signs Vital Signs Date Time Temp Pulse Resp B/P (MAP) Pulse Ox O2 Delivery O2 Flow Rate FiO2 12/09/24 10:34 98.0 91 18 149/99 (116) 16 98.0 12/09/24 08:42 Room Air* 0 21 General Appearance: Alert, Oriented X3, Cooperative HEENT: Atraumatic, PERRLA Respiratory: Other (Diminished breath sounds ) Cardiovascular: Regular rate, Normal S1, Normal S2 Abdominal: Normal bowel sounds, Soft, No tenderness Extremities: No clubbing, No cyanosis, No edema, Normal pulses, No tenderness/swelling Skin: No rashes, No breakdown, No significant lesion Neuro: Normal gait, Normal speech, Strength at 5/5 X4 ext, Normal tone Psych/Mental Status: Mental status NL, Mood NL Labs/Xrays Labs Test 12/09/24 12:20 Range/Units White Blood Count 5.8 4.4-10.8 10^3/uL Red Blood Count 4.26 4.0-5.20 10^6/uL Hemoglobin 12.5 12.2-16.2 g/dL Hematocrit 37.4 36.0-46.0 % Mean Corpuscular Volume 87.9 80.0-100.0 fL Mean Corpuscular Hemoglobin 29.4 28.0-32.0 pg Mean Corpuscular Hemoglobin Concent 33.4 32.0-36.0 g/dL Red Cell Distribution Width 14.9 H 11.8-14.3 % Platelet Count 289 140-450 10^3/uL Mean Platelet Volume 6.9 6.9-10.8 fL Neutrophils (%) (Auto) 61.6 37.0-80.0 % Lymphocytes (%) (Auto) 26.4 10.0-50.0 % Monocytes (%) (Auto) 8.4 0.0-12.0 % Eosinophils (%) (Auto) 3.4 0.0-7.0 % Basophils (%) (Auto) 0.2 0.0-2.0 % Neutrophils # (Auto) 3.6 1.6-8.6 10 ^3/uL Lymphocytes # (Auto) 1.5 0.4-5.4 10 ^3/uL Monocytes # (Auto) 0.5 0-1.3 10 ^3/uL Eosinophils # (Auto) 0.2 0-0.8 10 ^3/uL Basophils # (Auto) 0 0-0.2 10 ^3/uL Nucleated Red Blood Cells 0.1 % Prothrombin Time 10.1 9.3-11.8 sec Prothrombin Time INR 0.95 0.9-1.15 Activated Partial Thromboplast Time 28.8 24.5-34.5 SEC Sodium Level 137 136-145 mmol/L Potassium Level 4.1 3.5-5.1 mmol/L Chloride Level 100 98-107 mmol/L Carbon Dioxide Level 28 20-31 mmol/L Anion Gap 9 5-15 Blood Urea Nitrogen 13 9-23 mg/dL Creatinine 0.90 0.550-1.02 mg/dL Glomerular Filtration Rate Calc 71 >90 mL/min BUN/Creatinine Ratio 14.4 10.0-20.0 Serum Glucose 345 H 74-106 mg/dL Calcium Level 9.1 8.7-10.4 mg/dL Total Bilirubin 0.5 0.2-1.0 mg/dL Aspartate Amino Transferase (AST) 18 13-40 U/L Alanine Aminotransferase (ALT) 9 7-40 U/L Alkaline Phosphatase 112 46-116 U/L Total Protein 6.8 5.7-8.2 g/dL Albumin 3.8 3.2-4.8 g/dL CHEST RADIOGRAPH FINDINGS: Lines and Tubes: None Lungs: Right lung consolidative opacity. Pleura: Moderate right pleural effusion No pneumothorax. Cardiomediastinal contours: Unremarkable Bones: No acute osseous abnormality. IMPRESSION: Moderate right pleural effusion SEPSIS Sepsis Screen Date sepsis recognized/suspect: Dec 09, 2024 Time Sepsis recognized/suspect: 06 Recent Procedure: No On Antibiotic Therapy: No Respiratory Rate >20: No Heart Rate >90: Yes Temp<36 C (96.8 F) or >38.3 C: No SBP <90 or MAP <65 mmHG: No New Acute Mental Status Change: No Is the patient on CPAP, BIPAP,: No Physician Orders Thoracentesis (12/09/24 07:45) Chest Xray 1 View (12/09/24 11:46) Vital Signs Date Time Temp Pulse Resp B/P (MAP) Pulse Ox O2 Delivery O2 Flow Rate FiO2 12/09/24 10:34 98.0 91 18 149/99 (116) 16 98.0 12/09/24 08:42 97 22 95 Room Air* 0 21 12/09/24 08:38 98.3 97 20 156/103 (120) 96 98.3 12/09/24 06:53 98.3 97 20 169/103 96 98.3 Laboratory Tests Test 12/09/24 12:20 White Blood Count 5.8 10^3/uL (4.4-10.8) Assessment/Plan Assessment/Plan Assessment: Pleural effusion, Lung cancer, Hypertension, CAD, Uncontrolled diabetes, Plan: Admit to Med-Surg, IR consult for thoracentesis, PT/PTT, Chest X-ray, Supplemental oxygen as needed, Breathing treatments as needed, Accu checks Q AC&HS with sliding scale, Home medications reconciled, Plan discussed with: Patient My Orders Orders - JAJA ANDRE Procedure Category Date Status Time Chest Xray 1 View XY 12/09/24 Resulted 11:46 Date of Service: Dec 09, 2024 Billing Provider: JAJA ANDRE Common Visit Codes: [id number] INP/OBS CARE (MOD) JAJA ANDRE Dec 09, 2024 13:30
[2024-12-09 14:09] LABS: Urine Protein, UAD Negative (Negative)
[2024-12-09] MEDS ORDERED: IPRATROPIUM BROM 0.5 MG/2.5ML INH SOL NEB PRN (14:30)
[2024-12-09] MEDS ORDERED: ALBUTEROL SULF 2.5 MG/0.5ML(0.5%) NEB SOLN NEB PRN (14:30)
--- NOTE | 2024-12-09 14:57 | DVH ---
PROCEDURE: Ultrasound-guided thoracentesis Procedural Personnel Attending physician(s): Neri Lynn Fellow physician(s): None Resident physician(s): None A dvanced practice provider(s): None Pre-procedure diagnosis: Dyspnea Post-procedure diagnosis: Same Indication: Diagnostic and therapeutic Additional clinical history: None Complications: No immediate complications. IMPRESSION: Ultrasound-guided thoracentesis with drainage of 600 mL of serosanguinous fluid. Plan: Resume care by clinical team. Fluid analysis pending. PROCEDURE SUMMARY: - Ultrasound-guided thoracentesis - Additional procedure(s): None PROCEDURE DETAILS: Pre-procedure Consent: Informed consent for the procedure including risks, benefits and alternatives was obtained and time-out was performed prior to the procedure. Preparation: The site was prepared an d draped using maximal sterile barrier technique including cutaneous antisepsis. Anesthesia/sedation level of anesthesia/sedation: No sedation Anesthesia/sedation administered by: Not applicable Total intra-service sedation time (minutes): Not applicable Limited thoracic ultrasound Limited thoracic ultrasound was performed. Left hemithorax findings: Not investigated Right hemithorax findings: Moderate pleural effusion Thoracentesis Local anesthesia was administered. A safe window for thoracentesis was identified with ultrasound. Th e pleural space was accessed and fluid return confirmed position. The fluid was drained. The catheter was removed and a sterile dressing was applied. Catheter size (Fr):5 Catheter valve: Yes Fluid appearance: serosanguinous Volume drained (mL): 600 Post-drainage ultrasound: No visible effusion Additional Details Additional description of procedure: None Registry event: V/3/f Device used: None Equipment details: None Specimens removed: Aspirated fluid was sent for analysis. Estimated blood loss (mL): Less than 10 Standardized report: [email or web address] Attestation Signer name: Neri Lynn I attest that I was present for the entire procedure. I reviewed the stored images and agree with the report as written.
[2024-12-09] MEDS ORDERED: MINO100C4 PO (15:42)
[2024-12-09] MEDS ORDERED: DEXTROSE (50%) 50ML SYRG IV PRN (15:45)
[2024-12-09] MEDS: InsuLIN REG 1unit/0.01ml Soln (100units/ml) SC SCH (17:00)
[2024-12-09] MEDS: ACCU-CHEK COMFORT CURVE STRIP VI SCH (18:08)
[2024-12-09] MEDS: ATORVASTATIN 20 MG TAB PO SCH (21:46)
[2024-12-09] MEDS: MINOCYCLINE HCL 100 MG CAP PO SCH (21:47)
[2024-12-10] VITALS (7 sets, daily range): BP systolic 129–149; BP diastolic 81–93; PULSE 64–84; RESP 16–20; TEMP 36.8; O2SAT 95–97
[2024-12-10 07:32] LABS: Albumin 3.5 g/dL (3.2-4.8); Alkaline Phosphatase 103 U/L (46-116); Anion Gap 9 (5-15); BUN/Creatinine Ratio 12.7 (10.0-20.0); Blood Urea Nitrogen 9 mg/dL (9-23); Calcium 8.9 mg/dL (8.7-10.4); Carbon Dioxide 28 mmol/L (20-31); Chloride 102 mmol/L (98-107); Potassium 3.7 mmol/L (3.5-5.1); Sodium 139 mmol/L (136-145); Total Protein 6.7 g/dL (5.7-8.2)
[2024-12-10 07:33] LABS: Hematocrit 37.7 % (36.0-46.0); Hemoglobin 12.4 g/dL (12.2-16.2); Mean Corpuscular Hemoglobin 29.1 pg (28.0-32.0); Mean Corpuscular Volume 88.3 fL (80.0-100.0); Nucleated Red Blood Cells % 0.0 %
[2024-12-10 07:34] LABS: Bilirubin, Total 0.6 mg/dL (0.2-1.0)
[2024-12-10 07:40] LABS: Alanine Aminotransferase 9 U/L (7-40); Glucose 126 mg/dL (74-106)
[2024-12-10] MEDS: METOPROLOL SUCCINATE XL 50 MG TAB PO SCH (09:58)
[2024-12-10] MEDS: ASPirin-EC 81 mg tab PO SCH (09:58)
[2024-12-10] MEDS: CLOPIDOGREL BISULFATE 75 MG TAB PO SCH (09:58)
--- NOTE | 2024-12-10 13:17 | DVH ---
CHEST RADIOGRAPH Indication: reassess pleural efffusion Technique: Single frontal view of the chest was obtained Comparison: XY CHEST XRAY 1 VIEW on DOS: 12/09/24, CT CHEST WITHOUT CONTRAST on DOS: 08/06/24, XY CHEST PORTABLE on DOS: 07/08/24, XY CHEST PORTABLE on DOS: 07/08/24, XY CHEST XRAY 1 VIEW on DOS: 06/28/24 Findings:Lines and Tubes: None Lungs: Right lung consolidative opacity. Pleura : Moderate right pleur al effusion No pneumothorax. Cardiomediastinal contours: Unremarkable Bones: No acute osseous abnorma lity.Impression:Moderate right pleural effusion
[2024-12-10 14:07] LABS: Glucose, Body Fluid 221.0 mg/dL (.); LD, Body Fluid 155.0 IU/L (.)
[2024-12-10] MEDS ORDERED: GUAI100S6 PO ×2 (14:17→14:18)
[2024-12-10] MEDS ORDERED: GUAI1SOL3 PO (14:19)
--- NOTE | 2024-12-10 14:31 | DVHDS2 ---
Discharge Summary Date of Admission Dec 09, 2024 at 13:08 Date of Discharge: Dec 10, 2024 Admitting Diagnosis Pleural effusion Labs/Diagnostic Data: Laboratory Results Test 12/10/24 06:41 12/10/24 06:34 12/09/24 14:48 12/09/24 12:20 White Blood Count 5.9 10^3/uL (4.4-10.8) Red Blood Count 4.27 10^6/uL (4.0-5.20) Hemoglobin 12.4 g/dL (12.2-16.2) Hematocrit 37.7 % (36.0-46.0) Mean Corpuscular Volume 88.3 fL (80.0-100.0) Mean Corpuscular Hemoglobin 29.1 pg (28.0-32.0) Mean Corpuscular Hemoglobin Concent 33.0 g/dL (32.0-36.0) Red Cell Distribution Width 15.0 % (11.8-14.3) Platelet Count 300 10^3/uL (140-450) Mean Platelet Volume 7.1 fL (6.9-10.8) Neutrophils (%) (Auto) 62.5 % (37.0-80.0) Lymphocytes (%) (Auto) 24.5 % (10.0-50.0) Monocytes (%) (Auto) 9.4 % (0.0-12.0) Eosinophils (%) (Auto) 3.4 % (0.0-7.0) Basophils (%) (Auto) 0.2 % (0.0-2.0) Neutrophils # (Auto) 3.7 10 ^3/uL (1.6-8.6) Lymphocytes # (Auto) 1.5 10 ^3/uL (0.4-5.4) Monocytes # (Auto) 0.6 10 ^3/uL (0-1.3) Eosinophils # (Auto) 0.2 10 ^3/uL (0-0.8) Basophils # (Auto) 0 10 ^3/uL (0-0.2) Nucleated Red Blood Cells 0.0 % Sodium Level 139 mmol/L (136-145) Potassium Level 3.7 mmol/L (3.5-5.1) Chloride Level 102 mmol/L (98-107) Carbon Dioxide Level 28 mmol/L (20-31) Anion Gap 9 (5-15) Blood Urea Nitrogen 9 mg/dL (9-23) Creatinine 0.71 mg/dL (0.550-1.02) Glomerular Filtration Rate Calc 94 mL/min (>90) BUN/Creatinine Ratio 12.7 (10.0-20.0) Serum Glucose 126 mg/dL (74-106) Calcium Level 8.9 mg/dL (8.7-10.4) Total Bilirubin 0.6 mg/dL (0.2-1.0) Aspartate Amino Transferase (AST) 17 U/L (13-40) Alanine Aminotransferase (ALT) 9 U/L (7-40) Alkaline Phosphatase 103 U/L (46-116) Total Protein 6.7 g/dL (5.7-8.2) Albumin 3.5 g/dL (3.2-4.8) POC Glucose 125 mg/dl (70-106) Body Fluid Source Pleural fluid Body Fluid pH 8.0 Body Fluid WBC (Manual) 6916 CUMM (0-200) Body Fluid RBC (Manual) 439 CUMM (0-2000) Body Fluid Mononuclear Cells 98 % Body Fluid Polymorphonuclear Cells 2 % (0-25) Body Fluid Glucose 221 mg/dL (.) Body Fluid Total Protein 4.1 g/dL (.) Body Fluid Lactate Dehydrogenase 155 IU/L (.) Prothrombin Time 10.1 sec (9.3-11.8) Prothrombin Time INR 0.95 (0.9-1.15) Activated Partial Thromboplast Time 28.8 SEC (24.5-34.5) Hemoglobin A1c 7.5 % A1C (<5.7) Test 12/09/24 08:43 Urine Color Colorless (Yellow) Urine Clarity Clear (Clear) Urine pH 6.0 (5.0-9.0) Urine Specific [place] 1.006 (1.001-1.035) Urine Protein Negative (Negative) Urine Ketones Negative (Negative) Urine Blood Negative /uL (Negative) Urine Nitrite Negative (Negative) Urine Bilirubin Negative (Negative) Urine Urobilinogen Normal mg/dL (Negative) Urine Leukocyte Esterase Negative /uL (Negative) Urine RBC <1 /hpf (0 - 4) Urine Microscopic WBC < 1 /HPF (0-5) Urine Squamous Epithelial Cells Few /hpf (<5) Urine Bacteria None seen /hpf (None Seen) Urine Glucose Normal mg/dL (Normal) Other Laboratory Tests 12/10/24 06:41 Brief Hx & Hospital Course: History of Present Illness Luisito Contreras is a 64-year-old female with past medical history of hypertension, CAD, and DE May of 2024 with PTCA and stent placement, who was sent to the hospital by her recruitment advertising manager for a thoracentesis. Patient has been receiving almost monthly thoracentesis from her recruitment advertising manager. She was not able to see him today, so he sent her to the ER to have the procedure. She is receiving her cancer treatment from [facility]. Chart states patient is diabetic. Patient did come in hyperglycemic. When speaking with patient and spouse they deny her having diabetes. Family brought in her medications, she is not on any diabetic medications. A1c completed, with result of 7.5, will start Accu checks with low dose sliding scale. Course of hospitalization: Patient is a 64-year-old female refer to the emergency room with shortness of breaths secondary to recurrent pleural effusions. Patient underwent thoracentesis yesterday. Patient had postprocedure x-ray yesterday as well as today which revealed some residual effusion with no noted pneumothorax. Patient states that her respiratory status has improved. Patient has follow up with her oncologist this coming Saturday. Patient will be continued on all previous home medications. Patient continues to have residual cough for which the patient's family requesting stronger antitussives. The patient will be discharged home with Robitussin with codeine 5 mL every 6 hours as needed for persistent cough. Family and patient were made aware that this medication may cause drowsiness. Instructed not to drive if she currently does so. Physical examination General: Alert and Oriented x3. No acute distress. Well-nourished. Eyes: EOMI. Anicteric. HENT: Moist mucous membranes. Lungs: Clear to auscultation bilaterally. No accessory muscle use. Cardiovascular: Regular rate and rhythm. No murmur. No JVD. Abdomen: Soft, non-tender and non-distended. No palpable masses. Extremities: No edema. Non-tender. Skin: No rashes or lesions. Warm. Neurologic: No focal neurological deficits. CN II-XII grossly intact, but not individually tested. Psychiatric: Cooperative. Appropriate mood and affect. Total time spent with patient discussing and formulating plan of care: 35 minutes. This medical document was created using an electronic medical record system with [employer] dictation system. Although this document has been carefully reviewed, there may still be some phonetic and typographical errors. These areas are purely typographical due to imperfections of the software programs, and do not reflect any compromise in the patient's medical care. Condition at Discharge: Fair Final Diagnosis/Problems List Pleural effusion secondary to lung cancer Secondary diagnosis: Lung cancer, Hypertension, CAD, Uncontrolled diabetes, Discharge Disposition: Home Discharge Instruct/Medications Diet: Regular Activity: No Restrictions, As Tolerated Follow Up/Referral: Follow up with established appointment with oncologist this coming Saturday Medications: Nail previous home medications Robitussin with codeine 5 mL q.6 hours as needed for cough Scheduled Aspirin (Aspir-81), 1 TAB PO DAILY Atorvastatin Calcium (Lipitor), 40 MG PO QPM Clopidogrel Bisulfate (Plavix), 75 MG PO DAILY Guaifenesin-Codeine (Robitussin/Codeine), 5-10 ML PO Q6H, (Reported) Guaifenesin-Codeine (Robitussin/Codeine), 5 ML PO Q6HR, (Reported) Metoprolol Succinate (Toprol Xl), 25 MG PO DAILY Minocycline Hcl (Minocin Capsule), 1 CAP PO BID, (Reported) Scheduled PRN Acetaminophen (Acetaminophen), 650 MG PO Q6HP PRN Albuterol Sulfate (Ventolin Mdi), 90 MCG IN QID PRN Guaifenesin-Codeine (Codeine/Guaifenesin 100-10 mg/5Ml), 10 ML PO Q6HP PRN, (Reported) Miscellaneous Medications Erlotinib Hydrochloride (Erlotinib Hydrochloride), 150 MG PO, (Reported) Discontinued Medications Azithromycin (Azithromycin), 1 TAB PO DAILY Azithromycin (Azithromycin), 1 TAB PO DAILY Cephalexin (Keflex Capsule), 1 CAP PO QID 36 Discharge Statement: "Patient was advised to return to the ER or call 911 if any headaches, dizziness, shortness of breath, chest pain, abdominal pain, bleeding, fevers, or worsening of medical condition. Patient was counseled about treatment plan, medications, possible side effects, patientverbalized understanding. All questions were answered to the best of my ability. This discharge took greater then 30 minutes in planning, reviewing documentation, counseling the patient, and discussing with other team members." ASSESSMENT ASSESSMENT Assessment Pleural effusion secondary to lung cancer Date of Service: Dec 10, 2024 Billing Provider: LILLIAN MENDES NP Common Visit Codes: 47232-TCA/OBS DISCH DAY >30min LILLIAN MENDES NP Dec 10, 2024 14:31
== END 2024-12-10 16:36 | disposition home or self-care (01) | DRG 181 ==
LOC: ER 06:56 → OVERFLOW 13:08 → WEST WING 19:03
PROVIDERS: ADMIT Nurse Practitioner Acute Care; ATTEND Nurse Practitioner Acute Care
PROC: 0W993ZX Drainage of Right Pleural Cavity, Percutaneous Approach, Diagnostic (ICD-10-PCS; principal; 2024-12-09)
DX: C34.91 Malignant neoplasm of unspecified part of right bronchus or lung (principal); J90 Pleural effusion, not elsewhere classified; I10 Essential (primary) hypertension; E11.65 Type 2 diabetes mellitus with hyperglycemia; I25.10 Atherosclerotic heart disease of native coronary artery without angina pectoris; Z95.5 Presence of coronary angioplasty implant and graft; Z95.1 Presence of aortocoronary bypass graft; Z86.73 Personal history of transient ischemic attack (TIA), and cerebral infarction without residual deficits; I25.2 Old myocardial infarction
CPT/HCPCS: 32555; 36415; 71045; 76942; 80053; 81001; 82962; 83036; 83986; 85025; 85610; 85730; 87070; 87205; 89051; G0378; J1815

== ENCOUNTER 2025-01-20 18:19 | Inpatient (IN) | payer MEDICARE, MEDICAID ==
[~2025-01-20] VITALS: Ht 157.5 cm; Wt 61.9 kg
[~2025-01-20 18:19] MED LIST changes: -AZIT500T66 PO; -CEPH250C PO; +GUAI1SOL3 PO; +MINO100C4 PO
[2025-01-20 18:30] VITALS: PULSE 106; RESP 19; O2SAT 90
[2025-01-20 18:53] LABS: Hematocrit 37.5 % (36.0-46.0); Hemoglobin 12.5 g/dL (12.2-16.2); Mean Corpuscular Hemoglobin 29.5 pg (28.0-32.0); Mean Corpuscular Volume 88.2 fL (80.0-100.0); Nucleated Red Blood Cells % 0.1 %
[2025-01-20 19:07] LABS: Alanine Aminotransferase 14 U/L (7-40); Anion Gap 10 (5-15); BUN/Creatinine Ratio 23.7 (10.0-20.0); Blood Urea Nitrogen 22 mg/dL (9-23); Calcium 8.9 mg/dL (8.7-10.4); Carbon Dioxide 26 mmol/L (20-31); Chloride 102 mmol/L (98-107); Lipase 32 U/L (12-53); Potassium 4.8 mmol/L (3.5-5.1); Sodium 138 mmol/L (136-145); Total Protein 7.3 g/dL (5.7-8.2)
[2025-01-20 19:08] LABS: Albumin 3.9 g/dL (3.2-4.8); Alkaline Phosphatase 118 U/L (46-116); Bilirubin, Total 0.4 mg/dL (0.2-1.0); Glucose 282 mg/dL (74-106)
--- NOTE | 2025-01-20 19:38 | DVH ---
EXAM: CT CHST AB PEL WO CON-NO IV/ORAL History: sob Comparison Study: CT CHEST PELVIS W CONTRAST ABDOMEN W WO CONTRAST on DOS: 10/19/24, CT CHEST WITHOUT CONTRAST on DOS: 08/06/24, CT CT CHEST/AB/PL W CON- IV ONLY on DOS: 11/05/22 TECHNIQUE: Multidetector CT of the chest, abdomen, and pelvis was performed. Imaging was performed wi thout IV contrast. Axial, coronal, and sagittal multiplanar reformats were obtained from the axial da ta set by the technologist. Radiation Dose : CTDI vol 7.58 mGy, DLP 516.83 mGy*cm. Findings: Evaluation is degraded by respiratory motion. CT chest: Lungs: There is opacification of the right upper lobe. Scattered atelectasis / scarring. Interlobul ar septal thickening is seen at the lung bases. Scattered ground-glass nodules are seen within the l eft lung, largest of which is situated in the left upper lobe and measures 7 mm. Pleura: Small to moderate right and small left pleural effusions. Heart/Great vessels: There is mild cardiomegaly and a small pericardial effusion. There are coronary artery calcifications versus stents. There is mild atherosclerotic calcification of the aorta. Mediastinum: Unremarkable. Soft tissues/Bones: Unremarkable CT abdomen/pelvis: Liver: Unremarkable. Spleen: Unremarkable. Pancreas: Unremarkable. Gallbladder: Unremarkable. Adrenals: Unremarkable. Kidneys: Unremarkable. Pelvic Viscera: Unremarkable. Vasculature: Atherosclerotic aortoiliac calcification. Retroperitoneum: Shotty retroperitoneal nodes. No ascites. Bowel: No bowel obstruction. The appendix is normal. Musculoskeletal: Unremarkable. Soft tissues: Unremarkable. Impression: 1. Opacification of the right upper lobe, possibly referable to a component of infectious / inflammat ory process, though underlying neoplasm cannot be excluded. Further clinical correlation is suggeste d. 2. Nonspecific ground-glass opacities within the left lung, possibly infectious / inflammatory proces s, though metastatic disease cannot be excluded. 3. Small to moderate right and small left pleural effusions. 4. No acute abdominopelvic abnormality identified.
--- NOTE | 2025-01-20 20:27 | ED.PDOC ---
Altered Mental Status HPI Comments 65-year-old female brought in by EMS. Patient was having shortness of breath witnessed by family members so they called 911. Patient has a history of lung cancer. Was recently admitted to the hospital two weeks ago. Patient has sudden onset of shortness a breath today. O2 saturation of 84% on room air upon EMS arrival at the home. They gave breathing treatment in route she would give some mild improvement. Patient has a history of lung cancer, CHF, COPD, hypertension Chief Complaint: Shortness of Breath Time Seen by MD: 18:26 Primary Care Provider: NONE Reviewed Notes: Nurses Notes Allergies: Coded Allergies: NO KNOWN ALLERGIES (Unverified , 11/05/22) Home Meds Active Scripts Albuterol Sulfate (VENTOLIN MDI) 90 Mcg Ih, 90 MCG IN QID PRN, #1 INH Prov:ZOILA MCDONALD MD 08/11/24 Acetaminophen (Acetaminophen) 325 Mg Tab, 650 MG PO Q6HP PRN for 10 Days, #80 TAB Prov:LILIAN RANKIN 06/28/24 Metoprolol Succinate (Toprol Xl) 25 Mg Tab, 25 MG PO DAILY for 30 Days, #30 TAB 3 Refills Prov:DAPHNE ROSAS MD 06/18/24 Atorvastatin Calcium (Lipitor) 40 Mg Tab, 40 MG PO QPM for 30 Days, #30 TAB 3 Refills Prov:DAPHNE ROSAS MD 06/18/24 Clopidogrel Bisulfate (Plavix) 75 Mg Tab, 75 MG PO DAILY for 30 Days, #30 TAB 3 Refills Prov:DAPHNE ROSAS MD 06/18/24 Aspirin (Aspir-81) 81 Mg Tab, 1 TAB PO DAILY for 30 Days, #30 TAB 3 Refills Prov:DAPHNE ORSAS MD 06/18/24 Reported Medications Guaifenesin-Codeine (Codeine/Guaifenesin 100-10 mg/5Ml) 1 Sarahi Sarahi, 10 ML PO Q6HP PRN, #240 ML 12/10/24 Minocycline Hcl (MINOCIN CAPSULE) 100 Mg Cp, 1 CAP PO BID 12/09/24 Erlotinib Hydrochloride (Erlotinib Hydrochloride) 150 Mg Tab, 150 MG PO, TAB 06/26/24 Information Source: Patient Mode of Arrival: EMS Past Medical History PAST MEDICAL HISTORY: CAD, Cancer, DM, High Lipids, HTN, TIA Surgical History: CABG SENIOR IT PROJECT MANAGER History: No Pertinent SENIOR IT PROJECT MANAGER History Family History Family History: Reviewed,noncontributory to illness Social History Smoker: Non-Smoker Alcohol: Denies ETOH Use Drugs: Denies Drug Use Lives In: Home Constitutional: reports: fatigue; denies: chills, diaphoresis, fever, malaise, sweats, weakness, others EENTM: denies: blurred vision, double vision, ear bleeding, ear discharge, ear drainage, ear pain, ear ringing, eye pain, eye redness, hearing loss, mouth pain, mouth swelling, nasal discharge, nose bleeding, nose congestion, nose pain, photophobia, tearing, throat pain, throat swelling, voice changes, others Respiratory: reports: cough, SOB at rest, SOB with excertion; denies: hemoptysis, orthopnea, shortness of breath, stridor, wheezing, others Cardiovascular: reports: dizzy spells, diaphoresis; denies: chest pain, Dyspnea on exertion, edema, irregular heart beat, left arm pain, lightheadedness, palpitations, PND, syncope, others Gastrointestinal: denies: abdomen distended, abdominal pain, blood streaked bowels, constipated, diarrhea, dysphagia, difficulty swallowing, hematemesis, melena, nausea, poor appetite, poor fluid intake, rectal bleeding, rectal pain, vomiting, others Genitourinary: denies: abnormal vagina bleeding, burning, dyspareunia, dysuria, flank pain, frequency, hematuria, incontinence, pain, , vagina discharge, urgency, others Neurological: denies: dizziness, fainting, headache, left sided numbness, left sided weakness, numbness, paresthesia, pre-existing deficit, right sided numbness, right sided weakness, seizure, speech problems, tingling, tremors, weakness, others Musculoskeletal: denies: back pain, gout, joint pain, joint swelling, muscle pain, muscle stiffness, neck pain, others Integumetry: denies: bruises, change in color, change in hair/nails, dryness, laceration, lesions, lumps, rash, wounds, others Allergic/Immunocompromised: denies: Difficulty Healing, Frequent Infections, Hives, Itching, others Hematologic/Lymphatic: denies: anemia, blood clots, easy bleeding, easy bruising, swollen glands, others Physical Exam General Appearance: Moderate Distress, Normal HEENT: Normal ENT Inspection, Pharynx Normal, TMs Normal Neck: Full Range of Motion, Non-Tender, Normal, Normal Inspection Respiratory: Chest Non-Tender, Decreased Breath Sounds, No Accessory Muscle Use, Normal Breath Sounds, Wheezing Cardiovascular: No Edema, No JVD, No Murmur, No Gallop, Normal Peripheral Pulses, Regular Rate/Rhythm Breast Exam: Deferred Gastrointestinal: No Organomegaly, Non Tender, No Pulsatile Mass, Normal Bowel Sounds, Soft Genitalia: Deferred Pelvic: Deferred Rectal: Deferred Extremities: No calf tenderness, Normal capillary refill, Normal inspection, Normal range of motion, Non-tender, No pedal edema Musculoskeletal : Apperance: Normal Neurologic: Alert, junior qa analyst II-XII nml as Tested, No Motor Deficits, Normal Affect, Normal Mood, No Sensory Deficits Cerebellar Function: Normal Reflexes: Normal Skin: Dry, Normal Color, Warm Lymphatic: No Adenopathy Was a procedure done? Was a procedure done?: No Differential Diagnosis (ALOC) Differential Diagnosis: Other (Lung cancer, CHF exacerbation, pneumonia, bronchiolitis.) X-Ray, Labs, Meds, VS Vital Signs Date Time Temp Pulse Resp B/P (MAP) Pulse Ox O2 Delivery O2 Flow Rate FiO2 01/20/25 18:30 98.9 108 28 158/97 98 98.9 01/20/25 18:24 100 Lab Test 01/20/25 18:37 Range/Units White Blood Count 7.5 4.4-10.8 10^3/uL Red Blood Count 4.24 4.0-5.20 10^6/uL Hemoglobin 12.5 12.2-16.2 g/dL Hematocrit 37.5 36.0-46.0 % Mean Corpuscular Volume 88.2 80.0-100.0 fL Mean Corpuscular Hemoglobin 29.5 28.0-32.0 pg Mean Corpuscular Hemoglobin Concent 33.4 32.0-36.0 g/dL Red Cell Distribution Width 14.2 11.8-14.3 % Platelet Count 356 140-450 10^3/uL Mean Platelet Volume 7.7 6.9-10.8 fL Neutrophils (%) (Auto) 65.0 37.0-80.0 % Lymphocytes (%) (Auto) 27.4 10.0-50.0 % Monocytes (%) (Auto) 6.6 0.0-12.0 % Eosinophils (%) (Auto) 0.7 0.0-7.0 % Basophils (%) (Auto) 0.3 0.0-2.0 % Neutrophils # (Auto) 4.9 1.6-8.6 10 ^3/uL Lymphocytes # (Auto) 2.0 0.4-5.4 10 ^3/uL Monocytes # (Auto) 0.5 0-1.3 10 ^3/uL Eosinophils # (Auto) 0.1 0-0.8 10 ^3/uL Basophils # (Auto) 0 0-0.2 10 ^3/uL Nucleated Red Blood Cells 0.1 % Sodium Level 138 136-145 mmol/L Potassium Level 4.8 3.5-5.1 mmol/L Chloride Level 102 98-107 mmol/L Carbon Dioxide Level 26 20-31 mmol/L Anion Gap 10 5-15 Blood Urea Nitrogen 22 9-23 mg/dL Creatinine 0.93 0.550-1.02 mg/dL Glomerular Filtration Rate Calc 68 >90 mL/min BUN/Creatinine Ratio 23.7 H 10.0-20.0 Serum Glucose 282 H 74-106 mg/dL Lactic Acid Level 1.8 0.4-2.0 mmol/L Calcium Level 8.9 8.7-10.4 mg/dL Total Bilirubin 0.4 0.2-1.0 mg/dL Aspartate Amino Transferase (AST) 25 13-40 U/L Alanine Aminotransferase (ALT) 14 7-40 U/L Alkaline Phosphatase 118 H 46-116 U/L B-Type Natriuretic Peptide 1017.39 0-100 pg/mL Total Protein 7.3 5.7-8.2 g/dL Albumin 3.9 3.2-4.8 g/dL Lipase 32 12-53 U/L X-Ray, Labs, Meds, VS Comment Patient will be admitted for CHF exacerbation and possible pneumonia., Patient will be started on Rocephin 1 g Patient was started on Lasix 20 mg IV Time of 1ST Reevaluation: 20:27 Reevaluation 1ST: Unchanged Patient Education/Counseling: Diagnosis, Treatment Family Education/Counseling: Diagnosis, Treatment SEPSIS Sepsis Screen Date sepsis recognized/suspect: Jan 20, 2025 Time Sepsis recognized/suspect: 1819 Recent Procedure: No On Antibiotic Therapy: No Respiratory Rate >20: Yes Heart Rate >90: Yes Temp<36 C (96.8 F) or >38.3 C: No SBP <90 or MAP <65 mmHG: No New Acute Mental Status Change: No Is the patient on CPAP, BIPAP,: No Physician Orders Chst Ab Pel Wo Con-No Iv/Oral (01/20/25 18:29) Urinalysis (01/20/25 18:29) Electrocardigram (01/20/25 18:35) Furosemide Injection (Lasix Injection) (01/20/25 20:30) Ceftriaxone Ivpb Rocephin (01/20/25 20:30) Vital Signs Date Time Temp Pulse Resp B/P (MAP) Pulse Ox O2 Delivery O2 Flow Rate FiO2 01/20/25 18:30 98.9 108 28 158/97 98 98.9 01/20/25 18:24 100 Laboratory Tests Test 01/20/25 18:37 Lactic Acid Level 1.8 mmol/L (0.4-2.0) White Blood Count 7.5 10^3/uL (4.4-10.8) Departure 1 Departure Time of Disposition: 20:20 Impression: Primary Impression: Pleural cavity effusion Additional Impressions: Pneumonia Qualified Codes: J18.9 - Pneumonia, unspecified organism Lung cancer Qualified Codes: C34.90 - Malignant neoplasm of unspecified part of unspecified bronchus or lung CHF exacerbation Qualified Codes: I50.23 - Acute on chronic systolic (congestive) heart failure Disposition: ADMITTED INPATIENT Condition: Stable Critical Care Note Critical Care Time?: No Stability Stability form required: No Heart Score Heart Score: Heart Score Response (Comments) Value History N/A 0 EKG N/A 0 Age N/A 0 Risk Factors N/A 0 Troponin N/A 0 Total 0 RICHARD CABA Jan 20, 2025 20:27
[2025-01-20] MEDS: FUROSEMIDE 20 MG/2 ML VIAL IV ONE (20:46)
[2025-01-20] MEDS: methylPREDNISolone SOD SUCC 125 MG/2 ML VL IV ONE (20:51)
[2025-01-20] MEDS: ALBUTEROL SULF 2.5 MG/0.5ML(0.5%) NEB SOLN NEB ONE (20:55)
[2025-01-20] MEDS: IPRATROPIUM BROM 0.5 MG/2.5ML INH SOL NEB ONE (20:55)
[2025-01-20] MEDS: methylPREDNISolone SOD SUCC 125 MG/2 ML VL IM ONE (21:02)
[2025-01-20] MEDS: LORazepam 2MG/ML-1ML VIAL IV ONE (22:14)
[2025-01-20] MEDS: MAGNESIUM SULFATE 1GM/100ML 100 ML IV ONE (22:14)
[2025-01-20 22:44] LABS: Urine Protein, UAD Negative (Negative)
[2025-01-21] VITALS (12 sets, daily range): BP systolic 102–159; BP diastolic 69–108; PULSE 82–100; RESP 16–26; TEMP 97.2–98.9; O2SAT 96–100
[2025-01-21] MEDS ORDERED: ONDANSETRON HCL 4 MG/2 ML VIAL IV PRN
[2025-01-21] MEDS ORDERED: MORPHINE SULFATE INJ 2 MG/ml SYRG IV PRN ×2
[2025-01-21] MEDS ORDERED: NITROGLYCERIN 0.4 MG SL TAB SL PRN
[2025-01-21] MEDS ORDERED: TEMAZEPAM 15 MG CAP PO PRN
[2025-01-21] MEDS ORDERED: ACETAMINOPHEN 325 MG TAB PO PRN
[2025-01-21] MEDS ORDERED: DEXTROSE (50%) 50ML SYRG IV PRN
[2025-01-21] MEDS ORDERED: HYDROcodone-ACET 5/325MG TAB PO PRN
--- NOTE | 2025-01-21 00:11 | DVHHP2 ---
History of Present Illness Reason for Visit: Shortness for breath History of Present Illness 65-year-old female presents for evaluation of shortness for breath. Patient with a history of lung cancer currently undergoing oral chemotherapy. Patient reports a one day history of worsening shortness for breath. On arrival patient is saturating 84% on room air. Denies fever or chills. Past Medical History Dyslipidemia, diabetes mellitus, cancer, CAD, hypertension, Past Surgical History CABG Family History Noncontributory Smoke: No ALCOHOL: none Drugs: None Lives: with Family Review of Systems Review of Systems Review of systems are currently negative otherwise addressed in HPI. Allergies: Coded Allergies: NO KNOWN ALLERGIES (Unverified , 11/05/22) Medications Current Medications Medications Dose Ordered Sig/Nitin Route Start Time Stop Time Status Last Admin Dose Admin Furosemide 20 mg DAILY IV 01/21/25 10:00 UNV Atorvastatin Calcium 20 mg HS PO 01/21/25 22:00 UNV Gabapentin 300 mg TID PO 01/21/25 06:00 UNV Clopidogrel Bisulfate 75 mg DAILY PO 01/21/25 10:00 UNV Metoprolol Succinate 25 mg DAILY PO 01/21/25 10:00 UNV Albuterol 2.5 mg Q6HPRN PRN NEB 01/21/25 00:00 UNV Ipratropium [place] 0.5 mg Q6HPRN PRN NEB 01/21/25 00:00 UNV Ceftriaxone Sodium 50 ml @ 100 mls/hr DAILY@09 IV 01/21/25 09:00 UNV Azithromycin 250 ml @ 125 mls/hr DAILY IV 01/21/25 10:00 UNV Methylprednisolone Sodium Succinate 40 mg BID IV 01/21/25 10:00 UNV Diagnostic Test (Pha) 1 strip Q6HR 01/21/25 00:00 UNV Insulin Human Regular Q6HR SC 01/21/25 00:00 UNV Dextrose 50 ml UD PRN IV 01/21/25 00:00 UNV Acetaminophen/ Hydrocodone Bitart 1 tab Q4HP PRN PO 01/21/25 00:00 UNV Temazepam 15 mg QHSP PRN PO 01/21/25 00:00 UNV Ondansetron HCl 4 mg Q4HP PRN IV 01/21/25 00:00 UNV Enoxaparin Sodium 40 mg DAILY SC 01/21/25 10:00 UNV Acetaminophen 650 mg Q6HP PRN PO 01/21/25 00:00 UNV Morphine Sulfate 2 mg Q6HPRN PRN IV 01/21/25 00:00 UNV Nitroglycerin 0.4 mg Q5MINP PRN SL 01/21/25 00:00 UNV Morphine Sulfate 2 mg Q30M PRN IV 01/21/25 00:00 UNV Exam Vital Signs Vital Signs Date Time Temp Pulse Resp B/P (MAP) Pulse Ox O2 Delivery O2 Flow Rate FiO2 01/20/25 22:00 92 22 147/92 (110) 99 01/20/25 20:40 Non-Rebreather 15 N/A 01/20/25 18:30 98.9 98.9 Exam Gen: 65-year-old female in mild distress Skin: Warm, dry, normal color and texture, no rash. HEENT: Normocephalic atraumatic, mucous membranes moist and pink. Neck: Cervical and supraclavicular nodes normal without enlargement, trachea is midline, thyroid gland is normal without masses. Pulmonary: Diminished breath sounds bilaterally Cardiac: Regular rate and rhythm. No murmur Abdomen: Soft, nontender, nondistended, bowel sounds present all 4 quadrants, no guarding, no rigidity, no organomegaly. Extremities: No cyanosis, clubbing, no edema Neuro: Cranial nerves II through XII grossly intact, normal affect and speech, no focal motor deficits. Labs/Xrays ORDERING PHYSICIAN: ELVIN KAYE DNP PROCEDURE(s): ECIDC - ECHO 2D MODE CARDIAC DOP REASON: eval for pericardial effusion ORDER NUMBER(s): [id number], ACCESSION NUMBER(s): [id number] APPROVED REPORT EXAM: LIMITED Two-dimensional and M-mode echocardiogram with Doppler and color Doppler. Blood Pressure: 111/61 mmHg INDICATION limited for pericardial effusion RISK FACTORS Height: 5'4, Weight: 129 DIMENSIONS LVDd 4.7 (3.8-5.7cm) LA (2D) (1.9-4.0cm) Aortic Root (2.0-3.7cm) LVDs 3.1 (2.5-4.0cm) LA (MM) (1.9-4.0cm) Aortic Cusp Exc (1.5- 2.0cm) EF (%) 60.0 (55-70%) Rt. Atrium (1.9-4.0cm) Asc. Aorta cm IVSd 0.9 (0.7-1.1cm) RV (D) (1.8-2.4cm) PWd 1.0 (0.7-1.1cm) Mitral Valve Mitral Mitral Stenosis E/A ratio 0.0 2D MVA cm2 Other Information Quality : Technically Limited Rhythm : Technically limited study due to limited for Pericardial effusion Conclusion NORMAL LV EF AND IS 65% NORMAL VALVES NORMAL RV FUNCTION MILD GLOBAL PERICARDIAL EFFUSION SIGNED BY: CAROLYN CANTU MD SIGNED DATE/TIME: 08/08/24 0119 ORDERING PHYSICIAN: RICHARD CABA PROCEDURE(s): CTCAP - CHST AB PEL WO CON-NO IV/ORAL REASON: sob ORDER NUMBER(s): [id number], ACCESSION NUMBER(s): [id number] EXAM: CT CHST AB PEL WO CON-NO IV/ORAL History: sob Comparison Study: CT CHEST PELVIS W CONTRAST ABDOMEN W WO CONTRAST on DOS: 10/19/24, CT CHEST WITHOUT CONTRAST on DOS: 08/06/24, CT CT CHEST/AB/PL W CON- IV ONLY on DOS: 11/05/22 TECHNIQUE: Multidetector CT of the chest, abdomen, and pelvis was performed. Imaging was performed without IV contrast. Axial, coronal, and sagittal multiplanar reformats were obtained from the axial data set by the technologist. Radiation Dose : CTDI vol 7.58 mGy, DLP 516.83 mGy*cm. Findings: Evaluation is degraded by respiratory motion. CT chest: Lungs: There is opacification of the right upper lobe. Scattered atelectasis / scarring. Interlobular septal thickening is seen at the lung bases. Scattered ground-glass nodules are seen within the left lung, largest of which is situated in the left upper lobe and measures 7 mm. Pleura: Small to moderate right and small left pleural effusions. Heart/Great vessels: There is mild cardiomegaly and a small pericardial effusion. There are coronary artery calcifications versus stents. There is mild atherosclerotic calcification of the aorta. Mediastinum: Unremarkable. Soft tissues/Bones: Unremarkable CT abdomen/pelvis: Liver: Unremarkable. Spleen: Unremarkable. Pancreas: Unremarkable. Gallbladder: Unremarkable. Adrenals: Unremarkable. Kidneys: Unremarkable. Pelvic Viscera: Unremarkable. Vasculature: Atherosclerotic aortoiliac calcification. Retroperitoneum: Shotty retroperitoneal nodes. No ascites. Bowel: No bowel obstruction. The appendix is normal. Musculoskeletal: Unremarkable. Soft tissues: Unremarkable. Impression: 1. Opacification of the right upper lobe, possibly referable to a component of infectious / inflammatory process, though underlying neoplasm cannot be excluded. Further clinical correlation is suggested. 2. Nonspecific ground-glass opacities within the left lung, possibly infectious / inflammatory process, though metastatic disease cannot be excluded. 3. Small to moderate right and small left pleural effusions. 4. No acute abdominopelvic abnormality identified. Labs Test 01/20/25 21:35 01/20/25 18:37 Range/Units Urine Color Light-yellow Yellow Urine Clarity Clear Clear Urine pH 5.5 5.0-9.0 Urine Specific [place] 1.012 1.001-1.035 Urine Protein Negative Negative Urine Ketones Negative Negative Urine Blood Negative Negative /uL Urine Nitrite Negative Negative Urine Bilirubin Negative Negative Urine Urobilinogen Normal Negative mg/dL Urine Leukocyte Esterase 1+ Negative /uL Urine RBC None seen 0 - 4 /hpf Urine Microscopic WBC 2 0-5 /HPF Urine Squamous Epithelial Cells None seen <5 /hpf Urine Bacteria None seen None Seen /hpf Urine Mucus Few None Seen Urine Glucose 1+ H Normal mg/dL White Blood Count 7.5 4.4-10.8 10^3/uL Red Blood Count 4.24 4.0-5.20 10^6/uL Hemoglobin 12.5 12.2-16.2 g/dL Hematocrit 37.5 36.0-46.0 % Mean Corpuscular Volume 88.2 80.0-100.0 fL Mean Corpuscular Hemoglobin 29.5 28.0-32.0 pg Mean Corpuscular Hemoglobin Concent 33.4 32.0-36.0 g/dL Red Cell Distribution Width 14.2 11.8-14.3 % Platelet Count 356 140-450 10^3/uL Mean Platelet Volume 7.7 6.9-10.8 fL Neutrophils (%) (Auto) 65.0 37.0-80.0 % Lymphocytes (%) (Auto) 27.4 10.0-50.0 % Monocytes (%) (Auto) 6.6 0.0-12.0 % Eosinophils (%) (Auto) 0.7 0.0-7.0 % Basophils (%) (Auto) 0.3 0.0-2.0 % Neutrophils # (Auto) 4.9 1.6-8.6 10 ^3/uL Lymphocytes # (Auto) 2.0 0.4-5.4 10 ^3/uL Monocytes # (Auto) 0.5 0-1.3 10 ^3/uL Eosinophils # (Auto) 0.1 0-0.8 10 ^3/uL Basophils # (Auto) 0 0-0.2 10 ^3/uL Nucleated Red Blood Cells 0.1 % Sodium Level 138 136-145 mmol/L Potassium Level 4.8 3.5-5.1 mmol/L Chloride Level 102 98-107 mmol/L Carbon Dioxide Level 26 20-31 mmol/L Anion Gap 10 5-15 Blood Urea Nitrogen 22 9-23 mg/dL Creatinine 0.93 0.550-1.02 mg/dL Glomerular Filtration Rate Calc 68 >90 mL/min BUN/Creatinine Ratio 23.7 H 10.0-20.0 Serum Glucose 282 H 74-106 mg/dL Lactic Acid Level 1.8 0.4-2.0 mmol/L Calcium Level 8.9 8.7-10.4 mg/dL Total Bilirubin 0.4 0.2-1.0 mg/dL Aspartate Amino Transferase (AST) 25 13-40 U/L Alanine Aminotransferase (ALT) 14 7-40 U/L Alkaline Phosphatase 118 H 46-116 U/L B-Type Natriuretic Peptide 1017.39 0-100 pg/mL Total Protein 7.3 5.7-8.2 g/dL Albumin 3.9 3.2-4.8 g/dL Lipase 32 12-53 U/L SEPSIS Sepsis Screen Date sepsis recognized/suspect: Jan 20, 2025 Time Sepsis recognized/suspect: 1829 Recent Procedure: No On Antibiotic Therapy: No Respiratory Rate >20: No Heart Rate >90: Yes Temp<36 C (96.8 F) or >38.3 C: No SBP <90 or MAP <65 mmHG: No New Acute Mental Status Change: No Is the patient on CPAP, BIPAP,: No Physician Orders Chst Ab Pel Wo Con-No Iv/Oral (01/20/25 18:29) Electrocardigram (01/20/25 18:35) Furosemide Injection (Lasix Injection) (01/21/25 10:00) Atorvastatin (Lipitor) (01/21/25 22:00) Gabapentin Capsule (Neurontin Capsule) (01/21/25 06:00) Clopidogrel Bisulfate (Plavix) (01/21/25 10:00) Metoprolol Xl Succinate (Toprol Xl) (01/21/25 10:00) Consistent Carb(Ccho)Diabetes (01/21/25 Breakfast) Albuterol Medneb (Ventolin Medneb) (01/21/25 00:00) Ipratropium Medneb (Atrovent Medneb) (01/21/25 00:00) Basic Metabolic Panel (01/21/25 04:00) Ceftriaxone 1gm/50ml (Rocephin) (01/21/25 09:00) Azithromycin 500mg/ 250ml (Zithromax 50 (01/21/25 10:00) Azithromycin 500mg/ 250ml (Zithromax 50 (01/21/25 00:00) Methylprednisolone Sod Succ (Solu Medrol (01/21/25 10:00) Glucose Blood (Accu-Chek Comfort Curve T (01/21/25 00:00) Insulin R (Human) (Insulin R) (01/21/25 00:00) Dextrose 50% Syringe (01/21/25 00:00) Admit (01/20/25 23:47) Hydrocodone-Acet 5/325mg Tab (Paden 5/32 (01/21/25 00:00) Temazepam (Restoril) (01/21/25 00:00) Ondansetron Hcl (Zofran) (01/21/25 00:00) Enoxaparin Sodium (Lovenox) (01/21/25 10:00) Complete Blood Count (01/21/25 04:00) Cardiac Diet-2gna,Lofat,Lochol (01/21/25 Breakfast) Condition: Fair (01/20/25 23:47) Acetaminophen Tablet (Tylenol Tablet) (01/21/25 00:00) Bedrest With Bathroom Privileg (01/20/25 23:47) Morphine Sulfate Injection (01/21/25 00:00) Nitroglycerin Sublingual (Ntrostat Subli (01/21/25 00:00) Morphine Sulfate Injection (01/21/25 00:00) Stat Ekg For Chest Pain (01/20/25 23:47) Notify Of Changes From Base (01/20/25 23:47) Golf Course Patroller For 24 Hours (01/20/25 23:47) Emergency Dysrhythmia Protocol (01/20/25 23:47) Rhythm Strips Once Every Shift (01/20/25 23:47) Oxygen By Nasal Cannula (01/20/25 23:47) Vital Signs Date Time Temp Pulse Resp B/P (MAP) Pulse Ox O2 Delivery O2 Flow Rate FiO2 01/20/25 22:00 92 22 147/92 (110) 99 01/20/25 20:46 142/85 01/20/25 20:40 17 100 Non-Rebreather 15 N/A 01/20/25 20:00 92 137/93 (108) 01/20/25 18:30 106 19 90 Nasal Cannula* 5 N/A Non-Rebreather 01/20/25 18:30 98.9 108 28 158/97 98 98.9 01/20/25 18:30 98.6 106 19 157/106 (123) 90 98.6 01/20/25 18:24 100 Laboratory Tests Test 01/20/25 18:37 Lactic Acid Level 1.8 mmol/L (0.4-2.0) White Blood Count 7.5 10^3/uL (4.4-10.8) Medications Medications Dose Ordered Sig/Nitin Route Start Time Stop Time Status Last Admin Dose Admin Albuterol 2.5 mg ONCE ONCE NEB 01/20/25 20:30 01/20/25 20:31 DC 01/20/25 20:55 2.5 MG Ceftriaxone Sodium 50 ml @ 100 mls/hr ONCE ONCE IV 01/20/25 20:30 01/20/25 20:59 DC 01/20/25 20:46 100 MLS/HR Furosemide 20 mg ONCE ONCE IV 01/20/25 20:30 01/20/25 20:31 DC 01/20/25 20:46 20 MG Ipratropium [place] 0.5 mg ONCE ONCE NEB 01/20/25 20:30 01/20/25 20:31 DC 01/20/25 20:55 0.5 MG Lorazepam 0.5 mg ONCE ONCE IV 01/20/25 22:00 01/20/25 22:01 DC 01/20/25 22:14 0.5 MG Magnesium Sulfate/ Dextrose 100 ml @ 100 mls/hr ONCE ONCE IV 01/20/25 22:00 01/20/25 22:59 DC 01/20/25 22:14 100 MLS/HR Methylprednisolone Sodium Succinate 125 mg ONCE ONCE IV 01/20/25 21:00 01/20/25 21:01 DC 01/20/25 20:51 125 MG Assessment/Plan Assessment/Plan Assessment Acute on chronic respiratory failure Lung cancer Recurrent pleural effusions Questionable pneumonia Uncontrolled diabetes mellitus Possible heart failure Plan Admit the patient to telemetry to the hospitalist Rocephin/azithromycin Med nebs Resume home medications Continue treatment per orders. Plan discussed with: Patient My Orders Orders - DAPHNE CAMPOVERDE AGACNHeriberto Procedure Category Date Status Time Furosemide Injection PHA 01/21/25 Logged (Lasix Injection) 10:00 Atorvastatin (Lipitor) PHA 01/21/25 Logged 22:00 Gabapentin Capsule PHA 01/21/25 Logged (Neurontin Capsule) 06:00 Clopidogrel Bisulfate PHA 01/21/25 Logged (Plavix) 10:00 Metoprolol Xl PHA 01/21/25 Logged Succinate (Toprol Xl) 10:00 Consistent DIET 01/21/25 Transmitted Carb(Ccho)Diabetes Breakfast Albuterol Medneb PHA 01/21/25 Logged (Ventolin Medneb) 00:00 Ipratropium Medneb PHA 01/21/25 Logged (Atrovent Medneb) 00:00 Basic Metabolic Panel LAB 01/21/25 Logged 04:00 Ceftriaxone 1gm/50ml PHA 01/21/25 Logged (Rocephin) 09:00 Azithromycin 500mg/ PHA 01/21/25 Logged 250ml (Zithromax 50 10:00 Azithromycin 500mg/ PHA 01/21/25 Logged 250ml (Zithromax 50 00:00 Methylprednisolone PHA 01/21/25 Logged Sod Succ (Solu Medrol 10:00 Glucose Blood PHA 01/21/25 Logged (Accu-Chek Comfort 00:00 Insulin R (Human) PHA 01/21/25 Logged (Insulin R) 00:00 Dextrose 50% Syringe PHA 01/21/25 Logged 00:00 Admit ADMIT 01/20/25 Transmitted 23:47 Hydrocodone-Acet PHA 01/21/25 Logged 5/325mg Tab (Paden 00:00 Temazepam (Restoril) PHA 01/21/25 Logged 00:00 Ondansetron Hcl PHA 01/21/25 Logged (Zofran) 00:00 Enoxaparin Sodium PHA 01/21/25 Logged (Lovenox) 10:00 Complete Blood Count LAB 01/21/25 Logged 04:00 Cardiac DIET 01/21/25 Transmitted Diet-2gna,Lofat,Lochol Breakfast Condition: Fair RACHNA 01/20/25 In Process 23:47 Acetaminophen Tablet PHA 01/21/25 Logged (Tylenol Tablet) 00:00 Bedrest With Bathroom RACHNA 01/20/25 In Process Privileg 23:47 Morphine Sulfate PHA 01/21/25 Logged Injection 00:00 Nitroglycerin PHA 01/21/25 Logged Sublingual (Ntrostat 00:00 Morphine Sulfate PHA 01/21/25 Logged Injection 00:00 Stat Ekg For Chest RACHNA 01/20/25 In Process Pain 23:47 Notify Md Of Changes RACHNA 01/20/25 In Process From Base 23:47 Golf Course Patroller For RACHNA 01/20/25 In Process 24 Hours 23:47 Emergency Dysrhythmia RACHNA 01/20/25 In Process Protocol 23:47 Rhythm Strips Once RACHNA 01/20/25 In Process Every Shift 23:47 Oxygen By Nasal RT 01/20/25 Transmitted Cannula 23:47 Date of Service: Jan 20, 2025 Billing Provider: DAPHNE CAMPOVERDE Common Visit Codes: [id number] INP/OBS CARE (HIGH) DAPHNE CAMPOVERDE Jan 21, 2025 00:11
[2025-01-21] MEDS: ACCU-CHEK COMFORT CURVE STRIP VI SCH (00:23)
[2025-01-21] MEDS: InsuLIN REG 1unit/0.01ml Soln (100units/ml) SC SCH (00:24)
[2025-01-21] MEDS: AZITHROMYCIN 500MG/ 250ML 250 ML IV ONE (00:34)
[2025-01-21 02:24] LABS: Base Excess -0.2 mmol/L (-2.0-3.0)
[2025-01-21] MEDS: IPRATROPIUM BROM 0.5 MG/2.5ML INH SOL NEB PRN (03:44)
[2025-01-21] MEDS: ALBUTEROL SULF 2.5 MG/0.5ML(0.5%) NEB SOLN NEB PRN (03:45)
[2025-01-21] MEDS ORDERED: [UNRECOGNIZED DRUG - CODE] PO (04:52)
[2025-01-21] MEDS: GABAPENTIN 300 MG CAP PO SCH (06:00)
[2025-01-21 08:02] LABS: Hematocrit 36.1 % (36.0-46.0); Hemoglobin 12.2 g/dL (12.2-16.2); Mean Corpuscular Hemoglobin 29.5 pg (28.0-32.0); Mean Corpuscular Volume 87.6 fL (80.0-100.0); Nucleated Red Blood Cells % 0.1 %
[2025-01-21 08:03] LABS: Anion Gap 11 (5-15); Carbon Dioxide 27 mmol/L (20-31); Chloride 100 mmol/L (98-107); Potassium 4.5 mmol/L (3.5-5.1); Sodium 138 mmol/L (136-145)
[2025-01-21 08:05] LABS: Calcium 9.1 mg/dL (8.7-10.4)
[2025-01-21 08:10] LABS: BUN/Creatinine Ratio 18.7 (10.0-20.0); Blood Urea Nitrogen 20 mg/dL (9-23)
[2025-01-21 08:12] LABS: Glucose 321 mg/dL (74-106)
[2025-01-21] MEDS: METOPROLOL SUCCINATE XL 50 MG TAB PO SCH (10:55)
[2025-01-21] MEDS: CLOPIDOGREL BISULFATE 75 MG TAB PO SCH (10:56)
[2025-01-21] MEDS: FUROSEMIDE 20 MG/2 ML VIAL IV SCH (10:57)
[2025-01-21] MEDS: methylPREDNISolone SOD SUCC 40 MG/ML VL IV SCH (10:57)
[2025-01-21] MEDS: ENOXAPARIN SOD 40 MG/0.4 ML SYRINGE SC SCH (10:57)
--- NOTE | 2025-01-21 11:23 | ECG ---
[facility] Test Date: 2025-01-21 Test Time: 08:57:05 Pat Name: AUGIE COLLINS [facility] F Senior Asic Engineer: RAMO : 1960 Requested By: DAPHNE CAMPOVERDE Order Number: [id number] Reading MD: Saurav Choe Measurements Intervals [place] Rate: 88 P: 39 NE: 160 QRS: 76 QRSD: 105 T: 223 QT: 390 QTc: 472 Interpretive Statements Sinus rhythm Probable left atrial enlargement LVH with secondary repolarization abnormality Probable anterior infarct, age indeterminate Electronically Signed On 01-21-2025 21:23:22 PDT by Saurav Choe Please click the below link to view image of tracing.
--- NOTE | 2025-01-21 14:52 | DVHPN2 ---
Reviewed: H&P Changes from previous H/P or p: No Changes General: Per HPI Objective Vitals Vital Signs Date Time Temp Pulse Resp B/P (MAP) Pulse Ox O2 Delivery O2 Flow Rate FiO2 01/21/25 13:00 98.1 87 18 106/73 (84) 100 98.1 01/21/25 06:28 Simple Mask* 10 99 Intake/Output Intake and Output 01/21/25 07:00 Intake Total 100 ml Output Total 0 ml Balance 100 ml Intake Oral 0 ml IV Total 100 ml Output Urine Total 0 ml Exam Gen: 65-year-old female in mild distress Skin: Warm, dry, normal color and texture, no rash. HEENT: Normocephalic atraumatic, mucous membranes moist and pink. Neck: Cervical and supraclavicular nodes normal without enlargement, trachea is midline, thyroid gland is normal without masses. Pulmonary: Diminished breath sounds bilaterally Cardiac: Regular rate and rhythm. No murmur Abdomen: Soft, nontender, nondistended, bowel sounds present all 4 quadrants, no guarding, no rigidity, no organomegaly. Extremities: No cyanosis, clubbing, no edema Neuro: Cranial nerves II through XII grossly intact, normal affect and speech, no focal motor deficits. Medications Current Medications Medications Dose Ordered Sig/Nitin Route Start Time Stop Time Status Last Admin Dose Admin Furosemide 20 mg DAILY IV 01/21/25 10:00 01/21/25 10:57 20 MG Atorvastatin Calcium 20 mg HS PO 01/21/25 22:00 Gabapentin 300 mg TID PO 01/21/25 06:00 01/21/25 14:24 300 MG Clopidogrel Bisulfate 75 mg DAILY PO 01/21/25 10:00 01/21/25 10:56 75 MG Metoprolol Succinate 25 mg DAILY PO 01/21/25 10:00 01/21/25 10:55 25 MG Albuterol 2.5 mg Q6HPRN PRN NEB 01/21/25 00:00 01/21/25 03:45 2.5 MG Ipratropium [place] 0.5 mg Q6HPRN PRN NEB 01/21/25 00:00 01/21/25 03:44 0.5 MG Ceftriaxone Sodium 50 ml @ 100 mls/hr DAILY@2100 IV 01/21/25 21:00 Azithromycin 250 ml @ 125 mls/hr DAILY IV 01/21/25 10:00 Hold Methylprednisolone Sodium Succinate 40 mg BID IV 01/21/25 10:00 01/21/25 10:57 40 MG Diagnostic Test (Pha) 1 strip Q6HR 01/21/25 00:00 01/21/25 12:58 1 STRIP Insulin Human Regular Q6HR SC 01/21/25 00:00 01/21/25 12:57 8 UNITS Dextrose 50 ml UD PRN IV 01/21/25 00:00 Acetaminophen/ Hydrocodone Bitart 1 tab Q4HP PRN PO 01/21/25 00:00 Temazepam 15 mg QHSP PRN PO 01/21/25 00:00 Ondansetron HCl 4 mg Q4HP PRN IV 01/21/25 00:00 Enoxaparin Sodium 40 mg DAILY SC 01/21/25 10:00 01/21/25 10:57 40 MG Acetaminophen 650 mg Q6HP PRN PO 01/21/25 00:00 Morphine Sulfate 2 mg Q6HPRN PRN IV 01/21/25 00:00 Nitroglycerin 0.4 mg Q5MINP PRN SL 01/21/25 00:00 Morphine Sulfate 2 mg Q30M PRN IV 01/21/25 00:00 Laboratory Results Laboratory Tests 01/21/25 06:15 Chemistry Test 01/20/25 18:37 01/21/25 06:15 Albumin 3.9 g/dL (3.2-4.8) Calcium Level 8.9 mg/dL (8.7-10.4) 9.1 mg/dL (8.7-10.4) Total Protein 7.3 g/dL (5.7-8.2) Lipid panel Test 01/20/25 18:37 Lipase 32 U/L (12-53) Cardiac Markers Test 01/20/25 18:37 B-Type Natriuretic Peptide 1017.39 pg/mL (0-100) LFT Test 01/20/25 18:37 Alanine Aminotransferase (ALT) 14 U/L (7-40) Alkaline Phosphatase 118 U/L (46-116) H Aspartate Amino Transferase (AST) 25 U/L (13-40) Total Bilirubin 0.4 mg/dL (0.2-1.0) Urinalysis Test 01/20/25 21:35 Urine Color Light-yellow (Yellow) Urine Clarity Clear (Clear) Urine pH 5.5 (5.0-9.0) Urine Specific [place] 1.012 (1.001-1.035) Urine Protein Negative (Negative) Urine Ketones Negative (Negative) Urine Blood Negative /uL (Negative) Urine Nitrite Negative (Negative) Urine Bilirubin Negative (Negative) Urine Urobilinogen Normal mg/dL (Negative) Urine Leukocyte Esterase 1+ /uL (Negative) Urine RBC None seen /hpf (0 - 4) Urine Microscopic WBC 2 /HPF (0-5) Urine Squamous Epithelial Cells None seen /hpf (<5) Urine Bacteria None seen /hpf (None Seen) Urine Mucus Few (None Seen) Urine Glucose 1+ mg/dL (Normal) H Blood Gas Results Test 01/21/25 01:34 Arterial Blood pH 7.406 (7.350-7.450) FiO2 % 60.0 Labs and/or images reviewed: Labs reviewed by me, Image(s) reviewed by me Assessment/Plan Assessment/Plan 65-year-old female presents for evaluation of shortness for breath. Patient with a history of lung cancer currently undergoing oral chemotherapy. Patient reports a one day history of worsening shortness for breath. On arrival patient is saturating 84% on room air. Denies fever or chills. 01/21: CT chest abdomen pelvis with concern for right upper lobe inflammatory process likely pneumonia or could be neoplasm. There is also ground-glass opacity left lung again could be metastatic disease. Right and small left pleural effusions. - patient received high dose steroids, feeling better. But still remains on high level oxygen 10 L non-rebreather. Patient is well known to web content coordinator, we will consult pulmonology. We will get PE study CTA chest contrast study. Diagnosis: Acute on chronic respiratory failure Lung cancer , active current Recurrent pleural effusions Questionable pneumonia Neutrophilia Tachycardia Uncontrolled diabetes mellitus Possible heart failure Plan: Azithromycin Rocephin Med nebs Continue home meds Tele Full code Plan discussed with: Patient Date of Service: Jan 21, 2025 Billing Provider: CHELSEA DELGADO MD Common Visit Codes: [id number] INP/OBS CARE(HIGH) CHELSEA DELGADO MD Jan 21, 2025 14:52
[2025-01-21] MEDS: PANTOPRAZOLE 40 MG/10 ML VIAL INJ IV SCH (18:54)
--- NOTE | 2025-01-21 20:20 | DVH ---
Procedure: CT CT ANGIO CHEST CONTRAST Reason for study/Clinical History: pe study. r/o pe Comparison Study: CT CHEST PELVIS W CONTRAST ABDOMEN W WO CONTRAST on DOS: 10/19/24, CT CHEST WITHOUT CONTRAST on DOS: 08/06/24, CT CT ANGIO CHEST CONTRAST on DOS: 06/28/24, CT CT CHEST/AB/PL W CON- IV ONLY on DOS: 11/05/22 Exam Date: 01/21/2025 07:15 PM Radiation Dose Information: CT Dose: CTDI volume is 8.88 mGy. Dose-length product is 2.54 mGy*cm Contrast: Type of contrast: Omnipaque 350 Contrast inject: 100 Contrast wasted:0 TECHNIQUE: After the uneventful administration of intravenous contrast intravenously, CT imaging was performed through the chest. Coronal and sagittal reformations were performed by the technologist. FINDINGS: Lower Neck: Visualized portions of the thyroid gland are unremarkable. Aorta and Vasculature: Normal caliber of thoracic aorta. Lymph Nodes: Multiple prominent mediastinal lymph nodes are seen. Mediastinum: Cardiomegaly. Small pericardial effusion. Lungs: Right lower lobe consolidation may reflect pneumonia or aspiration. Interlobular septal thicke sivakumar throughout the right lung may reflect pulmonary edema versus lymphangitic carcinomatosis. Small right pleural effusion. Musculoskeletal: No acute osseous abnormality. Upper abdomen: Limited portions of the upper abdomen are unremarkable. IMPRESSION: 1. No evidence of pulmonary embolism. 2. Right lower lobe consolidation may reflect pneumonia or aspiration. 3. Interlobular septal thickening throughout the right lung may reflect pulmonary edema versus lympha ngitic carcinomatosis. 4. Small right pleural effusion.
[2025-01-21] MEDS: ATORVASTATIN 20 MG TAB PO SCH (21:41)
[2025-01-22] VITALS (16 sets, daily range): BP systolic 97–121; BP diastolic 67–85; PULSE 74–87; RESP 16–22; TEMP 96.6–98.7; O2SAT 95–100
--- NOTE | 2025-01-22 00:13 | ECG ---
[facility] Test Date: 2025-01-22 Test Time: 00:11:42 Pat Name: AUGIE COLLINS Department: Respiratoy Room: [facility]T B Gender: F Hull Sorter: TELMA : 1960 Requested By: CHELSEA CRAIN Order Number: [id number] Reading MD: Saurav Choe Measurements Intervals [place] Rate: 75 P: 33 [place]: 158 QRS: 78 QRSD: 101 T: 175 QT: 459 QTc: 513 Interpretive Statements Sinus rhythm Ventricular premature complex Probable left atrial enlargement Probable anterior infarct, age indeterminate Lateral leads are also involved Prolonged QT interval Electronically Signed On 01-22-2025 12:20:45 PDT by Saurav Choe Please click the below link to view image of tracing.
--- NOTE | 2025-01-22 09:31 | ECG ---
[facility] Test Date: 2025-01-21 Test Time: 08:55:57 Pat Name: AUGIE COLLINS Department: Respiratoy Room: [facility]1T B Gender: F Fur Feeder: RAMO : 1960 Requested By: CHELSEA CRAIN Order Number: [id number] Reading MD: Saurav Choe Measurements Intervals [place] Rate: 84 P: 34 [place]: 158 QRS: 71 QRSD: 122 T: 208 QT: 428 QTc: 507 Interpretive Statements Sinus rhythm LVH with secondary repolarization abnormality Probable anterior infarct, age indeterminate Prolonged QT interval Electronically Signed On 01-22-2025 12:20:29 PDT by Saurav Choe Please click the below link to view image of tracing.
--- NOTE | 2025-01-22 12:14 | DVHPN2 ---
Reviewed: H&P Changes from previous H/P or p: No Changes General: Per HPI Objective Vitals Vital Signs Date Time Temp Pulse Resp B/P (MAP) Pulse Ox O2 Delivery O2 Flow Rate FiO2 01/22/25 11:29 76 114/85 01/22/25 09:00 96.6 18 100 96.6 01/22/25 00:16 Simple Mask* 10 99 Intake/Output Intake and Output 01/22/25 07:00 Intake Total 1450 ml Balance 1450 ml Intake Oral 1400 ml IV Total 50 ml # Voids 4 # Bowel Movements 1 Exam Gen: 65-year-old female in mild distress Skin: Warm, dry, normal color and texture, no rash. HEENT: Normocephalic atraumatic, mucous membranes moist and pink. Neck: Cervical and supraclavicular nodes normal without enlargement, trachea is midline, thyroid gland is normal without masses. Pulmonary: Diminished breath sounds bilaterally Cardiac: Regular rate and rhythm. No murmur Abdomen: Soft, nontender, nondistended, bowel sounds present all 4 quadrants, no guarding, no rigidity, no organomegaly. Extremities: No cyanosis, clubbing, no edema Neuro: Cranial nerves II through XII grossly intact, normal affect and speech, no focal motor deficits. Medications Current Medications Medications Dose Ordered Sig/Nitin Route Start Time Stop Time Status Last Admin Dose Admin Furosemide 20 mg DAILY IV 01/21/25 10:00 01/22/25 11:27 20 MG Atorvastatin Calcium 20 mg HS PO 01/21/25 22:00 01/21/25 21:41 20 MG Gabapentin 300 mg TID PO 01/21/25 06:00 01/22/25 06:13 300 MG Clopidogrel Bisulfate 75 mg DAILY PO 01/21/25 10:00 01/22/25 11:28 75 MG Metoprolol Succinate 25 mg DAILY PO 01/21/25 10:00 01/22/25 11:29 25 MG Ceftriaxone Sodium 50 ml @ 100 mls/hr DAILY@2100 IV 01/21/25 21:00 01/21/25 21:39 100 MLS/HR Azithromycin 250 ml @ 125 mls/hr DAILY IV 01/21/25 10:00 Hold Methylprednisolone Sodium Succinate 40 mg BID IV 01/21/25 10:00 01/22/25 11:28 40 MG Diagnostic Test (Pha) 1 strip Q6HR 01/21/25 00:00 01/22/25 11:57 1 STRIP Insulin Human Regular Q6HR SC 01/21/25 00:00 01/22/25 11:57 10 UNITS Dextrose 50 ml UD PRN IV 01/21/25 00:00 Acetaminophen/ Hydrocodone Bitart 1 tab Q4HP PRN PO 01/21/25 00:00 Temazepam 15 mg QHSP PRN PO 01/21/25 00:00 Ondansetron HCl 4 mg Q4HP PRN IV 01/21/25 00:00 Enoxaparin Sodium 40 mg DAILY SC 01/21/25 10:00 01/22/25 11:28 40 MG Acetaminophen 650 mg Q6HP PRN PO 01/21/25 00:00 Morphine Sulfate 2 mg Q6HPRN PRN IV 01/21/25 00:00 Nitroglycerin 0.4 mg Q5MINP PRN SL 01/21/25 00:00 Morphine Sulfate 2 mg Q30M PRN IV 01/21/25 00:00 Pantoprazole Sodium 40 mg DAILY IV 01/21/25 18:00 01/22/25 11:27 40 MG Albuterol 2.5 mg Q6H NEB 01/22/25 12:00 Ipratropium [place] 0.5 mg Q6H NEB 01/22/25 12:00 Laboratory Results Laboratory Tests 01/21/25 06:15 Urinalysis Test 01/20/25 21:35 Urine Color Light-yellow (Yellow) Urine Clarity Clear (Clear) Urine pH 5.5 (5.0-9.0) Urine Specific [place] 1.012 (1.001-1.035) Urine Protein Negative (Negative) Urine Ketones Negative (Negative) Urine Blood Negative /uL (Negative) Urine Nitrite Negative (Negative) Urine Bilirubin Negative (Negative) Urine Urobilinogen Normal mg/dL (Negative) Urine Leukocyte Esterase 1+ /uL (Negative) Urine RBC None seen /hpf (0 - 4) Urine Microscopic WBC 2 /HPF (0-5) Urine Squamous Epithelial Cells None seen /hpf (<5) Urine Bacteria None seen /hpf (None Seen) Urine Mucus Few (None Seen) Urine Glucose 1+ mg/dL (Normal) H Labs and/or images reviewed: Labs reviewed by me, Image(s) reviewed by me Assessment/Plan Assessment/Plan 65-year-old female presents for evaluation of shortness for breath. Patient with a history of lung cancer currently undergoing oral chemotherapy. Patient reports a one day history of worsening shortness for breath. On arrival patient is saturating 84% on room air. Denies fever or chills. 01/21: CT chest abdomen pelvis with concern for right upper lobe inflammatory process likely pneumonia or could be neoplasm. There is also ground-glass opacity left lung again could be metastatic disease. Right and small left pleural effusions. - patient received high dose steroids, feeling better. But still remains on high level oxygen 10 L non-rebreather. Patient is well known to welder, we will consult pulmonology. We will get PE study CTA chest contrast study. 01/22: CTA PE study is negative and continuing old findings seen in last CT with a ammonia and spasm.. Patient is still on high amounts nasal oxygen on non- rebreather 10 L. we will continue to trying to deescalate and wean off oxygen while continuing to use steroids Lasix nebs to improve patient's condition and antibiotics azithromycin and Rocephin. On Saturday primary welder we will see patient to make further recommendations. Diagnosis: Acute on chronic respiratory failure Lung cancer , active current Recurrent pleural effusions Questionable pneumonia Neutrophilia Tachycardia Uncontrolled diabetes mellitus Possible heart failure Plan: Azithromycin Rocephin Med nebs Continue home meds Tele Full code Plan discussed with: Patient My Orders Orders - CHELSEA DELGADO MD Procedure Category Date Status Time Ct Angio Chest CT 01/21/25 Resulted Contrast 16:44 *Consult CONS 01/21/25 Transmitted 18:00 Pantoprazole PHA 01/21/25 In Process (Protonix) 18:00 Albuterol Medneb PHA 01/22/25 In Process (Ventolin Medneb) 12:00 Ipratropium Medneb PHA 01/22/25 In Process (Atrovent Medneb) 12:00 Date of Service: Jan 22, 2025 Billing Provider: CHELSEA DELGADO MD Common Visit Codes: [id number] INP/OBS CARE(HIGH) CHELSEA DELGADO MD Jan 22, 2025 12:14
--- NOTE | 2025-01-22 12:25 | ECG ---
[facility] Test Date: 2025-01-20 Test Time: 18:24:41 Pat Name: AUGIE COLLINS Department: [facility] ED Patient ID: [facility]-[id number] Room: [facility]T B Gender: F Lab Assistant: vik : 1960 Requested By: RICHARD CABA Order Number: [id number] Reading MD: Saurav Choe Measurements Intervals [place] Rate: 100 P: 53 ND: 155 QRS: 99 QRSD: 85 T: 257 QT: 362 QTc: 467 Interpretive Statements Sinus tachycardia Ventricular premature complex Probable left atrial enlargement Right axis deviation Anteroseptal infarct, old Borderline repolarization abnormality Artifact in lead(s) II,III,aVL,aVF Electronically Signed On 01-22-2025 12:35:03 PDT by Saurav Choe Please click the below link to view image of tracing.
[2025-01-22] MEDS: IPRATROPIUM BROM 0.5 MG/2.5ML INH SOL NEB SCH (14:27)
[2025-01-22] MEDS: ALBUTEROL SULF 2.5 MG/0.5ML(0.5%) NEB SOLN NEB SCH (14:27)
--- NOTE | 2025-01-22 19:14 | DVHINCON2 ---
Date of service: Jan 21, [address] Hilario Reason for Consultation Right-sided pleural effusion History of Present Illness HPI Patient is a 65-year-old [place] lady with a history of lung cancer diagnosed earlier this year. Patient is undergoing a treatment at the [facility]. Patient is known to Dr. Aleman and requires recurrent right-sided thoracentesis approximately once every three weeks. She presented with worsening shortness of breaths and reaccumulation of fluid. On admission CT angiogram was obtained report 1. No evidence of pulmonary embolism. 2. Right lower lobe consolidation may reflect pneumonia or aspiration. 3. Interlobular septal thickening throughout the right lung may reflect pulmonary edema versus lymphangitic carcinomatosis. 4. Small right pleural effusion. Patient also reports a history 0 four coronary artery disease and recent VT we will which she underwent CABG in 2024. Home Meds Active Scripts Metoprolol Succinate (Toprol Xl) 25 Mg Tab, 25 MG PO DAILY for 30 Days, #30 TAB 3 Refills Prov:DAPHNE ROSAS MD 06/18/24 Atorvastatin Calcium (Lipitor) 40 Mg Tab, 40 MG PO QPM for 30 Days, #30 TAB 3 Refills Prov:DAPHNE ROSAS MD 06/18/24 Clopidogrel Bisulfate (Plavix) 75 Mg Tab, 75 MG PO DAILY for 30 Days, #30 TAB 3 Refills Prov:DAPHNE ROSAS MD 06/18/24 Aspirin (Aspir-81) 81 Mg Tab, 1 TAB PO DAILY for 30 Days, #30 TAB 3 Refills Prov:DAPHNE ROSAS MD 06/18/24 Reported Medications Gefitinib (Gefitinib) 250 Mg Tab, 250 MG PO DAILY, TAB 01/21/25 Past Medical History Cardiac: No pertinent Hx Pulmonary: Lung cancer Central Nervous System: No pertinent Hx GI: No pertinent Hx Hemotology/Oncology: Other Hepatobiliary: No pertinent Hx Psychiatric: No pertinent Hx Musculoskeletal: No pertinent Hx Rheumotologic: No pertinent Hx Infectious Disease: No peritnent Hx ENT: No pertinent Hx Renal/: No pertinent Hx Endocrine: No pertinent Hx Dermatology: No pertinent Hx Past Surgical History: No pertinent Hx Family History: No pertinent Hx Patient Family History: FH: lung cancer G8 FATHER Review of Systems Constitutional: No symptom reported Ears, Nose, & Throat: No symptom reported Eyes: No symptom reported Pulmonary/Respiratory: Dyspnea, Cough Cardiovascular: No symptom reported Gastrointestinal: No symptom reported Genitourinary: No symptom reported Musculoskeletal: No symptom reported Skin: No symptom reported Psychiatric: No symptom reported Endocrine: No symptom reported Hemotologic/Lymphatic: No symptom reported H&P Exam Vital Signs Vital Signs Date Time Temp Pulse Resp B/P (MAP) Pulse Ox O2 Delivery O2 Flow Rate FiO2 01/22/25 18:57 76 18 100 01/22/25 18:51 Mask 10.0 01/22/25 18:51 99 01/22/25 17:00 97.7 97/67 (77) 97.7 General Appeara: Well developed, Well nourished, Normal Appearance Head Exam: Normal inspection Neck Exam: Normal inspection, Non-tender, Normal alignment Eye Exam: bilateral eye Normal inspection, bilateral eye PERRL, bilateral eye EOMI Ear Exam: bilateral ear Auricle normal, bilateral ear Canal normal Nasal Exam: Normal inspection Mouth: Normal Inspection Pulmonary/Respiratory: Normal inspection, Normal breath sounds Cardiovascular/Chest: Normal inspection Peripheral Pulses: 4+ carotid (R), 4+ carotid (L) Abdominal Exam: Normal bowel sounds Labs/Xrays Labs Test 01/22/25 17:20 01/21/25 06:15 01/21/25 01:34 01/20/25 21:35 Range/Units POC Glucose 251 H 70-106 mg/dl White Blood Count 4.8 # 4.4-10.8 10^3/uL Red Blood Count 4.12 4.0-5.20 10^6/uL Hemoglobin 12.2 12.2-16.2 g/dL Hematocrit 36.1 36.0-46.0 % Mean Corpuscular Volume 87.6 80.0-100.0 fL Mean Corpuscular Hemoglobin 29.5 28.0-32.0 pg Mean Corpuscular Hemoglobin Concent 33.7 32.0-36.0 g/dL Red Cell Distribution Width 13.8 11.8-14.3 % Platelet Count 311 140-450 10^3/uL Mean Platelet Volume 7.8 6.9-10.8 fL Neutrophils (%) (Auto) 88.9 H 37.0-80.0 % Lymphocytes (%) (Auto) 9.8 L 10.0-50.0 % Monocytes (%) (Auto) 1.3 0.0-12.0 % Eosinophils (%) (Auto) 0.0 0.0-7.0 % Basophils (%) (Auto) 0.0 0.0-2.0 % Neutrophils # (Auto) 4.2 1.6-8.6 10 ^3/uL Lymphocytes # (Auto) 0.5 0.4-5.4 10 ^3/uL Monocytes # (Auto) 0.1 0-1.3 10 ^3/uL Eosinophils # (Auto) 0 0-0.8 10 ^3/uL Basophils # (Auto) 0 0-0.2 10 ^3/uL Nucleated Red Blood Cells 0.1 % Sodium Level 138 136-145 mmol/L Potassium Level 4.5 3.5-5.1 mmol/L Chloride Level 100 98-107 mmol/L Carbon Dioxide Level 27 20-31 mmol/L Anion Gap 11 5-15 Blood Urea Nitrogen 20 9-23 mg/dL Creatinine 1.07 H 0.550-1.02 mg/dL Glomerular Filtration Rate Calc 57 >90 mL/min BUN/Creatinine Ratio 18.7 10.0-20.0 Serum Glucose 321 H 74-106 mg/dL Calcium Level 9.1 8.7-10.4 mg/dL Blood Gas Specimen Type Arterial Blood Gas Sample Site Right radial Blood Gas Patient Temperature 37.0 Arterial Blood Date Drawn [id number] Arterial Blood pH 7.406 7.350-7.450 Arterial Blood Partial Pressure CO2 39.7 32.0-45.0 mmHg Arterial Blood Partial Pressure O2 194.7 H 83.0-108.0 mmHg Arterial Blood HCO3 24.4 21.0-28.0 mmol/L Arterial Blood Oxygen Saturation 99.2 H 94.0-98.0 % Arterial Blood Base Excess -0.2 -2.0-3.0 mmol/L Arterial Blood Oxyhemoglobin 98.6 H 94.0-98.0 % Arterial Blood Carboxyhemoglobin 0.2 L 0.5-1.5 % Arterial Blood Methemoglobin 0.4 0.0-1.5 % Sandro Test Yes Blood Gas Total Hemoglobin 13.00 12.0-16.0 g/dL Blood Gas Liter Flow 10.00 Blood Gas Modality Mask - simple Blood Gas Spontaneous Rate 18 FiO2 % 60.0 Urine Color Light-yellow Yellow Urine Clarity Clear Clear Urine pH 5.5 5.0-9.0 Urine Specific [place] 1.012 1.001-1.035 Urine Protein Negative Negative Urine Ketones Negative Negative Urine Blood Negative Negative /uL Urine Nitrite Negative Negative Urine Bilirubin Negative Negative Urine Urobilinogen Normal Negative mg/dL Urine Leukocyte Esterase 1+ Negative /uL Urine RBC None seen 0 - 4 /hpf Urine Microscopic WBC 2 0-5 /HPF Urine Squamous Epithelial Cells None seen <5 /hpf Urine Bacteria None seen None Seen /hpf Urine Mucus Few None Seen Urine Glucose 1+ H Normal mg/dL Test 01/20/25 18:37 Range/Units Lactic Acid Level 1.8 0.4-2.0 mmol/L Total Bilirubin 0.4 0.2-1.0 mg/dL Aspartate Amino Transferase (AST) 25 13-40 U/L Alanine Aminotransferase (ALT) 14 7-40 U/L Alkaline Phosphatase 118 H 46-116 U/L B-Type Natriuretic Peptide 1017.39 0-100 pg/mL Total Protein 7.3 5.7-8.2 g/dL Albumin 3.9 3.2-4.8 g/dL Lipase 32 12-53 U/L Assessment/Plan Plan Acute hypoxemic respiratory failure Lung cancer Right-sided pleural effusion Atelectasis Management plan Proceed with ultrasound-guided thoracentesis If sizable amount of fluid found Otherwise continue supportive care Steroids with taper Antibiotics/bronchodilators Oxygen as needed DVT prophylaxis Plan discussed with: Patient CANDIDO TORIBIO MD Jan 22, 2025 19:14
--- NOTE | 2025-01-22 21:43 | ECG ---
[facility] Test Date: 2025-01-22 Test Time: 21:39:46 Pat Name: AUGIE COLLINS [facility] F Talent Specialist: [id number] : 1960 Requested By: JEFFY HERNANDEZ Order Number: [id number] Reading MD: Saurav Choe Measurements Intervals [place] Rate: 77 P: 50 IA: 153 QRS: 92 QRSD: 103 T: 166 QT: 414 QTc: 469 Interpretive Statements Sinus rhythm Probable anterior infarct, age indeterminate Lateral leads are also involved Baseline wander in lead(s) V6 Electronically Signed On 01-30-2025 19:33:31 PDT by Saurav Choe Please click the below link to view image of tracing.
[2025-01-22] MEDS ORDERED: MORPHINE SULFATE 4 MG/ML SYR/VIAL IV PRN (22:15)
[2025-01-22] MEDS: MORPHINE SULFATE 4 MG/ML SYR/VIAL IV PRN (22:18)
[2025-01-23] VITALS (17 sets, daily range): BP systolic 109–168; BP diastolic 76–84; PULSE 58–86; RESP 16–22; TEMP 97.4–99.4; O2SAT 95–100
[2025-01-23 05:54] LABS: Hematocrit 35.5 % (36.0-46.0); Hemoglobin 11.6 g/dL (12.2-16.2); Mean Corpuscular Hemoglobin 29.0 pg (28.0-32.0); Mean Corpuscular Volume 88.8 fL (80.0-100.0); Nucleated Red Blood Cells % 0.0 %
[2025-01-23 06:30] LABS: Albumin 4.0 g/dL (3.2-4.8); Anion Gap 12 (5-15); BUN/Creatinine Ratio 21.8 (10.0-20.0); Calcium 9.0 mg/dL (8.7-10.4); Carbon Dioxide 25 mmol/L (20-31); Total Protein 7.5 g/dL (5.7-8.2)
[2025-01-23 06:31] LABS: Bilirubin, Total 0.4 mg/dL (0.2-1.0)
[2025-01-23 06:45] LABS: Alanine Aminotransferase 175 U/L (7-40); Alkaline Phosphatase 217 U/L (46-116); Blood Urea Nitrogen 24 mg/dL (9-23); Chloride 95 mmol/L (98-107); Glucose 272 mg/dL (74-106); Potassium 5.2 mmol/L (3.5-5.1); Sodium 132 mmol/L (136-145)
--- NOTE | 2025-01-23 16:45 | DVHPN2 ---
Subjective I am assuming the care of the patient from today onwards chart reviewed [facility] consultant's note reviewed. Plan of care discussed with the patient and patient's at bedside with the help of your daughter with a speaker phone on the phone. Reviewed: H&P Changes from previous H/P or p: No Changes General: Per HPI Objective Vitals Vital Signs Date Time Temp Pulse Resp B/P (MAP) Pulse Ox O2 Delivery O2 Flow Rate FiO2 01/23/25 16:39 98.0 76 18 116/84 (95) 100 98.0 01/23/25 12:04 Oxymizer 6.0 01/23/25 12:04 N/A Intake/Output Intake and Output 01/23/25 07:00 Intake Total 870 ml Balance 870 ml Intake Oral 820 ml IV Total 50 ml # Voids 4 Exam HEENT pupils are reactive Neck is supple CV is S1-S2 regular rate and rhythm Respiratory bilateral diminished breath sounds bilateral lung bases GI positive bowel sound Extremity no edema [employer] no motor deficit Medications Current Medications Medications Dose Ordered Sig/Nitin Route Start Time Stop Time Status Last Admin Dose Admin Furosemide 20 mg DAILY IV 01/21/25 10:00 01/23/25 09:49 20 MG Atorvastatin Calcium 20 mg HS PO 01/21/25 22:00 01/22/25 22:02 20 MG Gabapentin 300 mg TID PO 01/21/25 06:00 01/23/25 14:02 300 MG Clopidogrel Bisulfate 75 mg DAILY PO 01/21/25 10:00 01/23/25 09:45 75 MG Metoprolol Succinate 25 mg DAILY PO 01/21/25 10:00 01/23/25 09:45 25 MG Ceftriaxone Sodium 50 ml @ 100 mls/hr DAILY@2100 IV 01/21/25 21:00 01/22/25 22:00 100 MLS/HR Azithromycin 250 ml @ 125 mls/hr DAILY IV 01/21/25 10:00 Hold Methylprednisolone Sodium Succinate 40 mg BID IV 01/21/25 10:00 01/23/25 09:47 40 MG Diagnostic Test (Pha) 1 strip Q6HR 01/21/25 00:00 01/23/25 11:10 1 STRIP Insulin Human Regular Q6HR SC 01/21/25 00:00 01/23/25 11:16 8 UNITS Dextrose 50 ml UD PRN IV 01/21/25 00:00 Acetaminophen/ Hydrocodone Bitart 1 tab Q4HP PRN PO 01/21/25 00:00 Temazepam 15 mg QHSP PRN PO 01/21/25 00:00 Ondansetron HCl 4 mg Q4HP PRN IV 01/21/25 00:00 Enoxaparin Sodium 40 mg DAILY SC 01/21/25 10:00 01/23/25 09:51 40 MG Acetaminophen 650 mg Q6HP PRN PO 01/21/25 00:00 Nitroglycerin 0.4 mg Q5MINP PRN SL 01/21/25 00:00 Pantoprazole Sodium 40 mg DAILY IV 01/21/25 18:00 01/23/25 09:47 40 MG Albuterol 2.5 mg Q6H NEB 01/22/25 12:00 01/23/25 11:52 2.5 MG Ipratropium [place] 0.5 mg Q6H NEB 01/22/25 12:00 01/23/25 11:52 0.5 MG Morphine Sulfate 2 mg Q30M PRN IV 01/22/25 22:15 01/22/25 22:18 2 MG Morphine Sulfate 2 mg Q6HPRN PRN IV 01/22/25 22:15 Laboratory Results Laboratory Tests 01/23/25 04:47 Chemistry Test 01/23/25 04:47 Albumin 4.0 g/dL (3.2-4.8) Calcium Level 9.0 mg/dL (8.7-10.4) Total Protein 7.5 g/dL (5.7-8.2) LFT Test 01/23/25 04:47 Alanine Aminotransferase (ALT) 175 U/L (7-40) H Alkaline Phosphatase 217 U/L (46-116) H Aspartate Amino Transferase (AST) 291 U/L (13-40) H Total Bilirubin 0.4 mg/dL (0.2-1.0) Urinalysis Test 01/20/25 21:35 Urine Color Light-yellow (Yellow) Urine Clarity Clear (Clear) Urine pH 5.5 (5.0-9.0) Urine Specific [place] 1.012 (1.001-1.035) Urine Protein Negative (Negative) Urine Ketones Negative (Negative) Urine Blood Negative /uL (Negative) Urine Nitrite Negative (Negative) Urine Bilirubin Negative (Negative) Urine Urobilinogen Normal mg/dL (Negative) Urine Leukocyte Esterase 1+ /uL (Negative) Urine RBC None seen /hpf (0 - 4) Urine Microscopic WBC 2 /HPF (0-5) Urine Squamous Epithelial Cells None seen /hpf (<5) Urine Bacteria None seen /hpf (None Seen) Urine Mucus Few (None Seen) Urine Glucose 1+ mg/dL (Normal) H Assessment/Plan Assessment/Plan 65-year-old female with a known history of lung cancer currently ongoing chemotherapy presented to the hospital with worsening shortness of breaths with a hypoxia with theO2 saturation 84% on room air, found to have 1. Acute hypoxic respiratory failure secondary to right upper lobe opacification, right lower lobe consolidation 2. Right lower lobe pneumonia 3. 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 PE has been ruled out 5. Diabetes mellitus type 2 6. Bilateral pleural effusion -continue O2 supplementation, med nebs, IV antibiotics, discharge plan once oxygen was titrated off. Plan discussed with: Patient Date of Service: Jan 23, 2025 Billing Provider: KRISTINA DOWNS MD Common Visit Codes: [id number] INP/OBS CARE(MOD) KRISTINA DOWNS MD Jan 23, 2025 16:45
--- NOTE | 2025-01-23 18:25 | DVHPN2 ---
Progress Note - Dictate Date Seen: Jan 23, 2025 Medical Necessity Reason Pt with a Central, PICC or Fol: No vital signs Vital Sign Date Time Temp Pulse Resp B/P (MAP) Pulse Ox O2 Delivery O2 Flow Rate FiO2 01/23/25 16:39 98.0 76 18 116/84 (95) 100 98.0 01/23/25 12:04 Oxymizer 6.0 01/23/25 12:04 N/A Total Intake and Output 01/22/25 01/22/25 01/23/25 15:00 23:00 07:00 Intake Total 750 ml 120 ml Balance 750 ml 120 ml medications Current Medications Medications Dose Ordered Sig/Nitin Route Start Time Stop Time Status Last Admin Dose Admin Furosemide 20 mg DAILY IV 01/21/25 10:00 01/23/25 09:49 20 MG Atorvastatin Calcium 20 mg HS PO 01/21/25 22:00 01/22/25 22:02 20 MG Gabapentin 300 mg TID PO 01/21/25 06:00 01/23/25 14:02 300 MG Clopidogrel Bisulfate 75 mg DAILY PO 01/21/25 10:00 01/23/25 09:45 75 MG Metoprolol Succinate 25 mg DAILY PO 01/21/25 10:00 01/23/25 09:45 25 MG Ceftriaxone Sodium 50 ml @ 100 mls/hr DAILY@2100 IV 01/21/25 21:00 01/22/25 22:00 100 MLS/HR Azithromycin 250 ml @ 125 mls/hr DAILY IV 01/21/25 10:00 Hold Methylprednisolone Sodium Succinate 40 mg BID IV 01/21/25 10:00 01/23/25 09:47 40 MG Diagnostic Test (Pha) 1 strip Q6HR 01/21/25 00:00 01/23/25 17:01 1 STRIP Insulin Human Regular Q6HR SC 01/21/25 00:00 01/23/25 17:06 10 UNITS Dextrose 50 ml UD PRN IV 01/21/25 00:00 Acetaminophen/ Hydrocodone Bitart 1 tab Q4HP PRN PO 01/21/25 00:00 Temazepam 15 mg QHSP PRN PO 01/21/25 00:00 Ondansetron HCl 4 mg Q4HP PRN IV 01/21/25 00:00 Enoxaparin Sodium 40 mg DAILY SC 01/21/25 10:01/23/25 09:51 40 MG Acetaminophen 650 mg Q6HP PRN PO 01/21/25 00:00 Nitroglycerin 0.4 mg Q5MINP PRN SL 01/21/25 00:00 Pantoprazole Sodium 40 mg DAILY IV 01/21/25 18:00 01/23/25 09:47 40 MG Albuterol 2.5 mg Q6H NEB 01/22/25 12:00 01/23/25 11:52 2.5 MG Ipratropium [place] 0.5 mg Q6H NEB 01/22/25 12:00 01/23/25 11:52 0.5 MG Morphine Sulfate 2 mg Q30M PRN IV 01/22/25 22:15 01/22/25 22:18 2 MG Morphine Sulfate 2 mg Q6HPRN PRN IV 01/22/25 22:15 laboratory and microbiology Laboratory Tests 01/23/25 04:47 Test 01/23/25 04:47 Range/Units Serum Glucose 272 H 74-106 mg/dL Assessment/Plan Acute hypoxemic respiratory failure Lung cancer Right-sided pleural effusion Atelectasis Management plan Proceed with ultrasound-guided thoracentesis If sizable amount of fluid found Otherwise continue supportive care Steroids with taper Antibiotics/bronchodilators Oxygen as needed DVT prophylaxis Dietary Evaluation Review Comments: 1) Continue 60g CCHO cardiac diet 2) Encourage optimal PO intake 3) Follow-up with cardiology, pulmonology, and oncology 4) Continue to monitor I&O, labs, and skin integrity Expected Outcomes/Goals: 1) appetite and labs to improve 2) f/u in 3-5 days Plan discussed with: Patient CANDIDO TORIBIO MD Jan 23, 2025 18:25
[2025-01-24] VITALS (14 sets, daily range): BP systolic 103–120; BP diastolic 65–83; PULSE 69–81; RESP 16–20; TEMP 97.3–98.4; O2SAT 99–100
--- NOTE | 2025-01-24 13:23 | DVH ---
CLINICAL INFORMATION: Post thoracentesis. TECHNIQUE: Single AP portable chest radiograph was obtained. COMPARISON: CT dated 01/21/2025. Radiographs dated 12/10/2024. FINDINGS: Lungs: There is small to moderate pleural fluid adjacent to the right lung, most prominent near the r ight lung apex, which may be loculated. Smaller volume pleural fluid in the right lung base. There is overlying atelectasis and/or consolidation. No definite pneumothorax visualized post thoracentesis. Small left pleural effusion with overlying atelectasis. Cardiac: Moderate cardiomegaly. Pulmonary vasculature: Prominence of the pulmonary vasculature. Mediastinum/michael: Unremarkable. Bones: No acute osseous abnormality identified. Other: No other significant findings. IMPRESSION: 1. Right pleural fluid collections as described above, with possible loculated components, most promi nent at the right lung apex. No definite pneumothorax status post thoracentesis. Correlate with cli nical findings. Short interval follow-up chest radiograph could be considered in the setting of recen t thoracentesis. 2. Small left pleural effusion with overlying atelectasis and/or consolidation. 3. Cardiomegaly and prominence of the pulmonary vasculature suggesting pulmonary vascular congestion.
[2025-01-24 14:52] LABS: Hematocrit 36.7 % (36.0-46.0); Hemoglobin 11.8 g/dL (12.2-16.2); Mean Corpuscular Hemoglobin 28.9 pg (28.0-32.0); Mean Corpuscular Volume 90.2 fL (80.0-100.0); Nucleated Red Blood Cells % 0.0 %
--- NOTE | 2025-01-24 15:18 | DVHPN2 ---
Progress Note - Dictate Date Seen: Jan 24, 2025 Medical Necessity Reason Pt with a Central, PICC or Fol: No vital signs Vital Sign Date Time Temp Pulse Resp B/P (MAP) Pulse Ox O2 Delivery O2 Flow Rate FiO2 01/24/25 13:00 97.3 77 18 120/82 (95) 100 97.3 01/24/25 12:48 Oxymizer 3 N/A Total Intake and Output 01/23/25 01/23/25 01/24/25 15:00 23:00 07:00 Intake Total 400 ml 280 ml Balance 400 ml 280 ml medications Current Medications Medications Dose Ordered Sig/Nitin Route Start Time Stop Time Status Last Admin Dose Admin Furosemide 20 mg DAILY IV 01/21/25 10:00 01/24/25 10:00 20 MG Atorvastatin Calcium 20 mg HS PO 01/21/25 22:00 01/23/25 21:39 20 MG Gabapentin 300 mg TID PO 01/21/25 06:00 01/24/25 14:20 300 MG Clopidogrel Bisulfate 75 mg DAILY PO 01/21/25 10:00 01/24/25 09:54 75 MG Metoprolol Succinate 25 mg DAILY PO 01/21/25 10:00 01/24/25 10:03 25 MG Ceftriaxone Sodium 50 ml @ 100 mls/hr DAILY@2100 IV 01/21/25 21:00 01/23/25 21:39 100 MLS/HR Azithromycin 250 ml @ 125 mls/hr DAILY IV 01/21/25 10:00 Hold Methylprednisolone Sodium Succinate 40 mg BID IV 01/21/25 10:00 01/24/25 09:57 40 MG Diagnostic Test (Pha) 1 strip Q6HR 01/21/25 00:00 01/24/25 11:29 1 STRIP Insulin Human Regular Q6HR SC 01/21/25 00:00 01/24/25 11:50 10 UNITS Dextrose 50 ml UD PRN IV 01/21/25 00:00 Acetaminophen/ Hydrocodone Bitart 1 tab Q4HP PRN PO 01/21/25 00:00 Temazepam 15 mg QHSP PRN PO 01/21/25 00:00 Ondansetron HCl 4 mg Q4HP PRN IV 01/21/25 00:00 Enoxaparin Sodium 40 mg DAILY SC 01/21/25 10:00 01/24/25 09:58 40 MG Acetaminophen 650 mg Q6HP PRN PO 01/21/25 00:00 Nitroglycerin 0.4 mg Q5MINP PRN SL 01/21/25 00:00 Pantoprazole Sodium 40 mg DAILY IV 01/21/25 18:00 01/24/25 10:03 40 MG Albuterol 2.5 mg Q6H NEB 01/22/25 12:00 01/24/25 12:48 2.5 MG Ipratropium [place] 0.5 mg Q6H NEB 01/22/25 12:00 01/24/25 12:48 0.5 MG Morphine Sulfate 2 mg Q30M PRN IV 01/22/25 22:15 01/22/25 22:18 2 MG Morphine Sulfate 2 mg Q6HPRN PRN IV 01/22/25 22:15 laboratory and microbiology Laboratory Tests 01/24/25 14:44 Test 01/24/25 14:44 Range/Units Serum Glucose Pending Assessment/Plan Acute hypoxemic respiratory failure Lung cancer Right-sided pleural effusion Atelectasis Patient seen and examined Events Ultrasound shows presence of fluid Thoracentesis was subsequently performed at the bedside See separate note for procedure in detail Management plan Otherwise continue supportive care Steroids with taper Antibiotics/bronchodilators Oxygen as needed Patient may benefit from pleurx DVT prophylaxis Dietary Evaluation Review Comments: 1) Continue 60g CCHO cardiac diet 2) Encourage optimal PO intake 3) Follow-up with cardiology, pulmonology, and oncology 4) Continue to monitor I&O, labs, and skin integrity Expected Outcomes/Goals: 1) appetite and labs to improve 2) f/u in 3-5 days Plan discussed with: Patient CANDIDO TORIBIO MD Jan 24, 2025 15:18
--- NOTE | 2025-01-24 15:19 | DVHNC2 ---
Procedure - Procedure- Right sided Thoracentesis ultrasound guided Indication- Pleural effusions Procedure in detail Consent was obtained and timeout performed per protocol. The patient was placed in the sitting position and ultrasound SonoSite was used to localize pleural fluid. ChloraPrep was used to clean the operative field and Lidocaine for local analgesia. Thoracentesis catheter was advanced over the needle, attached to the suction bottle and approximately 450 cc of fluid was drained from the right pleural space. At the end of the procedure, the catheter was removed and dressing applied. Samples obtained for diagnostic testing. Chest-x ray ordered. No complications CANDIDO TORIBIO MD Jan 24, 2025 15:19
--- NOTE | 2025-01-24 15:58 | DVHPN2 ---
Subjective Patient was seen and evaluated by me currently on 2 L of oxygen by nasal cannula, patient's daughter was updated on the speaker phone as patient's is improving. 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 Medications Current Medications Medications Dose Ordered Sig/Nitin Route Start Time Stop Time Status Last Admin Dose Admin Furosemide 20 mg DAILY IV 01/21/25 10:00 01/24/25 10:00 20 MG Atorvastatin Calcium 20 mg HS PO 01/21/25 22:00 01/23/25 21:39 20 MG Gabapentin 300 mg TID PO 01/21/25 06:00 01/24/25 14:20 300 MG Clopidogrel Bisulfate 75 mg DAILY PO 01/21/25 10:00 01/24/25 09:54 75 MG Metoprolol Succinate 25 mg DAILY PO 01/21/25 10:00 01/24/25 10:03 25 MG Ceftriaxone Sodium 50 ml @ 100 mls/hr DAILY@2100 IV 01/21/25 21:00 01/23/25 21:39 100 MLS/HR Azithromycin 250 ml @ 125 mls/hr DAILY IV 01/21/25 10:00 Hold Methylprednisolone Sodium Succinate 40 mg BID IV 01/21/25 10:00 01/24/25 09:57 40 MG Diagnostic Test (Pha) 1 strip Q6HR 01/21/25 00:00 01/24/25 11:29 1 STRIP Insulin Human Regular Q6HR SC 01/21/25 00:00 01/24/25 11:50 10 UNITS Dextrose 50 ml UD PRN IV 01/21/25 00:00 Acetaminophen/ Hydrocodone Bitart 1 tab Q4HP PRN PO 01/21/25 00:00 Temazepam 15 mg QHSP PRN PO 01/21/25 00:00 Ondansetron HCl 4 mg Q4HP PRN IV 01/21/25 00:00 Enoxaparin Sodium 40 mg DAILY SC 01/21/25 10:00 01/24/25 09:58 40 MG Acetaminophen 650 mg Q6HP PRN PO 01/21/25 00:00 Nitroglycerin 0.4 mg Q5MINP PRN SL 01/21/25 00:00 Pantoprazole Sodium 40 mg DAILY IV 01/21/25 18:00 01/24/25 10:03 40 MG Albuterol 2.5 mg Q6H NEB 01/22/25 12:00 01/24/25 12:48 2.5 MG Ipratropium [place] 0.5 mg Q6H NEB 01/22/25 12:00 01/24/25 12:48 0.5 MG Morphine Sulfate 2 mg Q30M PRN IV 01/22/25 22:15 01/22/25 22:18 2 MG Morphine Sulfate 2 mg Q6HPRN PRN IV 01/22/25 22:15 Laboratory Results Laboratory Tests 01/24/25 14:44 Chemistry Test 01/24/25 14:44 Calcium Level Pending Urinalysis Test 01/20/25 21:35 Urine Color Light-yellow (Yellow) Urine Clarity Clear (Clear) Urine pH 5.5 (5.0-9.0) Urine Specific [place] 1.012 (1.001-1.035) Urine Protein Negative (Negative) Urine Ketones Negative (Negative) Urine Blood Negative /uL (Negative) Urine Nitrite Negative (Negative) Urine Bilirubin Negative (Negative) Urine Urobilinogen Normal mg/dL (Negative) Urine Leukocyte Esterase 1+ /uL (Negative) Urine RBC None seen /hpf (0 - 4) Urine Microscopic WBC 2 /HPF (0-5) Urine Squamous Epithelial Cells None seen /hpf (<5) Urine Bacteria None seen /hpf (None Seen) Urine Mucus Few (None Seen) Urine Glucose 1+ mg/dL (Normal) H Assessment/Plan Assessment/Plan 65-year-old female with a known history of lung cancer currently ongoing chemotherapy presented to the hospital with worsening shortness of breaths with a hypoxia with theO2 saturation 84% on room air, found to have 1. Acute hypoxic respiratory failure secondary to right upper lobe opacification, right lower lobe consolidation 2. Right lower lobe pneumonia 3. 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 PE has been ruled out 5. Diabetes mellitus type 2 6. Bilateral pleural effusion -continue O2 supplementation, med nebs, IV antibiotics, discharge plan once oxygen was titrated off. -we will assess for home oxygen requirement before discharge, physical therapy evaluation and treatment. Plan discussed with: Patient, Daughter My Orders Orders - KRISTINA DOWNS MD Procedure Category Date Status Time Pt Request For Service PT 01/24/25 Logged 14:26 Basic Metabolic Panel LAB 01/24/25 Logged 14:31 Date of Service: Jan 24, 2025 Billing Provider: KRISTINA DOWNS MD Common Visit Codes: [id number] INP/OBS CARE(MOD) KRISTINA DOWNS MD Jan 24, 2025 15:58
[2025-01-24 16:19] LABS: Anion Gap 7 (5-15)
[2025-01-24 16:22] LABS: Calcium 8.9 mg/dL (8.7-10.4); Carbon Dioxide 32 mmol/L (20-31); Chloride 95 mmol/L (98-107); Sodium 134 mmol/L (136-145)
[2025-01-24 16:32] LABS: Glucose 423 mg/dL (74-106)
[2025-01-24] MEDS: InsuLIN REG 1unit/0.01ml Soln (100units/ml) IV ONE (17:14)
[2025-01-24] MEDS: DEXTROSE (50%) 50ML SYRG IV ONE (17:16)
[2025-01-24 17:19] LABS: BUN/Creatinine Ratio 19.5 (10.0-20.0); Blood Urea Nitrogen 25 mg/dL (9-23); Potassium 5.7 mmol/L (3.5-5.1)
[2025-01-24] MEDS: CALCIUM GLUC 1,000mg/50ml-NS 50 ML IV ONE (17:24)
[2025-01-24] MEDS: ALBUTEROL SULF 2.5 MG/0.5ML(0.5%) NEB SOLN NEB ONE (18:00)
[2025-01-24 19:38] LABS: Potassium 5.0 mmol/L (3.5-5.1)
[2025-01-24 19:39] LABS: Anion Gap 9 (5-15); Carbon Dioxide 29 mmol/L (20-31)
[2025-01-24 19:40] LABS: Calcium 9.3 mg/dL (8.7-10.4)
[2025-01-24 19:44] LABS: BUN/Creatinine Ratio 27.0 (10.0-20.0)
[2025-01-24 19:48] LABS: Chloride 96 mmol/L (98-107); Sodium 134 mmol/L (136-145)
[2025-01-24 19:49] LABS: Blood Urea Nitrogen 30 mg/dL (9-23)
[2025-01-24 19:52] LABS: Glucose 412 mg/dL (74-106)
[2025-01-24] MEDS ORDERED: DEXTROSE (50%) 50ML SYRG IV PRN (20:00)
[2025-01-24] MEDS: ACCU-CHEK COMFORT CURVE STRIP VI SCH (20:00)
[2025-01-24] MEDS: InsuLIN REG 1unit/0.01ml Soln (100units/ml) SC SCH (20:31)
[2025-01-24] MEDS: INSULIN LANTUS (GLARGINE) 1 /0.01ml (100units/ml) SC SCH (21:35)
[2025-01-25] VITALS (17 sets, daily range): BP systolic 107–177; BP diastolic 63–108; PULSE 70–85; RESP 12–20; TEMP 97.4–98.6; O2SAT 89–100
[2025-01-25 06:16] LABS: Hematocrit 35.6 % (36.0-46.0); Hemoglobin 11.6 g/dL (12.2-16.2); Mean Corpuscular Hemoglobin 28.5 pg (28.0-32.0); Mean Corpuscular Volume 87.3 fL (80.0-100.0); Nucleated Red Blood Cells % 0.0 %
[2025-01-25 06:34] LABS: Chloride 100 mmol/L (98-107); Potassium 4.7 mmol/L (3.5-5.1); Sodium 140 mmol/L (136-145)
[2025-01-25 06:35] LABS: Calcium 8.9 mg/dL (8.7-10.4)
[2025-01-25 06:39] LABS: Anion Gap 8 (5-15); Carbon Dioxide 32 mmol/L (20-31)
[2025-01-25 06:40] LABS: Blood Urea Nitrogen 18 mg/dL (9-23); Magnesium 2.4 mg/dL (1.6-2.6)
[2025-01-25 06:51] LABS: BUN/Creatinine Ratio 22.0 (10.0-20.0); Glucose 147 mg/dL (74-106)
[2025-01-25] MEDS: ALBUTEROL SULF 2.5 MG/0.5ML(0.5%) NEB SOLN ONE (15:09)
[2025-01-25] MEDS: IOHEXOL 350 MG/ML 100ML IJ ONE (15:09)
--- NOTE | 2025-01-25 16:38 | DVHPN2 ---
Subjective Patient was seen and evaluated by me currently on 2 L of oxygen by nasal cannula, patient's daughter was updated on the speaker phone as patient's is improving. 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 Current Medications Medications Dose Ordered Sig/Nitin Route Start Time Stop Time Status Last Admin Dose Admin Furosemide 20 mg DAILY IV 01/21/25 10:00 01/25/25 08:43 20 MG Atorvastatin Calcium 20 mg HS PO 01/21/25 22:00 01/24/25 21:32 20 MG Gabapentin 300 mg TID PO 01/21/25 06:00 01/25/25 13:38 300 MG Clopidogrel Bisulfate 75 mg DAILY PO 01/21/25 10:00 01/25/25 08:43 75 MG Metoprolol Succinate 25 mg DAILY PO 01/21/25 10:00 01/25/25 08:44 25 MG Ceftriaxone Sodium 50 ml @ 100 mls/hr DAILY@2100 IV 01/21/25 21:00 01/24/25 21:33 100 MLS/HR Azithromycin 250 ml @ 125 mls/hr DAILY IV 01/21/25 10:00 Hold Methylprednisolone Sodium Succinate 40 mg BID IV 01/21/25 10:00 01/25/25 08:42 40 MG Acetaminophen/ Hydrocodone Bitart 1 tab Q4HP PRN PO 01/21/25 00:00 Temazepam 15 mg QHSP PRN PO 01/21/25 00:00 Ondansetron HCl 4 mg Q4HP PRN IV 01/21/25 00:00 Enoxaparin Sodium 40 mg DAILY SC 01/21/25 10:00 01/25/25 08:43 40 MG Acetaminophen 650 mg Q6HP PRN PO 01/21/25 00:00 Nitroglycerin 0.4 mg Q5MINP PRN SL 01/21/25 00:00 Pantoprazole Sodium 40 mg DAILY IV 01/21/25 18:00 01/25/25 08:43 40 MG Albuterol 2.5 mg Q6H NEB 01/22/25 12:00 01/25/25 11:33 2.5 MG Ipratropium [place] 0.5 mg Q6H NEB 01/22/25 12:00 01/25/25 11:33 0.5 MG Morphine Sulfate 2 mg Q30M PRN IV 01/22/25 22:15 01/22/25 22:18 2 MG Morphine Sulfate 2 mg Q6HPRN PRN IV 01/22/25 22:15 Insulin Glargine 10 units HS SC 01/24/25 22:00 01/24/25 21:35 10 UNITS Diagnostic Test (Pha) 1 strip IQ4HR 01/24/25 20:00 01/25/25 16:05 1 STRIP Insulin Human Regular IQ4HR SC 01/24/25 20:00 01/25/25 16:25 12 UNITS Dextrose 50 ml UD PRN IV 01/24/25 20:00 Laboratory Results Laboratory Tests 01/25/25 05:24 Chemistry Test 01/24/25 19:15 01/25/25 05:24 Calcium Level 9.3 mg/dL (8.7-10.4) 8.9 mg/dL (8.7-10.4) Magnesium Level 2.4 mg/dL (1.6-2.6) Urinalysis Test 01/20/25 21:35 Urine Color Light-yellow (Yellow) Urine Clarity Clear (Clear) Urine pH 5.5 (5.0-9.0) Urine Specific [place] 1.012 (1.001-1.035) Urine Protein Negative (Negative) Urine Ketones Negative (Negative) Urine Blood Negative /uL (Negative) Urine Nitrite Negative (Negative) Urine Bilirubin Negative (Negative) Urine Urobilinogen Normal mg/dL (Negative) Urine Leukocyte Esterase 1+ /uL (Negative) Urine RBC None seen /hpf (0 - 4) Urine Microscopic WBC 2 /HPF (0-5) Urine Squamous Epithelial Cells None seen /hpf (<5) Urine Bacteria None seen /hpf (None Seen) Urine Mucus Few (None Seen) Urine Glucose 1+ mg/dL (Normal) H Assessment/Plan Assessment/Plan 65-year-old female with a known history of lung cancer currently ongoing chemotherapy presented to the hospital with worsening shortness of breaths with a hypoxia with theO2 saturation 84% on room air, found to have 1. Acute hypoxic respiratory failure secondary to right upper lobe opacification, right lower lobe consolidation 2. Right lower lobe pneumonia 3. 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 PE has been ruled out 5. Diabetes mellitus type 2 6. Bilateral pleural effusion -continue O2 supplementation, med nebs, IV antibiotics, discharge plan once oxygen was titrated off. -we will assess for home oxygen requirement before discharge, physical therapy evaluation and treatment. Plan discussed with: Patient My Orders Orders - KRISTINA DOWNS MD Procedure Category Date Status Time Insulin Lantus PHA 01/24/25 In Process (Glargine) (Lantus) 22:00 Abg W/ Co-Ox RT 01/25/25 Logged 14:53 Date of Service: Jan 25, 2025 Billing Provider: KRISTINA DOWNS MD Common Visit Codes: [id number] INP/OBS CARE(MOD) KRISTINA DOWNS MD Jan 25, 2025 16:38
--- NOTE | 2025-01-25 18:13 | DVHPN2 ---
Progress Note - Dictate Date Seen: Jan 25, 2025 Medical Necessity Reason Pt with a Central, PICC or Fol: No vital signs Vital Sign Date Time Temp Pulse Resp B/P (MAP) Pulse Ox O2 Delivery O2 Flow Rate FiO2 01/25/25 17:00 97.7 73 18 107/63 (78) 89 97.7 01/25/25 11:33 Nasal Cannula 2.0 01/25/25 11:33 28 Total Intake and Output 01/24/25 01/24/25 01/25/25 15:00 23:00 07:00 Intake Total 480 ml 600 ml Output Total 450 ml Balance -450 ml 480 ml 600 ml medications Current Medications Medications Dose Ordered Sig/Nitin Route Start Time Stop Time Status Last Admin Dose Admin Furosemide 20 mg DAILY IV 01/21/25 10:00 01/25/25 08:43 20 MG Atorvastatin Calcium 20 mg HS PO 01/21/25 22:00 01/24/25 21:32 20 MG Gabapentin 300 mg TID PO 01/21/25 06:00 01/25/25 13:38 300 MG Clopidogrel Bisulfate 75 mg DAILY PO 01/21/25 10:00 01/25/25 08:43 75 MG Metoprolol Succinate 25 mg DAILY PO 01/21/25 10:00 01/25/25 08:44 25 MG Ceftriaxone Sodium 50 ml @ 100 mls/hr DAILY@2100 IV 01/21/25 21:00 01/24/25 21:33 100 MLS/HR Azithromycin 250 ml @ 125 mls/hr DAILY IV 01/21/25 10:00 Hold Methylprednisolone Sodium Succinate 40 mg BID IV 01/21/25 10:00 01/25/25 08:42 40 MG Acetaminophen/ Hydrocodone Bitart 1 tab Q4HP PRN PO 01/21/25 00:00 Temazepam 15 mg QHSP PRN PO 01/21/25 00:00 Ondansetron HCl 4 mg Q4HP PRN IV 01/21/25 00:00 Enoxaparin Sodium 40 mg DAILY SC 01/21/25 10:00 01/25/25 08:43 40 MG Acetaminophen 650 mg Q6HP PRN PO 01/21/25 00:00 Nitroglycerin 0.4 mg Q5MINP PRN SL 01/21/25 00:00 Pantoprazole Sodium 40 mg DAILY IV 01/21/25 18:00 01/25/25 08:43 40 MG Albuterol 2.5 mg Q6H NEB 01/22/25 12:00 01/25/25 11:33 2.5 MG Ipratropium [place] 0.5 mg Q6H NEB 01/22/25 12:00 01/25/25 11:33 0.5 MG Morphine Sulfate 2 mg Q30M PRN IV 01/22/25 22:15 01/22/25 22:18 2 MG Morphine Sulfate 2 mg Q6HPRN PRN IV 01/22/25 22:15 Insulin Glargine 10 units HS SC 01/24/25 22:00 01/24/25 21:35 10 UNITS Diagnostic Test (Pha) 1 strip IQ4HR 01/24/25 20:00 01/25/25 16:05 1 STRIP Insulin Human Regular IQ4HR SC 01/24/25 20:00 01/25/25 16:25 12 UNITS Dextrose 50 ml UD PRN IV 01/24/25 20:00 laboratory and microbiology Laboratory Tests 01/25/25 05:24 Test 01/25/25 05:24 Range/Units Serum Glucose 147 H 74-106 mg/dL Assessment/Plan Acute hypoxemic respiratory failure Lung cancer Right-sided pleural effusion Atelectasis Patient seen and examined Events Low oxygen requirements S/p thoracentesis yesterday No acute events Management plan Otherwise continue supportive care Steroids with taper Antibiotics/bronchodilators Oxygen as needed Okay to discharge from pulmonary standpoint DVT prophylaxis Dietary Evaluation Review Comments: 1) Continue 60g CCHO cardiac diet 2) Encourage optimal PO intake 3) Follow-up with cardiology, pulmonology, and oncology 4) Continue to monitor I&O, labs, and skin integrity Expected Outcomes/Goals: 1) appetite and labs to improve 2) f/u in 3-5 days Plan discussed with: Patient CANDIDO TORIBIO MD Jan 25, 2025 18:13
[2025-01-26] VITALS (13 sets, daily range): BP systolic 113–124; BP diastolic 75–86; PULSE 67–79; RESP 6–20; TEMP 97.5–98.3; O2SAT 92–100
[2025-01-26] MEDS: AZITHROMYCIN 500MG/ 250ML 250 ML IV SCH (10:34)
--- NOTE | 2025-01-26 15:40 | DVHPN2 ---
Progress Note - Dictate Date Seen: Jan 26, 2025 Medical Necessity Reason Pt with a Central, PICC or Fol: No vital signs Vital Sign Date Time Temp Pulse Resp B/P (MAP) Pulse Ox O2 Delivery O2 Flow Rate FiO2 01/26/25 11:30 75 12 100 01/26/25 10:36 113/79 01/26/25 09:00 97.5 97.5 01/26/25 08:00 Room Air* 2 N/A Nasal Cannula* Total Intake and Output 01/25/25 01/25/25 01/26/25 15:00 23:00 07:00 Intake Total 940 ml 440 ml Balance 940 ml 440 ml medications Current Medications Medications Dose Ordered Sig/Nitin Route Start Time Stop Time Status Last Admin Dose Admin Furosemide 20 mg DAILY IV 01/21/25 10:00 01/26/25 10:36 20 MG Atorvastatin Calcium 20 mg HS PO 01/21/25 22:00 01/25/25 21:07 20 MG Gabapentin 300 mg TID PO 01/21/25 06:00 01/26/25 13:20 300 MG Clopidogrel Bisulfate 75 mg DAILY PO 01/21/25 10:00 01/26/25 10:34 75 MG Metoprolol Succinate 25 mg DAILY PO 01/21/25 10:00 01/26/25 10:35 25 MG Ceftriaxone Sodium 50 ml @ 100 mls/hr DAILY@2100 IV 01/21/25 21:00 01/25/25 21:20 100 MLS/HR Azithromycin 250 ml @ 125 mls/hr DAILY IV 01/21/25 10:00 01/26/25 10:34 125 MLS/HR Methylprednisolone Sodium Succinate 40 mg BID IV 01/21/25 10:00 01/26/25 10:33 40 MG Acetaminophen/ Hydrocodone Bitart 1 tab Q4HP PRN PO 01/21/25 00:00 Temazepam 15 mg QHSP PRN PO 01/21/25 00:00 Ondansetron HCl 4 mg Q4HP PRN IV 01/21/25 00:00 Enoxaparin Sodium 40 mg DAILY SC 01/21/25 10:00 01/26/25 10:37 40 MG Acetaminophen 650 mg Q6HP PRN PO 01/21/25 00:00 Nitroglycerin 0.4 mg Q5MINP PRN SL 01/21/25 00:00 Pantoprazole Sodium 40 mg DAILY IV 01/21/25 18:00 01/26/25 10:37 40 MG Albuterol 2.5 mg Q6H NEB 01/22/25 12:00 01/26/25 11:22 2.5 MG Ipratropium [place] 0.5 mg Q6H NEB 01/22/25 12:00 01/26/25 11:22 0.5 MG Morphine Sulfate 2 mg Q30M PRN IV 01/22/25 22:15 01/22/25 22:18 2 MG Morphine Sulfate 2 mg Q6HPRN PRN IV 01/22/25 22:15 Insulin Glargine 10 units HS SC 01/24/25 22:00 01/25/25 21:18 10 UNITS Diagnostic Test (Pha) 1 strip IQ4HR 01/24/25 20:00 01/26/25 11:23 1 STRIP Insulin Human Regular IQ4HR SC 01/24/25 20:00 01/26/25 11:23 3 UNITS Dextrose 50 ml UD PRN IV 01/24/25 20:00 laboratory and microbiology Laboratory Tests 01/25/25 05:24 Test 01/25/25 05:24 Range/Units Serum Glucose 147 H 74-106 mg/dL Assessment/Plan Acute hypoxemic respiratory failure Lung cancer Right-sided pleural effusion Atelectasis Patient seen and examined Events Low oxygen requirements S/p thoracentesis yesterday No distress Management plan Otherwise continue supportive care Steroids with taper Antibiotics/bronchodilators Oxygen as needed Okay to discharge from pulmonary standpoint DVT prophylaxis Dietary Evaluation Review Comments: 1) Continue 60g CCHO cardiac diet 2) Encourage optimal PO intake 3) Follow-up with cardiology, pulmonology, and oncology 4) Continue to monitor I&O, labs, and skin integrity Expected Outcomes/Goals: 1) appetite and labs to improve 2) f/u in 3-5 days Plan discussed with: Patient CANDIDO TORIBIO MD Jan 26, 2025 15:40
[2025-01-26] MEDS ORDERED: ALB5IS NEB (17:53)
[2025-01-26] MEDS ORDERED: METH4PAK PO (17:53)
[2025-01-26] MEDS ORDERED: NEBUMIS40 XX (17:53)
[2025-01-26] MEDS ORDERED: AZIT500T66 PO (17:53)
[2025-01-26] MEDS ORDERED: AUG875T PO (17:53)
== END 2025-01-26 18:30 | disposition home or self-care (01) | DRG 177 ==
LOC: EDUNIT# 18:19 → ER 18:19 → EDBD 18:19 → OVERFLOW 23:47 → TELE-WESTW 01-21 02:55
PROVIDERS: ADMIT Internal Medicine; ATTEND Internal Medicine
PROC: 0W993ZZ Drainage of Right Pleural Cavity, Percutaneous Approach (ICD-10-PCS; principal; 2025-01-24)
DX: J15.69 Pneumonia due to other Gram-negative bacteria (principal); I50.23 Acute on chronic systolic (congestive) heart failure; J96.21 Acute and chronic respiratory failure with hypoxia; C34.90 Malignant neoplasm of unspecified part of unspecified bronchus or lung; J98.11 Atelectasis; J91.8 Pleural effusion in other conditions classified elsewhere; I11.0 Hypertensive heart disease with heart failure; J15.9 Unspecified bacterial pneumonia; E78.5 Hyperlipidemia, unspecified; I25.10 Atherosclerotic heart disease of native coronary artery without angina pectoris; T38.0X5A Adverse effect of glucocorticoids and synthetic analogues, initial encounter; E11.65 Type 2 diabetes mellitus with hyperglycemia; E87.5 Hyperkalemia; Z95.1 Presence of aortocoronary bypass graft; Z86.73 Personal history of transient ischemic attack (TIA), and cerebral infarction without residual deficits; Z85.118 Personal history of other malignant neoplasm of bronchus and lung; Z80.1 Family history of malignant neoplasm of trachea, bronchus and lung; Z79.82 Long term (current) use of aspirin; Z79.899 Other long term (current) drug therapy
CPT/HCPCS: 32555; 36415; 36600; 71045; 71250; 71275; 74176; 80048; 80053; 81001; 82805; 82962; 83036; 83605; 83690; 83735; 83880; 85025; 93005; 94640; 96365; 96375; 97163; G0378; J1815; J2470